=== PATIENT | female | born 1940 | race Caucasian/White ===

== ENCOUNTER → 2016-10-31 | Outpatient (CLI) | payer OTHER ==
[~2016-10-31] MED LIST: CHOL100010 PO; CYAN10002 SC; CYAN500T13 PO; DOCU100T7 PO; FIBER PO; LEVO50TA6 PO; LEVO75TA PO; MAGN400T5 PO; METH1TAB2 PO; MULTCHW PO; POLY335025 PO; PRT40 PO; SENN-61 PO
[2016-10-31 10:54] LABS: BASO % 0.1 %; BASO ABS # 0.01 K/uL (0-0.2); COMPLETE YES; EOS % 1.1 %; HEMATOCRIT 37.5 % (37-47); IG% 0.3 %; LYMPH % 22.5 %; LYMPH ABS # 1.63 K/uL (1.2-3.4); MEAN CELL VOLUME 89.7 fL (80-100); MEAN CORPUSCULAR HEMOGLOBIN 28.5 pg (25-34); MEAN CORPUSCULAR HGB CONC 31.7 g/dl (32-36); MEAN PLATELET VOLUME 10.4 fL (7.4-10.4); PLATELET COUNT 339 K/uL (130-400); RED BLOOD COUNT 4.18 M/uL (4.2-5.4); WHITE BLOOD COUNT 7.23 K/uL (4.8-10.8)
[2016-10-31 11:24] LABS: ALT/SGPT 15 U/L (12-78); BLOOD UREA NITROGEN 50 mg/dl (7-18); BUN/CREATININE RATIO 45.7 (10-20); CALCIUM 8.8 mg/dl (8.5-10.1); CARBON DIOXIDE 27 mmol/L (21-32); CHLORIDE 103 mmol/L (98-107); GLUCOSE 91 mg/dl (70-99); SODIUM 137 mmol/L (136-145)
[2016-10-31 11:26] LABS: ALB/GLOB RATIO 0.7 (0.9-2); ALKALINE PHOSPHATASE 307 U/L (45-117); AST/SGOT 12 U/L (15-37)
== END | disposition home or self-care (01) ==
LOC: C.LABSPEC 10:27
PROVIDERS: ATTEND Internal Medicine
DX: Z87.440 Personal history of urinary (tract) infections (principal); N31.9 Neuromuscular dysfunction of bladder, unspecified; I69.951 Hemiplegia and hemiparesis following unspecified cerebrovascular disease affecting right dominant side; E03.9 Hypothyroidism, unspecified; R19.7 Diarrhea, unspecified

== ENCOUNTER 2018-12-15 11:35 | Inpatient (IN) ==
[2018-12-15] MEDS ORDERED: SODIUM CHLORIDE 0.9% 1000ML 1,000 ML IV ONE (12:05)
[2018-12-15 12:19] LABS: Appearance Urine Turbid (Clear); Bacteria Urine Automated 4+ (Negative); Bilirubin Urine Negative (Negative); Blood Urine Trace (Negative); Color Urine Yellow; Epithelial Cell Urine Auto >30 /lpf (0-5); Glucose Urine UA Negative (Negative); Ketones Urine Negative (Negative); Leukocyte Esterase Urine 3+ (Negative); Nitrite Urine Negative (Negative); Protein Urine Negative (Negative); RBC Urine Automated 0-4 /hpf (0-4); Specific Gravity Urine 1.008 (1.000-1.030); Urobilinogen Urine Negative (Negative); WBC Urine Automated >30 /hpf (0-5); pH Urine >= 9.0 (4.5-7.5)
[2018-12-15 12:30] LABS: Mean Corpuscular Hemoglobin 29.6 pg (25-34); Mean Corpuscular Hgb Conc 33.3 g/dL (32-36); Mean Corpuscular Volume 88.8 fL (80-100); RDW Coefficient of Variation 18.8 % (11.5-14.5); RDW Standard Deviation 60.4 fL (36.4-46.3); Red Blood Count 4.39 M/uL (4.2-5.4); White Blood Count 4.28 K/uL (4.8-10.8)
[2018-12-15 12:41] LABS: Partial Thromboplastin Ratio 1.2; Partial Thromboplastin Time 32.6 Seconds (21.0-31.0); Prothrombin Time 9.9 Seconds (9.0-12.0)
--- NOTE | 2018-12-15 12:44 | XRay Report ---
XR chest 1V portable CLINICAL HISTORY: 78 years-old Female presenting with cva. TECHNIQUE: Portable upright AP view of the chest was obtained. COMPARISON: 06/16/2014. FINDINGS: Atherosclerosis of the aortic arch. Cardiac silhouette normal in size. Mildly low lung volumes. Minim al basilar opacities. No pleural effusion or pneumothorax. Degenerative changes of the thoracic spine and left shoulder. Surgical clips project over the left upper quadrant. IMPRESSION: 1. Minimal bibasilar opacities likely atelectasis or scarring. No convincing evidence of acute cardi opulmonary disease. Electronically signed by: Trent Jeffrey M.D. 12/15/2018 12:42 PM
[2018-12-15 12:45] LABS: Alanine Aminotransferase 23 U/L (12-78); Albumin Level 3.1 gm/dl (3.4-5.0); Aspartate Aminotransferase 21 U/L (15-37); BUN Creatinine Ratio 42.6 (10-20); Blood Urea Nitrogen 33 mg/dl (7-18); Calcium 9.8 mg/dl (8.5-10.1); Carbon Dioxide 30 mmol/L (21-32); Chloride 106 mmol/L (98-107); Creatinine Clr Calc Pharmacy 70.9 ml/min; Est GFR (African American) 84.4; Est GFR (Non-African American) 72.8; Glucose 76 mg/dl (70-99); Magnesium 1.6 mg/dl (1.8-2.4); Potassium 5.1 mmol/L (3.5-5.1); Sodium 141 mmol/L (136-145)
[2018-12-15 12:50] LABS: Albumin Globulin Ratio 0.7 (0.9-2); Alkaline Phosphatase 174 U/L (45-117); Bilirubin,Total 0.6 mg/dl (0.2-1); Globulin 4.2 gm/dl (2.5-4.0); Total Protein 7.3 gm/dl (6.4-8.2); Troponin I < 0.015 ng/ml (0-0.045)
[2018-12-15 12:52] LABS: Basophils # (auto) 0.01 K/uL (0-0.2); Basophils % (auto) 0.2 %; Eosinophils # (auto) 0.03 K/uL (0-0.5); Eosinophils % (auto) 0.7 %; Giant Platelets 2+; Immature Granulocytes # (auto) 0.02 K/uL (0.00-0.02); Immature Granulocytes % (auto) 0.5 %; Lymphocytes # (auto) 1.01 K/uL (1.2-3.4); Lymphocytes % (auto) 23.6 %; Mean Platelet Volume 11.5 fL (7.4-10.4); Monocytes # (auto) 0.23 K/uL (0.11-0.59); Monocytes % (auto) 5.4 %; Neutrophils # (auto) 2.98 K/uL (1.4-6.5); Neutrophils % (auto) 69.6 %; Platelet Count 97 K/uL (130-400); Platelet Estimate Decreased (Normal); Target Cells 1+
--- NOTE | 2018-12-15 13:02 | CT Scan Report ---
HEAD CT NONCONTRAST CT DOSE: 884.08 mGy.cm HISTORY: Stroke symptoms. Stroke evaluation TECHNIQUE: Multiaxial CT images of the head were performed without the use of intravenous contrast. A utomated exposure control was utilized for this study. A dose lowering technique was utilized adheri ng to the principles of ALARA. Comparison: Head CT 06/16/2014. Findings: The paranasal sinuses and mastoid air cells are clear. There is no mass, hematoma, midline shift, acute infarct. White matter hypodensity is nonspecific but suggestive of microvascular ischemi c change. The ventricles and sulci demonstrate mild age-related involutional changes. Postoperative c hanges consistent with prior left suboccipital craniectomy with an overlying metallic plate. No mon e in the metallic density anterior to the left globe. Stable encephalomalacia within the left cerebel lar hemisphere. This is likely due to postoperative change. Impression: No significant change compared to the prior study. No acute intracranial abnormality. Stable postoper ative changes within the left posterior fossa. Stable metallic foreign body anterior to the left glob e. Electronically signed by: Anthony Gonzalez M.D. 12/15/2018 1:00 PM
[2018-12-15] MEDS ORDERED: ALTEPLASE For Stroke IV STA (13:25)
[2018-12-15] MEDS ORDERED: ALTEPLASE BOLUS IV ONE (13:36)
[2018-12-15] MEDS ORDERED: PRIMARY PLUMSET, PE LINED TUBING, 113 IN, NON-DEHP (2260-0500) IV ONE (13:37)
[2018-12-15] MEDS ORDERED: ALTEPLASE IV ONE (13:37)
[2018-12-15] MEDS ORDERED: RECOMBINANT IV ONE (13:37)
[2018-12-15] MEDS ORDERED: cefTRIAXone SODIUM 1,000 MG/50 ML BAG IV STA (15:05)
[2018-12-15] MEDS ORDERED: MAGNESIUM HYDROXIDE SUSP 30 ML UDC PO PRN (16:22)
[2018-12-15] MEDS ORDERED: ALUMINUM/MAGNESIUM SUSP 30 ML UDC PO PRN (16:22)
[2018-12-15] MEDS ORDERED: ACETAMINOPHEN 325 MG TAB PO PRN (16:22)
[2018-12-15] MEDS ORDERED: POLYETHYLENE (MIRALAX) 17 GM PACK PO PRN (16:22)
[2018-12-15] MEDS ORDERED: ZOLPIDEM TARTRATE 5 MG TAB PO PRN (16:22)
[2018-12-15] MEDS ORDERED: HydrALAZINE HCL 20 MG/ML VIAL IV PRN (16:25)
[2018-12-15] MEDS ORDERED: MENTHOL-ZINC OXIDE 360 APPLN/120 GM TUBE EXT PRN (16:37)
[2018-12-15] MEDS ORDERED: NYSTATIN POWDER 15GM BTL EXT PRN (16:37)
[2018-12-15] MEDS ORDERED: ERYTHROMYCIN OP OINT 1 GM PKT OP PRN (16:37)
[2018-12-15] MEDS ORDERED: WHEAT DEXTRIN PO PRN (16:37)
[2018-12-15] MEDS ORDERED: POLYETHYLENE GLYCOL PO PRN (16:37)
[2018-12-15] MEDS ORDERED: [UNRECOGNIZED DRUG - OTHER] TOP PRN (16:37)
[2018-12-15] MEDS ORDERED: DOCUSATE SODIUM/SENNA 50/8.6MG TAB PO PRN (16:37)
[2018-12-15] MEDS ORDERED: ASPIRIN CHEW 324 MG PO STA (16:44)
--- NOTE | 2018-12-15 17:02 | History & Physical Report ---
Date of Service December 15, 2018 Assessment & Plan (1) Progressive focal motor weakness: Admit to telemetry Vitals and neuro check as per protocol Gentle IV fluid hydration Concern for CVA We will start empirically aspirin and Lipitor Will allow blood pressure to be elevated, permissive hypertension to improve perfusion Hydralazine 10 mg IV every 6 hours as needed systolic blood pressure more than 185 CT head was within normal limits Ordered CT angiogram head and neck Ordered MRI with and without contrast in the morning as patient has strong family history of ALS, her brother from ALS last year. Consult neurologist (2) Facial droop: Worse than before, management as mentioned in focal weakness (3) Slurred speech: Worse than before management as mentioned in focal weakness (4) Hyperlipidemia: Check lipids panel and hemoglobin A1c to stratify patient's risk factors Start empirically on Lipitor (5) Vitamin B 12 deficiency: Will check vitamin B12 level Continue vitamin B12 supplement (6) UTI (urinary tract infection): UTI present on admission likely indwelling catheter related Obtain urine culture and blood cultures Based on last urine culture in September 2018 that grew Klebsiella and E. coli pansensitive, will start patient on ceftriaxone. We will add lactobacillus to prevent C. 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 Patient was recently admitted for a UTI, urine cultures in September 2018 grew Klebsiella and E. coli pansensitive. She changes her Irene catheter every 2 weeks, last changed was about 4 days ago. Patient's home nurse noticed that she has progressive weakness, unable to hold the phone like she used to, she started to having drooling from her mouth, unable to fulfill simple tasks that she used to do with her hands. Patient was brought to the ED for further evaluation and management. Her deterioration happened over the. Of 2 weeks so code stroke was not called. She was found to have significant weakness is both upper extremities and significant worsening in her slurred speech as per and niece who are are in the room with her. Primary Care Provider: Trent Manuel MD Allergies Allergy/AdvReac Type Severity Reaction Status Date / Time raspberry Allergy Unknown RASH Unverified 06/16/14 09:25 strawberry Allergy Unknown redness,rash Verified 06/16/14 05:08 on abdomen Home Medications Home Medications Medication Instructions Recorded Confirmed Type methenamine hippurate 1 gram tablet 1 gm PO BID #180 tab 10/12/18 12/15/18 Rx miscellaneous medical supply misc #6 ea 10/27/18 11/12/18 Rx cholecalciferol (vitamin D3) 2,000 2,000 units PO DAILY tab 10/31/18 12/15/18 History unit tablet cyanocobalamin (vit B-12) 250 mcg 250 mcg PO QAM 10/31/18 12/15/18 History tablet docusate sodium 100 mg capsule 100 mg PO BID 10/31/18 12/15/18 History foam bandage 4" X 4" #1 ea 10/31/18 11/12/18 History magnesium oxide 400 mg (241.3 mg 400 mg PO DAILY tab 10/31/18 12/15/18 History magnesium) tablet menthol 0.44 %-zinc oxide 20.6 % 1 appln TOPICAL BID PRN #1 gm 10/31/18 12/15/18 History topical ointment pantoprazole 40 mg tablet,delayed 40 mg PO QAM #90 tab 10/31/18 12/15/18 History release polyethylene glycol 3350 17 17 gm PO DAILY PRN #527 gm 10/31/18 12/15/18 History gram/dose oral powder collagenase clostridium 1 appln TOPICAL DAILY PRN #1 gm 11/09/18 12/15/18 Histo ry histolyticum 250 unit/gram topical ointment erythromycin 5 mg/gram (0.5 %) eye 1 cm OP QID PRN #3.5 gm 11/09/18 12/15/18 History ointment sennosides 8.6 mg-docusate sodium 1 tab PO DAILY PRN tab 11/09/18 12/15/18 History 50 mg tablet wheat dextrin 3 gram/3.5 gram oral 1 pkt PO DAILY PRN ea 11/09/18 12/15/18 History powder packet cyanocobalamin (vit B-12) 1,000 1,000 mcg IM MONTHLY #10 ml 11/12/18 12/15/18 Rx mcg/mL injection solution nystatin 100,000 unit/gram topical 1 appln TOPICAL QID PRN #60 gm 11/12/18 12/15/18 Rx powder syringe with needle 3 mL 25 x 5/8" #12 ea 11/12/18 11/12/18 Rx levothyroxine 75 mcg PO QAM 12/15/18 12/15/18 History Past Med/Surg History Medical History Alkaline phosphatase elevation (Acute) Arthritis (Chronic) Candidal intertrigo (Acute) Chronic constipation (Acute) Decubitus ulcer, buttock (Acute) Hearing loss (Acute) Hyperlipidemia (Chronic) Nephrolithiasis (Acute) Vitamin B 12 deficiency (Acute) Wheelchair dependent (Acute) Family History Unknown Diabetes Hypertension Chronic liver disease Social History Feels Safe at Home: Yes Smoking Status: Never smoker caffeine: No Seatbelt Use: always Review of Systems Review of Systems: Review of system Constitutional: No fever / no chills /generalized weakness and fatigue as mentioned above Eyes: Baseline dryness of left eye with corneal opacity ENT: Baseline decreased hearing Respiratory: no cough / no wheezing / no SOB / no hemoptysis Cardiovascular: no Chest pain / no lower extremity edema / no palpitation Abdomen: no pain / no nausea / no vomiting / no constipation Musculoskeletal: Joint deformities in both upper extremities Genitourinary: Indwelling Irene catheter, Neurologic: Awake oriented, but has significant worsening in her weakness Psychiatric: no depression symptoms / no anxiety / no insomnia Endocrine: no excessive thirst / no excessive urination Hematologic: no abnormal bleeding / no bruising / no LN swelling Skin: scattered petechial rash Physical Exam Physical Exam: Physical examination General morbidly obese, appears to be comfortable not in acute distress HEENT: Scar tissue on the left frontal aspect of the face with dry eye and corneal opacity Neck: Supple /no swelling /central trach Heart: S1/S2 normal/regular rate and rhythm/no gallop /no rub /no murmur Lungs: Clear to auscultation bilaterally/normal chest with expansion/no rhonchi/no rales/no wheezing/no use of accessory muscles of respiration Abdomen: Soft/nontender/no guarding/no rebound/no organomegaly/no pulsatile mass Musculoskeletal: And feet significant deformity in both hands Neuro exam: Awake alert oriented 3/slight movement in all extremities but significant weakness in both upper extremity 3/5, lower extremities weakness is 2/5 did not notice significant difference between right and left Psychiatric evaluation: No depressed mood/normal affect Skin: No rash on exposed skin area/no erythema Extremity: Normal pulse/no pitting edema/no clubbing or cyanosis Results & Data Vital Signs (Past 12 Hours) Vital Signs Temp Pulse Pulse Resp BP BP Pulse Ox 12/15/18 14:05 36.4 C L 63 14 182/92 H 97 12/15/18 11:57 96 12/15/18 11:49 64 17 191/102 H 96 PG Care Time/CCT Total # of Minutes Spent Total Time Spent with Patient: 35 minutes total time spent is greater than 50% in coordination of care (as documented) at patient's floor/unit and/or counseling patient/family discussion of care with nursing staff
--- NOTE | 2018-12-15 17:14 | Emergency Department Note ---
Entered by Sarita Ngo acting as a scribe for Kvng Demarco DO History of Present Illness General Chief complaint: Stroke/CVA Symptoms Source: patient and family () Mode of arrival: EMS Limitations: no limitations History of Present Illness Onset (ago): week(s) 1 Location: head Radiation: non-radiation Pain Consistency: + constant Relieved By: + none Exacerbated By: + none Associated symptoms: + loss of appetite, + weakness and + other (+left sided facial droop, -dysuria, +slurred speech); no chest pain, no headaches, no nausea/vomiting and no shortness of breath Treatments prior to arrival: none The patient is a 78 year old female with a PMHX of brain tumor, kidney stones, GI bleed and HLD who presents to the ED with complaints of possible stroke symptoms. Ever since her brain tumor in 2006, she has experienced a left sided facial droop and weakness. Last week, the patient developed slurred speech and increased weakness and a loss of appetite, which is new for her. The patient denies any new headaches, chest pain, shortness of breath, nausea or vomiting. She denies any dysuria and her notes she has a catheter that is replaced every other week. She states she does not feel hungry and reports her last BM was 10 days ago. She denies any difficulty swallowing. Home Medications Home Medications Medication Instructions Recorded Confirmed Type methenamine hippurate 1 gram tablet 1 gm PO BID #180 tab 10/12/18 12/15/18 Rx miscellaneous medical supply misc #6 ea 10/27/18 11/12/18 Rx cholecalciferol (vitamin D3) 2,000 2,000 units PO DAILY tab 10/31/18 12/15/18 History unit tablet cyanocobalamin (vit B-12) 250 mcg 250 mcg PO QAM 10/31/18 12/15/18 History tablet docusate sodium 100 mg capsule 100 mg PO BID 10/31/18 12/15/18 History foam bandage 4" X 4" #1 ea 10/31/18 11/12/18 History magnesium oxide 400 mg (241.3 mg 400 mg PO DAILY tab 10/31/18 12/15/18 History magnesium) tablet menthol 0.44 %-zinc oxide 20.6 % 1 appln TOPICAL BID PRN #1 gm 10/31/18 12/15/18 History topical ointment pantoprazole 40 mg tablet,delayed 40 mg PO QAM #90 tab 10/31/18 12/15/18 History release polyethylene glycol 3350 17 17 gm PO DAILY PRN #527 gm 10/31/18 12/15/18 History gram/dose oral powder collagenase clostridium 1 appln TOPICAL DAILY PRN #1 gm 11/09/18 12/15/18 History histolyticum 250 unit/gram topical ointment erythromycin 5 mg/gram (0.5 %) eye 1 cm OP QID PRN #3.5 gm 11/09/18 12/15/18 History ointment sennosides 8.6 mg-docusate sodium 1 tab PO DAILY PRN tab 11/09/18 12/15/18 History 50 mg tablet wheat dextrin 3 gram/3.5 gram oral 1 pkt PO DAILY PRN ea 11/09/18 12/15/18 History powder packet cyanocobalamin (vit B-12) 1,000 1,000 mcg IM MONTHLY #10 ml 11/12/18 12/15/18 Rx mcg/mL injection solution nystatin 100,000 unit/gram topical 1 appln TOPICAL QID PRN #60 gm 11/12/18 12/15/18 Rx powder syringe with needle 3 mL 25 x 5/8" #12 ea 11/12/18 11/12/18 Rx levothyroxine 75 mcg PO QAM 12/15/18 12/15/18 History Allergies Allergy/AdvReac Type Severity Reaction Status Date / Time raspberry Allergy Unknown RASH Unverified 06/16/14 09:25 strawberry Allergy Unknown redness,rash Verified 06/16/14 05:08 on abdomen Past Med/Surg History Medical History Alkaline phosphatase elevation (Acute) Arthritis (Chronic) Candidal intertrigo (Acute) Chronic constipation (Acute) Decubitus ulcer, buttock (Acute) Hearing loss (Acute) Hyperlipidemia (Chronic) Nephrolithiasis (Acute) Vitamin B 12 deficiency (Acute) Wheelchair dependent (Acute) Family History Unknown Diabetes Hypertension Chronic liver disease Social History Feels Safe at Home: Yes Smoking Status: Never smoker caffeine: No Seatbelt Use: always Review of Systems See HPI for pertinent positives & negatives. and A total of 10 systems reviewed and were otherwise negative Physical Exam Vital Signs Vital Signs - 24 hr 12/15/18 11:49 12/15/18 11:57 12/15/18 14:05 Temperature 36.4 C L Temperature Source Axillary Sepsis Recent Fever Within 48 Hours No Sepsis Action Taken by Nursing No Action Required Pulse Rate 64 Pulse Rate [Finger] 63 Respiratory Rate 17 14 Blood Pressure 191/102 H Blood Pressure [Right Arm] 182/92 H Blood Pressure Mean 131 Blood Pressure Mean [Right Arm] 122 Pulse Oximetry 96 96 97 Oxygen Delivery Method Room Air Room Air GENERAL: Patient is sitting up in bed, chronically ill-appearing, disheveled. EYE EXAM: Left eye is opacified, right pupil is PERRL. OROPHARYNX: no exudate, no erythema, lips, buccal mucosa, and tongue normal and mucous membranes are moist NECK: supple, no nuchal rigidity, no adenopathy, non-tender LUNGS: Clear to auscultation. Normal chest wall mechanics HEART: no murmurs, S1 normal and S2 normal ABDOMEN: abdomen soft, non-tender, normo-active bowel sounds, no masses, no rebound or guarding. BACK: Back is symmetrical on inspection and there is no deformity, no midline tenderness, no CVA tenderness. SKIN: no rashes and no bruising UPPER EXTREMITIES: upper extremities are grossly normal. LOWER EXTREMITIES: No pitting edema. NEURO EXAM: Patient is awake, alert, answering questions appropriately with slurred speech, right sided facial droop, minimal plantar and dorsiflexion of LLE, patient is able to lift up against gravity and small grasp on LUE, unable to move RLE, faint movement of right upper extremity. Course ED COURSE: Vital signs were reviewed and showed the patient is hypertensive. The patients medical record was reviewed The above diagnostic studies were performed and reviewed. ED treatments and interventions as stated above. 1200: The patient was evaluated in room C2B. A complete history and physical examination was performed. 1440: I reevaluated the patient. Her slurred speech is worse. 1520: I discussed the patients case with Dr. Rosalina Fowler, [facility] Hospitalist. The patient will be further evaluated. 1530: Upon reevaluation, the patient is resting comfortably. I discussed my findings with the patient and she understands and agrees with the treatment plan. Based on the patients age, coexisting illnesses, exam and lab findings the decision to treat as an inpatient was made. The patient remained stable while under my care. The patient will be evaluated for further management. Administered Medications Discontinued Medications Sodium Chloride (Nss 1000ml) 1,000 mls @ 999 mls/hr IV .Q1H1M ONE Stop: 12/15/18 13:05 Last Infusion: 12/15/18 13:43 Dose: 0 mls/hr Documented by: [id number] Admin: 12/15/18 12:40 Dose: 999 mls/hr Documented by: [id number] Ceftriaxone Sodium (Rocephin) 1,000 mg in 50 mls @ 100 mls/hr IV NOW STA Stop: 12/15/18 15:34 Last Infusion: 12/15/18 15:46 Dose: 0 mls/hr Documented by: [id number] Admin: 12/15/18 15:14 Dose: 100 mls/hr Documented by: [id number] Medical Decision Making Differential Diagnosis Differential Diagnosis includes but is not limited to ischemic Stroke, hemorrhagic stroke, bells palsy, mass, neoplasm, migraine headache, seizure, subarachnoid hemorrhage, TIA, and transient global amnesia. Medical Records Attestation: I reviewed the patient's medical records. Home Medications Current Medication List: was personally reviewed by me Laboratory Data Attestation: I reviewed the patient's lab results. Result diagrams: 12/15/18 12:18 12/15/18 12:18 Lab Results 12/15/18 12/15/18 12/15/18 Range/Units 11:42 12:11 12:17 WBC (4.8-10.8) K/uL RBC (4.2-5.4) M/uL Hgb (12.0-16.0) g/dL Hct (37-47) % MCV (80-100) fL MCH (25-34) pg MCHC (32-36) g/dL RDW Std Deviation (36.4-46.3) fL RDW Coeff of [place] (11.5-14.5) % Plt Count (130-400) K/uL MPV (7.4-10.4) fL Immature Gran % (Auto) % Neut % (Auto) % Lymph % (Auto) % [place] % (Auto) % Eos % (Auto) % Baso % (Auto) % Immature Gran # (Auto) (0.00-0.02) K/uL Neut # (Auto) (1.4-6.5) K/uL Lymph # (Auto) (1.2-3.4) K/uL [place] # (Auto) (0.11-0.59) K/uL Eos # (Auto) (0-0.5) K/uL Baso # (Auto) (0-0.2) K/uL Platelet Estimate (Normal) Giant Platelets Target Cells PT (9.0-12.0) Seconds INR (0.9-1.1) APTT (21.0-31.0) Seconds PTT Ratio Sodium (136-145) mmol/L Potassium (3.5-5.1) mmol/L Chloride (98-107) mmol/L Carbon Dioxide (21-32) mmol/L Anion Gap (3-11) BUN (7-18) mg/dl Creatinine (0.6-1.2) mg/dl Est Cr Clr Drug Dosing ml/min Est GFR ( Amer) Est GFR (Non-Af Amer) BUN/Creatinine Ratio (10-20) Glucose (70-99) mg/dl POC Glucose 75 (70-99) Calcium (8.5-10.1) mg/dl Magnesium (1.8-2.4) mg/dl Total Bilirubin (0.2-1) mg/dl AST (15-37) U/L ALT (12-78) U/L Alkaline Phosphatase (45-117) U/L Troponin I (0-0.045) ng/ml Total Protein (6.4-8.2) gm/dl Albumin (3.4-5.0) gm/dl Globulin (2.5-4.0) gm/dl Albumin/Globulin Ratio (0.9-2) Urine Color Yellow Urine Appearance Turbid A (Clear) Urine pH >= 9.0 H (4.5-7.5) Ur Specific [place] 1.008 (1.000-1.030) Urine Protein Negative (Negative) Urine Glucose (UA) Negative (Negative) Urine Ketones Negative (Negative) Urine Blood Trace H (Negative) Urine Nitrite Negative (Negative) Urine Bilirubin Negative (Negative) Urine Urobilinogen Negative (Negative) Ur Leukocyte Esterase 3+ H (Negative) Urine WBC (Auto) >30 H (0-5) /hpf Urine RBC (Auto) 0-4 (0-4) /hpf U Hyaline Cast (Auto) 1-5 (0-5) /lpf U Epithel Cells (Auto) >30 H (0-5) /lpf Urine Bacteria (Auto) 4+ H (Negative) Blood Type A Positive Antibody Screen NEGATIVE 12/15/18 12/15/18 12/15/18 Range/Units 12:18 12:18 12:18 WBC 4.28 L (4.8-10.8) K/uL RBC 4.39 (4.2-5.4) M/uL Hgb 13.0 (12.0-16.0) g/dL Hct 39.0 (37-47) % MCV 88.8 (80-100) fL MCH 29.6 (25-34) pg MCHC 33.3 (32-36) g/dL RDW Std Deviation 60.4 H (36.4-46.3) fL RDW Coeff of [place] 18.8 H (11.5-14.5) % Plt Count 97 L (130-400) K/uL MPV 11.5 H (7.4-10.4) fL Immature Gran % (Auto) 0.5 % Neut % (Auto) 69.6 % Lymph % (Auto) 23.6 % [place] % (Auto) 5.4 % Eos % (Auto) 0.7 % Baso % (Auto) 0.2 % Immature Gran # (Auto) 0.02 (0.00-0.02) K/uL Neut # (Auto) 2.98 (1.4-6.5) K/uL Lymph # (Auto) 1.01 L (1.2-3.4) K/uL [place] # (Auto) 0.23 (0.11-0.59) K/uL Eos # (Auto) 0.03 (0-0.5) K/uL Baso # (Auto) 0.01 (0-0.2) K/uL Platelet Estimate Decreased L (Normal) Giant Platelets 2+ Target Cells 1+ PT 9.9 (9.0-12.0) Seconds INR 1.0 (0.9-1.1) APTT 32.6 H (21.0-31.0) Seconds PTT Ratio 1.2 Sodium 141 (136-145) mmol/L Potassium 5.1 (3.5-5.1) mmol/L Chloride 106 (98-107) mmol/L Carbon Dioxide 30 (21-32) mmol/L Anion Gap 5.0 (3-11) BUN 33 H (7-18) mg/dl Creatinine 0.78 (0.6-1.2) mg/dl Est Cr Clr Drug Dosing 70.9 ml/min Est GFR ( Amer) 84.4 Est GFR (Non-Af Amer) 72.8 BUN/Creatinine Ratio 42.6 H (10-20) Glucose 76 (70-99) mg/dl POC Glucose (70-99) Calcium 9.8 (8.5-10.1) mg/dl Magnesium 1.6 L (1.8-2.4) mg/dl Total Bilirubin 0.6 (0.2-1) mg/dl AST 21 (15-37) U/L ALT 23 (12-78) U/L Alkaline Phosphatase 174 H (45-117) U/L Troponin I < 0.015 (0-0.045) ng/ml Total Protein 7.3 (6.4-8.2) gm/dl Albumin 3.1 L (3.4-5.0) gm/dl Globulin 4.2 H (2.5-4.0) gm/dl Albumin/Globulin Ratio 0.7 L (0.9-2) Urine Color Urine Appearance (Clear) Urine pH (4.5-7.5) Ur Specific [place] (1.000-1.030) Urine Protein (Negative) Urine Glucose (UA) (Negative) Urine Ketones (Negative) Urine Blood (Negative) Urine Nitrite (Negative) Urine Bilirubin (Negative) Urine Urobilinogen (Negative) Ur Leukocyte Esterase (Negative) Urine WBC (Auto) (0-5) /hpf Urine RBC (Auto) (0-4) /hpf U Hyaline Cast (Auto) (0-5) /lpf U Epithel Cells (Auto) (0-5) /lpf Urine Bacteria (Auto) (Negative) Blood Type Antibody Screen Imaging Data Radiologist's Impression: Radiology results as stated below per my review and the radiologist's interpretation: XR chest 1V portable CLINICAL HISTORY: 78 years-old Female presenting with cva. TECHNIQUE: Portable upright AP view of the chest was obtained. COMPARISON: 06/16/2014. FINDINGS: Atherosclerosis of the aortic arch. Cardiac silhouette normal in size. Mildly low lung volumes. Minimal basilar opacities. No pleural effusion or pneumothorax. Degenerative changes of the thoracic spine and left shoulder. Surgical clips project over the left upper quadrant. IMPRESSION: 1. Minimal bibasilar opacities likely atelectasis or scarring. No convincing evidence of acute cardiopulmonary disease. Electronically signed by: Trent Jeffrey M.D. 12/15/2018 12:[address] NONCONTRAST CT DOSE: 884.08 mGy.cm HISTORY: Stroke symptoms. Stroke evaluation TECHNIQUE: Multiaxial CT images of the head were performed without the use of intravenous contrast. Automated exposure control was utilized for this study. A dose lowering technique was utilized adhering to the principles of ALARA. Comparison: Head CT 06/16/2014. Findings: The paranasal sinuses and mastoid air cells are clear. There is no mass, hematoma, midline shift, acute infarct. White matter hypodensity is nonspecific but suggestive of microvascular ischemic change. The ventricles and sulci demonstrate mild age-related involutional changes. Postoperative changes consistent with prior left suboccipital craniectomy with an overlying metallic plate. No change in the metallic density anterior to the left globe. Stable encephalomalacia within the left cerebellar hemisphere. This is likely due to postoperative change. Impression: No significant change compared to the prior study. No acute intracranial abnormality. Stable postoperative changes within the left posterior fossa. Stable metallic foreign body anterior to the left globe. Electronically signed by: Anthony Gonzalez M.D. 12/15/2018 1:00 PM ECG Data Attestation: I personally reviewed and interpreted this ECG as follows: Indication: weakness Rate (beats per minute): 62 Rhythm: sinus rhythm Findings: + other (Normal axis) and + nonspecific-ST abn (Non-specific ST changes in high lateral leads with T-wave flattening in lateral leads) Comparison ECG Date: from (06/12/2014) Change: no significant change Blood Pressure Blood Pressure Findings: Elevated blood pressure Blood Pressure Disposition: further management by hospitalist MDM Narrative Patient is a 78-year-old female who presents the ER for worsening right-sided facial droop associated with slurred speech. Previous brain surgery with an old right-sided and left-sided deficit. No new weakness or numbness in her upper or lower extremities. IV was established blood work was obtained showed a mild leukopenia. No significant anemia. INR was unremarkable. BMP along with LFTs was unremarkable. Magnesium was slightly low at 1.6. No significant transaminitis. UA although contaminated I do question if that is the source of her weakness. Patient was given a dose of IV Rocephin. She is updated bedside. CT head was negative. EKG was nondiagnostic. She was discussed with hospitalist she was admitted for further work-up. Chest x-ray without any focal infiltrate. Impression & Plan Facial droop, Slurred speech, UTI (urinary tract infection) Discharge Plan Visit Data Chief Complaint: Stroke/CVA Symptoms ED Provider: Kvng Demarco Discharge Problem: Facial droop, Slurred speech, UTI (urinary tract infection) Patient Disposition: Being Evaluated by Hospitalist Forms Stand Alone Forms: [facility] Prescriptions Prescriptions: No Action methenamine hippurate 1 gram tablet 1 gm PO BID Qty: 180 RF: 3 miscellaneous medical supply misc .ROUTE .MEDSUPPLY Qty: 6 RF: 11 cholecalciferol (vitamin D3) 2,000 unit tablet 2,000 units PO DAILY RF: 0 polyethylene glycol 3350 17 gram/dose powder 17 gm PO DAILY PRN (Reason: chronic constipation) Qty: 527 RF: 0 pantoprazole 40 mg tablet,delayed release (DR/EC) 40 mg PO QAM Qty: 90 RF: 0 magnesium oxide 400 mg (241.3 mg magnesium) tablet 400 mg PO DAILY RF: 0 cyanocobalamin (vitamin B-12) 250 mcg tablet 250 mcg PO QAM RF: 0 docusate sodium 100 mg capsule 100 mg PO BID RF: 0 menthol-zinc oxide 0.44-20.6 % ointment 1 appln topical BID PRN (Reason: decubitus ulcer) Qty: 1 RF: 0 Aquacel Foam 4 X 4 " bandage .ROUTE .MEDSUPPLY Qty: 1 RF: 0 wheat dextrin 3 gram/3.5 gram powder in packet 1 pkt PO DAILY PRN (Reason: Constipation) RF: 0 erythromycin 5 mg/gram (0.5 %) ointment 1 cm OP QID PRN (Reason: conjunctivitis) Qty: 3.5 RF: 0 collagenase clostridium histo. 250 unit/gram ointment 1 appln topical DAILY PRN (Reason: ulcers) Qty: 1 RF: 0 sennosides-docusate sodium 8.6-50 mg tablet 1 tab PO DAILY PRN (Reason: Constipation) RF: 0 nystatin 100,000 unit/gram powder 1 appln topical QID PRN (Reason: candidiasis) Qty: 60 RF: 3 cyanocobalamin (vitamin B-12) 1,000 mcg/mL solution 1,000 mcg IM MONTHLY Qty: 10 RF: 3 BD Luer-Margret Syringe 3 mL 25 x 5/8" syringe .ROUTE .MEDSUPPLY Qty: 12 RF: 1 levothyroxine 75 mcg tablet 75 mcg PO QAM RF: 0 Referrals Referrals: Trent Manuel MD [Primary Care Provider] - The scribe's documentation has been prepared under my direction and personally reviewed by me in its entirety. I confirm that the note above accurately reflects all work, treatment, procedures, and medical decision making performed by me.
--- NOTE | 2018-12-15 18:21 | CT Scan Report ---
CT angio head w con HISTORY: Mental status change weakness TECHNIQUE: Multiaxial CT angiography of the head was performed IV contrast: 100 cc Maximum intensi ty projection images were also obtained. A dose lowering technique was utilized adhering to the prin ciples of CECILIO. COMPARISON: None. FINDINGS: There is no mass, hematoma, midline shift, or acute infarct. Visualized intracranial manager of internal al carotid arteries, distal vertebral arteries, and basilar artery are widely patent. There is no sig nificant stenosis, occlusion, or aneurysm seen within the bilateral ACAs, MCAs, or field care advocate. IMPRESSION: No significant stenosis, occlusion, or aneurysm within the [place]. The above report was generated using voice recognition software. It may contain grammatical, syntax or spelling errors. Electronically signed by: Leonel Cochran M.D. 12/15/2018 6:20 PM
--- NOTE | 2018-12-15 18:24 | CT Scan Report ---
CT angio neck with con HISTORY: Mental status change weakness TECHNIQUE: Multiaxial CT angiography of the neck was performed 100 cc IV contrast: None. All measu rements were calculated based on NASCET criteria. Maximum intensity projection images were also obta ined. A dose lowering technique was utilized adhering to the principles of ALARA. COMPARISON STUDY: None. FINDINGS: The aortic arch and proximal great vessels are widely patent. There is no significant sten osis, occlusion, or dissection identified within the bilateral common carotid, internal carotid, or v ertebral arteries. IMPRESSION: No significant stenosis, occlusion, or dissection identified within the carotid or vertebral arteries . Mild plaque formation at the carotid bifurcations bilaterally The above report was generated using voice recognition software. It may contain grammatical, syntax or spelling errors. Electronically signed by: Leonel Cochran M.D. 12/15/2018 6:22 PM
[2018-12-15] MEDS ORDERED: Nursing to Pharmacy Communication ONE (20:22)
[2018-12-15] MEDS: ATORVASTATIN 40 MG TAB PO SCH (20:41)
[2018-12-15] MEDS: LACTOBACILLUS ACIDOPHILUS 1 GM PACK PO SCH (20:42)
[2018-12-15] MEDS: METHENAMINE HIPPURATE 1 GM TAB PO SCH (20:42)
[2018-12-15] MEDS: DOCUSATE SODIUM 100 MG CAP PO SCH (20:42)
[2018-12-15] MEDS: SODIUM CHLORIDE 0.9% 1000ML 1,000 ML IV SCH (20:43)
[2018-12-15] MEDS: SYSTANE OPL SCH (20:54)
[2018-12-16 05:38] LABS: Hematocrit (blood only) 35.8 % (37-47); Hemoglobin 11.6 g/dL (12.0-16.0); Mean Corpuscular Hemoglobin 28.6 pg (25-34); Mean Corpuscular Hgb Conc 32.4 g/dL (32-36); Mean Corpuscular Volume 88.4 fL (80-100); Nucleated RBC # (auto) 0.02 K/uL (0-0); Nucleated RBC % (auto) 0.4 %; RDW Coefficient of Variation 18.8 % (11.5-14.5); RDW Standard Deviation 59.7 fL (36.4-46.3); Red Blood Count 4.05 M/uL (4.2-5.4); White Blood Count 5.76 K/uL (4.8-10.8)
[2018-12-16 05:46] LABS: Mean Platelet Volume 11.2 fL (7.4-10.4); Platelet Count 95 K/uL (130-400)
[2018-12-16 06:00] LABS: Estimated Average Glucose 97 mg/dl
[2018-12-16 06:05] LABS: Alanine Aminotransferase 19 U/L (12-78); Albumin Level 2.8 gm/dl (3.4-5.0); Aspartate Aminotransferase 16 U/L (15-37); BUN Creatinine Ratio 42.4 (10-20); Blood Urea Nitrogen 33 mg/dl (7-18); Calcium 9.2 mg/dl (8.5-10.1); Carbon Dioxide 27 mmol/L (21-32); Chloride 109 mmol/L (98-107); Creatinine Clr Calc Pharmacy 70.9 ml/min; Est GFR (African American) 84.4; Est GFR (Non-African American) 72.8; Glucose 63 mg/dl (70-99); Magnesium 1.5 mg/dl (1.8-2.4); Potassium 5.2 mmol/L (3.5-5.1); Sodium 141 mmol/L (136-145)
[2018-12-16 06:08] LABS: Albumin Globulin Ratio 0.7 (0.9-2); Alkaline Phosphatase 156 U/L (45-117); Bilirubin,Total 0.5 mg/dl (0.2-1); Chol HDL Ratio 3; Cholesterol 238 mg/dl (0-200); Globulin 3.9 gm/dl (2.5-4.0); HDL Cholesterol 71 mg/dl; LDL Cholesterol Calculated 138 mg/dl; Total Protein 6.7 gm/dl (6.4-8.2); Triglycerides 147 mg/dl (0-150); Troponin I < 0.015 ng/ml (0-0.045); VLDL Cholesterol 29 mg/dl
[2018-12-16 06:14] LABS: Basophils # (auto) 0.01 K/uL (0-0.2); Basophils % (auto) 0.2 %; Eosinophils # (auto) 0.04 K/uL (0-0.5); Eosinophils % (auto) 0.7 %; Giant Platelets 1+; Immature Granulocytes # (auto) 0.02 K/uL (0.00-0.02); Immature Granulocytes % (auto) 0.3 %; Lymphocytes % (auto) 17.4 %; Monocytes # (auto) 0.37 K/uL (0.11-0.59); Monocytes % (auto) 6.4 %; Neutrophils # (auto) 4.32 K/uL (1.4-6.5); Target Cells 1+
[2018-12-16] MEDS ORDERED: LEVOTHYROXINE SODIUM 75 MCG TABLET PO SCH (06:30)
[2018-12-16] MEDS ORDERED: MAGNESIUM OXIDE 400 MG TAB PO SCH (09:00)
[2018-12-16] MEDS ORDERED: PANTOprazole 40 MG TAB PO SCH (09:00)
[2018-12-16] MEDS ORDERED: CYANOCOBALAMIN 500 MCG TABLET (VITAMIN B-12) PO SCH (09:00)
[2018-12-16] MEDS ORDERED: ASPIRIN 325 MG ECTAB PO SCH (09:00)
[2018-12-16] MEDS: LACTOBACILLUS ACIDOPHILUS 1 GM PACK PO SCH ×2 (09:49→13:40)
[2018-12-16] MEDS: DOCUSATE SODIUM 100 MG CAP PO SCH (09:49)
[2018-12-16] MEDS: ATORVASTATIN 40 MG TAB PO SCH (09:49)
[2018-12-16] MEDS: SYSTANE OPL SCH (09:50)
[2018-12-16] MEDS: METHENAMINE HIPPURATE 1 GM TAB PO SCH (09:50)
--- NOTE | 2018-12-16 11:09 | Neurology Consultation ---
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 This right taylor paresis has progressed over time and is significa nt with spasticity. The patient has not walk well since her knee replacement surgery in 2003. She has weakness in all limbs. She has a new onset worsening dysarthria without aphasia. There was concerned that she was weaker in general as well. However, the patient's who was at bedside today feels that she is completely at her baseline was strength and speech. Nevertheless I see diffuse weakness in all limbs, likely old, with significant dysarthria. Although the CT scan of the head was unremarkable I cannot exclude a small stroke particularly in the posterior fossa/brainstem. Patient had elevated high blood pressure which could be a risk factor for stroke. She has dyslipidemia as well. Recommendations: 1. An MRI of the brain would be reasonable if we can get this to rule out a small stroke. Gold in her left upper eyelid should not prevent her from having an MRI 2. Control blood pressure as you are doing Merari for a mean arterial pressure approximately 95-100. 3. Consider statin (I would avoid high-dose in her) for her dyslipidemia 4. Speech, Physical, and Occupational therapy evaluations considering rehab if possible. 5. Evaluate for urinary tract infection and treat accordingly. Otherwise, I have no further neurologic recommendations to make at this time. Overall, I spent a total of 110 minutes with this case including review of records, review of CT films, direct evaluation the patient bedside, discussing the case with the patient bedside, her spouse at bedside, nursing staff, and Dr. Florian, including differential diagnosis and treatment options. History of Present Illness Reason for Consultation: Patient is a 78-year-old, who I was asked to see the request of Dr. Edy Fowler, for neurologic consultation regarding weakness, dysarthria, and multiple issues. Requesting Physician: Dr. Edy Fowler Attending Physician: Kvng Florian, DO History of Present Illness In 2003 the patient had a right total knee replacement. She had difficulty with ambulation ever since. In the 2006 she underwent a left this tubular schwannoma removal at [facility]. This left her with deafness in the left ear, a complete left facial nerve palsy, and right-sided weakness. Over time, she has had weakness and contractures right greater than left side with disuse atrophy. She has been essentially will wheelchair bound. At [facility], they put gold inner upper eyelid to allow her to help close her lids. Sometime after her brain surgery she developed issues in her left eye and ended up having a left corneal scarring an opacity being virtually blind in the left eye. 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 Patient has a history of osteoarthritis, dyslipidemia, hypothyroidism, chronic anemia, and incontinence with multiple chronic UTIs. She has an indwelling Irene catheter in get this changed at least monthly. In the past she has had vitamin-D and B12 deficiencies had renal stones. In 2014 she had a GI bleed from a duodenal ulcer and fractured her right tibia. There is a note from her primary care physician from October of 2018 which states that she has been progressively weaker over the last several months and has had home nursing care. The patient's is at bedside today and adds to the history. Over the last week she has had some slurred speech and increased weakness with decreased appetite. There been reports of her limbs being weaker than usual and her facial droop being worse than usual. She read to the emergency room on December 15 at 1149 , with a temperature 36.4, pulse 60s and regular, respiratory rate 17, blood pressure 191/1 0 to, O2 saturation 96%. On exam it was noted that she had significant slurred speech, a right facial droop, and weakness of a significant nature in all limbs. Urinalysis was positive for increased white cells and culture is pending. CBC was unremarkable and a Chem profile showed increased alk-phos. Hemoglobin A1c was 5.0. Total cholesterol was 238 with a triglyceride 147 Chest x-ray was largely unremarkable. CT scan of the head showed postoperative changes in the left posterior fossa and otherwise no acute changes. This morning, CBC shows a mild anemia Blood pressure was 118/73. She has been in sinus rhythm in the 90s. Patient feels fatigued and continues to have dysarthria. Patient's , who is the primary caregiver, feels that she is back to baseline with her strength and speech this morning. Allergies Allergy/AdvReac Type Severity Reaction Status Date / Time raspberry Allergy Unknown RASH Unverified 06/16/14 09:25 strawberry Allergy Unknown redness,rash Verified 06/16/14 05:08 on abdomen Home Medications Home Medications Medication Instructions Recorded Confirmed Type methenamine hippurate 1 gram tablet 1 gm PO BID #180 tab 10/12/18 12/15/18 Rx miscellaneous medical supply misc #6 ea 10/27/18 11/12/18 Rx cholecalciferol (vitamin D3) 2,000 2,000 units PO DAILY tab 10/31/18 12/15/18 History unit tablet cyanocobalamin (vit B-12) 250 mcg 250 mcg PO QAM 10/31/18 12/15/18 History tablet docusate sodium 100 mg capsule 100 mg PO BID 10/31/18 12/15/18 History foam bandage 4" X 4" #1 ea 10/31/18 11/12/18 History magnesium oxide 400 mg (241.3 mg 400 mg PO DAILY tab 10/31/18 12/15/18 History magnesium) tablet menthol 0.44 %-zinc oxide 20.6 % 1 appln TOPICAL BID PRN #1 gm 10/31/18 12/15/18 History topical ointment pantoprazole 40 mg tablet,delayed 40 mg PO QAM #90 tab 10/31/18 12/15/18 History release polyethylene glycol 3350 17 17 gm PO DAILY PRN #527 gm 10/31/18 12/15/18 History gram/dose oral powder collagenase clostridium 1 appln TOPICAL DAILY PRN #1 gm 11/09/18 12/15/18 History histolyticum 250 unit/gram topical ointment erythromycin 5 mg/gram (0.5 %) eye 1 cm OP QID PRN #3.5 gm 11/09/18 12/15/18 History ointment sennosides 8.6 mg-docusate sodium 1 tab PO DAILY PRN tab 11/09/18 12/15/18 History 50 mg tablet wheat dextrin 3 gram/3.5 gram oral 1 pkt PO DAILY PRN ea 11/09/18 12/15/18 History powder packet cyanocobalamin (vit B-12) 1,000 1,000 mcg IM MONTHLY #10 ml 11/12/18 12/15/18 Rx mcg/mL injection solution nystatin 100,000 unit/gram topical 1 appln TOPICAL QID PRN #60 gm 11/12/18 12/15/18 Rx powder syringe with needle 3 mL 25 x 5/8" #12 ea 11/12/18 11/12/18 Rx levothyroxine 75 mcg PO QAM 12/15/18 12/15/18 History Patient History Medical History Alkaline phosphatase elevation (Acute) Arthritis (Chronic) Candidal intertrigo (Acute) Chronic constipation (Acute) Decubitus ulcer, buttock (Acute) Hearing loss (Acute) Hyperlipidemia (Chronic) Nephrolithiasis (Acute) Vitamin B 12 deficiency (Acute) Wheelchair dependent (Acute) Surgical History H/O total knee replacement History of nephrectomy, left Family History Unknown Diabetes Hypertension Chronic liver disease Mother , age 93 of heart issues Heart disease Father , age 65 of hepatic cirrhosis. Cirrhosis with alcoholism Social History Preferred Language: Belarusian Communication Ability: Impaired Beliefs That Will Affect Care: None Current Living Situation: Spouse current occupational status: disabled Feels Safe at Home: Yes Smoking Status: Never smoker Hx Alcohol Use: No Hx Substance Use: No caffeine: No Seatbelt Use: always Review of Systems Constitutional: + fatigue and + weakness; no fever Eyes: + problem reported (Blind left eye); no diplopia, no eye pain and no worsening vision Ear, Nose, Mouth, Throat: + hearing loss (Left); no ear pain, no tinnitus, no dizziness, no snoring, no hoarseness and no dysphagia Respiratory: + cough; no dyspnea Cardiovascular: no chest pain, no palpitations and no lightheadedness Gastrointestinal: no abdominal pain, no nausea and no vomiting Genitourinary: + dysuria and + urinary incontinence; no urinary frequency Musculoskeletal: + joint pain; no back pain, no neck pain, no radicular pain and no myalgia Integumentary: no rash and no lesions Neurologic: + gait abnormality, + localized weakness, + generalized weakness and + abnormal speech; no tingling, no numbness, no tremor(s), no abnormal movements, no headache(s), no confusion and no memory loss Psychiatric: no depression, no irritability, no anxiety, no difficulty concentrating, no confusion and no hallucinations Endocrine: + fatigue; no flushing Hematologic / Lymphatic: no easy bleeding and no easy bruising Allergy / Immunological: no urticaria and no problem reported Physical Exam Physical Exam: The patient is right-handed. The patient is awake, alert, and attentive. Speech is dysarthric and I cannot detect any specific aphasia. She can name objects, repeat phrases, and has decreased spontaneous speech. Mentation and thought processes are intact, with orientation to person, place and time, with reasonable knowledge for questions when asked. Attention and concentration are normal. Mood and affect are normal and appropriate. General appearance and grooming are normal. Short and long- term memory are reasonable to conversation. The right disc is sharp with positive venous pulsations. There are no exudates, hemorrhages, or blood vessel changes seen. Right pupil is 3 mm and reactive. The left cornea is opacified. Extraocular eye muscle on the right seems normal and she seems to have reasonable visual cortes to confrontation. There are no deficits to sensation in the face in all 3 distributions of the fifth cranial nerve bilaterally. Corneal reflexes is positive on the. There is a significant complete facial plegia on the left in the upper and lower halves of the face. Hearing is decreased on the left. Palate moves well but uvula deviates to the right. There is normal sternocleidomastoid and trapezius (shoulder shrug) strength bilaterally. Tongue is deviated and is weak towards the right. Neck has a full range of motion without discomfort. There are no cervical bruits bilaterally. There are no cranial or ocular bruits. Heart is without murmur. There is a regular rhythm and rate. Cervical, thoracic, and lumbar spine are nontender to palpation. Gait is not testable as she is bed-bound. She cannot sit up in bed either. Patient is weak in all limbs and drift cannot be properly assessed. There are no resting, postural, or action tremors. She is too weak for [id number] testing. There is decrease facility in the hands. No other abnormal involuntary movements are noted. Motor strength is 2/5 in the deltoid on the right and 3/5 on the left. The arms are essentially 3/5 proximally and distally otherwise with significant contractures in the right upper extremity. Leg strength is 0/5 in the hip flexors 2/5 in the quadriceps and tibialis anterior muscles and 3/5 in the gastrocnemius muscles bilaterally. There is significant contractures in the right lower extremity more so than the left. The limbs have increased tone with significant spasticity on the right. There is atrophy noted in the muscles. Muscle bulk is normal, there is no tenderness to palpation, no myotonia to percussion, and no fasciculations seen. Sensory examination is intact to touch and pin throughout all 4 limbs diffusely. Reflexes are 2/4 in the biceps, triceps, brachioradialis on the left. The right biceps, triceps, and brachioradialis tendons as well as both quadriceps and Achilles tendons reflexes are absent. There is no clonus bilaterally. Toes are downgoing with plantar stimulation on the left and neutral to plantar stimulation on the right. Peripheral pulses are present and of normal quality distally in all 4 limbs. There is some peripheral edema noted in the limbs distally. Results & Data Vital Signs (Past 12 Hours) Vital Signs Temp Pulse Pulse Resp BP Pulse Ox 12/16/18 08:49 36.4 C L 91 H 18 118/73 90 12/16/18 04:49 36.8 C 95 H 18 127/66 91 12/16/18 01:38 86 12/16/18 00:00 34.6 C L 86 17 104/61 92 PG Care Time/CCT Total # of Minutes Spent Total Time Spent with Patient: Total time spent is greater than 50% in coordination of care (as documented) at patient's floor/unit and/or counseling patient:
[2018-12-16] MEDS ORDERED: cefTRIAXone SODIUM 2,000 MG in DEXTROSE 5% 50 ML IV SCH (15:00)
[2018-12-16] MEDS: SODIUM CHLORIDE 0.9% 1000ML 1,000 ML IV SCH (16:47)
--- NOTE | 2018-12-16 17:45 | Discharge Summary ---
Date of Service December 16, 2018 Admission HPI Per Admitting Provider 78 years old female with past medical history of hypothyroidism, vitamin B12 deficiency, brain mass that was removed in 2006 and was benign in nature, since then patient has been bedbound with right-sided weakness and chronic indwelling Fitch catheter, patient also has morbid obesity, vitamin D deficiency, chronic constipation left facial droop with right eye dryness and corneal opacity. Patient was recently admitted for a UTI, urine cultures in September 2018 grew Klebsiella and E. coli pansensitive. She changes her Fitch catheter every 2 weeks, last changed was about 4 days ago. Patient's home nurse noticed that she has progressive weakness, unable to hold the phone like she used to, she started to having drooling from her mouth, unable to fulfill simple tasks that she used to do with her hands. Patient was brought to the ED for further evaluation and management. Her deterioration happened over the. Of 2 weeks so code stroke was not called. She was found to have significant weakness is both upper extremities and significant worsening in her slurred speech as per and niece who are are in the room with her. Admission Exam Per Admitting Provider Physical examination General morbidly obese, appears to be comfortable not in acute distress HEENT: Scar tissue on the left frontal aspect of the face with dry eye and corneal opacity Neck: Supple /no swelling /central trach Heart: S1/S2 normal/regular rate and rhythm/no gallop /no rub /no murmur Lungs: Clear to auscultation bilaterally/normal chest with expansion/no rhonchi/no rales/no wheezing/no use of accessory muscles of respiration Abdomen: Soft/nontender/no guarding/no rebound/no organomegaly/no pulsatile mass Musculoskeletal: And feet significant deformity in both hands Neuro exam: Awake alert oriented 3/slight movement in all extremities but significant weakness in both upper extremity 3/5, lower extremities weakness is 2/5 did not notice significant difference between right and left Psychiatric evaluation: No depressed mood/normal affect Skin: No rash on exposed skin area/no erythema Extremity: Normal pulse/no pitting edema/no clubbing or cyanosis Principal Diagnosis encephalopathy Discharge Exam Constitutional well developed, + physical limitations, + frail appearing and + overweight Eyes + eyelid abnormality (Left eyelid drooping, same as during entire stay); no conjunctival abnormality ENMT Mouth: + lip abnormality (left side of mouth/lips does not move), + tongue abnormality (soft palate deviation to right, same as on admission) and + restricted motion of mouth Respiratory normal respiratory effort and + cough; no respiratory distress Auscultation: lungs clear to auscultation bilaterally and + rhonchi; no crackles and no wheezes Cardiovascular Rate/Rhythm: regular rate and regular rhythm Heart Sounds: no abnormal opening sounds, no click and no murmur Gastrointestinal (Abdomen) Inspection/Auscultation: abdomen normal to inspection Percussion/Palpation: abdomen soft; abdomen nontender Neurologic Speech / Cognition: + abnormal speech Motor/Sensory: + tremor Per patient's , she is at her baseline with little to no function of left side of her body after having vestibular schwannoma removed surgically a number of years ago. Patient is able to talk and eat with some slurring and mumbling of speech but understands her and she is generally intelligible. Patient is able to follow commands and follows conversation. Severe contractures on right side of body, particularly in right hand. Discharge Data Allergies Allergy/AdvReac Type Severity Reaction Status Date / Time raspberry Allergy Unknown RASH Unverified 06/16/14 09:25 strawberry Allergy Unknown redness,rash Verified 06/16/14 05:08 on abdomen Consultations 12/15/18 16:22 Consult Neurology Routine 12/16/18 00:04 HIM [Consult Health Information Management] Routine Ordered Studies 12/15/18 12:05 CT head/brain wo con Stat 12/15/18 16:31 CT angio head w con Stat CT angio neck with con Stat 12/16/18 07:12 MR brain MS wo/w con Routine Hospital Course (1) Progressive focal motor weakness: Patient was brought to the ED by who said she had been increasingly weak and confused over the last few days and was concerned for UTI given the patient's indwelling fitch catheter that gets changed once every 2 weeks. UA was turbid and showed 3+ Leukocyte esterase with >30 WBC and bacteria in urine. Given fitch placement and mobility restriction, it was difficult to tell if the patient had a true UTI or if her change in strength and mood was secondary to a more innocuous encephalopathy due to dehydration rather than true UTI. While in the hospital she was treated preemptively with Ceftriaxone to cover any recurrence of previous klebsiella infection. 48 hour urine culture returned after discharge and multiple organisms without specifications. was adamant that we not look into her focal weakness and treat "only the infection". We discussed with him at length that encephalopathic signs like the ones she was showing could be due to dehydration but we will send her home with 6 days of antibiotics (cefdinir) just in case there is an infection present. Total Time Total Time Spent Total Time Spent (In Minutes): Greater than 30 Discharge Plan Discharge Items Patient Disposition: Home - Home Health Services Reason For Visit: FOCAL WEAKNESS Discharge Diagnosis: lethargy / encephalopathy type picture (see below) Activity: Per Instructions section Non-emergency contact: Primary Care Provider Call non-emergency contact if: you have any medication questions and your symptoms worsen Follow-up/Referrals: Trent Manuel MD [Primary Care Provider] - Diet: Regular Addtl Attending Provider Instructions: You were admitted due to concern for weakness - but more in a weak all over picture, which would fit with a mild version of what is medically known as an encephalopathy. Imaging of your head and brain did not reveal any acute abnormalities. While your urine looked abnormal, you did not have fevers/chill s/an elevated white count, or other findings to suggest that you had an active infection. That said, with your chronic catheter, you certainly are high risk for an infection - and since you got better after starting antibiotics, we'll be obligated to finish treating you as such. Besides infection, it seems that other factors such as dehydration, and possibly the elevation of your blood pressure, could both have been at play as well as, or instead of, infection. to get you better: -we'll finish out a course of antibiotics with cefdinir 300mg twice a day for the next 6 days (to complete 7 days total) -stay well hydrated - make sure you drink at least 60 ounces of fluids a day -check blood pressures a few times a day to keep an eye on your readings and then give feedback to your family doctor on what your readings are so they can adjust medications if needed. Be Well Pending Studies at Discharge: No Stand-Alone Forms: [facility] Medications and DC Order Prescriptions: New cefdinir 300 mg capsule 300 mg PO BID 6 Days Qty: 12 RF: 0 Continued methenamine hippurate 1 gram tablet 1 gm PO BID Qty: 180 RF: 3 cholecalciferol (vitamin D3) 2,000 unit tablet 2,000 units PO DAILY RF: 0 polyethylene glycol 3350 17 gram/dose powder 17 gm PO DAILY PRN (Reason: chronic constipation) Qty: 527 RF: 0 pantoprazole 40 mg tablet,delayed release (DR/EC) 40 mg PO QAM Qty: 90 RF: 0 magnesium oxide 400 mg (241.3 mg magnesium) tablet 400 mg PO DAILY RF: 0 cyanocobalamin (vitamin B-12) 250 mcg tablet 250 mcg PO QAM RF: 0 docusate sodium 100 mg capsule 100 mg PO DAILY RF: 0 menthol-zinc oxide 0.44-20.6 % ointment 1 appln topical BID PRN (Reason: decubitus ulcer) Qty: 1 RF: 0 wheat dextrin 3 gram/3.5 gram powder in packet 1 pkt PO DAILY PRN (Reason: Constipation) RF: 0 collagenase clostridium histo. 250 unit/gram ointment 1 appln topical DAILY PRN (Reason: ulcers) Qty: 1 RF: 0 sennosides-docusate sodium 8.6-50 mg tablet 1 tab PO DAILY PRN (Reason: Constipation) RF: 0 nystatin 100,000 unit/gram powder 1 appln topical QID PRN (Reason: candidiasis) Qty: 60 RF: 3 cyanocobalamin (vitamin B-12) 1,000 mcg/mL solution 1,000 mcg IM MONTHLY Qty: 10 RF: 3 levothyroxine 75 mcg tablet 75 mcg PO QAM RF: 0 Discharge Orders: Discharge Order (Routine); Ordered 12/16/18 Ordered By: Kvng Florian Admission Data Admit Date/Time: 12/15/18 16:18 Attending Provider: Kvng Florian Admit Provider: Paty Yan Primary Care Provider: Trent Manuel Other Providers: Daljit Keyes III ; Mariela Quinteros ; Paty Yan Other Interventions: Discharge Summary Assessment (RN) Last Done: 12/16/18 17:00 DC Date/Time DO NOT enter until pt leaves facility: 12/16/18 19:40 Supervising Physician Co-Signing Physician Notes I personally examined the patient and verified all ramirez points of history and exam, discussed case, and agree with decision making with Dr Quinteros. Feeling back to baseline. also insistent that she is completely back to her baseline. Noting no real new focal neurologic deficits whenever she was worse just more of an overall weakness and not being herself. She denies any urinary symptoms, fevers, chills, sweats. The notes that he had a urinary tract infection last week and was shaky with that. He loosely implies that her oral intake has not been as good over the last few weeks, but later in the conversation whenever I am encouraging him to make sure that she stays hydrated he notes that she always drinks a lot. He noted adamantly and repeatedly that given that she is back to her baseline he would like to get her home. We discussed risks and benefits of this. Vitals noted, in general she is awake and alert pleasant no distress. Left- sided droop that she/ note is chronic. Breathing unlabored no accessory muscle use good effort. Skin shows no rashes no pallor or icterus. Nothing that appears to be a new focal neurologic deficit, although I have never met her before, notes that she now looks completely at her baseline since her surgery more than a decade ago, and she seems to corroborate this. Metabolic encephalopathy -Seems to be multifactorial, dehydration definitely playing a role (see BUN to creatinine ratio)now improving clinically, encouraged at least 60 ounces of p.o. fluid a day -Question of urinary tract infection playing a rolediscussed with patient and , given that she is postmenopausal and also has a chronic catheter, treating based on the urine alone would be wrought with false positives, but with her altered mental status now improving after initiation of antibiotics it is fairly difficult to definitively rule out a UTI this time. We discussed the overall risk-benefit of treating "the whole patient" rather than a UA. But discussed this in the context of possibly a period of watchful waiting before initiating antibiotics with the future questionable UTI. Discussed with fevers or elevated white count or any urinary symptoms, then treating the urine would obviously make sense -Question hypertensive encephalopathyon presentation, and although this is most likely effect of being ill and under duress, it is impossible to rule out whether or not this was also part of the cause. Either way blood pressures have normalized, we asked for outpatient ambulatory monitoring and working together with PCP for ongoing management. Dispositiongiven that the and patient adamantly notes that she is at her baseline, and the adamantly wants to get her her home, it appears reasonable to send her home with recommendations for oral hydration, blood pressure monitoring, and a course of empiric antibiotics. Resident Activity Tracking Resident Involvement: Resident Care Provided Care Provided: Adult Hospital Medicine
== END 2018-12-16 19:40 | disposition home health service (06) | DRG 698 ==
LOC: ED 11:35 → 2E 16:18 → SUATTDRO 16:18 → 2E 18:04

== ENCOUNTER 2018-12-17 15:41 | Observation (INO) ==
[2018-12-17 16:03] LABS: Hematocrit (blood only) 34.7 % (37-47); Hemoglobin 11.3 g/dL (12.0-16.0); Mean Corpuscular Hemoglobin 28.9 pg (25-34); Mean Corpuscular Hgb Conc 32.6 g/dL (32-36); Mean Corpuscular Volume 88.7 fL (80-100); RDW Coefficient of Variation 19.3 % (11.5-14.5); RDW Standard Deviation 61.4 fL (36.4-46.3); Red Blood Count 3.91 M/uL (4.2-5.4); White Blood Count 15.03 K/uL (4.8-10.8)
--- NOTE | 2018-12-17 16:10 | XRay Report ---
XR chest 1V portable CLINICAL HISTORY: Weakness. COMPARISON STUDY: Chest radiograph December 15, 2018. FINDINGS: There is no pneumothorax or pleural effusion. There is no evidence for pulmonary edema. Lef t abdominal surgical clips are noted. Lung volumes are diminished. This is unchanged. Bibasilar opaci ties, right greater than left, have developed. IMPRESSION: Interval development of bibasilar opacities, right greater than left. These favor pneumo tanna. Radiographic followup to ensure resolution is recommended. Electronically signed by: Toni James M.D. 12/17/2018 4:09 PM
[2018-12-17 16:19] LABS: Mean Platelet Volume 10.7 fL (7.4-10.4); Platelet Count 85 K/uL (130-400)
[2018-12-17 16:29] LABS: Alanine Aminotransferase 20 U/L (12-78); Albumin Globulin Ratio 0.7 (0.9-2); Albumin Level 2.7 gm/dl (3.4-5.0); Alkaline Phosphatase 156 U/L (45-117); BUN Creatinine Ratio 34.9 (10-20); Bilirubin,Total 0.7 mg/dl (0.2-1); Blood Urea Nitrogen 29 mg/dl (7-18); Calcium 9.3 mg/dl (8.5-10.1); Carbon Dioxide 27 mmol/L (21-32); Chloride 106 mmol/L (98-107); Est GFR (African American) 77.2; Est GFR (Non-African American) 66.6; Globulin 3.9 gm/dl (2.5-4.0); Glucose 101 mg/dl (70-99); Total Protein 6.6 gm/dl (6.4-8.2); Troponin I < 0.015 ng/ml (0-0.045)
[2018-12-17 16:34] LABS: Potassium 4.5 mmol/L (3.5-5.1)
[2018-12-17 16:37] LABS: Aspartate Aminotransferase 18 U/L (15-37); Sodium 139 mmol/L (136-145)
--- NOTE | 2018-12-17 16:40 | CT Scan Report ---
CT OF THE HEAD WITHOUT CONTRAST CLINICAL HISTORY: Slurred speech. COMPARISON STUDY: Head CT and CTA of the head December 15, 2018. CT DOSE: 994.59 mGy.cm TECHNIQUE: Helical axial images of the head were obtained without IV contrast. Automated exposure con trol was utilized for the study. A dose lowering technique was utilized adhering to the principles o f ALARA. FINDINGS: No acute intracranial hemorrhage, midline shift or mass effect is present. Postoperative fi ndings within the left posterior fossa are unchanged. A metallic density, likely on the left eyelid, is again noted. The ventricular system is normal. Basilar cisterns are patent. There are no extra axi al collections. There are no findings to suggest acute dural sinus thrombosis or acute territorial in farct. Left periventricular hypodensity extending into the basal ganglia is chronic. The appearance o f the brain is unchanged. IMPRESSION: No acute intracranial findings. No change in appearance of the brain. Electronically signed by: Toni James M.D. 12/17/2018 4:39 PM
[2018-12-17 16:45] LABS: Eosinophils # (auto) 0.03 K/uL (0-0.5); Eosinophils % (auto) 0.2 %; Immature Granulocytes # (auto) 0.05 K/uL (0.00-0.02); Immature Granulocytes % (auto) 0.3 %; Lymphocytes % (auto) 7.3 %; Monocytes # (auto) 0.49 K/uL (0.11-0.59); Monocytes % (auto) 3.3 %; Neutrophils # (auto) 13.36 K/uL (1.4-6.5); Neutrophils % (auto) 88.9 %
[2018-12-17] MEDS ORDERED: cefTRIAXone SODIUM 1,000 MG/50 ML BAG IV STA (16:49)
[2018-12-17] MEDS ORDERED: metroNIDAZOLE 500 MG/100 ML BAG IV STA (16:51)
[2018-12-17] MEDS ORDERED: LEVOFLOXACIN/D5W 750 MG/150 ML BAG IV SCH (17:00)
[2018-12-17 17:05] LABS: Partial Thromboplastin Ratio 1.2; Partial Thromboplastin Time 31.2 Seconds (21.0-31.0); Prothrombin Time 10.1 Seconds (9.0-12.0)
[2018-12-17 17:44] LABS: Appearance Urine Clear (Clear); Bilirubin Urine Negative (Negative); Blood Urine 1+ (Negative); Color Urine Yellow; Glucose Urine UA Negative (Negative); Ketones Urine Negative (Negative); Leukocyte Esterase Urine Negative (Negative); Nitrite Urine Negative (Negative); Protein Urine Negative (Negative); Specific Gravity Urine 1.012 (1.000-1.030); Urobilinogen Urine Negative (Negative)
[2018-12-17 18:00] LABS: Epithelial Cell Urine 0-5 /lpf (0-5)
[2018-12-17 18:01] LABS: Bacteria Urine Negative (Negative); RBC Urine 0-4 /hpf (0-4); WBC Urine 0-5 /hpf (0-5)
[2018-12-17] MEDS ORDERED: ALUMINUM/MAGNESIUM SUSP 30 ML UDC PO PRN (19:09)
[2018-12-17] MEDS ORDERED: DOCUSATE SODIUM/SENNA 50/8.6MG TAB PO PRN (19:09)
[2018-12-17] MEDS ORDERED: NYSTATIN POWDER 15GM BTL EXT PRN (19:09)
[2018-12-17] MEDS ORDERED: COLLAGENASE OINT 30 GM TUBE TOP PRN (19:09)
[2018-12-17] MEDS ORDERED: MENTHOL-ZINC OXIDE 360 APPLN/120 GM TUBE EXT PRN (19:09)
[2018-12-17] MEDS ORDERED: ONDANSETRON INJ 2 MG/ML 2 ML VIAL IV PRN (19:09)
[2018-12-17] MEDS ORDERED: WHEAT DEXTRIN PO PRN (19:09)
[2018-12-17] MEDS ORDERED: POLYETHYLENE (MIRALAX) 17 GM PACK PO PRN (19:09)
[2018-12-17] MEDS ORDERED: MAGNESIUM HYDROXIDE SUSP 30 ML UDC PO PRN (19:09)
--- NOTE | 2018-12-17 20:13 | Emergency Department Note ---
Entered by Paddy Rosen acting as a scribe for Kvng Demarco DO History of Present Illness General Chief complaint: Neuro Symptoms/Deficit Time Seen by Provider: 12/17/18 15:42 Source: patient and EMS History of Present Illness Onset (ago): day(s) (10) Location: mouth Pain Consistency: + other (persistent) Quality: + other (drooling) Associated symptoms: + denies other symptoms (abdominal pain, worsening drooling, and worsening speech); no chest pain, no headaches, no nausea/vomiting, no shortness of breath and no weakness The patient is a 78 y/o female w/ a PMHx of hypothyroidism, HLD who presents to the ED w/ CC of persistent drooling of the mouth beginning 10 days ago. EMS states they were called today because the patient has worsening drooling and the family was not sure if she is having a stroke. The patient reports she was discharged last night and her nurse called her PCP today and was told she needed to come back to the ER. She notes she has not been evaluated by her PCP since she was discharged. The patient denies new headache, chest pain, shortness of breath, abdominal pain, nausea, vomiting, new weakness to the arms or legs, worsening drooling, and worsening speech. Home Medications Home Medications Medication Instructions Recorded Confirmed Type methenamine hippurate 1 gram tablet 1 gm PO BID #180 tab 10/12/18 12/17/18 Rx cholecalciferol (vitamin D3) 2,000 2,000 units PO DAILY tab 10/31/18 12/17/18 History unit tablet cyanocobalamin (vit B-12) 250 mcg 250 mcg PO QAM 10/31/18 12/17/18 History tablet docusate sodium 100 mg capsule 100 mg PO DAILY 10/31/18 12/17/18 History magnesium oxide 400 mg (241.3 mg 400 mg PO DAILY tab 10/31/18 12/17/18 History magnesium) tablet menthol 0.44 %-zinc oxide 20.6 % 1 appln TOPICAL BID PRN #1 gm 10/31/18 12/17/18 History topical ointment pantoprazole 40 mg tablet,delayed 40 mg PO QAM #90 tab 10/31/18 12/17/18 History release polyethylene glycol 3350 17 17 gm PO DAILY PRN #527 gm 10/31/18 12/17/18 History gram/dose oral powder collagenase clostridium 1 appln TOPICAL DAILY PRN #1 gm 11/09/18 12/17/18 History histolyticum 250 unit/gram topical ointment sennosides 8.6 mg-docusate sodium 1 tab PO DAILY PRN tab 11/09/18 12/17/18 History 50 mg tablet wheat dextrin 3 gram/3.5 gram oral 1 pkt PO DAILY PRN ea 11/09/18 12/17/18 History powder packet cyanocobalamin (vit B-12) 1,000 1,000 mcg IM MONTHLY #10 ml 11/12/18 12/17/18 Rx mcg/mL injection solution nystatin 100,000 unit/gram topical 1 appln TOPICAL QID PRN #60 gm 11/12/18 12/17/18 Rx powder levothyroxine 75 mcg PO QAM 12/15/18 12/17/18 History cefdinir 300 mg PO BID 6 Days #12 cap 12/16/18 12/17/18 Rx Allergies Allergy/AdvReac Type Severity Reaction Status Date / Time raspberry Allergy Unknown RASH Unverified 06/16/14 09:25 strawberry Allergy Unknown redness,rash Verified 06/16/14 05:08 on abdomen Past Med/Surg History Medical History Alkaline phosphatase elevation (Acute) Arthritis (Chronic) Candidal intertrigo (Acute) Chronic constipation (Acute) Decubitus ulcer, buttock (Acute) Hearing loss (Acute) Hyperlipidemia (Chronic) Nephrolithiasis (Acute) Vitamin B 12 deficiency (Acute) Wheelchair dependent (Acute) Surgical History H/O total knee replacement History of nephrectomy, left Family History Unknown Diabetes Hypertension Chronic liver disease Mother , age 93 of heart issues Heart disease Father , age 65 of hepatic cirrhosis. Cirrhosis with alcoholism Social History Preferred Language: [place] Communication Ability: Impaired Beliefs That Will Affect Care: None Current Living Situation: Spouse current occupational status: disabled Feels Safe at Home: Yes Smoking Status: Never smoker Hx Alcohol Use: No Hx Substance Use: No caffeine: No Seatbelt Use: always Review of Systems See HPI for pertinent positives & negatives. and A total of 10 systems reviewed and were otherwise negative Physical Exam Vital Signs Vital Signs - 24 hr 12/17/18 15:40 12/17/18 15:50 12/17/18 16:00 Sepsis Recent Fever Within 48 Hours No Sepsis New/Unexplained Change in Mental Status No Sepsis Action Taken by Nursing No Action Required Pulse Rate 62 60 59 L Pulse Rate from SpO2 Sensor Respiratory Rate 20 16 19 Blood Pressure 137/81 Blood Pressure Mean 99 Pulse Oximetry 96 Oxygen Delivery Method Room Air 12/17/18 16:10 12/17/18 17:18 12/17/18 17:20 Sepsis Recent Fever Within 48 Hours Sepsis New/Unexplained Change in Mental Status Sepsis Action Taken by Nursing Pulse Rate 63 66 70 Pulse Rate from SpO2 Sensor 63 Respiratory Rate 15 12 14 Blood Pressure Blood Pressure Mean Pulse Oximetry 97 Oxygen Delivery Method GENERAL: Ill appearing, disheveled with food covering her shirt. Drool from both side of her mouth. EYE EXAM: Right eye is PERRL. Left eye is has opacification of the pupil. OROPHARYNX: no exudate, no erythema, lips, buccal mucosa, and tongue normal and mucous membranes are moist NECK: supple, no nuchal rigidity, no adenopathy, non-tender LUNGS: Rhonchi at the right base. Normal chest wall mechanics HEART: no murmurs, S1 normal and S2 normal ABDOMEN: abdomen soft, non-tender, normo-active bowel sounds, no masses, no rebound or guarding. BACK: Back is symmetrical on inspection and there is no deformity, no midline tenderness, no CVA tenderness. SKIN: no rashes and no bruising UPPER EXTREMITIES: upper extremities are grossly normal. LOWER EXTREMITIES: No pitting edema. NEURO EXAM: Wiggles left toes. Able to lift against gravity up to 90 degrees with a positive grasp to the left upper extremity. Minimal movement of the right upper extremity - 20 degrees from the shoulder with minimal grasp. No movement of the right lower extremity. Garbled speech. Course ED COURSE: Vital signs were reviewed and showed HTN. The patients medical record was reviewed The above diagnostic studies were performed and reviewed. ED treatments and interventions as stated above. 1545: The patient was evaluated in room B10. A complete history and physical examination was performed. 1628: Upon reevaluation, the patient is resting.I discussed my findings with the and he understands and agrees with the treatment plan. He reports he thinks her drooling may be worse. 1631: I discussed the patient's case with Dr. Florian, [facility] Hospitalist. The patient will be evaluated for further management and care. Based on the patients age, coexisting illnesses, exam and lab findings the decision to treat as an inpatient was made. The patient remained stable while under my care. The patient will be evaluated for further management. Administered Medications Discontinued Medications Ceftriaxone Sodium (Rocephin) 1,000 mg in 50 mls @ 100 mls/hr IV NOW STA Stop: 12/17/18 17:18 Last Infusion: 12/17/18 17:46 Dose: 0 mls/hr Documented by: [id number] Admin: 12/17/18 17:16 Dose: 100 mls/hr Documented by: [id number] Metronidazole (Flagyl) 500 mg in 100 mls @ 100 mls/hr IV NOW STA Stop: 12/17/18 17:50 Last Infusion: 12/17/18 18:11 Dose: 0 mls/hr Documented by: [id number] Admin: 12/17/18 17:16 Dose: 100 mls/hr Documented by: [id number] Medical Decision Making Differential Diagnosis Differential Diagnosis includes but is not limited to dehydration, stroke, anemia, hypoglycemia, hyponatremia, hypernatremia, urinary tract infection, pneumonia, bronchitis, sepsis, gastroenteritis, additional abdominal pathology, metabolic abnormalities and infections. Medical Records Attestation: I reviewed the patient's medical records. Home Medications Current Medication List: was personally reviewed by me Laboratory Data Attestation: I reviewed the patient's lab results. Result diagrams: 12/17/18 15:21 12/17/18 15:21 Lab Results 12/17/18 12/17/18 12/17/18 Range/Units 15:21 15:21 15:21 WBC 15.03 H (4.8-10.8) K/uL RBC 3.91 L (4.2-5.4) M/uL Hgb 11.3 L (12.0-16.0) g/dL Hct 34.7 L (37-47) % MCV 88.7 (80-100) fL MCH 28.9 (25-34) pg MCHC 32.6 (32-36) g/dL RDW Std Deviation 61.4 H (36.4-46.3) fL RDW Coeff of Ol[place] 19.3 H (11.5-14.5) % Plt Count 85 L (130-400) K/uL MPV 10.7 H (7.4-10.4) fL Immature Gran % (Auto) 0.3 % Neut % (Auto) 88.9 % Lymph % (Auto) 7.3 % [place] % (Auto) 3.3 % Eos % (Auto) 0.2 % Baso % (Auto) 0.0 % Immature Gran # (Auto) 0.05 H (0.00-0.02) K/uL Neut # (Auto) 13.36 H (1.4-6.5) K/uL Lymph # (Auto) 1.10 L (1.2-3.4) K/uL [place] # (Auto) 0.49 (0.11-0.59) K/uL Eos # (Auto) 0.03 (0-0.5) K/uL Baso # (Auto) 0.00 (0-0.2) K/uL PT Cancelled INR Cancelled APTT (21.0-31.0) Seconds PTT Ratio Sodium 139 (136-145) mmol/L Potassium 4.5 (3.5-5.1) mmol/L Chloride 106 (98-107) mmol/L Carbon Dioxide 27 (21-32) mmol/L Anion Gap 7.0 (3-11) BUN 29 H (7-18) mg/dl Creatinine 0.84 (0.6-1.2) mg/dl Est Cr Clr Drug Dosing Not Reportable Est GFR ( Amer) 77.2 Est GFR (Non-Af Amer) 66.6 BUN/Creatinine Ratio 34.9 H (10-20) Glucose 101 H (70-99) mg/dl Calcium 9.3 (8.5-10.1) mg/dl Total Bilirubin 0.7 (0.2-1) mg/dl AST 18 (15-37) U/L ALT 20 (12-78) U/L Alkaline Phosphatase 156 H (45-117) U/L Troponin I < 0.015 (0-0.045) ng/ml Total Protein 6.6 (6.4-8.2) gm/dl Albumin 2.7 L (3.4-5.0) gm/dl Globulin 3.9 (2.5-4.0) gm/dl Albumin/Globulin Ratio 0.7 L (0.9-2) Urine Color Urine Appearance (Clear) Urine pH (4.5-7.5) Ur Specific [place] (1.000-1.030) Urine Protein (Negative) Urine Glucose (UA) (Negative) Urine Ketones (Negative) Urine Blood (Negative) Urine Nitrite (Negative) Urine Bilirubin (Negative) Urine Urobilinogen (Negative) Ur Leukocyte Esterase (Negative) Urine RBC (0-4) /hpf Urine WBC (0-5) /hpf Ur Epithelial Cells (0-5) /lpf Urine Bacteria (Negative) 12/17/18 12/17/18 Range/Units 16:39 16:40 WBC (4.8-10.8) K/uL RBC (4.2-5.4) M/uL Hgb (12.0-16.0) g/dL Hct (37-47) % MCV (80-100) fL MCH (25-34) pg MCHC (32-36) g/dL RDW Std Deviation (36.4-46.3) fL RDW Coeff of [place] (11.5-14.5) % Plt Count (130-400) K/uL MPV (7.4-10.4) fL Immature Gran % (Auto) % Neut % (Auto) % Lymph % (Auto) % [place] % (Auto) % Eos % (Auto) % Baso % (Auto) % Immature Gran # (Auto) (0.00-0.02) K/uL Neut # (Auto) (1.4-6.5) K/uL Lymph # (Auto) (1.2-3.4) K/uL [place] # (Auto) (0.11-0.59) K/uL Eos # (Auto) (0-0.5) K/uL Baso # (Auto) (0-0.2) K/uL PT 10.1 INR 1.0 APTT 31.2 H (21.0-31.0) Seconds PTT Ratio 1.2 Sodium (136-145) mmol/L Potassium (3.5-5.1) mmol/L Chloride (98-107) mmol/L Carbon Dioxide (21-32) mmol/L Anion Gap (3-11) BUN (7-18) mg/dl Creatinine (0.6-1.2) mg/dl Est Cr Clr Drug Dosing Est GFR ( Amer) Est GFR (Non-Af Amer) BUN/Creatinine Ratio (10-20) Glucose (70-99) mg/dl Calcium (8.5-10.1) mg/dl Total Bilirubin (0.2-1) mg/dl AST (15-37) U/L ALT (12-78) U/L Alkaline Phosphatase (45-117) U/L Troponin I (0-0.045) ng/ml Total Protein (6.4-8.2) gm/dl Albumin (3.4-5.0) gm/dl Globulin (2.5-4.0) gm/dl Albumin/Globulin Ratio (0.9-2) Urine Color Yellow Urine Appearance Clear (Clear) Urine pH 5.0 (4.5-7.5) Ur Specific [place] 1.012 (1.000-1.030) Urine Protein Negative (Negative) Urine Glucose (UA) Negative (Negative) Urine Ketones Negative (Negative) Urine Blood 1+ H (Negative) Urine Nitrite Negative (Negative) Urine Bilirubin Negative (Negative) Urine Urobilinogen Negative (Negative) Ur Leukocyte Esterase Negative (Negative) Urine RBC 0-4 (0-4) /hpf Urine WBC 0-5 (0-5) /hpf Ur Epithelial Cells 0-5 (0-5) /lpf Urine Bacteria Negative (Negative) Imaging Data Radiologist's Impression: Radiology results as stated below per my review and the radiologist's interpretation: CT OF THE HEAD WITHOUT CONTRAST CLINICAL HISTORY: Slurred speech. COMPARISON STUDY: Head CT and CTA of the head December 15, 2018. CT DOSE: 994.59 mGy.cm TECHNIQUE: Helical axial images of the head were obtained without IV contrast. Automated exposure control was utilized for the study. A dose lowering technique was utilized adhering to the principles of ALARA. FINDINGS: No acute intracranial hemorrhage, midline shift or mass effect is present. Postoperative findings within the left posterior fossa are unchanged. A metallic density, likely on the left eyelid, is again noted. The ventricular system is normal. Basilar cisterns are patent. There are no extra axial collections. There are no findings to suggest acute dural sinus thrombosis or acute territorial infarct. Left periventricular hypodensity extending into the basal ganglia is chronic. The appearance of the brain is unchanged. IMPRESSION: No acute intracranial findings. No change in appearance of the brain. Electronically signed by: Toni James M.D. 12/17/2018 4:39 PM XR chest 1V portable CLINICAL HISTORY: Weakness. COMPARISON STUDY: Chest radiograph December 15, 2018. FINDINGS: There is no pneumothorax or pleural effusion. There is no evidence for pulmonary edema. Left abdominal surgical clips are noted. Lung volumes are diminished. This is unchanged. Bibasilar opacities, right greater than left, have developed. IMPRESSION: Interval development of bibasilar opacities, right greater than left. These favor pneumonia. Radiographic followup to ensure resolution is recommended. Electronically signed by: Toni James M.D. 12/17/2018 4:09 PM ECG Data Attestation: I personally reviewed and interpreted this ECG as follows: Indication: weakness Rate (beats per minute): 61 Rhythm: sinus rhythm Findings: + other (Normal axis.) and + ST depression (Lateral) Comparison ECG Date: from (12/15/18) Change: the following changes noted (ST depression is new) Blood Pressure Blood Pressure Findings: Elevated blood pressure Blood Pressure Disposition: further management by hospitalist MARTÍN Narrative Patient is a 78-year-old female presents the ER who was just discharged yesterday for worsening slurred speech and drooling who presents back as she has been having increased trouble eating. On exam she has rhonchi in the right lower lung. IV was established blood work was obtained. Labs show leukocytosis of 15,000. Mild anemia at 11. INR was unremarkable. BMP along with LFTs bilirubin was unremarkable. Troponin was negative. UA was negative. Chest x- ray shows a right lower lobe infiltrate which I favor secondary to aspiration. Patient was given IV Rocephin and IV Flagyl after discussion with the hospitalist. She is given IV fluids. She is updated bedside along with the and was admitted for further work-up. CT head was negative. Impression & Plan Pneumonia, Aspiration into respiratory tract, Leukocytosis Discharge Plan Visit Data *Final* Discharge Date/Time: 12/17/18 18:12 Chief Complaint: Neuro Symptoms/Deficit ED Provider: Kvng Demarco Discharge Problem: Pneumonia, Aspiration into respiratory tract, Leukocytosis Patient Disposition: Admitted As Inpatient Discharge Instructions Interventions: ED Discharge Assessment Last Done: 12/17/18 18:12 Discharge Problem: Pneumonia Qualifiers: Pneumonia type: aspiration pneumonia Aspiration pneumonia type: unspecified Laterality: left Lung location: unspecified part of lung Qualified Code(s): J69.0 - Pneumonitis due to inhalation of food and vomit Aspiration into respiratory tract Qualifiers: Encounter type: initial encounter Qualified Code(s): T17.908A - Unspecified foreign body in respiratory tract, part unspecified causing other injury, in itial encounter Leukocytosis Qualifiers: Leukocytosis type: unspecified Qualified Code(s): D72.829 - Elevated white blood cell count, unspecified The scribe's documentation has been prepared under my direction and personally reviewed by me in its entirety. I confirm that the note above accurately re flects all work, treatment, procedures, and medical decision making performed by me.
[2018-12-17] MEDS: METHENAMINE HIPPURATE 1 GM TAB PO SCH (20:27)
--- NOTE | 2018-12-17 20:40 | History & Physical Report ---
Date of Service December 17, 2018 Assessment & Plan (1) Aspiration pneumonia: -She shows new neurologic deficits -Certainly with her chronic neurologic deficits aspiration appears to always be a risk -Pneumonia was not there on prior chest x-ray from 12/15 -Having just been in the hospital yesterday with a weakness/encephalopathy picture that was nonspecific, but likely related to dehydration plus or minus a possible urinary tract infection plus or minus hypertensive effectshe is probab ly a little bit weaker than her baseline. Given that she normally has a degree of dysarthria and likely a degree of dysphagia, now that she is weaker she is probably less able to prevent aspiration and protect her airway when she is swallowing. Although she normally eats a normal diet, and has not been in and out of the hospital with aspiration events, I discussed with the that right now she is weaker than her normal baseline, and that would be a set up for her to aspirate now. -Already on a third-generation cephalosporin for the possible urinary tract infection, rather than shuffling antibiotics and raising her risk of C. difficile, given that most aspiration events do not carry multidrug-resistant bugs, will continue third-generation cephalosporin and add metronidazole for anaerobic coverage. -Ask speech to revisit and help patient and with formal guidance on modified diet to reduce aspiration risk. Likely patient will benefit from ongoing outpatient speech therapy at least for the short-term until she truly returns to her baseline -Observe on medical (2) Chronic indwelling Irene catheter: See above. Continue third-generation cephalosporin (3) Anemia: Chronic. (4) Hypothyroidism: Continue home meds (5) Facial droop: Chronic, appears unchanged. See above otherwise. (6) Weakness: Multifactorial. She was just here with above-noted weakness, certainly the aspiration pneumonia will have her a little bit weaker. The notes that generally they do well at home, the fact that she has not been frequently in and out of the hospital except for this short current run that appears to be cause and effect (dehydration plus or minus urinary tract infection making her weak leading to the prior admission, and then the weakness making her more prone to aspiration leading to the current admission) they should do well at home again. May need a little bit of home nursing, definitely outpatient speech therapy. (7) UTI (urinary tract infection): See above. Continue third-generation cephalosporin. (8) Chronic constipation: Continue home meds (9) Hyperlipidemia: Continue home meds (10) Discharge planning issues: Observe on medical, hopefully home tomorrow. History of Present Illness Chief Complaint: "Does not seem right" Primary Care Provider: Trent Manuel MD Patient is a pleasant 78-year-old female known to me from yesterday. notes that home nursing was in, patient did not seem quite right, he is not quite sure what her vitals were, they called Dr. Manuel because she did not seem right, and he directed her to the ER. She has no focal complaints. has no focal complaints about what he saying wrong with her, just that she seems off. I discussed the case with the ER physician as he was working her up, given my familiarity with her situation from yesterday. After initial work- up, it was clear patient had an aspiration pneumonia. Fortunately she is extremely stable overall, and the and I even discussed whether or not to allow her to go home on antibiotics. But after we discussed the fact that she would probably need to modify diet for the time being, being able to have speech therapy work with them again would be of benefit. She herself notes that she feels okay. Allergies Allergy/AdvReac Type Severity Reaction Status Date / Time raspberry Allergy Unknown RASH Unverified 06/16/14 09:25 strawberry Allergy Unknown redness,rash Verified 06/16/14 05:08 on abdomen Home Medications Home Medications Medication Instructions Recorded Confirmed Type methenamine hippurate 1 gram tablet 1 gm PO BID #180 tab 10/12/18 12/17/18 Rx cholecalciferol (vitamin D3) 2,000 2,000 units PO DAILY tab 10/31/18 12/17/18 History unit tablet cyanocobalamin (vit B-12) 250 mcg 250 mcg PO QAM 10/31/18 12/17/18 History tablet docusate sodium 100 mg capsule 100 mg PO DAILY 10/31/18 12/17/18 History magnesium oxide 400 mg (241.3 mg 400 mg PO DAILY tab 10/31/18 12/17/18 History magnesium) tablet menthol 0.44 %-zinc oxide 20.6 % 1 appln TOPICAL BID PRN #1 gm 10/31/18 12/17/18 History topical ointment pantoprazole 40 mg tablet,delayed 40 mg PO QAM #90 tab 10/31/18 12/17/18 History release polyethylene glycol 3350 17 17 gm PO DAILY PRN #527 gm 10/31/18 12/17/18 History gram/dose oral powder collagenase clostridium 1 appln TOPICAL DAILY PRN #1 gm 11/09/18 12/17/18 History histolyticum 250 unit/gram topical ointment sennosides 8.6 mg-docusate sodium 1 tab PO DAILY PRN tab 11/09/18 12/17/18 History 50 mg tablet wheat dextrin 3 gram/3.5 gram oral 1 pkt PO DAILY PRN ea 11/09/18 12/17/18 History powder packet cyanocobalamin (vit B-12) 1,000 1,000 mcg IM MONTHLY #10 ml 11/12/18 12/17/18 Rx mcg/mL injection solution nystatin 100,000 unit/gram topical 1 appln TOPICAL QID PRN #60 gm 11/12/18 12/17/18 Rx powder levothyroxine 75 mcg PO QAM 12/15/18 12/17/18 History cefdinir 300 mg PO BID 6 Days #12 cap 12/16/18 12/17/18 Rx Past Med/Surg History Medical History Alkaline phosphatase elevation (Acute) Arthritis (Chronic) Candidal intertrigo (Acute) Chronic constipation (Acute) Decubitus ulcer, buttock (Acute) Hearing loss (Acute) Hyperlipidemia (Chronic) Nephrolithiasis (Acute) Vitamin B 12 deficiency (Acute) Wheelchair dependent (Acute) Surgical History H/O total knee replacement History of nephrectomy, left Family History Unknown Diabetes Hypertension Chronic liver disease Mother , age 93 of heart issues Heart disease Father , age 65 of hepatic cirrhosis. Cirrhosis with alcoholism Social History Preferred Language: [place] Communication Ability: Impaired Structural Biologist Required: No Beliefs That Will Affect Care: None Current Living Situation: Spouse Current Living Situation Comment: Home care current occupational status: disabled Feels Safe at Home: Yes Smoking Status: Never smoker Hx Alcohol Use: No Hx Substance Use: No caffeine: No Seatbelt Use: always Review of Systems Review of Systems: All systems reviewed & are unremarkable except as noted in HPI & below Physical Exam Physical Exam: In general she is awake and alert appears to be more or less at her baseline and noted normal cephalic atraumatic mucous membranes moist. Chronic left facial droop. Cardio is regular without rubs murmurs or gallops. Lungs clear to auscultation except for on the right it is a little bit quite coarse at the base. No rales rhonchi or wheezes no accessory muscle use good effort. Abdomen is soft nondistended nontender no masses or clubbing, she has chronic appearing trace lower extremity edema. Neuro shows left-sided facial droop that is chronic. Unchanged from yesterday. notes unchanged from baseline. She also has chronic left-sided contractures that appear unchanged as well. Results & Data Vital Signs (Past 12 Hours) Vital Signs Temp Pulse Pulse Resp BP BP Pulse Ox 12/17/18 19:21 94.3 F L 56 L 18 120/71 97 12/17/18 18:12 60 16 100/60 97 12/17/18 18:00 56 L 12 12/17/18 17:50 56 L 19 12/17/18 17:40 61 12 12/17/18 17:30 62 14 12/17/18 17:20 70 14 12/17/18 17:18 66 12 12/17/18 16:10 63 15 97 12/17/18 16:00 59 L 19 12/17/18 15:50 60 16 12/17/18 15:40 62 20 137/81 96 Code Status & VTE Plan VTE Prophylaxis Plan VTE Prophylaxis will be ordered: Yes PG Care Time/CCT Total # of Minutes Spent Total Time Spent with Patient: Total time spent is greater than 50% in coordination of care (as documented) at patient's floor/unit and/or counseling patient: (1) UTI (urinary tract infection) Hematuria presence: with hematuria Urinary tract infection type: site unspecified Qualified Code(s): N39.0 - Urinary tract infection, site not spe cified; R31.9 - Hematuria, unspecified
[2018-12-17] MEDS ORDERED: HEPARIN SOD 5,000 UNIT/0.5 ML VIAL SQ SCH (21:00)
[2018-12-18] MEDS: metroNIDAZOLE 500 MG/100 ML BAG IV SCH ×2 (01:59→09:42)
[2018-12-18] MEDS ORDERED: LEVOTHYROXINE SODIUM 75 MCG TABLET PO SCH (06:30)
[2018-12-18] MEDS: METHENAMINE HIPPURATE 1 GM TAB PO SCH (08:17)
[2018-12-18] MEDS ORDERED: PANTOprazole 40 MG TAB PO SCH (09:00)
[2018-12-18] MEDS ORDERED: DOCUSATE SODIUM 100 MG CAP PO SCH (09:00)
[2018-12-18] MEDS ORDERED: MAGNESIUM OXIDE 400 MG TAB PO SCH (09:00)
[2018-12-18] MEDS ORDERED: CYANOCOBALAMIN 500 MCG TABLET (VITAMIN B-12) PO SCH (09:00)
[2018-12-18] MEDS ORDERED: CHOLECALCIFEROL 1,000 UNITS TAB PO SCH (09:00)
[2018-12-18] MEDS ORDERED: SYSTANE EYE OP SCH (09:00)
--- NOTE | 2018-12-18 16:55 | Discharge Summary ---
Date of Service December 18, 2018 Admission HPI Per Admitting Provider Patient is a pleasant 78-year-old female known to me from yesterday. notes that home nursing was in, patient did not seem quite right, he is not quite sure what her vitals were, they called Dr. Manuel because she did not seem right, and he directed her to the ER. She has no focal complaints. has no focal complaints about what he saying wrong with her, just that she seems off. I discussed the case with the ER physician as he was working her up, given my familiarity with her situation from yesterday. After initial work- up, it was clear patient had an aspiration pneumonia. Fortunately she is extremely stable overall, and the and I even discussed whether or not to allow her to go home on antibiotics. But after we discussed the fact that she would probably need to modify diet for the time being, being able to have speech therapy work with them again would be of benefit. She herself notes that she feels okay. Principal Diagnosis Aspiration pneumonia Discharge Exam Awake and alert pleasant no distress. Speech and facial droop at baseline. Breathing unlabored no accessory muscle use good effort. Skin shows no rashes no pallor or icterus. Discharge Data Allergies Allergy/AdvReac Type Severity Reaction Status Date / Time raspberry Allergy Unknown RASH Unverified 06/16/14 09:25 strawberry Allergy Unknown redness,rash Verified 06/16/14 05:08 on abdomen Consultations 12/17/18 16:49 ED Decision to Admit Stat Ordered Studies 12/17/18 15:52 CT head/brain wo con Stat Hospital Course (1) Aspiration pneumonia: -She shows new neurologic deficits -Certainly with her chronic neurologic deficits aspiration appears to always be a risk -Pneumonia was not there on prior chest x-ray from 12/15 -Having just been in the hospital this week with a weakness/encephalopathy picture that was nonspecific, but likely related to dehydration plus or minus a possible urinary tract infection plus or minus hypertensive effectshe is probably a little bit weaker than her baseline. Given that she normally has a degree of dysarthria and likely a degree of dysphagia, now that she is weaker she is probably less able to prevent aspiration and protect her airway when she is swallowing. Although she normally eats a normal diet, and has not been in and out of the hospital with aspiration events, right now she is weaker than her normal baseline, and that would be a set up for her to aspirate now. Speech therapy worked with her and went over with her and her as far as aspiration precautions. She is safe for discharge to home again, and will have speech therapy seeing her at home, and I discussed with her and her that it is quite likely as she gets stronger (noting that it may take a month or 2) she will likely be on to get back to her prior baseline and ability to eat. -She had already been on a third-generation cephalosporin for the possible urinary tract infection, rather than shuffling antibiotics and raising her risk of C. difficile, given that most aspiration events do not carry multidrug- resistant bugs, will continue third-generation cephalosporin and added metronidazole for anaerobic coverage. Home on oral Ceftin ear and metronidazole. (2) Chronic indwelling Irene catheter: See above. Continue third-generation cephalosporin as above noted (3) Anemia: Chronic. Outpatient follow-up (4) Hypothyroidism: Continue home meds (5) Facial droop: Chronic, appears unchanged. See above otherwise. (6) Weakness: Multifactorial. She was just here with above-noted weakness, certainly the aspiration pneumonia will have her a little bit weaker. The notes that generally they do well at home, the fact that she has not been frequently in and out of the hospital except for this short current run that appears to be cause and effect (dehydration plus or minus urinary tract infection making her weak leading to the prior admission, and then the weakness making her more prone to aspiration leading to the current admission) they should do well at home again. Has been noted multiple times to case management and others that he needs more help at home, interestingly he said no such thing to me either yesterday today or earlier this week, but in discussions with case management, it sounds that the patient is eligible for a significant amount of increased help at home, but that the patient or have to be the ones to call to set it up. Case management gave multiple numbers to the to pursue additional help. (7) UTI (urinary tract infection): See above. Continue third-generation cephalosporin. (8) Chronic constipation: Continue home meds (9) Hyperlipidemia: Continue home meds (10) Discharge planning issues: home, otherwise as above Total Time Total Time Spent Total Time Spent (In Minutes): Less than 30 Discharge Plan Discharge Items Patient Disposition: Home - Self-Care Reason For Visit: ASPIRATION Discharge Diagnosis: aspiration pneumonia (see below) Activity: Resume your previous activity Non-emergency contact: Primary Care Provider Call non-emergency contact if: you have any medication questions and your symptoms worsen Follow-up/Referrals: Trent Manuel MD [Primary Care Provider] - 12/25/18 3:00 pm (Please, follow up with Dr. Trent Manuel on FridayDecember 25 at 3:00 pm. *If you need to change this appointment, call the office at [phone].) Diet: Regular Addtl Attending Provider Instructions: aspiration pneumonia -this means that you aspirated (inhaled) food into your airway and down into your lungs -this can create a pneumonia, which is what caused you to feel worse again -fortunately these are usually really easy infections to treat, and are already starting to get better -the antibiotics we were using for the urinary tract infection actually cover about half of what we see with aspiration pneumonias, so we'll just need to finish that course; in addition, we'll add an antibiotic called flagyl (metronidazole - 500mg three times a day for five more days) to cover the other half of the bacteria -strictly follow the swallowing precautions outlined by the speech therapist for the foreseeable future -- as you get stronger, i would expect your ability to swallow to improve to how it was a few weeks ago, but since you have chronic facial contractures and your tongue doesn't fully move, when you're weaker it is no surprise that swallowing would become more difficult. we'll have speech therapy following you at home for coaching and guidance. Pending Studies at Discharge: No Stand-Alone Forms: My [facility] Medications and DC Order Prescriptions: New metronidazole [Flagyl] 500 mg tablet 500 mg PO TID Qty: 15 RF: 0 Continued methenamine hippurate 1 gram tablet 1 gm PO BID Qty: 180 RF: 3 cholecalciferol (vitamin D3) 2,000 unit tablet 2,000 units PO DAILY RF: 0 polyethylene glycol 3350 17 gram/dose powder 17 gm PO DAILY PRN (Reason: chronic constipation) Qty: 527 RF: 0 pantoprazole 40 mg tablet,delayed release (DR/EC) 40 mg PO QAM Qty: 90 RF: 0 magnesium oxide 400 mg (241.3 mg magnesium) tablet 400 mg PO DAILY RF: 0 cyanocobalamin (vitamin B-12) 250 mcg tablet 250 mcg PO QAM RF: 0 docusate sodium 100 mg capsule 100 mg PO DAILY RF: 0 menthol-zinc oxide 0.44-20.6 % ointment 1 appln topical BID PRN (Reason: decubitus ulcer) Qty: 1 RF: 0 wheat dextrin 3 gram/3.5 gram powder in packet 1 pkt PO DAILY PRN (Reason: Constipation) RF: 0 collagenase clostridium histo. 250 unit/gram ointment 1 appln topical DAILY PRN (Reason: ulcers) Qty: 1 RF: 0 sennosides-docusate sodium 8.6-50 mg tablet 1 tab PO DAILY PRN (Reason: Constipation) RF: 0 nystatin 100,000 unit/gram powder 1 appln topical QID PRN (Reason: candidiasis) Qty: 60 RF: 3 cyanocobalamin (vitamin B-12) 1,000 mcg/mL solution 1,000 mcg IM MONTHLY Qty: 10 RF: 3 levothyroxine 75 mcg tablet 75 mcg PO QAM RF: 0 cefdinir 300 mg capsule 300 mg PO BID 6 Days Qty: 12 RF: 0 Discharge Orders: Discharge Order (Routine); Ordered 12/18/18 Ordered By: Kvng Florian Admission Data Admit Date/Time: 12/17/18 17:25 Attending Provider: Kvng Florian Admit Provider: Kvng Florian Primary Care Provider: Trent Manuel Other Providers: Kvng Florian Other Interventions: Discharge Summary Assessment (RN) Last Done: 12/18/18 14:07 DC Date/Time DO NOT enter until pt leaves facility: 12/18/18 16:03
[2018-12-18] MEDS ORDERED: cefTRIAXone SODIUM 2,000 MG in DEXTROSE 5% 50 ML IV SCH (17:00)
[2018-12-28] MEDS ORDERED: CYANOCOBALAMIN 1000 MCG/ML VIAL IM SCH (09:00)
== END 2018-12-18 16:03 | disposition home or self-care (01) ==
LOC: ED 15:41 → 4W 15:41

== ENCOUNTER 2018-12-25 09:12 | Inpatient (IN) ==
[2018-12-25] MEDS ORDERED: ALBUT/IPRATROP 3MG/0.5MG NEB 3 ML VIAL NEB ONE (09:44)
[2018-12-25 09:52] LABS: Basophils # (auto) 0.01 K/uL (0-0.2); Basophils % (auto) 0.1 %; Eosinophils # (auto) 0.02 K/uL (0-0.5); Eosinophils % (auto) 0.3 %; Hematocrit (blood only) 34.9 % (37-47); Hemoglobin 11.5 g/dL (12.0-16.0); Immature Granulocytes # (auto) 0.04 K/uL (0.00-0.02); Immature Granulocytes % (auto) 0.5 %; Lymphocytes # (auto) 0.75 K/uL (1.2-3.4); Lymphocytes % (auto) 9.7 %; Mean Corpuscular Hemoglobin 29.3 pg (25-34); Mean Platelet Volume 10.6 fL (7.4-10.4); Monocytes # (auto) 0.45 K/uL (0.11-0.59); Monocytes % (auto) 5.8 %; Neutrophils # (auto) 6.44 K/uL (1.4-6.5); Neutrophils % (auto) 83.6 %; Nucleated RBC # (auto) 0.02 K/uL (0-0); Nucleated RBC % (auto) 0.3 %; Platelet Count 145 K/uL (130-400); RDW Coefficient of Variation 19.8 % (11.5-14.5); Red Blood Count 3.92 M/uL (4.2-5.4); White Blood Count 7.71 K/uL (4.8-10.8)
[2018-12-25 10:01] LABS: iSTAT Creatinine 0.8 mg/dl (0.6-1.3); iSTAT Hemoglobin 11.6 g/dl (12.0-16.0); iSTAT Ionized Calcium 1.28 mmol/l (1.12-1.32); iSTAT Potassium 4.4 mEq/L (3.3-5.0)
[2018-12-25 10:05] LABS: INR 1.1 (0.9-1.1); Partial Thromboplastin Ratio 1.1; Partial Thromboplastin Time 28.7 Seconds (21.0-31.0); Prothrombin Time 10.8 Seconds (9.0-12.0)
[2018-12-25 10:13] LABS: Base Excess VBG 1.2 mEq/L; Oxygen Saturation VBG 91.4 %; pH VBG 7.37 (7.36-7.41)
[2018-12-25 10:14] LABS: Alanine Aminotransferase 19 U/L (12-78); Albumin Level 2.6 gm/dl (3.4-5.0); BUN Creatinine Ratio 32.6 (10-20); Blood Urea Nitrogen 25 mg/dl (7-18); Calcium 9.7 mg/dl (8.5-10.1); Carbon Dioxide 26 mmol/L (21-32); Chloride 109 mmol/L (98-107); Est GFR (African American) 84.4; Est GFR (Non-African American) 72.8; Glucose 73 mg/dl (70-99); Sodium 141 mmol/L (136-145)
[2018-12-25 10:19] LABS: Albumin Globulin Ratio 0.6 (0.9-2); Alkaline Phosphatase 165 U/L (45-117); Bilirubin,Total 0.6 mg/dl (0.2-1); Creatine Kinase MB 3.1 ng/ml (0.5-3.6); Globulin 4.4 gm/dl (2.5-4.0); Troponin I < 0.015 ng/ml (0-0.045)
--- NOTE | 2018-12-25 10:26 | Emergency Department Note ---
ED Visit Note This patient was seen in concert with Dr. Borden and we discussed and agreed upon the history, physical, assessment and plan. . Resident Activity Tracking Resident Involvement: Resident Care Provided Care Provided: Adult [facility] Medicine
[2018-12-25 10:31] LABS: Potassium 3.9 mmol/L (3.5-5.1)
--- NOTE | 2018-12-25 10:41 | XRay Report ---
XR chest 1V portable HISTORY: 78 years-old Female Sepsis acute sepsis. COMPARISON: Chest radiographs 12/17/2018 TECHNIQUE: Portable AP view of the chest FINDINGS: Cardiac silhouette is mildly enlarged, unchanged. Mild pulmonary vascular congestion. No pneumothorax . Probable trace pleural effusions. Persistent bibasilar alveolar opacities, right greater than left have progressively worsened in the interval, notably within the left lung base. Degenerative changes of the shoulders and spine. Mild mid thoracic dextroscoliosis. IMPRESSION: Progressively worsened bibasilar alveolar opacities suggestive of pneumonia. Continued fo llow-up to document resolution is recommended. The above report was generated using voice recognition software. It may contain grammatical, syntax o r spelling errors. Electronically signed by: Jose Mancia M.D. 12/25/2018 10:39 AM
[2018-12-25] MEDS ORDERED: VANCOMYCIN HCL 1,750 MG in SODIUM CHLORIDE 0.9% 500 ML IV ONE (10:52)
[2018-12-25] MEDS ORDERED: LEVOFLOXACIN/D5W 750 MG/150 ML BAG IV STA (10:52)
[2018-12-25] MEDS ORDERED: PIPERACILLIN/TAZOBACTAM 4.5 GM/120 ML BAG IV ONE (10:52)
[2018-12-25] MEDS ORDERED: VANCOMYCIN CONSULT ACTIVE PRN (10:52)
[2018-12-25] MEDS ORDERED: PIPERACILL/TAZOBAC CONSULT ACTIVE PRN (10:52)
--- NOTE | 2018-12-25 11:21 | History & Physical Report ---
Date of Service December 25, 2018 Assessment & Plan (1) Acute respiratory failure: Admit to PCU on telemetry vital signs Q4 h Continue Zosyn (started in the ER) Cont supplemental O2 blood cx and respiratory cx pending monitor electrolytes and replenish Duonebs Q4hr prn Budesonide/farmoterol Solumedrol 40 mg iV BID and taper down DVT ppx -scd DNR/DNI per pt request Present on Admission?: Yes (2) Aspiration into respiratory tract: as above Present on Admission?: Yes (3) UTI (urinary tract infection): recurrent UTI f/u Ucx and blood cx Cont Zosyn Present on Admission?: Yes (4) Chronic constipation: started golytely 250 ml PO daily for 2 days Present on Admission?: Yes (5) Decubitus ulcer, buttock: wound swab, wound care, turn q 2 hr, consult wound RN Present on Admission?: Yes (6) Hypothyroidism: cont levothyroxine Present on Admission?: Yes History of Present Illness Chief Complaint: Hypoxia and shortness of breath Primary Care Provider: Trent Manuel MD Patient is a 78 years old female with past medical history of brain tumor, hearing loss, hyperlipidemia, chronic constipation, aspiration pneumonia,, chronic indwelling catheter and chronic UTI, anemia, arthritis, progressive focal motor weakness with slurred speech and facial droop was brought by akbar pedersen to the emergency room with a concern that patient was grasping on room air and very short of breath. Patient was recently discharged for aspiration pneumonia on December 18, 2018 and she completed her treatment with cefdinir and Flagyl this week on Friday. Patient usually does not use any oxygen at home but on arrival to the emergency room she needed 4 L of oxygen to be above 88%. While in the emergency room we discussed patient CODE STATUS and patient who is dysarthric clearly stated noting with her head that she does not want intubation to be done nor CPR nor she wants to be shocked. Patient was at the bedside and and goddaughter who were at the moment okay with that decision but stated that later on they will discuss further and possibly change her mind. The order was placed in the chart to DNR/DNI as per patient's wishes. At this point patient denied chest pain headache abdominal pain frequency urgency and hemoptysis. Labs were reviewed: Which shows white blood cell count of 7.71 hemoglobin 11.5 hematocrit 34.9 and platelets of 145. PT 10.8, INR 1.1. Blood gases 7.37 VBG pH, BB G PCO2 48 VBG O2 65 ABG HCO3 27. Sodium 142, potassium 3.9, anion gap 11, BUN 29, creatinine 0.8, lactate 0.5 AST 14, BNP 497. Decision was made to admit patient to the PCU on telemetry for further treatment of aspiration pneumonia and swallow study patient is just swallowing everything to her lungs. Allergies Allergy/AdvReac Type Severity Reaction Status Date / Time raspberry Allergy Unknown RASH Unverified 12/25/18 09:38 strawberry Allergy Unknown redness,rash Verified 12/25/18 09:38 on abdomen Home Medications Home Medications Medication Instructions Recorded Confirmed Type methenamine hippurate 1 gram tablet 1 gm PO BID #180 tab 10/12/18 12/25/18 Rx cholecalciferol (vitamin D3) 2,000 2,000 units PO DAILY tab 10/31/18 12/25/18 History unit tablet cyanocobalamin (vit B-12) 250 mcg 250 mcg PO QAM 10/31/18 12/25/18 History tablet docusate sodium 100 mg capsule 100 mg PO DAILY 10/31/18 12/25/18 History magnesium oxide 400 mg (241.3 mg 400 mg PO DAILY tab 10/31/18 12/25/18 History magnesium) tablet menthol 0.44 %-zinc oxide 20.6 % 1 appln TOPICAL BID PRN #1 gm 10/31/18 12/25/18 History topical ointment pantoprazole 40 mg tablet,delayed 40 mg PO QAM #90 tab 10/31/18 12/25/18 History release polyethylene glycol 3350 17 17 gm PO DAILY PRN #527 gm 10/31/18 12/25/18 History gram/dose oral powder collagenase clostridium 1 appln TOPICAL DAILY PRN #1 gm 11/09/18 12/25/18 History histolyticum 250 unit/gram topical ointment sennosides 8.6 mg-docusate sodium 1 tab PO DAILY PRN tab 11/09/18 12/25/18 History 50 mg tablet wheat dextrin 3 gram/3.5 gram oral 1 pkt PO DAILY PRN ea 11/09/18 12/25/18 History powder packet cyanocobalamin (vit B-12) 1,000 1,000 mcg IM MONTHLY #10 ml 11/12/18 12/25/18 Rx mcg/mL injection solution nystatin 100,000 unit/gram topical 1 appln TOPICAL QID PRN #60 gm 11/12/18 12/25/18 Rx powder levothyroxine 75 mcg PO QAM 12/15/18 12/25/18 History metronidazole [Flagyl] 500 mg PO TID #15 tab 12/18/18 12/25/18 Rx Past Med/Surg History Medical History Alkaline phosphatase elevation (Acute) Arthritis (Chronic) Candidal intertrigo (Acute) Chronic constipation (Acute) Decubitus ulcer, buttock (Acute) Hearing loss (Acute) Hyperlipidemia (Chronic) Nephrolithiasis (Acute) Vitamin B 12 deficiency (Acute) Wheelchair dependent (Acute) Surgical History H/O total knee replacement History of nephrectomy, left Family History Unknown Diabetes Hypertension Chronic liver disease Mother , age 93 of heart issues Heart disease Father , age 65 of hepatic cirrhosis. Cirrhosis with alcoholism Social History Preferred Language: Turkish Communication Ability: Impaired Legal Consultant Required: No Beliefs That Will Affect Care: None Current Living Situation: Spouse Current Living Situation Comment: Home care current occupational status: disabled Other Information That Helps Us Care for You: No Feels Safe at Home: Yes Safety Concerns: Feels Safe At This Time Smoking Status: Never smoker Hx Alcohol Use: No Hx Substance Use: No caffeine: No Seatbelt Use: always Review of Systems Review of Systems: All systems reviewed & are unremarkable except as noted in HPI & below Physical Exam Constitutional: WD/WN, vitals as above well developed Eyes: + eyes dysmorphic and + eyelid abnormality (On the left, facial droop on the left) ENMT: external ear and nose normal, oropharynx normal Neck: trachea midline, no thyromegaly Respiratory: Auscultation: + crackles and + wheezes Cardiovascular: Heart Sounds: normal S1 and normal S2 Palpation: + palpable S3 Gastrointestinal (Abdomen): normal bowel sounds, soft, nontender, no hepatosplenomegaly Musculoskeletal: no cyanosis or clubbing, extremities motor strength 5/5 Skin: no rashes, warm and dry Neurologic: patellar DTR's 2+ bilat, sensation intact Psychiatric: A+Ox3, euthymic affect Lymphatic: no cervical or axillary lymphadenopathy Results & Data Vital Signs (Past 12 Hours) Vital Signs Pulse Pulse Resp BP BP Pulse Ox 12/25/18 10:35 83 18 96 12/25/18 10:13 85 18 116/79 96 12/25/18 09:28 90 16 158/83 H 86 L Code Status & VTE Plan Code Status DNR/DNI PG Care Time/CCT Total # of Minutes Spent Total Time Spent with Patient: Total time spent is greater than 50% in coordination of care (as documented) at patient's floor/unit and/or counseling patient: (1) Aspiration into respiratory tract Encounter type: initial encounter Qualified Code(s): T17.908A - Unspecified foreign body in respiratory tract, part unspecified causing other injury, initial encounter (2) UTI (urinary tract infection) Hematuria presence: with hematuria Urinary tract infection type: site unspecified Qualified Code(s): N39.0 - Urinary tract infection, site not specified; R31.9 - Hematuria, unspecified
[2018-12-25] MEDS ORDERED: DOCUSATE SODIUM/SENNA 50/8.6MG TAB PO PRN (13:31)
[2018-12-25] MEDS ORDERED: SODIUM CHLORIDE 0.9% 1000ML 250 ML IV ONE (13:31)
[2018-12-25] MEDS ORDERED: SODIUM CHLORIDE 0.9% 1000ML 1,000 ML IV SCH (13:31)
[2018-12-25] MEDS ORDERED: ALBUT/IPRATROP 3MG/0.5MG NEB 3 ML VIAL NEB PRN (13:31)
[2018-12-25] MEDS ORDERED: POLYETHYLENE (MIRALAX) 17 GM PACK PO PRN (13:31)
[2018-12-25] MEDS ORDERED: NYSTATIN POWDER 15GM BTL EXT PRN (13:31)
[2018-12-25] MEDS ORDERED: SODIUM CHLOR 7% 4 ML NEB INH PRN (13:31)
[2018-12-25] MEDS ORDERED: MAGNESIUM HYDROXIDE SUSP 30 ML UDC PO PRN (13:31)
[2018-12-25] MEDS ORDERED: ZOLPIDEM TARTRATE 5 MG TAB PO PRN (13:31)
[2018-12-25] MEDS ORDERED: ALUMINUM/MAGNESIUM SUSP 30 ML UDC PO PRN (13:31)
[2018-12-25] MEDS ORDERED: MENTHOL-ZINC OXIDE 360 APPLN/120 GM TUBE EXT PRN (13:31)
[2018-12-25] MEDS ORDERED: ACETAMINOPHEN 325 MG TAB PO PRN (13:31)
[2018-12-25] MEDS ORDERED: COLLAGENASE OINT 30 GM TUBE EXT PRN (14:00)
[2018-12-25] MEDS ORDERED: PSYLLIUM 58.6% POWDER PACKET PO PRN (14:00)
--- NOTE | 2018-12-25 14:45 | Emergency Department Note ---
Entered by Jeffry Braxton acting as a scribe for Manjit Borden MD History of Present Illness General Chief complaint: Shortness of Breath/Dyspnea Time Seen by Provider: 12/25/18 09:22 Source: family and EMS Mode of arrival: ambulatory Limitations: other (non verbal) History of Present Illness Onset (ago): hour(s) 10 Location: chest Pain Consistency: + constant Quality: + other (shortness of breath) Associated symptoms: + denies other symptoms (fever, rhonchi) The patient is a 78 year old female who presents to the Emergency Room with complaints of an episode of constant shortness of breath that started in the middle of the night. The EMS reports that the patient is 86 on room air. The patients was with her and stated that their homecare nurse was concerned. The patients states that she was discharged from the hospital a week prior due to a similar episode of shortness of breath and was diagnosed with pneumonia. The patients states that she did not eat anything last night. The patients states that she has a history of stroke. The patient states that she is afebrile, rhonchi, and is currently not using home oxygen. Home Medications Home Medications Medication Instructions Recorded Confirmed Type methenamine hippurate 1 gram tablet 1 gm PO BID #180 tab 10/12/18 12/25/18 Rx cholecalciferol (vitamin D3) 2,000 2,000 units PO DAILY tab 10/31/18 12/25/18 History unit tablet cyanocobalamin (vit B-12) 250 mcg 250 mcg PO QAM 10/31/18 12/25/18 History tablet docusate sodium 100 mg capsule 100 mg PO DAILY 10/31/18 12/25/18 History magnesium oxide 400 mg (241.3 mg 400 mg PO DAILY tab 10/31/18 12/25/18 History magnesium) tablet menthol 0.44 %-zinc oxide 20.6 % 1 appln TOPICAL BID PRN #1 gm 10/31/18 12/25/18 History topical ointment pantoprazole 40 mg tablet,delayed 40 mg PO QAM #90 tab 10/31/18 12/25/18 History release polyethylene glycol 3350 17 17 gm PO DAILY PRN #527 gm 10/31/18 12/25/18 History gram/dose oral powder collagenase clostridium 1 appln TOPICAL DAILY PRN #1 gm 11/09/18 12/25/18 History histolyticum 250 unit/gram topical ointment sennosides 8.6 mg-docusate sodium 1 tab PO DAILY PRN tab 11/09/18 12/25/18 History 50 mg tablet wheat dextrin 3 gram/3.5 gram oral 1 pkt PO DAILY PRN ea 11/09/18 12/25/18 History powder packet cyanocobalamin (vit B-12) 1,000 1,000 mcg IM MONTHLY #10 ml 11/12/18 12/25/18 Rx mcg/mL injection solution nystatin 100,000 unit/gram topical 1 appln TOPICAL QID PRN #60 gm 11/12/18 12/25/18 Rx powder levothyroxine 75 mcg PO QAM 12/15/18 12/25/18 History metronidazole [Flagyl] 500 mg PO TID #15 tab 12/18/18 12/25/18 Rx Allergies Allergy/AdvReac Type Severity Reaction Status Date / Time raspberry Allergy Unknown RASH Unverified 12/25/18 09:38 strawberry Allergy Unknown redness,rash Verified 12/25/18 09:38 on abdomen Past Med/Surg History Medical History Alkaline phosphatase elevation (Acute) Arthritis (Chronic) Candidal intertrigo (Acute) Chronic constipation (Acute) Decubitus ulcer, buttock (Acute) Hearing loss (Acute) Hyperlipidemia (Chronic) Nephrolithiasis (Acute) Vitamin B 12 deficiency (Acute) Wheelchair dependent (Acute) Surgical History H/O total knee replacement History of nephrectomy, left Family History Unknown Diabetes Hypertension Chronic liver disease Mother , age 93 of heart issues Heart disease Father , age 65 of hepatic cirrhosis. 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 and A total of 10 systems reviewed and were otherwise negative Physical Exam Vital Signs Vital Signs - 24 hr 12/25/18 09:23 12/25/18 09:24 12/25/18 09:28 Sepsis Recent Fever Within 48 Hours No Sepsis Action Taken by Nursing No Action Required Pulse Oximetry Post Tiitration Pulse Rate 91 H 89 90 Pulse Rate [Carotid] Pulse Rate from SpO2 Sensor 90 90 Pulse Rhythm [Carotid] Respiratory Rate 23 24 16 Respiratory Effort / Characteristics Blood Pressure 158/83 H 158/83 H Blood Pressure [Left Arm] Blood Pressure Mean 108 108 Blood Pressure Mean [Left Arm] Pulse Oximetry 88 L 89 L 86 L Oxygen Delivery Method Room Air Oxygen Flow Rate 86 12/25/18 09:30 12/25/18 09:40 12/25/18 09:41 Sepsis Recent Fever Within 48 Hours Sepsis Action Taken by Nursing Pulse Oximetry Post Tiitration 94 Pulse Rate 86 88 Pulse Rate [Carotid] Pulse Rate from SpO2 Sensor 87 88 Pulse Rhythm [Carotid] Respiratory Rate 20 26 H Respiratory Effort / Characteristics Blood Pressure Blood Pressure [Left Arm] Blood Pressure Mean Blood Pressure Mean [Left Arm] Pulse Oximetry 88 L 92 Oxygen Delivery Method Nasal Cannula Oxygen Flow Rate 12/25/18 09:50 12/25/18 10:00 12/25/18 10:10 Sepsis Recent Fever Within 48 Hours Sepsis Action Taken by Nursing Pulse Oximetry Post Tiitration Pulse Rate 86 83 84 Pulse Rate [Carotid] Pulse Rate from SpO2 Sensor 86 83 84 Pulse Rhythm [Carotid] Respiratory Rate 21 25 H 20 Respiratory Effort / Characteristics Blood Pressure Blood Pressure [Left Arm] Blood Pressure Mean Blood Pressure Mean [Left Arm] Pulse Oximetry 93 94 94 Oxygen Delivery Method Oxygen Flow Rate 12/25/18 10:13 12/25/18 10:15 12/25/18 10:20 Sepsis Recent Fever Within 48 Hours Sepsis Action Taken by Nursing Pulse Oximetry Post Tiitration Pulse Rate 85 83 Pulse Rate [Carotid] 85 Pulse Rate from SpO2 Sensor 85 83 Pulse Rhythm [Carotid] Regular Respiratory Rate 18 21 21 Respiratory Effort / Characteristics Blood Pressure 116/79 Blood Pressure [Left Arm] 116/79 Blood Pressure Mean 91 Blood Pressure Mean [Left Arm] 91 Pulse Oximetry 96 96 95 Oxygen Delivery Method Oxymask Oxygen Flow Rate 4 12/25/18 10:30 12/25/18 10:35 12/25/18 10:40 Sepsis Recent Fever Within 48 Hours Sepsis Action Taken by Nursing Pulse Oximetry Post Tiitration Pulse Rate 83 86 Pulse Rate [Carotid] 83 Pulse Rate from SpO2 Sensor 83 86 Pulse Rhythm [Carotid] Respiratory Rate 18 18 23 Respiratory Effort / Characteristics Spontaneous Blood Pressure 131/84 Blood Pressure [Left Arm] Blood Pressure Mean 99 Blood Pressure Mean [Left Arm] Pulse Oximetry 96 96 97 Oxygen Delivery Method Oxymask Oxygen Flow Rate 4 12/25/18 10:45 12/25/18 10:50 12/25/18 11:00 Sepsis Recent Fever Within 48 Hours Sepsis Action Taken by Nursing Pulse Oximetry Post Tiitration Pulse Rate 89 93 H 93 H Pulse Rate [Carotid] Pulse Rate from SpO2 Sensor 89 92 H 93 H Pulse Rhythm [Carotid] Respiratory Rate 22 26 H 20 Respiratory Effort / Characteristics Blood Pressure 143/79 H 117/82 Blood Pressure [Left Arm] Blood Pressure Mean 100 93 Blood Pressure Mean [Left Arm] Pulse Oximetry 97 96 90 Oxygen Delivery Method Oxygen Flow Rate 12/25/18 11:10 12/25/18 11:15 12/25/18 11:20 Sepsis Recent Fever Within 48 Hours Sepsis Action Taken by Nursing Pulse Oximetry Post Tiitration Pulse Rate 99 H 100 H 103 H Pulse Rate [Carotid] Pulse Rate from SpO2 Sensor 99 H 101 H 103 H Pulse Rhythm [Carotid] Respiratory Rate 23 20 18 Respiratory Effort / Characteristics Blood Pressure 141/68 H Blood Pressure [Left Arm] Blood Pressure Mean 92 Blood Pressure Mean [Left Arm] Pulse Oximetry 91 93 92 Oxygen Delivery Method Oxygen Flow Rate 12/25/18 11:30 Sepsis Recent Fever Within 48 Hours Sepsis Action Taken by Nursing Pulse Oximetry Post Tiitration Pulse Rate 102 H Pulse Rate [Carotid] Pulse Rate from SpO2 Sensor 102 H Pulse Rhythm [Carotid] Respiratory Rate 21 Respiratory Effort / Characteristics Blood Pressure 146/66 H Blood Pressure [Left Arm] Blood Pressure Mean 92 Blood Pressure Mean [Left Arm] Pulse Oximetry 90 Oxygen Delivery Method Oxygen Flow Rate GENERAL: Awake, alert, well-appearing, in no acute distress. Minimally responsive to verbal stimuli. HENT: Normocephalic, atraumatic. Oropharynx unremarkable. Left sided facial droop. EYES: Normal conjunctiva. Sclera non-icteric. NECK: Supple. No nuchal rigidity. FROM. No JVD. RESPIRATORY: Rhonchi bilaterally in bases. CARDIAC: Regular rate, normal rhythm. Extremities warm and well perfused. Pulses equal. ABDOMEN: Soft, non-distended. No tenderness to palpation. No rebound or guarding. No masses. RECTAL: Deferred. MUSCULOSKELETAL: Chest examination reveals no tenderness. The back is symmetrical on inspection without obvious abnormality. There is no CVA tenderness to palpation. No joint edema. LOWER EXTREMITIES: Calves are equal size bilaterally and non-tender. No edema. No discoloration. NEURO: Normal sensorium. No sensory or motor deficits noted. SKIN: No rash or jaundice noted. Course 939: The patient was evaluated in room B02. A complete history and physical exam was performed. 1309: Upon reevaluation, the patient was resting comfortably. I discussed findings and results with her. She verbalized agreement of the treatment plan. The patient was discharged home. Administered Medications Sodium Chloride (Nss 1000ml) 1,000 mls @ 80 mls/hr IV .[id number] BABAR Stop: 12/26/18 02:00 Last Admin: 12/25/18 14:02 Dose: 80 mls/hr Documented by: [id number] Discontinued Medications Albuterol (Duoneb) 12 ml NEB ONE ONE Stop: 12/25/18 09:45 Last Admin: 12/25/18 10:30 Dose: 12 ml Documented by: [id number] Piperacillin Sod/Tazobactam Sod (Zosyn) 4.5 gm in 120 mls @ 240 mls/hr IV NOW ONE Stop: 12/25/18 11:21 Last Infusion: 12/25/18 12:02 Dose: 0 mls/hr Documented by: [id number] Admin: 12/25/18 11:10 Dose: 240 mls/hr Documented by: [id number] Vancomycin HCl 1,750 mg/ (Sodium Chloride) 535 mls @ 200 mls/hr IV NOW ONE Stop: 12/25/18 13:32 Last Admin: 12/25/18 13:46 Dose: Not Given Documented by: [id number] Levofloxacin/Dextrose (Levaquin/D5w) 750 mg in 150 mls @ 100 mls/hr IV NOW STA Stop: 12/25/18 12:21 Last Infusion: 12/25/18 14:02 Dose: 0 mls/hr Documented by: [id number] Admin: 12/25/18 12:01 Dose: 100 mls/hr Documented by: [id number] Sodium Chloride (Nss 1000ml) 250 mls @ 999 mls/hr IV .Q16M ONE Stop: 12/25/18 13:46 Last Infusion: 12/25/18 14:02 Dose: 0 mls/hr Documented by: [id number] Admin: 12/25/18 13:43 Dose: 999 mls/hr Documented by: [id number] Medical Decision Making Differential Diagnosis Differential diagnosis: Etiologies such as infections, reactive airway disease, COPD, pneumonia, pleural effusion, pulmonary edema, ARDS, pneumothorax, CHF, cardiac ischemia, cardiac tamponade, dysrhythmia, anemia, pulmonary embolism, musculoskeletal, gastrointestinal process, as well as others were entertained. Medical Records Attestation: I reviewed the patient's medical records. Home Medications Current Medication List: was personally reviewed by me Laboratory Data Attestation: I reviewed the patient's lab results. Result diagrams: 12/25/18 09:38 12/25/18 10:07 Lab Results 12/25/18 12/25/18 12/25/18 Range/Units 09:38 09:38 09:38 WBC 7.71 (4.8-10.8) K/uL RBC 3.92 L (4.2-5.4) M/uL Hgb 11.5 L (12.0-16.0) g/dL POC Hgb (12.0-16.0) g/dl Hct 34.9 L (37-47) % POC Hct (37-47) % MCV 89.0 (80-100) fL MCH 29.3 (25-34) pg MCHC 33.0 (32-36) g/dL RDW Std Deviation 63.0 H (36.4-46.3) fL RDW Coeff of Oliva 19.8 H (11.5-14.5) % Plt Count 145 (130-400) K/uL MPV 10.6 H (7.4-10.4) fL Immature Gran % (Auto) 0.5 % Neut % (Auto) 83.6 % Lymph % (Auto) 9.7 % Parker % (Auto) 5.8 % Eos % (Auto) 0.3 % Baso % (Auto) 0.1 % Immature Gran # (Auto) 0.04 H (0.00-0.02) K/uL Neut # (Auto) 6.44 (1.4-6.5) K/uL Lymph # (Auto) 0.75 L (1.2-3.4) K/uL Parker # (Auto) 0.45 (0.11-0.59) K/uL Eos # (Auto) 0.02 (0-0.5) K/uL Baso # (Auto) 0.01 (0-0.2) K/uL Absolute Nucleated RBC 0.02 H (0-0) K/uL Nucleated RBC % (auto) 0.3 % PT 10.8 (9.0-12.0) Seconds INR 1.1 (0.9-1.1) APTT 28.7 (21.0-31.0) Seconds PTT Ratio 1.1 VBG pH (7.36-7.41) VBG pCO2 (38-50) mmHg VBG pO2 mmHg VBG HCO3 mmol/L VBG O2 Saturation % VBG Base Excess mEq/L Barometric Pressure mm/Hg POC Sodium (135-144) mEq/L Sodium 141 (136-145) mmol/L POC Potassium (3.3-5.0) mEq/L Potassium (3.5-5.1) mmol/L POC Chloride (101-112) mEq/L Chloride 109 H (98-107) mmol/L Carbon Dioxide 26 (21-32) mmol/L POC Total CO2 (24-31) mEq/l Anion Gap 6.0 (3-11) POC Anion Gap (16-25) mmol/L POC BUN (7-18) mg/dl BUN 25 H (7-18) mg/dl Creatinine 0.78 (0.6-1.2) mg/dl POC Creatinine (0.6-1.3) mg/dl Est Cr Clr Drug Dosing 71.0 ml/min Est GFR ( Amer) 84.4 Est GFR (Non-Af Amer) 72.8 BUN/Creatinine Ratio 32.6 H (10-20) Glucose 73 (70-99) mg/dl POC Glucose (other) (70-99) mg/dl Lactate (0.4-2.0) mmol/L Calcium 9.7 (8.5-10.1) mg/dl POC Ioniz Calcium Santi (1.12-1.32) mmol/l Total Bilirubin 0.6 (0.2-1) mg/dl AST (15-37) U/L ALT 19 (12-78) U/L Alkaline Phosphatase 165 H (45-117) U/L Total Creatine Kinase (26-192) U/L CK-MB (CK-2) 3.1 (0.5-3.6) ng/ml CK/CKMB % Calc TNP Troponin I < 0.015 (0-0.045) ng/ml NT-Pro-B Natriuret Pep (0-1800) pg/ml Total Protein 7.0 (6.4-8.2) gm/dl Albumin 2.6 L (3.4-5.0) gm/dl Globulin 4.4 H (2.5-4.0) gm/dl Albumin/Globulin Ratio 0.6 L (0.9-2) 12/25/18 12/25/18 12/25/18 Range/Units 09:42 09:58 10:04 WBC (4.8-10.8) K/uL RBC (4.2-5.4) M/uL Hgb (12.0-16.0) g/dL POC Hgb 11.6 L (12.0-16.0) g/dl Hct (37-47) % POC Hct 34 L (37-47) % MCV (80-100) fL MCH (25-34) pg MCHC (32-36) g/dL RDW Std Deviation (36.4-46.3) fL RDW Coeff of Oliva (11.5-14.5) % Plt Count (130-400) K/uL MPV (7.4-10.4) fL Immature Gran % (Auto) % Neut % (Auto) % Lymph % (Auto) % Parker % (Auto) % Eos % (Auto) % Baso % (Auto) % Immature Gran # (Auto) (0.00-0.02) K/uL Neut # (Auto) (1.4-6.5) K/uL Lymph # (Auto) (1.2-3.4) K/uL Parker # (Auto) (0.11-0.59) K/uL Eos # (Auto) (0-0.5) K/uL Baso # (Auto) (0-0.2) K/uL Absolute Nucleated RBC (0-0) K/uL Nucleated RBC % (auto) % PT (9.0-12.0) Seconds INR (0.9-1.1) APTT (21.0-31.0) Seconds PTT Ratio VBG pH 7.37 (7.36-7.41) VBG pCO2 48 (38-50) mmHg VBG pO2 65 mmHg VBG HCO3 27 mmol/L VBG O2 Saturation 91.4 % VBG Base Excess 1.2 mEq/L Barometric Pressure 735.8 mm/Hg POC Sodium 142 (135-144) mEq/L Sodium (136-145) mmol/L POC Potassium 4.4 (3.3-5.0) mEq/L Potassium (3.5-5.1) mmol/L POC Chloride 107 (101-112) mEq/L Chloride (98-107) mmol/L Carbon Dioxide (21-32) mmol/L POC Total CO2 29 (24-31) mEq/l Anion Gap (3-11) POC Anion Gap 11.0 L (16-25) mmol/L POC BUN 29 H (7-18) mg/dl BUN (7-18) mg/dl Creatinine (0.6-1.2) mg/dl POC Creatinine 0.8 (0.6-1.3) mg/dl Est Cr Clr Drug Dosing ml/min Est GFR ( Amer) Est GFR (Non-Af Amer) BUN/Creatinine Ratio (10-20) Glucose (70-99) mg/dl POC Glucose (other) 73 (70-99) mg/dl Lactate 0.5 (0.4-2.0) mmol/L Calcium (8.5-10.1) mg/dl POC Ioniz Calcium Santi 1.28 (1.12-1.32) mmol/l Total Bilirubin (0.2-1) mg/dl AST (15-37) U/L ALT (12-78) U/L Alkaline Phosphatase (45-117) U/L Total Creatine Kinase (26-192) U/L CK-MB (CK-2) (0.5-3.6) ng/ml CK/CKMB % Calc Troponin I (0-0.045) ng/ml NT-Pro-B Natriuret Pep (0-1800) pg/ml Total Protein (6.4-8.2) gm/dl Albumin (3.4-5.0) gm/dl Globulin (2.5-4.0) gm/dl Albumin/Globulin Ratio (0.9-2) 12/25/18 12/25/18 Range/Units 10:07 10:07 WBC (4.8-10.8) K/uL RBC (4.2-5.4) M/uL Hgb (12.0-16.0) g/dL POC Hgb (12.0-16.0) g/dl Hct (37-47) % POC Hct (37-47) % MCV (80-100) fL MCH (25-34) pg MCHC (32-36) g/dL RDW Std Deviation (36.4-46.3) fL RDW Coeff of Oliva (11.5-14.5) % Plt Count (130-400) K/uL MPV (7.4-10.4) fL Immature Gran % (Auto) % Neut % (Auto) % Lymph % (Auto) % Parker % (Auto) % Eos % (Auto) % Baso % (Auto) % Immature Gran # (Auto) (0.00-0.02) K/uL Neut # (Auto) (1.4-6.5) K/uL Lymph # (Auto) (1.2-3.4) K/uL Parker # (Auto) (0.11-0.59) K/uL Eos # (Auto) (0-0.5) K/uL Baso # (Auto) (0-0.2) K/uL Absolute Nucleated RBC (0-0) K/uL Nucleated RBC % (auto) % PT (9.0-12.0) Seconds INR (0.9-1.1) APTT (21.0-31.0) Seconds PTT Ratio VBG pH (7.36-7.41) VBG pCO2 (38-50) mmHg VBG pO2 mmHg VBG HCO3 mmol/L VBG O2 Saturation % VBG Base Excess mEq/L Barometric Pressure mm/Hg POC Sodium (135-144) mEq/L Sodium (136-145) mmol/L POC Potassium (3.3-5.0) mEq/L Potassium 3.9 (3.5-5.1) mmol/L POC Chloride (101-112) mEq/L Chloride (98-107) mmol/L Carbon Dioxide (21-32) mmol/L POC Total CO2 (24-31) mEq/l Anion Gap (3-11) POC Anion Gap (16-25) mmol/L POC BUN (7-18) mg/dl BUN (7-18) mg/dl Creatinine (0.6-1.2) mg/dl POC Creatinine (0.6-1.3) mg/dl Est Cr Clr Drug Dosing ml/min Est GFR ( Amer) Est GFR (Non-Af Amer) BUN/Creatinine Ratio (10-20) Glucose (70-99) mg/dl POC Glucose (other) (70-99) mg/dl Lactate (0.4-2.0) mmol/L Calcium (8.5-10.1) mg/dl POC Ioniz Calcium Santi (1.12-1.32) mmol/l Total Bilirubin (0.2-1) mg/dl AST 14 L (15-37) U/L ALT (12-78) U/L Alkaline Phosphatase (45-117) U/L Total Creatine Kinase 22 L (26-192) U/L CK-MB (CK-2) (0.5-3.6) ng/ml CK/CKMB % Calc Troponin I (0-0.045) ng/ml NT-Pro-B Natriuret Pep 497 (0-1800) pg/ml Total Protein (6.4-8.2) gm/dl Albumin (3.4-5.0) gm/dl Globulin (2.5-4.0) gm/dl Albumin/Globulin Ratio (0.9-2) ECG Data Attestation: I personally reviewed and interpreted this ECG as follows: Indication: SOB/dyspnea Rate (beats per minute): 91 Rhythm: sinus tachycardia Findings: + 1st degree AV block; no ST depression and no ST elevation Comparison ECG Date: no prior available Blood Pressure Blood Pressure Findings: Low blood pressure Blood Pressure Disposition: did not require urgent referral MDM Narrative This is a 78-year-old female who presents emergency department over concerns the patient has been more hypoxic. Patient has a history of aspiration pneumonia. Patient's pneumonia is increasing on her chest x-ray. Based on this the patient's antibiotic coverage was increased including Zosyn Levaquin and vancomycin. Because the patient is requiring oxygen I did discuss her case with the hospitalist service who agreed to admit the patient. Patient was in agreement with treatment plan. Lactate was obtained. Patient was given multiple breathing treatments here in the emergency department. Impression & Plan Aspiration into respiratory tract, Chronic indwelling Irene catheter, Chronic UTI Discharge Plan Visit Data *Final* Discharge Date/Time: 12/25/18 13:09 Chief Complaint: Shortness of Breath/Dyspnea ED Provider: Manjit Borden ED Midlevel Provider: Windy Tsai Discharge Problem: Aspiration into respiratory tract, Chronic indwelling Irene catheter, Chronic UTI Patient Disposition: Admitted As Inpatient Discharge Instructions Interventions: ED Discharge Assessment Last Done: 12/25/18 13:09 The scribe's documentation has been prepared under my direction and personally reviewed by me in its entirety. I confirm that the note above accurately reflects all work, treatment, procedures, and medical decision making performed by me.
--- NOTE | 2018-12-25 15:00 | XRay Report ---
KUB HISTORY: Acute sepsis with constipation chest radiograph of same day COMPARISON: CT abdomen and pelvis 02/28/2013 FINDINGS: The bowel gas pattern is non-obstructive. Moderate fecal retention of the cecum, ascending colon, hepatic flexure, rectum and sigmoid. Surgical clips project over the left abdomen. There is no organomegaly. Bilateral renal calculi. No ureteral calculi. No pneumoperitoneum or pneumatosis. No fracture. Degenerative changes of the spine, pelvis and hips with lumbar levoscoliosis. Suggestion of bilateral pleural effusions with bibasilar opacities. Catheter projects over the central pelvis. IMPRESSION: 1. Nonobstructive bowel gas pattern. 2. Moderate constipation. 3. Nephrolithiasis. Electronically signed by: Jose Mancia M.D. 12/25/2018 2:59 PM
--- NOTE | 2018-12-25 15:02 | XRay Report ---
XR chest 1V portable HISTORY: Worsening dyspnea COMPARISON: Chest 12/25/2018. FINDINGS: No pneumothorax. There are low lung volumes. Patchy bibasilar airspace opacities have sligh tly improved the heart remains stable in size. No evidence for pulmonary edema. IMPRESSION: Slight improvement in the patchy bibasilar airspace opacities. Electronically signed by: Anthony Gonzalez M.D. 12/25/2018 3:01 PM
[2018-12-25] MEDS ORDERED: SODIUM CHLORIDE 0.9% 1000ML 500 ML IV ONE (15:03)
[2018-12-25] MEDS: PIPERACILLIN/TAZOBACTAM 3.375 GM in DEXTROSE 5% 100 ML IV SCH ×2 (15:19→23:45)
[2018-12-25] MEDS: methylPREDNISolone 40 MG in SYRINGE 0 ML IV SCH ×2 (15:22→21:22)
[2018-12-25] MEDS: LAVAGE SOLN 240ML BOTTLE PO SCH (15:22)
[2018-12-25] MEDS: BUDESONIDE/FORMOTEROL FUMARATE 160/4.5 60 PUFFS/INHALER INH SCH ×2 (15:24→21:22)
[2018-12-25 16:03] LABS: Appearance Urine Cloudy (Clear); Bacteria Urine Automated Negative (Negative); Bilirubin Urine Negative (Negative); Blood Urine Negative (Negative); Color Urine Dark Yellow; Epithelial Cell Urine Auto >30 /lpf (0-5); Glucose Urine UA Negative (Negative); Ketones Urine Trace (Negative); Leukocyte Esterase Urine 2+ (Negative); Nitrite Urine Positive (Negative); Protein Urine Trace (Negative); Specific Gravity Urine 1.025 (1.000-1.030); Urobilinogen Urine Negative (Negative)
[2018-12-25] MEDS: NOREPINEPHRINE BIT INJ 8 MG in DEXTROSE 5% 500 ML IV SCH (19:16)
[2018-12-25] MEDS: METHENAMINE HIPPURATE 1 GM TAB PO SCH (21:21)
--- NOTE | 2018-12-25 21:39 | Critical Care Consultation ---
Date of Consultation December 25, 2018 Assessment & Plan (1) Aspiration into respiratory tract: Reason Acutely Ill: 78 year old woman with aspiration pneumonia and septic shock. Cardiovascular: Hypotensive with pressures as low as 63/36 Tachycardic with rates >115 Likely secondary to aspiration pneumonia IMproved pressure with IV fluid, currently up 1.2 L Troponin negative Regular rhythm on monitor Patient consented for central line, if she drops her pressure again we will place this Patient consented for arterial line as well for closer bp monitoring Respiratory Aspiration pneumonia resulting in hypoxemic respiratory failure Patient with chronic aspiration with swallowing, home with palliative feeding knowing this would happen Patient saturating well on 3L O2 currently If her respiratory status were to deteriorate there was some question over patients wishes Patient adamant that she does not want intubation which is reasonable but hard for family Will respect patient's wishes. Gastrointestinal: No abnormality at this time KUB showing mild constipation NG tube placed for Nutrition Wishes to have a feeding tube surgically placed moving forward Renal Renal function good ABG showing normal pH Will continue to monitor No evidence of fluid overload ID: Evidence of bilateral basilar pneumonia Secondary to aspriation Will cover with zosyn Goals of Care: Confusion over goals of care with mixed messages from patient in private and with family. We brought in independent doctor to try and help assess patient's true goals and we are in agreement that she is desiring to be DNR/DNI and will pursue a feeding tube moving forward. Dispo: ICU F/E/N: NSS 80 mls/hour DVT PPx: SCD's will order chemoprophylaxis Code status: DNR/DNI (2) Progressive focal motor weakness: (3) Facial droop: (4) Slurred speech: (5) UTI (urinary tract infection): (6) Alkaline phosphatase elevation: (7) Candidal intertrigo: (8) Arthritis: Supervising Physician Co-Signing Physician Notes Dr. Pulliam was resident physician during care of patient. I separately evaluated patient for ramirez portions of the history and the exam. I was present during the critical portion of medical decision making, and I discussed the case with the resident. I generally agree with the findings and plan. Patient was transferred for reported hypotension and acute hypoxic respiratory failure. During my evaluation the patient's hypoxic respiratory failure was resolved with supplemental oxygen and blood pressure had been normalized with the administration of crystalloid volume expansion. I was notified by the patient's attending physician that while the patient was initially requesting DNR/DNI in event of both cardiac arrest and respiratory insufficiency which is consistent with prior records regarding such conversations, there was a current discrepancy as the patient now reportedly was desiring full resuscitation in event of cardiac arrest as well as intubation in case of respiratory insu fficiency. I reviewed the previous charts particularly the discharge summary as well as the previous speech and language consult notes. It is noted that the patient's power of oil producer is currently the patient's . It was reported to me that the patient's was stressed with having to make certain decisions and has opted to defer these decisions in event of the patient lacking capacity to the patient's goddaughter. I discussed the patient's goals of care with the goddaughter. I am concerned the patient's goddaughter is not holding to the principles of Substituted Judgment regarding Beverly Crandall expressed wishes when I was informed by the goddaughter that the patient did in fact want intubation in event of respiratory insufficiency as well as full resuscitative measures in event of cardiac arrest. We collectively discussed the patient's goals and explicitly reviewed the speech and language evaluation. All were in agreement that the patient refused placement for intensive dysphasia therapy and returning home was a major goal. With regards to the documentation that the patient expressed several times that she was comfortable with dying this was contested by the goddaughter is actively completing paperwork to become a healthcare POA. My evaluation with the patient took place with the resident Dr. Pulliam. 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 I individually asked if she understood why she was in the ICU to which she shook her head no. I explained that there was a pneumonia likely from aspiration of secretions with swallowing. I asked the patient if her heart were to stop would she want CPR performed. The patient shook her head no. I asked the patient if we were having difficulty keeping her oxygen levels up would she want a breathing tube placed, to which she again shook her head no. I attempted to quantify the patient's understanding and asked if you are unable to breathe would you be able to live? She shook her head no. I asked if I were to place a breathing tube in order to help you breathe and live would you want that, she again shook her head no. I then asked if you cannot breathe and I do not place a breathing tube, you will , are you comfortable with that, to which she shook her head yes. I then asked if the patient would be comfortable with central venous access to which she shook her head yes, consented the patient for arterial line placement which she again shook her head yes she would be willing to undergo. When discussing surgical feeding tube she shook her head no that she did not want such a procedure done. Given the discrepancies between the future healthcare power of oil producer and the patient's who demonstrates capacity and according with previous medical record documentation appears to have maintained a consistent finding with end-of-life decisions we discussed these options with the patient's , goddaughter, patient, myself, and Dr. Pulliam jointly. We again inquired about intubation and mechanical ventilation, the patient shook her head no. The patient's goddaughter then directed a question to the patient paraphrasing; you understand that that would be it? The patient shook her head yes. The goddaughter then asked, paraphrasing: You do not want a breathing tube? The patient again shook her head yes. At that time I feel the patient has clearly voiced her decision, has capacity to make such a decision, appears to understand the gravity of such a decision and accordingly will be DNR in event of cardiac arrest and DNI in event of respiratory insufficiency. Later I was approached by Dr. Pulliam who stated the patient had indicated she now wanted intubation, resuscitation, and feeding tube placement. Given this was now a second change regarding end-of-life goals I requested a third independent physician (Dr. Villegas) along with Dr. Mane education administrative assistant chief design drafter attempt to elucidate whether the patient has capacity and to desire to proceed with intubation, mechanical ventilation, feeding tube placement. Both Dr. York and Dr. Karimi confirmed that the patient does have capacity to make end-of-life decisions, refuse or allow treatment and does not desire resuscitation in event of cardiac arrest. The patient does not desire intubation in event of respiratory insufficiency. At this time the patient is willing to undergo feeding tube placement. Orders have been placed that the patient will not receive resuscitative efforts in event of arrest more respiratory insufficiency. Given the status of the patient I do not feel it is presently an appropriate time for feeding tube evaluation. As the patient will likely require hospitalization over the next couple of days we will formally consult general surgery or GI for elective feeding tube placement on Friday. 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 Was brought in for shortness of breath, chest XR showing aspiration pneumonia in b/l lung bases. Placed on O2 and vanc/zosyn and admitted to PCU. Patient developed septic shock with Hypotension, tachycardia, tachypnea, hypothermia, and altered mental status. Admitted her to ICU to have option for more intensive treatment. BLood pressure improved with fluid bolus, norepi ordered but never had to be given. Temperature and vital signs stabilized. There was some confusion as to patient wishes, was a stated DNR DNI previously and was discharged from last admission on palliative feeding with knowledge of aspiration. Declined any kind of rehab or SNF and stated she understood and was ready to if the time was here. Attending Physician: Dmitri De La Paz MD Allergies Allergy/AdvReac Type Severity Reaction Status Date / Time raspberry Allergy Unknown RASH Unverified 12/25/18 09:38 strawberry Allergy Unknown redness,rash Verified 12/25/18 09:38 on abdomen Home Medications Home Medications Medication Instructions Recorded Confirmed Type methenamine hippurate 1 gram tablet 1 gm PO BID #180 tab 10/12/18 12/25/18 Rx cholecalciferol (vitamin D3) 2,000 2,000 units PO DAILY tab 10/31/18 12/25/18 History unit tablet cyanocobalamin (vit B-12) 250 mcg 250 mcg PO QAM 10/31/18 12/25/18 History tablet docusate sodium 100 mg capsule 100 mg PO DAILY 10/31/18 12/25/18 History magnesium oxide 400 mg (241.3 mg 400 mg PO DAILY tab 10/31/18 12/25/18 History magnesium) tablet menthol 0.44 %-zinc oxide 20.6 % 1 appln TOPICAL BID PRN #1 gm 10/31/18 12/25/18 History topical ointment pantoprazole 40 mg tablet,delayed 40 mg PO QAM #90 tab 10/31/18 12/25/18 History release polyethylene glycol 3350 17 17 gm PO DAILY PRN #527 gm 10/31/18 12/25/18 History gram/dose oral powder collagenase clostridium 1 appln TOPICAL DAILY PRN #1 gm 11/09/18 12/25/18 History histolyticum 250 unit/gram topical ointment sennosides 8.6 mg-docusate sodium 1 tab PO DAILY PRN tab 11/09/18 12/25/18 History 50 mg tablet wheat dextrin 3 gram/3.5 gram oral 1 pkt PO DAILY PRN ea 11/09/18 12/25/18 History powder packet cyanocobalamin (vit B-12) 1,000 1,000 mcg IM MONTHLY #10 ml 11/12/18 12/25/18 Rx mcg/mL injection solution nystatin 100,000 unit/gram topical 1 appln TOPICAL QID PRN #60 gm 11/12/18 12/25/18 Rx powder levothyroxine 75 mcg PO QAM 12/15/18 12/25/18 History metronidazole [Flagyl] 500 mg PO TID #15 tab 12/18/18 12/25/18 Rx Patient History Medical History Alkaline phosphatase elevation (Acute) Arthritis (Chronic) Candidal intertrigo (Acute) Chronic constipation (Acute) Decubitus ulcer, buttock (Acute) Hearing loss (Acute) Hyperlipidemia (Chronic) Nephrolithiasis (Acute) Vitamin B 12 deficiency (Acute) Wheelchair dependent (Acute) Surgical History H/O total knee replacement History of nephrectomy, left Family History Unknown Diabetes Hypertension Chronic liver disease Mother , age 93 of heart issues Heart disease Father , age 65 of hepatic cirrhosis. Cirrhosis with alcoholism Social History Preferred Language: Ghanaian Communication Ability: Impaired Label Tacker Required: No Beliefs That Will Affect Care: None Current Living Situation: Spouse Current Living Situation Comment: Home care current occupational status: disabled Other Information That Helps Us Care for You: No Feels Safe at Home: Yes Safety Concerns: Feels Safe At This Time Smoking Status: Never smoker Hx Alcohol Use: No Hx Substance Use: No caffeine: No Seatbelt Use: always Review of Systems Review of Systems: All systems reviewed & are unremarkable except as noted in HPI & below Physical Exam Constitutional: Constitutional: Very frail, woman, mouth agape, asymmetric face nonverbal Eyes: LEft eye appears injured with cataract like appearance and metal in left superior eye lid, right eye appears normal, tracks and responsive to light Respiratory: Shallow rapid breathing, acute respiratory distress, lung sounds rhoncourous and decreased Cardiovascular: Rate/Rhythm: + tachycardic Heart Sounds: normal S1 and normal S2; no click, no gallop, no murmur and no cardiac rub Results & Data Vital Signs (Past 12 Hours) Vital Signs Temp Pulse Pulse Pulse Resp BP BP 12/25/18 18:30 91 H 23 107/62 12/25/18 18:15 84 21 113/68 12/25/18 18:00 85 17 122/67 12/25/18 17:45 87 21 116/56 L 12/25/18 17:30 92 H 21 114/65 12/25/18 17:15 88 20 122/59 L 12/25/18 17:00 90 21 93/57 L 12/25/18 16:45 93 H 26 H 133/59 L 12/25/18 16:30 94 H 24 108/59 L 12/25/18 16:15 93 H 23 113/56 L 12/25/18 16:00 89 23 102/49 L 12/25/18 15:45 89 26 H 89/50 L 12/25/18 15:30 87 21 99/41 L 12/25/18 15:15 90 25 H 92/42 L 12/25/18 15:00 87 22 68/41 L 12/25/18 14:50 90 23 94/47 L 12/25/18 14:45 94 H 21 12/25/18 14:30 90 21 12/25/18 14:27 93 H 22 102/51 L 12/25/18 14:15 93 H 12/25/18 14:01 12/25/18 14:00 91 H 12/25/18 13:45 93 H 12/25/18 13:40 12/25/18 13:31 95 H 12/25/18 13:24 36.4 C L 104 H 22 63/36 L 12/25/18 12:46 114 H 25 H 115/56 L 12/25/18 12:45 113 H 25 H 12/25/18 12:30 112 H 29 H 105/70 12/25/18 12:20 114 H 23 12/25/18 12:15 115 H 25 H 102/62 12/25/18 12:10 115 H 27 H 12/25/18 12:05 113 H 18 134/66 12/25/18 12:00 111 H 20 134/66 12/25/18 11:50 110 H 25 H 12/25/18 11:45 107 H 21 143/68 H 12/25/18 11:40 108 H 16 12/25/18 11:30 102 H 21 146/66 H 12/25/18 11:20 103 H 18 12/25/18 11:15 100 H 20 141/68 H 12/25/18 11:10 99 H 23 12/25/18 11:00 93 H 20 117/82 12/25/18 10:50 93 H 26 H 12/25/18 10:45 89 22 143/79 H 12/25/18 10:40 86 23 12/25/18 10:35 83 18 12/25/18 10:30 83 18 131/84 12/25/18 10:20 83 21 12/25/18 10:15 85 21 116/79 12/25/18 10:13 85 18 116/79 12/25/18 10:10 84 20 12/25/18 10:00 83 25 H 12/25/18 09:50 86 21 12/25/18 09:40 88 26 H BP Pulse Ox 12/25/18 18:30 90 12/25/18 18:15 95 12/25/18 18:00 95 12/25/18 17:45 94 12/25/18 17:30 96 12/25/18 17:15 96 12/25/18 17:00 93 12/25/18 16:45 94 12/25/18 16:30 96 12/25/18 16:15 96 12/25/18 16:00 96 12/25/18 15:45 94 12/25/18 15:30 93 12/25/18 15:15 92 12/25/18 15:00 90 12/25/18 14:50 92 12/25/18 14:45 93 12/25/18 14:30 95 12/25/18 14:27 95 12/25/18 14:15 12/25/18 14:01 78/43 L 12/25/18 14:00 12/25/18 13:45 12/25/18 13:40 80/44 L 92 12/25/18 13:31 12/25/18 13:24 92 12/25/18 12:46 90 12/25/18 12:45 89 L 12/25/18 12:30 92 12/25/18 12:20 93 12/25/18 12:15 91 12/25/18 12:10 90 12/25/18 12:05 91 12/25/18 12:00 91 12/25/18 11:50 89 L 12/25/18 11:45 88 L 12/25/18 11:40 87 L 12/25/18 11:30 90 12/25/18 11:20 92 12/25/18 11:15 93 12/25/18 11:10 91 12/25/18 11:00 90 12/25/18 10:50 96 12/25/18 10:45 97 12/25/18 10:40 97 12/25/18 10:35 96 12/25/18 10:30 96 12/25/18 10:20 95 12/25/18 10:15 96 12/25/18 10:13 96 12/25/18 10:10 94 12/25/18 10:00 94 12/25/18 09:50 93 12/25/18 09:40 92 PG Care Time/CCT Total # of Minutes Spent Total Time Spent with Patient: Total time spent is greater than 50% in coordination of care (as documented) at patient's floor/unit and/or counseling patient: Critical Care Time: Yes Total Critical Care Time: 135 I have personally spent 135 minutes of critical care time in the direct manag ement of this patient. This is a life/limb threatening event. This includes time spent evaluating patient, direct bedside care, chart review, placing orders, interpretation of diagnostic studies, discussion with consultants, patient, and/or family members regarding treatment decisions, as well as other required patient management activities. This time is exclusive of all separately billable procedures, and teaching time and separate from and in addition to any other critical care service time. Resident Activity Tracking Resident Involvement: Resident Care Provided Care Provided: Adult Hospital Medicine (1) Aspiration into respiratory tract Encounter type: initial encounter Qualified Code(s): T17.908A - Unspecified foreign body in respiratory tract, part unspecified causing other injury, initial encounter (2) UTI (urinary tract infection) Hematuria presence: with hematuria Urinary tract infection type: site unspecified Qualified Code(s): N39.0 - Urinary tract infection, site not specified; R31.9 - Hematuria, unspecified
--- NOTE | 2018-12-25 21:56 | History & Physical Bridge Note ---
Date of Service December 25, 2018 I was asked by Dr Gold to speak with the patient regarding her code status as there was concern about conflicting statements throughout the day about her wishes. Prior to my visit with Mrs Cuadra I spoke with the admitting physician, Dr De La Paz, who stated that the patient was quite clear during the admission assessment that she would want to be DNR/DNI. However, after transfer to the ICU (due to her acute hypoxic respiratory failure), there was some question of whether she had changed her mind and was wanting full code status. I met with the patient at bedside in the ICU. Her , god-daughter/niece, and 2 caregivers were present. The patient's nurse, Dr Gold, and Dr Roberto Mane were also present. The patient was awake during our code status discussion. She mainly nodded her head "yes" or "no" to answer questions. She did not vocalize her wishes. By history she has severe dysarthria at baseline. In the presence of all of the above-mentioned individuals I asked the patient if she would want intubation/mechanical ventilation in the event of worsening respiratory status. Twice she shook her head "no" to intubation/mechanical ventilation. This was witnessed by all persons present. She also shook her head "no" to defibrillation/shocks as well as chest compressions at least twice when asked about these measures. Again this was witnessed by all individuals present. She was consistent in shaking her head "yes" to wanting a feeding tube, antibiotics, and central line placement, if needed. I believe that the patient has capacity to understand the decisions she is making and the consequences of those decisions. She was consistent in her responses. Dr Gold to place DNR/DNI order on the patient's chart. Viktor Karimi MD
--- NOTE | 2018-12-25 22:21 | XRay Report ---
KUB CLINICAL HISTORY: Enteric tube placement. FINDINGS: 2 AP portable radiographs of the upper abdomen are compared to study dated 12/25/2018. An en teric tube has been placed. The tip projects below the diaphragm over the mid stomach. There is no ra diographic evidence of bowel obstruction. Bibasilar airspace opacities are noted. The skeletal struct ures are osteopenic. There is lumbosacral spondylosis and scoliosis. IMPRESSION: 1. An enteric tube has been placed. The tip projects below the diaphragm over the stomach. 2. There is no radiographic evidence of bowel obstruction. Electronically signed by: Phoenix Diego M.D. 12/25/2018 10:19 PM
[2018-12-26] MEDS ORDERED: ACETAMINOPHEN SOL 650 MG/20.3 ML UDC PO PRN (04:50)
[2018-12-26 05:04] LABS: Hematocrit (blood only) 31.9 % (37-47); Hemoglobin 10.7 g/dL (12.0-16.0); Immature Granulocytes # (auto) 0.07 K/uL (0.00-0.02); Immature Granulocytes % (auto) 0.7 %; Lymphocytes # (auto) 0.28 K/uL (1.2-3.4); Lymphocytes % (auto) 2.8 %; Mean Corpuscular Hemoglobin 29.6 pg (25-34); Mean Corpuscular Hgb Conc 33.5 g/dL (32-36); Mean Corpuscular Volume 88.4 fL (80-100); Mean Platelet Volume 10.3 fL (7.4-10.4); Monocytes # (auto) 0.18 K/uL (0.11-0.59); Monocytes % (auto) 1.8 %; Neutrophils # (auto) 9.56 K/uL (1.4-6.5); Neutrophils % (auto) 94.7 %; Nucleated RBC # (auto) 0.05 K/uL (0-0); Nucleated RBC % (auto) 0.5 %; Platelet Count 140 K/uL (130-400); RDW Coefficient of Variation 19.6 % (11.5-14.5); RDW Standard Deviation 61.7 fL (36.4-46.3); Red Blood Count 3.61 M/uL (4.2-5.4); White Blood Count 10.09 K/uL (4.8-10.8)
[2018-12-26 05:38] LABS: BUN Creatinine Ratio 30.5 (10-20); Calcium 9.4 mg/dl (8.5-10.1); Creatinine Clr Calc Pharmacy 65.1 ml/min; Est GFR (African American) 76.1; Est GFR (Non-African American) 65.6; Magnesium 1.8 mg/dl (1.8-2.4); Phosphorus 1.9 mg/dl (2.5-4.9); Potassium 4.5 mmol/L (3.5-5.1)
[2018-12-26] MEDS: LEVOTHYROXINE SODIUM 75 MCG TABLET PO SCH (05:45)
--- NOTE | 2018-12-26 06:20 | Critical Care Progress Note ---
Date of Service December 26, 2018 Assessment & Plan (1) Aspiration into respiratory tract: Reason Acutely Ill: 78 year old woman with aspiration pneumonia and septic shock. Cardiovascular: Initially was Hypotensive with pressures as low as 63/36 Tachycardic with rates >115 Likely secondary to aspiration pneumonia IMproved pressure with IV fluid, currently up 1.2 L Troponin negative Patient has improved markedly in last twelve hours, maintaining pressures and oxygenation on 3L oxymask Respiratory Aspiration pneumonia resulting in hypoxemic respiratory failure Patient with chronic aspiration with swallowing, sent home from last admission with palliative feeding knowing this would happen Patient saturating well on 3L O2 currently If her respiratory status were to deteriorate there was some question over patients wishes Patient adamant that she does not want intubation which is reasonable but hard for family Will respect patient's wishes and maintain DNR/DNI status Gastrointestinal: No abnormality at this time KUB showing mild constipation NG tube placed for Nutrition Wishes to have a feeding tube surgically placed moving forward Discussed pros and cons of this decision yet family feels strongly this is the right thing for her Consulted general surgery and Dr. Wood who comes on on Friday Renal Renal function good ABG showing normal pH Will continue to monitor No evidence of fluid overload ID: Evidence of bilateral basilar pneumonia Secondary to aspriation Will cover with zosyn Goals of Care: Confusion over goals of care with mixed messages from patient in private and with family. We brought in independent physician to try and help assess patient's true goals and we are in agreement that she is desiring to be DNR/DNI and will pursue a feeding tube moving forward. Dispo: ICU possibly downgrade to PCU tele if continues to remain this stable. F/E/N: NSS 80 mls/hour DVT PPx: SCD's will order chemoprophylaxis Code status: DNR/DNI (2) Progressive focal motor weakness: (3) Facial droop: (4) Slurred speech: (5) UTI (urinary tract infection): (6) Alkaline phosphatase elevation: (7) Candidal intertrigo: (8) Arthritis: Results & Data Vital Signs (Past 12 Hours) Vital Signs Pulse Resp BP Pulse Ox 12/26/18 04:30 113 H 27 H 90 12/26/18 04:15 116 H 32 H 115/68 90 12/26/18 04:00 109 H 27 H 97/53 L 94 12/26/18 03:46 112 H 30 H 113/94 94 12/26/18 03:31 112 H 29 H 127/56 L 90 12/26/18 03:30 113 H 27 H 90 12/26/18 03:15 110 H 26 H 119/59 L 89 L 12/26/18 03:00 110 H 30 H 104/58 L 90 12/26/18 02:45 109 H 32 H 115/63 90 12/26/18 02:30 111 H 29 H 111/75 90 12/26/18 02:16 109 H 27 H 102/71 90 12/26/18 02:01 109 H 32 H 131/51 L 91 12/26/18 02:00 109 H 34 H 92 12/26/18 01:45 104 H 24 105/61 92 12/26/18 01:30 100 H 25 H 99/55 L 90 12/26/18 01:15 99 H 22 93/48 L 90 12/26/18 01:00 106 H 34 H 111/58 L 91 12/26/18 00:45 102 H 25 H 110/57 L 90 12/26/18 00:30 103 H 23 124/63 91 12/26/18 00:15 102 H 30 H 107/51 L 90 12/26/18 00:00 101 H 28 H 111/61 90 12/25/18 23:45 99 H 27 H 106/58 L 93 12/25/18 23:30 100 H 31 H 120/61 93 12/25/18 23:15 100 H 25 H 123/59 L 95 12/25/18 23:00 97 H 23 103/54 L 95 12/25/18 22:45 94 H 23 113/62 95 12/25/18 22:30 97 H 28 H 118/70 95 12/25/18 22:15 93 H 22 127/61 95 12/25/18 22:00 97 H 25 H 126/84 96 12/25/18 21:45 96 H 23 113/68 96 12/25/18 21:30 89 20 111/58 L 96 12/25/18 21:15 88 20 115/61 96 12/25/18 21:00 87 21 109/60 96 12/25/18 20:45 91 H 23 113/69 97 12/25/18 20:30 90 20 112/62 96 12/25/18 20:15 92 H 23 124/66 97 12/25/18 20:00 93 H 22 129/72 97 12/25/18 19:45 87 18 118/68 97 12/25/18 19:30 91 H 21 123/70 97 12/25/18 19:15 87 19 107/62 94 12/25/18 19:00 86 21 113/47 L 95 12/25/18 18:45 90 20 116/65 95 12/25/18 18:30 91 H 23 107/62 90 PG Care Time/CCT Total # of Minutes Spent Total Time Spent with Patient: Total time spent is greater than 50% in coordination of care (as documented) at patient's floor/unit and/or counseling patient: (1) Aspiration into respiratory tract Encounter type: initial encounter Qualified Code(s): T17.908A - Unspecified foreign body in respiratory tract, part unspecified causing other injury, initial encounter (2) UTI (urinary tract infection) Hematuria presence: with hematuria Urinary tract infection type: site unspecified Qualified Code(s): N39.0 - Urinary tract infection, site not specified; R31.9 - Hematuria, unspecified
[2018-12-26] MEDS: NOREPINEPHRINE BIT INJ 8 MG in DEXTROSE 5% 500 ML IV SCH (07:32)
[2018-12-26] MEDS: PANTOprazole 40 MG TAB PO SCH (07:33)
[2018-12-26] MEDS: PIPERACILLIN/TAZOBACTAM 3.375 GM in DEXTROSE 5% 100 ML IV SCH ×2 (08:31→16:31)
[2018-12-26] MEDS: BUDESONIDE/FORMOTEROL FUMARATE 160/4.5 60 PUFFS/INHALER INH SCH ×2 (08:32→21:17)
[2018-12-26] MEDS: methylPREDNISolone 40 MG in SYRINGE 0 ML IV SCH ×2 (08:32→21:17)
--- NOTE | 2018-12-26 08:35 | Hospitalist Progress Note ---
Date of Service December 26, 2018 Assessment & Plan (1) Acute respiratory failure: Patient is now hemodynamically stable and will be transferred from ICU to to PCU on telemetry vital signs Q4 h Continue n.p.o. for now until family makes a decision about feeding tube versus comfort care Continue Zosyn (started in the ER) Cont supplemental O2 blood cx and respiratory cx pending monitor electrolytes and replenish Duonebs Q4hr prn Budesonide/farmoterol Solumedrol 40 mg iV BID and taper down DVT ppx -scd DNR/DNI per pt request (2) Aspiration into respiratory tract: as above (3) UTI (urinary tract infection): recurrent UTI f/u Ucx and blood cx Cont Zosyn (4) Chronic constipation: started golytely 250 ml PO daily for 2 days (5) Decubitus ulcer, buttock: wound swab, wound care, turn q 2 hr, consult wound RN (6) Hypothyroidism: cont levothyroxine (7) DNR (do not resuscitate) discussion: Subjective Patient seen and examined at the bedside. Patient is comfortably resting in the bed. For the past 24 hours patient is able to maintain her blood pressure and it is 120/68 her pulse continues to be elevated 99 respirations are 25 and she is on 6 L of oxygen. Patient expressed to our committee members and Dr. Gold that she wants to be DNR/DNI and family agreed with patient decision at the end. Patient and family would like to pursue palliative care and home hospice. Patient requested to be evaluated by gastroenterology for placement of the tube feeding. All pros and cons feeding tubes discussed with family. Family aware that aspiration will not be prevented with feeding tube placement. Patient patient has dysarthria and not able to vocalize her responses but today she was able to say that she is comfortable and not in pain. Discussed goals of care with family and recommended comfort care and hospice. Consult for palliative care placed. Review of Systems Review of Systems: All systems reviewed & are unremarkable except as noted in HPI & below Physical Exam Constitutional: WD/WN, vitals as above well developed Eyes: + eyes dysmorphic and + eyelid abnormality (On the left, facial droop on the left) ENMT: external ear and nose normal, oropharynx normal Neck: trachea midline, no thyromegaly Respiratory: Auscultation: + crackles and + wheezes Cardiovascular: Heart Sounds: normal S1 and normal S2 Palpation: + palpable S3 Gastrointestinal (Abdomen): normal bowel sounds, soft, nontender, no hepatosplenomegaly Musculoskeletal: no cyanosis or clubbing, extremities motor strength 5/5 Skin: no rashes, warm and dry Neurologic: patellar DTR's 2+ bilat, sensation intact Psychiatric: A+Ox3, euthymic affect Lymphatic: no cervical or axillary lymphadenopathy Results & Data Vital Signs (Past 12 Hours) Vital Signs Pulse Resp BP Pulse Ox 12/26/18 06:38 105 H 27 H 120/55 L 92 12/26/18 06:30 110 H 31 H 120/55 L 93 12/26/18 06:23 108 H 27 H 105/52 L 90 12/26/18 06:00 112 H 27 H 118/51 L 94 12/26/18 05:45 113 H 35 H 109/63 89 L 12/26/18 05:30 111 H 27 H 114/39 L 89 L 12/26/18 05:15 113 H 18 115/51 L 92 12/26/18 05:01 113 H 29 H 128/61 94 12/26/18 05:00 114 H 25 H 94 12/26/18 04:45 115 H 26 H 118/69 88 L 12/26/18 04:30 113 H 27 H 90 12/26/18 04:15 116 H 32 H 115/68 90 12/26/18 04:00 109 H 27 H 97/53 L 94 12/26/18 03:46 112 H 30 H 113/94 94 12/26/18 03:31 112 H 29 H 127/56 L 90 12/26/18 03:30 113 H 27 H 90 12/26/18 03:15 110 H 26 H 119/59 L 89 L 12/26/18 03:00 110 H 30 H 104/58 L 90 12/26/18 02:45 109 H 32 H 115/63 90 12/26/18 02:30 111 H 29 H 111/75 90 12/26/18 02:16 109 H 27 H 102/71 90 12/26/18 02:01 109 H 32 H 131/51 L 91 12/26/18 02:00 109 H 34 H 92 12/26/18 01:45 104 H 24 105/61 92 12/26/18 01:30 100 H 25 H 99/55 L 90 12/26/18 01:15 99 H 22 93/48 L 90 12/26/18 01:00 106 H 34 H 111/58 L 91 12/26/18 00:45 102 H 25 H 110/57 L 90 12/26/18 00:30 103 H 23 124/63 91 12/26/18 00:15 102 H 30 H 107/51 L 90 12/26/18 00:00 101 H 28 H 111/61 90 12/25/18 23:45 99 H 27 H 106/58 L 93 12/25/18 23:30 100 H 31 H 120/61 93 12/25/18 23:15 100 H 25 H 123/59 L 95 12/25/18 23:00 97 H 23 103/54 L 95 12/25/18 22:45 94 H 23 113/62 95 12/25/18 22:30 97 H 28 H 118/70 95 12/25/18 22:15 93 H 22 127/61 95 12/25/18 22:00 97 H 25 H 126/84 96 12/25/18 21:45 96 H 23 113/68 96 12/25/18 21:30 89 20 111/58 L 96 12/25/18 21:15 88 20 115/61 96 12/25/18 21:00 87 21 109/60 96 12/25/18 20:45 91 H 23 113/69 97 PG Care Time/CCT Total # of Minutes Spent Total Time Spent with Patient: Total time spent is greater than 50% in coordination of care (as documented) at patient's floor/unit and/or counseling patient: (1) Aspiration into respiratory tract Encounter type: initial encounter Qualified Code(s): T17.908A - Unspecified foreign body in respiratory tract, part unspecified causing other injury, initial encounter (2) UTI (urinary tract infection) Hematuria presence: with hematuria Urinary tract infection type: site unspecified Qualified Code(s): N39.0 - Urinary tract infection, site not specified; R31.9 - Hematuria, unspecified
[2018-12-26] MEDS ORDERED: CHOLECALCIFEROL 1,000 UNITS TAB PO SCH (09:00)
[2018-12-26] MEDS ORDERED: CYANOCOBALAMIN 500 MCG TABLET (VITAMIN B-12) PO SCH (09:00)
[2018-12-26] MEDS ORDERED: DOCUSATE SODIUM 100 MG CAP PO SCH (09:00)
[2018-12-26] MEDS ORDERED: INFLUENZA VIRUS QUAD VACCINE 0.5 ML SYR IM ONE (09:00)
[2018-12-26] MEDS ORDERED: INFLUENZA ADMINISTRATION CHARGE ONE (09:00)
[2018-12-26] MEDS: METHENAMINE HIPPURATE 1 GM TAB PO SCH ×2 (10:25→21:16)
[2018-12-26] MEDS: DOCUSATE SODIUM SYRUP 100 MG/10 ML UDC PO SCH (10:25)
[2018-12-26] MEDS: MAGNESIUM OXIDE 400 MG TAB PO SCH (10:25)
[2018-12-26] MEDS: LAVAGE SOLN 240ML BOTTLE PO SCH (10:29)
[2018-12-27] MEDS: PIPERACILLIN/TAZOBACTAM 3.375 GM in DEXTROSE 5% 100 ML IV SCH ×3 (00:06→15:11)
--- NOTE | 2018-12-27 04:07 | Critical Care Progress Note ---
Date of Service December 27, 2018 Assessment & Plan (1) Aspiration into respiratory tract: Reason Acutely Ill: 78 year old woman with aspiration pneumonia and septic shock. Cardiovascular: Initially was Hypotensive with pressures as low as 63/36 Tachycardic with rates >115 Likely secondary to aspiration pneumonia Troponin negative Patient has improved markedly in last day remaining normotensive and oxygenating on just oxymask 3-6 L tachycardia improved Respiratory Aspiration pneumonia resulting in hypoxemic respiratory failure Patient with chronic aspiration with swallowing, sent home from last admission with palliative feeding knowing this would happen Patient saturating well on 5L O2 via oxymask currently If her respiratory status were to deteriorate there was some question over patients wishes Patient adamant that she does not want intubation which is reasonable but hard for family Will respect patient's wishes and maintain DNR/DNI status Gastrointestinal: No abnormality at this time KUB showing mild constipation NG tube placed for Nutrition Wishes to have a feeding tube surgically placed moving forward Discussed pros and cons of this decision yet family feels strongly this is the right thing for her Consulted general surgery and Dr. Wood who comes on on Friday Will consult GI as well Explained to family that placing feeding tube will not serve as a means of preventing all future aspiration however they are in favor of moving forward Renal Renal function good ABG showing normal pH Will continue to monitor No evidence of fluid overload ID: Evidence of bilateral basilar pneumonia Secondary to aspriation Will cover with zosyn Goals of Care: Confusion over goals of care with mixed messages from patient in private and with family. We brought in independent physician to try and help assess patient's true goals and we are in agreement that she is desiring to be DNR/DNI and will pursue a feeding tube moving forward. Dispo: Transfer to PCU, no longer requiring critical care F/E/N: electrolytes stable DVT PPx: lovenox Code status: DNR/DNI (2) Progressive focal motor weakness: (3) Facial droop: (4) Slurred speech: (5) UTI (urinary tract infection): (6) Alkaline phosphatase elevation: (7) Candidal intertrigo: (8) Arthritis: Supervising Physician Co-Signing Physician Notes Dr. Pulliam was resident physician during care of patient. I separately evaluated patient for ramirez portions of the history and the exam. I was present during the critical portion of medical decision making, and I discussed the case with the resident. I generally agree with the findings and plan. Will start tube feeds today, awaiting nutrition consult and whether the patient wants to continue with permissive aspiration precautions (I do not think this is the most advisable at the patient is considering PEG tube) We will start Peptamen VHP 15 mL's per hour continuous increasing by 10 mL's every 3-4 hours to goal of 60. Stable for downgrade out of ICU. No growth out of cultures at this time, will anticipate minimum 10 days of antibiotic therapy given recurrent aspiration and failure of previous antibiotic therapy treatment. Subjective Beverly resting, seems to be more tired today. vitals have stabilized Review of Systems Review of Systems: All systems reviewed & are unremarkable except as noted in HPI & below Physical Exam Physical Exam: Constitutional: Very frail, woman, mouth agape, asymmetric face nonverbal Eyes: LEft eye appears injured with cataract like appearance and metal in left superior eye lid, right eye appears normal, tracks and responsive to light Respiratory: breathing more comfortably on oxygen mask, acute respiratory distress, lung sounds rhoncourous and decreased Cardiovascular: Rate/Rhythm: Regular Rate regular rhythm Heart Sounds: normal S1 and normal S2; no click, no gallop, no murmur and no cardiac rub Results & Data Vital Signs (Past 12 Hours) Vital Signs Pulse Resp BP Pulse Ox 12/26/18 16:30 99 H 25 H 120/68 93 12/26/18 16:00 100 H 23 122/68 95 12/26/18 15:30 100 H 21 131/76 95 PG Care Time/CCT Total # of Minutes Spent Total Time Spent with Patient: Total time spent is greater than 50% in coordination of care (as documented) at patient's floor/unit and/or counseling patient: Resident Activity Tracking Resident Involvement: Resident Care Provided Care Provided: Adult Hospital Medicine (1) Aspiration into respiratory tract Encounter type: initial encounter Qualified Code(s): T17.908A - Unspecified foreign body in respiratory tract, part unspecified causing other injury, initial encounter (2) UTI (urinary tract infection) Hematuria presence: with hematuria Urinary tract infection type: site unspecified Qualified Code(s): N39.0 - Urinary tract infection, site not specified; R31.9 - Hematuria, unspecified
[2018-12-27 04:54] LABS: Basophils # (auto) 0.01 K/uL (0-0.2); Basophils % (auto) 0.1 %; Hematocrit (blood only) 31.1 % (37-47); Hemoglobin 10.1 g/dL (12.0-16.0); Immature Granulocytes # (auto) 0.06 K/uL (0.00-0.02); Immature Granulocytes % (auto) 0.8 %; Lymphocytes # (auto) 0.46 K/uL (1.2-3.4); Lymphocytes % (auto) 5.8 %; Mean Corpuscular Hemoglobin 29.2 pg (25-34); Mean Corpuscular Hgb Conc 32.5 g/dL (32-36); Mean Corpuscular Volume 89.9 fL (80-100); Mean Platelet Volume 10.4 fL (7.4-10.4); Monocytes # (auto) 0.26 K/uL (0.11-0.59); Monocytes % (auto) 3.3 %; Neutrophils # (auto) 7.21 K/uL (1.4-6.5); Nucleated RBC # (auto) 0.03 K/uL (0-0); Nucleated RBC % (auto) 0.4 %; Platelet Count 153 K/uL (130-400); RDW Coefficient of Variation 19.6 % (11.5-14.5); RDW Standard Deviation 62.9 fL (36.4-46.3); Red Blood Count 3.46 M/uL (4.2-5.4)
[2018-12-27 05:11] LABS: Calcium 9.1 mg/dl (8.5-10.1); Creatinine Clr Calc Pharmacy 60.2 ml/min; Est GFR (African American) 69.1; Est GFR (Non-African American) 59.6; Potassium 4.4 mmol/L (3.5-5.1)
[2018-12-27 05:20] LABS: Phosphorus 2.5 mg/dl (2.5-4.9)
[2018-12-27] MEDS: LEVOTHYROXINE SODIUM 75 MCG TABLET PO SCH (06:25)
[2018-12-27] MEDS: BUDESONIDE/FORMOTEROL FUMARATE 160/4.5 60 PUFFS/INHALER INH SCH ×2 (07:32→21:27)
[2018-12-27] MEDS: DOCUSATE SODIUM SYRUP 100 MG/10 ML UDC PO SCH (07:33)
[2018-12-27] MEDS: ENOXAPARIN INJ 40 MG/0.4 ML SYR SQ SCH (07:34)
[2018-12-27] MEDS: METHENAMINE HIPPURATE 1 GM TAB PO SCH ×2 (07:34→21:27)
[2018-12-27] MEDS: MAGNESIUM OXIDE 400 MG TAB PO SCH (07:34)
[2018-12-27] MEDS: PANTOprazole 40 MG TAB PO SCH (07:34)
[2018-12-27] MEDS: methylPREDNISolone 40 MG in SYRINGE 0 ML IV SCH ×2 (07:37→21:27)
--- NOTE | 2018-12-27 07:45 | Hospitalist Progress Note ---
Date of Service December 27, 2018 Assessment & Plan (1) Acute respiratory failure: Patient is now hemodynamically stable and continues to be in the ICU. Plan to transfer to the PCU on telemetry as soon as bed is available. Patient expressed her wishes to go home on hospice with comfort care. Consult is placed for GI to evaluate patient for the feeding tube. Pros and cons of feeding tube discussed with the family. Family is aware that feeding tube will not prevent further aspiration nor will give extra comfort to the patient who per her is still able to swallow and enjoy daily meals. There were several family meetings about feeding tube in this very sick patient. Discussed futility of treatment at and all possible complications that could be associated with feeding tube. vital signs Q4 h NG tube feeding with Fibersource started by per ICU team. Continue Zosyn (started in the ER) Cont supplemental O2 blood cx x2 negative to date. Urine cultures negative to date.Respiratory cultures moderate normal harjinder. Pending palliative care evaluation. Would place referral to GI for possible peg tube placement after evaluation by the palliative care and better understanding what are the pt"s and family goals of care. Pt is hard on hearing and it is difficult to communicate to him if God Daughter is not present. Pt herself is dysarthric. Patient requested home hospice. monitor electrolytes and replenish Duonebs Q4hr prn Budesonide/farmoterol Solumedrol 40 mg iV BID and taper down DVT ppx -scd DNR/DNI per pt request (2) Aspiration into respiratory tract: as above (3) UTI (urinary tract infection): recurrent UTI negative Ucx and Blood cx so far Cont Zosyn (4) Chronic constipation: started golytely 250 ml PO daily for 2 days (5) Decubitus ulcer, buttock: wound swab, wound care, turn q 2 hr, consult wound RN (6) Hypothyroidism: cont levothyroxine (7) DNR (do not resuscitate) discussion: Subjective Patient seen and examined at the bedside. She is completely awake and alert and oriented x3. She continues to have issues with expressing herself due to dysarthria but she appears more alert and oriented than in the past 2 days. Patient had questions when she is going home. On several occasions she is said to the nurse and to myself in front of her that she wants to be on comfort measures only and to go home. Patient stated that she is expecting to at home and not in the hospital. We agreed to wait for palliative care evaluation until tomorrow and then family can take patient home as per her wishes. We would recommend hospice care at this time and tomorrow and palliative care sees the patient we are hoping to get the same recommendation. Patient denies fever chills chest pain shortness of breath abdominal pain frequency and urgency hemoptysis hematuria and dysuria. Patient now has a NG tube for nutrition placed by ICU team. Review of Systems Review of Systems: All systems reviewed & are unremarkable except as noted in HPI & below Physical Exam Constitutional: WD/WN, vitals as above well developed Eyes: + eyes dysmorphic and + eyelid abnormality (On the left, facial droop on the left) ENMT: external ear and nose normal, oropharynx normal Neck: trachea midline, no thyromegaly Respiratory: Auscultation: + crackles and + wheezes Cardiovascular: Heart Sounds: normal S1 and normal S2 Palpation: + palpable S3 Gastrointestinal (Abdomen): normal bowel sounds, soft, nontender, no hepatosplenomegaly Musculoskeletal: no cyanosis or clubbing, extremities motor strength 5/5 Skin: no rashes, warm and dry Neurologic: patellar DTR's 2+ bilat, sensation intact Psychiatric: A+Ox3, euthymic affect Lymphatic: no cervical or axillary lymphadenopathy Results & Data Vital Signs (Past 12 Hours) Vital Signs Pulse Resp BP Pulse Ox 12/27/18 07:00 90 18 133/77 97 12/27/18 06:30 91 H 22 97 12/27/18 06:06 95 H 32 H 130/79 94 12/27/18 06:00 94 H 21 12/27/18 05:30 94 H 21 95 12/27/18 05:00 91 H 19 125/73 96 12/27/18 04:30 92 H 17 95 12/27/18 04:00 91 H 21 135/80 97 12/27/18 03:30 87 21 97 12/27/18 03:00 85 17 124/70 96 12/27/18 02:30 88 15 95 12/27/18 02:00 86 16 118/66 93 12/27/18 01:30 91 H 18 94 12/27/18 01:00 98 H 23 131/74 94 12/27/18 00:30 92 H 17 94 12/27/18 00:00 87 13 131/76 97 12/26/18 23:30 86 14 94 12/26/18 23:00 87 13 110/61 93 12/26/18 22:30 87 17 94 12/26/18 22:00 92 H 18 122/66 96 12/26/18 21:30 92 H 18 96 12/26/18 21:00 92 H 19 116/66 96 12/26/18 20:30 95 H 22 96 12/26/18 20:00 97 H 28 H 133/75 97 PG Care Time/CCT Total # of Minutes Spent Total Time Spent with Patient: Total time spent is greater than 50% in coordination of care (as documented) at patient's floor/unit and/or counseling patient: (1) Aspiration into respiratory tract Encounter type: initial encounter Qualified Code(s): T17.908A - Unspecified foreign body in respiratory tract, part unspecified causing other injury, initial encounter (2) UTI (urinary tract infection) Hematuria presence: with hematuria Urinary tract infection type: site unspecified Qualified Code(s): N39.0 - Urinary tract infection, site not specified; R31.9 - Hematuria, unspecified
[2018-12-27] MEDS ORDERED: PEPTAMEN INTENSE VHP 1.0 CAL 1,000 ML BAG GT SCH (09:00)
[2018-12-27] MEDS ORDERED: FIBERSOURCE HN 1.2 CAL 1000 ML BAG NG SCH (11:00)
[2018-12-28] MEDS: PIPERACILLIN/TAZOBACTAM 3.375 GM in DEXTROSE 5% 100 ML IV SCH ×3 (00:31→16:03)
[2018-12-28 04:59] LABS: Hematocrit (blood only) 32.2 % (37-47); Hemoglobin 10.3 g/dL (12.0-16.0); Mean Corpuscular Volume 90.7 fL (80-100); RDW Coefficient of Variation 19.9 % (11.5-14.5); RDW Standard Deviation 65.1 fL (36.4-46.3); Red Blood Count 3.55 M/uL (4.2-5.4); White Blood Count 10.05 K/uL (4.8-10.8)
[2018-12-28 05:00] LABS: Immature Granulocytes # (auto) 0.06 K/uL (0.00-0.02); Immature Granulocytes % (auto) 0.6 %; Lymphocytes # (auto) 0.98 K/uL (1.2-3.4); Lymphocytes % (auto) 9.8 %; Monocytes # (auto) 0.75 K/uL (0.11-0.59); Monocytes % (auto) 7.5 %; Neutrophils # (auto) 8.26 K/uL (1.4-6.5); Neutrophils % (auto) 82.1 %; Platelet Count 169 K/uL (130-400)
[2018-12-28 05:18] LABS: BUN Creatinine Ratio 39.8 (10-20); Calcium 9.4 mg/dl (8.5-10.1); Creatinine Clr Calc Pharmacy 53.5 ml/min; Est GFR (African American) 61.7; Est GFR (Non-African American) 53.3; Magnesium 2.1 mg/dl (1.8-2.4); Potassium 4.4 mmol/L (3.5-5.1)
[2018-12-28 05:19] LABS: Phosphorus 2.8 mg/dl (2.5-4.9)
[2018-12-28] MEDS: LEVOTHYROXINE SODIUM 75 MCG TABLET PO SCH (05:35)
[2018-12-28] MEDS: MAGNESIUM OXIDE 400 MG TAB PO SCH ×2 (08:49→09:16)
[2018-12-28] MEDS: BUDESONIDE/FORMOTEROL FUMARATE 160/4.5 60 PUFFS/INHALER INH SCH ×2 (08:49→20:51)
[2018-12-28] MEDS: DOCUSATE SODIUM SYRUP 100 MG/10 ML UDC PO SCH ×2 (08:49→09:16)
[2018-12-28] MEDS: methylPREDNISolone 40 MG in SYRINGE 0 ML IV SCH (08:50)
[2018-12-28] MEDS: ENOXAPARIN INJ 40 MG/0.4 ML SYR SQ SCH (08:50)
[2018-12-28] MEDS: METHENAMINE HIPPURATE 1 GM TAB PO SCH ×3 (08:50→20:52)
[2018-12-28] MEDS: PANTOprazole 40 MG TAB PO SCH (09:16)
--- NOTE | 2018-12-28 11:58 | Hospitalist Progress Note ---
Date of Service December 28, 2018 Assessment & Plan (1) Acute respiratory failure: Likely due to aspiration from her stroke. - Continue Zosyn - Aspiration precautions - Speech eval - Home with hospice tomorrow or Friday (2) Aspiration into respiratory tract: As detailed in the critical care note, the patient developed septic shock from an aspiration pneumonia. - As above (3) Chronic constipation: Started golytely 250 ml PO daily for 2 days. - Will follow BMs (4) Decubitus ulcer, buttock: Due to inability to move. - Wound care; turn Q2h - Home hospice can help with needed equipment (5) Hypothyroidism: TSH was 2.9 in 11/2018. - Cont levothyroxine 75mcg (6) DNR (do not resuscitate) discussion: Difficult situation where initially patient was clear about wanting to be DNR/DNI & hospice and family was not 100% on board. - Now palliative care following; plan for home hospice Subjective She awakes easily for me, but appears to be somewhat groggy. She does answer questions appropriately, when asked in opposite ways, she nods and shakes her head appropriately to have her answers remain consistent. She denies any focal symptoms including shortness of breath, chest pain, nausea, vomiting, or other symptoms. Review of Systems Review of Systems: All systems reviewed & are unremarkable except as noted in HPI & below Physical Exam Constitutional: WD/WN, vitals as above Eyes: EOM intact bilaterally; no conjunctival abnormality ENMT: external ear and nose normal, oropharynx normal Neck: trachea midline, no thyromegaly normal visual inspection Respiratory: normal respiratory effort, lungs clear to auscultation no respiratory distress Cardiovascular: RRR, no murmur, no edema Gastrointestinal (Abdomen): Inspection/Auscultation: abdomen normal to inspection; abdomen not distended Musculoskeletal: no cyanosis or clubbing, extremities motor strength 5/5 Skin: no rashes, warm and dry Neurologic: moves all extremities and awake Psychiatric: Orientation: cooperative; + not alert (Wakes up, but appears groggy.) Results & Data Vital Signs (Past 12 Hours) Vital Signs Pulse Resp BP Pulse Ox 12/28/18 06:00 80 20 144/74 H 97 12/28/18 05:00 81 14 97 12/28/18 04:00 74 12 141/72 H 97 12/28/18 03:00 84 21 139/97 97 12/28/18 02:00 83 18 131/72 96 12/28/18 01:00 82 16 131/68 96 12/28/18 00:00 84 15 126/72 97 PG Care Time/CCT Total # of Minutes Spent Total Time Spent with Patient: Total time spent is greater than 50% in coordination of care (as documented) at patient's floor/unit and/or counseling patient: (1) Aspiration into respiratory tract Encounter type: initial encounter Qualified Code(s): T17.908A - Unspecified foreign body in respiratory tract, part unspecified causing other injury, initial encounter
--- NOTE | 2018-12-28 14:23 | Palliative Care Consultation ---
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 Is not on oxygen at home but was requiring 4LNC on arrival to keep SpO2 88%. CXR showed worsening bibasilar opacities which could represent aspiration pneumonia. She was admitted to telemetry unit initially but then was transferred to ICU for worsening respiratory failure. Upon arrival to ICU, there was much conversation about code status and patient wishes-- Patient made the decision for herself to be DNR/DNI. Patient requires in-home caregivers through the waiver program at home where she lives with her Terrance. Patient's niece/goddaughter, Kelly Panstan, is very involved in patient's care and decision making as well. THere was much discussion about continuing oral feedings despite aspiration risk vs. having g-tube placed for feedings. Patient stated she did not want a feeding tube placed and wants to at home. Given patient's progressive focal weakness, aspiration risk with now multiple hospital admissions, patient's prognosis is poor. Palliative care is consulted. -Met with patient this morning in room 108. She is lethargic, but awake. Speech is very difficult to understand with severe dysarthria and garbled speech. She is oriented x4, but did make one off comment when she said, "My sold everything, I don't have a house." Despite this, patient was able to tell me that she did not want a feeding tube and her goal is to just pass away.She gave permission to talk with her and niece. -Called Terrance. He states that the plan is for patient to come home on hospice, but he defers all further decision making and discharge planning to his niece/goddaughter, Kelly. Returned to room when Kelly present. -In the presence of the patient, confirmed that plan is to pursue home hospice care and NOT have feeding tube placed. Kelly and patient agree. We will continue care and abx while discharge plans are being made, patient will transfer to medical unit. -POLST form explained and filled out as follows: DNR, comfort measures only, abx with comfort as the goal, trial of IV fluids if indicated but NO feeding tube. -Case management involved for discharge planning. Maybe discharge in next 24-48 hours once everything is set up. -Would order patient diet while patient here in hospital to see if she tolerates comfort feeding, as family requests. Could consult with PEDIATRIC DENTAL ASSISTANT for recommends on consistences, etc. Patient and family aware of risk of aspiration. -Will order Roxanol 5mg PO/SL Q4h PRN pain or SOB. -Atropine 1% oph soln 4 drops SL Q1h PRN secretions. 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 Is not on oxygen at home but was requiring 4LNC on arrival to keep SpO2 88%. CXR showed worsening bibasilar opacities which could represent aspiration pneumonia. She was admitted to telemetry unit initially but then was transferred to ICU for worsening respiratory failure. Upon arrival to ICU, there was much conversation about code status and patient wishes-- Patient made the decision for herself to be DNR/DNI. Patient requires in-home caregivers through the waiver program at home where she lives with her Terrance. Patient's niece/goddaughter, Kelly Chen, is very involved in patient's care and decision making as well. There was much discussion about continuing oral feedings despite aspiration risk vs. having g-tube placed for feedings. Patient stated she did not want a feeding tube placed and wants to at home. Given patient's progressive focal weakness, aspiration risk with now multiple hospital admissions, patient's prognosis is poor. Palliative care is consulted. Thank you kindly for this consult. Palliative care team will follow as needed. Allergies Allergy/AdvReac Type Severity Reaction Status Date / Time raspberry Allergy Unknown RASH Unverified 12/25/18 09:38 strawberry Allergy Unknown redness,rash Verified 12/25/18 09:38 on abdomen Home Medications Home Medications Medication Instructions Recorded Confirmed Type methenamine hippurate 1 gram tablet 1 gm PO BID #180 tab 10/12/18 12/25/18 Rx cholecalciferol (vitamin D3) 2,000 2,000 units PO DAILY tab 10/31/18 12/25/18 History unit tablet cyanocobalamin (vit B-12) 250 mcg 250 mcg PO QAM 10/31/18 12/25/18 History tablet docusate sodium 100 mg capsule 100 mg PO DAILY 10/31/18 12/25/18 History magnesium oxide 400 mg (241.3 mg 400 mg PO DAILY tab 10/31/18 12/25/18 History magnesium) tablet menthol 0.44 %-zinc oxide 20.6 % 1 appln TOPICAL BID PRN #1 gm 10/31/18 12/25/18 History topical ointment pantoprazole 40 mg tablet,delayed 40 mg PO QAM #90 tab 10/31/18 12/25/18 History release polyethylene glycol 3350 17 17 gm PO DAILY PRN #527 gm 10/31/18 12/25/18 History gram/dose oral powder collagenase clostridium 1 appln TOPICAL DAILY PRN #1 gm 11/09/18 12/25/18 History histolyticum 250 unit/gram topical ointment sennosides 8.6 mg-docusate sodium 1 tab PO DAILY PRN tab 11/09/18 12/25/18 History 50 mg tablet wheat dextrin 3 gram/3.5 gram oral 1 pkt PO DAILY PRN ea 11/09/18 12/25/18 History powder packet cyanocobalamin (vit B-12) 1,000 1,000 mcg IM MONTHLY #10 ml 11/12/18 12/25/18 Rx mcg/mL injection solution nystatin 100,000 unit/gram topical 1 appln TOPICAL QID PRN #60 gm 11/12/18 12/25/18 Rx powder levothyroxine 75 mcg PO QAM 12/15/18 12/25/18 History metronidazole [Flagyl] 500 mg PO TID #15 tab 12/18/18 12/25/18 Rx Patient History Medical History Alkaline phosphatase elevation (Acute) Arthritis (Chronic) Candidal intertrigo (Acute) Chronic constipation (Acute) Decubitus ulcer, buttock (Acute) Hearing loss (Acute) Hyperlipidemia (Chronic) Nephrolithiasis (Acute) Vitamin B 12 deficiency (Acute) Wheelchair dependent (Acute) Surgical History H/O total knee replacement History of nephrectomy, left Family History Unknown Diabetes Hypertension Chronic liver disease Mother , age 93 of heart issues Heart disease Father , age 65 of hepatic cirrhosis. 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 Full ROS difficult to obtain due to cognitive status. Physical Exam Constitutional: + ill appearing Eyes: left eye abnormality- corneal abrasion and clouding ENMT: external ear and nose normal, oropharynx normal Neck: normal visual inspection Respiratory: Auscultation: + rhonchi (moist throughout) Cardiovascular: Rate/Rhythm: regular rate and regular rhythm Gastrointestinal (Abdomen): Inspection/Auscultation: abdomen normal to inspection and normal bowel sounds Percussion/Palpation: abdomen soft Neurologic: moves all extremities and awake Speech / Cognition: + abnormal speech (severe dysarthria) Psychiatric: Orientation: oriented to person, oriented to place and oriented to time; + not alert (awake but lethargic) Results & Data Vital Signs (Past 12 Hours) Vital Signs Pulse Resp BP Pulse Ox 12/28/18 06:00 80 20 144/74 H 97 12/28/18 05:00 81 14 97 12/28/18 04:00 74 12 141/72 H 97 12/28/18 03:00 84 21 139/97 97 Time Spent Midlevel 75 minutes with >50% of the time spent at bedside with patient, family and IDT discussing condition and GOC.
[2018-12-28] MEDS ORDERED: MoRPHine SULFATE 5 MG/0.25 ML UDP PO PRN (14:38)
[2018-12-28] MEDS: ATROPINE SULFATE 1% OP SOLN 5 ML BTL SL PRN ×2 (15:10→16:03)
[2018-12-29] MEDS: PIPERACILLIN/TAZOBACTAM 3.375 GM in DEXTROSE 5% 100 ML IV SCH ×3 (00:01→16:07)
[2018-12-29] MEDS: ATROPINE SULFATE 1% OP SOLN 5 ML BTL SL PRN (00:05)
[2018-12-29] MEDS: LEVOTHYROXINE SODIUM 75 MCG TABLET PO SCH (06:10)
[2018-12-29] MEDS: DOCUSATE SODIUM SYRUP 100 MG/10 ML UDC PO SCH (07:33)
[2018-12-29] MEDS: MAGNESIUM OXIDE 400 MG TAB PO SCH (07:33)
[2018-12-29] MEDS: METHENAMINE HIPPURATE 1 GM TAB PO SCH ×3 (07:33→22:44)
[2018-12-29] MEDS: PANTOprazole 40 MG TAB PO SCH (07:33)
[2018-12-29] MEDS: methylPREDNISolone 40 MG in SYRINGE 0 ML IV SCH (07:35)
[2018-12-29] MEDS: BUDESONIDE/FORMOTEROL FUMARATE 160/4.5 60 PUFFS/INHALER INH SCH ×2 (08:22→20:50)
[2018-12-29] MEDS ORDERED: MICONAZOLE NITRATE POWDER 43 GM EXT PRN (11:10)
--- NOTE | 2018-12-29 14:45 | Palliative Care Progress Note ---
Date of Service December 29, 2018 Assessment & Plan (1) Goals of care, counseling/discussion: -Patient looks more alert and comfortable today. Her speech was more clear and a little easier to understand. Denies complaints. -Goddaughter/niece, Kelly, meeting with hospice this afternoon to discuss equipment, discharge planning, etc. -I do know it was a concern that patient will need 24/7 care-- will need to ask Kelly if this is set up yet prior to discharge. -Patient ate breakfast with help of staff. Did okay per staff and patient. -Roxanol 5mg PO/SL Q4h PRN pain or SOB-- has not received a dose. -Atropine 1% oph soln 4 drops SL Q1h PRN secretions. -POLST form indicating DNR and AIRWORTHINESS INSPECTOR completed yesterday with goddaughter/niece in the presence of patient. (2) Acute respiratory failure: (3) Progressive focal motor weakness: (4) Aspiration into respiratory tract: Subjective Patient looks more alert and comfortable today. Her speech was more clear and a little easier to understand. Denies complaints. Review of Systems Review of Systems: Denied pain or N/V, but does c/o some SOB at times. Physical Exam Constitutional: + ill appearing ENMT: external ear and nose normal, oropharynx normal Neck: normal visual inspection Respiratory: Auscultation: + rhonchi (moist throughout) Cardiovascular: Rate/Rhythm: regular rate and regular rhythm Gastrointestinal (Abdomen): Inspection/Auscultation: abdomen normal to inspection and normal bowel sounds Percussion/Palpation: abdomen soft Neurologic: moves all extremities and awake Speech / Cognition: + abnormal speech (severe dysarthria) Psychiatric: Orientation: oriented to person, oriented to place and oriented to time Supervising Physician Co-Signing Physician Notes Patient seen and examined, patient's niece and at bedside. Collaborated with ARMEN Booker Nursing reported that niece had a lot of questions regarding taking patient home with hospice care-went to discuss hospice care with niece and at patient's bedside. Niece stated she is not 1 to get up, did not want patient to feel that going home with hospice meant anyone was giving up. Discussed at length with patient and family goals of hospice care are to maximize patient's quality of life, if patient continues to improve she may be discharged from hospice. Reviewed some of the care that hospice can provide at home as well as nursing to help manage symptoms at home. Niece also had multiple questions regarding her recent aspiration-reviewed mechanisms of aspiration as well as utilizing thickened liquids to minimize patient's risk. PE: Patient awake and alert, able to participate in conversation by mouthing words and nodding yes and no. HEENT: Left facial droop and ptosis Respirations: Unlabored CV: Regular rate Abdomen: Not distended Neuro: Awake and alert Agree with above note, assessment and plan as per ARMEN Booker. Plan is for discharge home tomorrow with [facility]. Time Spent Midlevel 25 minutes with >50% of the time spent at bedside with patient and collaborating with IDT to discuss condition and GOC. Attending Spent 30 minutes in addition to the 25 minutes spent by ARMEN for a total of 55 minutes with greater than 50% of the time spent at bedside discussing goals of care as well as hospice. (1) Aspiration into respiratory tract Encounter type: initial encounter Qualified Code(s): T17.908A - Unspecified foreign body in respiratory tract, part unspecified causing other injury, initial encounter
--- NOTE | 2018-12-29 16:17 | Hospitalist Progress Note ---
Date of Service December 29, 2018 Assessment & Plan (1) Acute respiratory failure: Likely due to aspiration from her stroke. - Continue Zosyn - Aspiration precautions - Speech evaluated - Plan to allow for permissive aspiration. Will use pureed diet and aspiration precautions. - Home with hospice tomorrow (2) Aspiration into respiratory tract: As detailed in the critical care note, the patient developed septic shock from an aspiration pneumonia. - As above (3) Chronic constipation: Started Golytely 250 ml PO daily for 2 days. - Will follow BMs (4) Decubitus ulcer, buttock: Due to inability to move. - Wound care; turn Q2h - Home hospice can help with needed equipment (5) Hypothyroidism: TSH was 2.9 in 11/2018. - Cont levothyroxine 75mcg (6) DNR (do not resuscitate) discussion: Difficult situation where initially patient was clear about wanting to be DNR/DNI & hospice and family was not 100% on board. - Now palliative care following; plan for home hospice Subjective Doing better today. She is more alert and responsive. She attempts to voice and variety of words and responses to questions. She is oriented x2, but does recognize that she is not sure where she is. She reports some cough, but no shortness of breath. No nausea no vomiting, no chest pain. Review of Systems Review of Systems: All systems reviewed & are unremarkable except as noted in HPI & below Physical Exam Constitutional: WD/WN, vitals as above Eyes: + eyelid abnormality (Left eye); no conjunctival abnormality ENMT: external ear and nose normal, oropharynx normal Neck: trachea midline, no thyromegaly normal visual inspection Respiratory: normal respiratory effort, lungs clear to auscultation no respiratory distress Cardiovascular: RRR, no murmur, no edema Gastrointestinal (Abdomen): Inspection/Auscultation: abdomen normal to inspection; abdomen not distended Musculoskeletal: no cyanosis or clubbing, extremities motor strength 5/5 Skin: no rashes, warm and dry Neurologic: moves all extremities and awake Psychiatric: Orientation: alert, oriented to person, oriented to place (Not sure where she is.), oriented to time and cooperative PG Care Time/CCT Total # of Minutes Spent Total Time Spent with Patient: Total time spent is greater than 50% in coordi nation of care (as documented) at patient's floor/unit and/or counseling patient: (1) Aspiration into respiratory tract Encounter type: initial encounter Qualified Code(s): T17.908A - Unspecified foreign body in respiratory tract, part unspecified causing other injury, in itial encounter
[2018-12-30] MEDS: PIPERACILLIN/TAZOBACTAM 3.375 GM in DEXTROSE 5% 100 ML IV SCH ×3 (00:03→16:57)
[2018-12-30] MEDS: LEVOTHYROXINE SODIUM 75 MCG TABLET PO SCH (06:06)
[2018-12-30] MEDS: PANTOprazole 40 MG TAB PO SCH (07:32)
[2018-12-30] MEDS: MAGNESIUM OXIDE 400 MG TAB PO SCH (07:32)
[2018-12-30] MEDS: DOCUSATE SODIUM SYRUP 100 MG/10 ML UDC PO SCH (07:32)
[2018-12-30] MEDS: METHENAMINE HIPPURATE 1 GM TAB PO SCH (07:33)
[2018-12-30] MEDS: BUDESONIDE/FORMOTEROL FUMARATE 160/4.5 60 PUFFS/INHALER INH SCH (07:33)
[2018-12-30] MEDS: methylPREDNISolone 40 MG in SYRINGE 0 ML IV SCH (08:18)
--- NOTE | 2018-12-30 17:49 | Discharge Summary ---
Date of Service December 30, 2018 Admission HPI Per Admitting Provider Patient is a 78 years old female with past medical history of brain tumor, hearing loss, hyperlipidemia, chronic constipation, aspiration pneumonia,, chronic indwelling catheter and chronic UTI, anemia, arthritis, progressive focal motor weakness with slurred speech and facial droop was brought by ambulance to the emergency room with a concern that patient was grasping on room air and very short of breath. Patient was recently discharged for aspiration pneumonia on December 18, 2018 and she completed her treatment with cefdinir and Flagyl this week on Friday. Patient usually does not use any oxygen at home but on arrival to the emergency room she needed 4 L of oxygen to be above 88%. While in the emergency room we discussed patient CODE STATUS and patient who is dysarthric clearly stated noting with her head that she does not want intubation to be done nor CPR nor she wants to be shocked. Patient was at the bedside and and goddaughter who were at the moment okay with that decision but stated that later on they will discuss further and possibly change her mind. The order was placed in the chart to DNR/DNI as per patient's wishes. At this point patient denied chest pain headache abdominal pain frequency urgency and hemoptysis. Labs were reviewed: Which shows white blood cell count of 7.71 hemoglobin 11.5 hematocrit 34.9 and platelets of 145. PT 10.8, INR 1.1. Blood gases 7.37 VBG pH, BB G PCO2 48 VBG O2 65 ABG HCO3 27. Sodium 142, potassium 3.9, anion gap 11, BUN 29, creatinine 0.8, lactate 0.5 AST 14, BNP 497. Decision was made to admit patient to the PCU on telemetry for further treatment of aspiration pneumonia and swallow study patient is just swallowing everything to her lungs. Principal Diagnosis Aspiration pneumonia Discharge Exam Constitutional WD/WN, vitals as above Eyes + eyelid abnormality (Left eye); no conjunctival abnormality ENMT external ear and nose normal, oropharynx normal Neck trachea midline, no thyromegaly normal visual inspection Respiratory normal respiratory effort, lungs clear to auscultation no respiratory distress Cardiovascular RRR, no murmur, no edema Gastrointestinal (Abdomen) Inspection/Auscultation: abdomen normal to inspection; abdomen not distended Musculoskeletal no cyanosis or clubbing, extremities motor strength 5/5 Skin no rashes, warm and dry Neurologic moves all extremities and awake Psychiatric Orientation: alert, oriented to person, oriented to place (Not sure where she is.), oriented to time and cooperative Discharge Data Allergies Allergy/AdvReac Type Severity Reaction Status Date / Time raspberry Allergy Unknown RASH Unverified 12/25/18 09:38 strawberry Allergy Unknown redness,rash Verified 12/25/18 09:38 on abdomen Consultations 12/25/18 10:59 ED Decision to Admit Stat 12/25/18 13:31 Consult Case Management - Discharge Planning Routine 12/25/18 14:13 Consult Vest Maker Routine 12/25/18 15:23 Consult Palliative Care Stat 12/25/18 18:49 Consult Patient Rep / Service Excellence [Consult Patient Services] Routine Hospital Course (1) Acute respiratory failure: Likely due to aspiration from her stroke. - Continue Zosyn - Aspiration precautions - Speech evaluated - Plan to allow for permissive aspiration. Will use pureed diet and aspiration precautions. - Home with hospice (2) Aspiration into respiratory tract: As detailed in the critical care note, the patient developed septic shock from an aspiration pneumonia. - As above (3) Chronic constipation: Started Golytely 250 ml PO daily for 2 days. - Will follow BMs (4) Decubitus ulcer, buttock: Due to inability to move. - Wound care; turn Q2h - Home hospice can help with needed equipment (5) Hypothyroidism: TSH was 2.9 in 11/2018. - Cont levothyroxine 75mcg (6) DNR (do not resuscitate) discussion: Difficult situation where initially patient was clear about wanting to be DNR/DNI & hospice and family was not 100% on board. - Now palliative care following; plan for home hospice Total Time Total Time Spent Total Time Spent (In Minutes): 45 Total Time Includes: Examination of the Patient and Communication With Other Providers Discharge Plan Discharge Items Patient Disposition: Hospice - Home Reason For Visit: ASPIRATION PNEUMONIA,RESPIRTORY FAILURE WITH HYPOX Discharge Diagnosis: Aspiration pneumonia Activity: Resume your previous activity Non-emergency contact: Primary Care Provider Call non-emergency contact if: your symptoms worsen Follow-up/Referrals: Trent Manuel MD [Primary Care Provider] - Diet: Regular Diet Texture: Pureed (blended smooth) Addtl Attending Provider Instructions: Home on hospice Pending Studies at Discharge: No Stand-Alone Forms: [employer] Medications and DC Order Prescriptions: New morphine concentrate 100 mg/5 mL (20 mg/mL) Solution 5 mg PO Q4H PRN (Reason: pain) Qty: 15 RF: 0 atropine 1 % Drops 4 drp sublingual Q1H PRN (Reason: secretions) Qty: 2 RF: 0 Symbicort 160-4.5 mcg/actuation Hfa Aerosol Inhaler 2 puff inhalation BID Qty: 6 RF: 0 Continued methenamine hippurate 1 gram tablet 1 gm PO BID Qty: 180 RF: 3 polyethylene glycol 3350 17 gram/dose powder 17 gm PO DAILY PRN (Reason: chronic constipation) Qty: 527 RF: 0 pantoprazole 40 mg tablet,delayed release (DR/EC) 40 mg PO QAM Qty: 90 RF: 0 magnesium oxide 400 mg (241.3 mg magnesium) tablet 400 mg PO DAILY RF: 0 docusate sodium 100 mg capsule 100 mg PO DAILY RF: 0 menthol-zinc oxide 0.44-20.6 % ointment 1 appln topical BID PRN (Reason: decubitus ulcer) Qty: 1 RF: 0 wheat dextrin 3 gram/3.5 gram powder in packet 1 pkt PO DAILY PRN (Reason: Constipation) RF: 0 collagenase clostridium histo. 250 unit/gram ointment 1 appln topical DAILY PRN (Reason: ulcers) Qty: 1 RF: 0 sennosides-docusate sodium 8.6-50 mg tablet 1 tab PO DAILY PRN (Reason: Constipation) RF: 0 nystatin 100,000 unit/gram powder 1 appln topical QID PRN (Reason: candidiasis) Qty: 60 RF: 3 levothyroxine 75 mcg tablet 75 mcg PO QAM RF: 0 Discontinued cholecalciferol (vitamin D3) 2,000 unit tablet 2,000 units PO DAILY RF: 0 cyanocobalamin (vitamin B-12) 250 mcg tablet 250 mcg PO QAM RF: 0 cyanocobalamin (vitamin B-12) 1,000 mcg/mL solution 1,000 mcg IM MONTHLY Qty: 10 RF: 3 metronidazole [Flagyl] 500 mg tablet 500 mg PO TID Qty: 15 RF: 0 Discharge Orders: Discharge Order (Routine); Ordered 12/30/18 Ordered By: Rivera Clemente Admission Data Admit Date/Time: 12/25/18 11:39 Attending Provider: Rivera Clemente Admit Provider: Dmitri De La Paz Primary Care Provider: Trent Manuel Other Providers: Rivera Clemente ; Dmitri De La Paz ; Mack Gold ; Celeste Pop Other Interventions: Discharge Summary Assessment (RN) Last Done: 12/30/18 16:40
== END 2018-12-30 19:01 | disposition hospice, home (50) | DRG 871 ==
LOC: ED 09:12 → 2S 11:39 → SUATTDRO 11:39 → 1E 11:40 → 2S 13:09 → 4W 12-28 12:51

== ENCOUNTER 2019-05-11 18:17 | Inpatient (IN) ==
[2019-05-11] MEDS ORDERED: LEVALBUTEROL HCL 1.25 MG/3 ML NEB NEB STA (18:23)
[2019-05-11 19:32] LABS: Hematocrit (blood only) 35.1 % (37-47); Hemoglobin 12.1 g/dL (12.0-16.0); Mean Corpuscular Hemoglobin 30.8 pg (25-34); Mean Corpuscular Hgb Conc 34.5 g/dL (32-36); Mean Corpuscular Volume 89.3 fL (80-100); Mean Platelet Volume 10.2 fL (7.4-10.4); Platelet Count 177 K/uL (130-400); RDW Coefficient of Variation 14.4 % (11.5-14.5); RDW Standard Deviation 47.2 fL (36.4-46.3); Red Blood Count 3.93 M/uL (4.2-5.4)
[2019-05-11 19:35] LABS: Appearance Urine Turbid (Clear); Bacteria Urine Automated 1+ (Negative); Bilirubin Urine Negative (Negative); Blood Urine 1+ (Negative); Color Urine Dark Yellow; Epithelial Cell Urine Auto >30 /lpf (0-5); Glucose Urine UA Negative (Negative); Ketones Urine Negative (Negative); Leukocyte Esterase Urine 3+ (Negative); Nitrite Urine Negative (Negative); Protein Urine 1+ (Negative); Urobilinogen Urine Negative (Negative); WBC Urine Automated >30 /hpf (0-5)
--- NOTE | 2019-05-11 19:35 | XRay Report ---
XR chest 1V portable CLINICAL HISTORY: 78 years-old Female presenting with weakness. TECHNIQUE: Portable upright AP view of the chest was obtained. COMPARISON: 12/25/2018. FINDINGS: Atherosclerosis of the aortic arch. Cardiac silhouette normal in size. Moderate right pleural effusio n with extensive right mid to basilar opacity. Minimal left basilar opacity. No pneumothorax. Degener ative changes of the thoracic spine. Suspected underlying osteopenia. Degenerative changes of the kelsey ateral shoulders. Surgical clips project over the left upper quadrant. IMPRESSION: 1. Moderate layering right pleural effusion with extensive right basilar atelectasis. An underlying right basilar predominant consolidation/pneumonia or neoplasm is not excluded. This should be followe d to resolution. 2. Minimal left basilar atelectasis or scarring, which is chronic. ACT 112: Negative or not required by law. Electronically signed by: Trent Jeffrey M.D. 05/11/2019 7:34 PM
[2019-05-11] MEDS ORDERED: LEVOFLOXACIN/D5W 750 MG/150 ML BAG IV STA (19:43)
[2019-05-11] MEDS ORDERED: VANCOMYCIN CONSULT ACTIVE PRN ×2 (19:43→21:50)
[2019-05-11] MEDS ORDERED: VANCOMYCIN HCL 1,750 MG in SODIUM CHLORIDE 0.9% 500 ML IV ONE (19:43)
[2019-05-11] MEDS ORDERED: PIPERACILLIN/TAZOBACTAM 4.5 GM/120 ML BAG IV ONE (19:43)
[2019-05-11] MEDS ORDERED: PIPERACILL/TAZOBAC CONSULT ACTIVE PRN ×2 (19:43→21:50)
[2019-05-11 19:45] LABS: Influenza A virus by PCR Neg for Influ A (Neg); Influenza B virus by PCR Neg for Influ B (Neg)
[2019-05-11 19:55] LABS: Alanine Aminotransferase 22 U/L (12-78); Albumin Level 2.3 gm/dl (3.4-5.0); Aspartate Aminotransferase 27 U/L (15-37); BUN Creatinine Ratio 37.3 (10-20); Blood Urea Nitrogen 44 mg/dl (7-18); Calcium 8.9 mg/dl (8.5-10.1); Carbon Dioxide 22 mmol/L (21-32); Chloride 97 mmol/L (98-107); Creatinine Clr Calc Pharmacy 44.1 ml/min; Est GFR (African American) 51.2; Est GFR (Non-African American) 44.1; Glucose 85 mg/dl (70-99); Potassium 3.4 mmol/L (3.5-5.1); Sodium 129 mmol/L (136-145)
[2019-05-11] MEDS ORDERED: SODIUM CHLORIDE 0.9% 1000ML 1,000 ML IV ONE ×2 (20:04→22:00)
[2019-05-11 20:06] LABS: Albumin Globulin Ratio 0.6 (0.9-2); Alkaline Phosphatase 231 U/L (45-117); Creatine Kinase 92 U/L (26-192); Creatine Kinase MB 5.8 ng/ml (0.5-3.6); NT Pro B Type Natriuretic Pept 652 pg/ml (0-1800); Total Protein 6.3 gm/dl (6.4-8.2); Troponin I < 0.015 ng/ml (0-0.045)
[2019-05-11 20:21] LABS: Basophils # (auto) 0.01 K/uL (0-0.2); Basophils % (auto) 0.1 %; Eosinophils # (auto) 0.01 K/uL (0-0.5); Eosinophils % (auto) 0.1 %; Immature Granulocytes # (auto) 0.07 K/uL (0.00-0.02); Immature Granulocytes % (auto) 0.4 %; Lymphocytes # (auto) 1.47 K/uL (1.2-3.4); Lymphocytes % (auto) 7.8 %; Monocytes # (auto) 0.57 K/uL (0.11-0.59); Neutrophils # (auto) 16.67 K/uL (1.4-6.5); Neutrophils % (auto) 88.6 %
[2019-05-11] MEDS ORDERED: ACETAMINOPHEN 1,000 MG/100 ML VIAL IV PRN ×2 (20:50→21:50)
--- NOTE | 2019-05-11 21:27 | History & Physical Report ---
Date of Service May 11, 2019 Assessment & Plan (1) Aspiration into respiratory tract: Beverly Cuadra 78 years old female with past medical history of brain tumor - Schwannoma, hearing loss, hyperlipidemia, chronic constipation, aspiration pneumonia, chronic indwelling catheter and chronic UTI, anemia, arthritis, progressive focal motor weakness with slurred speech and facial droop, wheelchair bound who was diagnosed in the ED with pneumonia, most likely aspiration. - Hx of Aspiration Pneumonia and CXR showing Moderate layering right pleural effusion with extensive right basilar atelectasis. An underlying right basilar predominant consolidation/pneumonia or neoplasm is not excluded. Minimal left basilar atelectasis or scarring, which is chronic. 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 Will hold off on Levaquin for inpatient treatment. - Goals will be to maintain hemodynamics with IV fluids and try to treat underlying Pneumonia. - Patient requesting to be kept comfortable and will attempt to make patient comfortable as no need for library monitor, full diet, okay to continue home medications. Palliative consulted. - Follow blood cultures - Trend and replace electrolytes Code:DNR/DNI DVT ppx: Lovenox 40mg SQ q24h FENGI: Full diet as tolerated; continue with home PPI Protonix 40mg PO daily Dispo: inpatient most likely needs more than 2 nights. (2) Sepsis: - Given 1L NSS Bolus in ED - Ordered another 1L NSS bolus to assist wth soft BPs - continue with NSS @ 125ml/hr to maintain pressures; supplement with added bolus as indicated - treat underlying cause - Pneumonia (3) Goals of care, counseling/discussion: Palliative consult placed Patient appeared to want to stop treatment momentarily but family member in room was strong advocate. I did discuss with patient that she is free to make her own wishes regarding her care and we will help her either way. I did discuss the seriousness of her condition and there was no guarentee that with her comorbid conditions and frailty that should would survive. Did let her know that if we did not pursue treatment she would likely pass away and we would keep her comfortable. 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 kinked fitch Monitor Is and Os. History of Present Illness Chief Complaint: Cough Primary Care Provider: Trent Manuel MD [facility] 78 years old female with past medical history of brain tumor - Schwannoma, hearing loss, hyperlipidemia, chronic constipation, aspiration pneumonia, chronic indwelling catheter and chronic UTI, anemia, arthritis, progressive focal motor weakness with slurred speech and facial droop, wheelchair bound who was diagnosed in the ED with pneumonia. She notes she has had a cough for several days. However, has not had any shortness of breath, fever, chills, chest pains, abdominal pains. She notes she actually came in to ED because she noticed decreased urine output with her chronic indwelling fitch. She was found to have leukocytosis and findings of Pneumonia on CXR and was septic. She notes she only wants to have IV antibiotics and IV fluids to help treat the pneumonia and stabilize her Blood pressure caused by the sepsis. She does is a DNR/DNI in event of a code, she does not wish to have pressors or intubation or ICU transfer. She actually mentioned that she would prefer to pass away but spouse was strong advocate for her to continue with care. I did discuss with patient it was up to her to make her own decision regarding her care and she then expressed to continue with IV fluids and IV antibiotics. Allergies Allergy/AdvReac Type Severity Reaction Status Date / Time strawberry Allergy Unknown redness,rash Verified 05/11/19 21:20 on abdomen Home Medications Home Medications Medication Instructions Recorded Confirmed Type docusate sodium 100 mg capsule 100 mg PO DAILY 10/31/18 05/11/19 History magnesium oxide 400 mg (241.3 mg 400 mg PO DAILY tab 10/31/18 05/11/19 History magnesium) tablet menthol 0.44 %-zinc oxide 20.6 % 1 appln TOPICAL BID PRN #1 gm 10/31/18 05/11/19 History topical ointment pantoprazole 40 mg tablet,delayed 40 mg PO QAM #90 tab 10/31/18 05/11/19 History release polyethylene glycol 3350 17 17 gm PO DAILY PRN #527 gm 10/31/18 05/11/19 History gram/dose oral powder collagenase clostridium histo. 250 1 appln TOPICAL DAILY PRN #1 gm 11/09/18 05/11/19 History unit/gram topical ointment sennosides 8.6 mg-docusate sodium 1 tab PO DAILY PRN tab 11/09/18 05/11/19 History 50 mg tablet wheat dextrin 3 gram/3.5 gram oral 1 pkt PO DAILY PRN ea 11/09/18 05/11/19 History powder packet levothyroxine [Synthroid] 75 mcg PO QAM 12/15/18 05/11/19 History methenamine hippurate 1 gram tablet 1 gm PO BID tab 04/22/19 05/11/19 History Unspecified Eye Drops 0 drp OPB QID 05/11/19 05/11/19 History cyanocobalamin (vitamin B-12) 1,000 mcg IM MONTHLY 05/11/19 05/11/19 History nystatin [Nyamyc] 1 appln TOPICAL QID PRN 05/11/19 05/11/19 History Past Med/Surg History Medical History Alkaline phosphatase elevation (Acute) Arthritis (Chronic) Candidal intertrigo (Acute) Chronic constipation (Acute) Decubitus ulcer, buttock (Acute) Hearing loss (Acute) Hyperlipidemia (Chronic) Nephrolithiasis (Acute) Vitamin B 12 deficiency (Acute) Wheelchair dependent (Acute) Surgical History H/O total knee replacement History of nephrectomy, left Family History Unknown Diabetes Hypertension Chronic liver disease Mother , age 93 of heart issues Heart disease Father , age 65 of hepatic cirrhosis. 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: No Beliefs That Will Affect Care: None marital status: Current Living Situation: Spouse Current Living Situation Comment: Home care current occupational status: disabled Other Information That Helps Us Care for You: No Feels Safe at Home: Yes Safety Concerns: Feels Safe At This Time Smoking Status: Never smoker Hx Alcohol Use: No Hx Substance Use: No caffeine: No Physical Activity Frequency: Does not Exercise Seatbelt Use: always Review of Systems Review of Systems: All systems reviewed & are unremarkable except as noted in HPI & below Constitutional: no fever and no chills Eyes: no diplopia and no worsening vision Ear, Nose, Mouth, Throat: no nasal congestion and no epistaxis Respiratory: + cough; no dyspnea Cardiovascular: no chest pain and no palpitations Gastrointestinal: no abdominal pain, no nausea and no vomiting Genitourinary: no dysuria decreased urine output into fitch Musculoskeletal: chronic left sided weakness Integumentary: hx of decubitus ulcer Neurologic: + paralysis (left sided chronic from prior CVA); no confusion Physical Exam Constitutional: + ill appearing, cooperative and comfortable Eyes: abnormal left eye; right eye with intact EOM without drainage ENMT: Ears: no hearing impairment Nose: no external nose abnormality Neck: normal visual inspection and trachea midline Respiratory: no respiratory distress, no labored breathing and does not use accessory muscles Auscultation: + rales (right anterior base) Cardiovascular: Rate/Rhythm: regular rate and regular rhythm Musculoskeletal: left sided paralysis - chronic Neurologic: awake; not confused Psychiatric: Orientation: alert and oriented x 3 Results & Data Vital Signs (Past 12 Hours) Vital Signs Temp Pulse Pulse Resp BP BP Pulse Ox 05/11/19 20:00 99 H 22 80/39 L 96 05/11/19 19:19 94 05/11/19 19:10 93 H 21 96 05/11/19 19:00 97 H 22 98 05/11/19 18:53 92 H 20 95 05/11/19 18:50 91 H 22 05/11/19 18:40 92 H 21 05/11/19 18:36 94 H 22 05/11/19 18:31 36.5 C 95 H 22 89/56 L 92 Laboratory Results Laboratory Results - last 24 hr 05/11/19 05/11/19 05/11/19 18:29 19:10 19:14 WBC 18.80 H RBC 3.93 L Hgb 12.1 Hct 35.1 L MCV 89.3 MCH 30.8 MCHC 34.5 RDW Std Deviation 47.2 H RDW Coeff of Oliva 14.4 Plt Count 177 MPV 10.2 Immature Gran % (Auto) 0.4 Neut % (Auto) 88.6 Lymph % (Auto) 7.8 [place] % (Auto) 3.0 Eos % (Auto) 0.1 Baso % (Auto) 0.1 Immature Gran # (Auto) 0.07 H Neut # (Auto) 16.67 H Lymph # (Auto) 1.47 [place] # (Auto) 0.57 Eos # (Auto) 0.01 Baso # (Auto) 0.01 Sodium Potassium Chloride Carbon Dioxide Anion Gap BUN Creatinine Est Cr Clr Drug Dosing Est GFR ( Amer) Est GFR (Non-Af Amer) BUN/Creatinine Ratio Glucose Calcium Total Bilirubin AST ALT Alkaline Phosphatase Total Creatine Kinase CK-MB (CK-2) CK/CKMB % Calc Troponin I NT-Pro-B Natriuret Pep Total Protein Albumin Globulin Albumin/Globulin Ratio TSH Urine Color Dark Yellow Urine Appearance Turbid A Urine pH 5.0 Ur Specific Baxter 1.020 Urine Protein 1+ H Urine Glucose (UA) Negative Urine Ketones Negative Urine Blood 1+ H Urine Nitrite Negative Urine Bilirubin Negative Urine Urobilinogen Negative Ur Leukocyte Esterase 3+ H Urine WBC (Auto) >30 H Urine RBC (Auto) 5-10 H U Hyaline Cast (Auto) 1-5 U Epithel Cells (Auto) >30 H Urine Bacteria (Auto) 1+ H WBC Casts 10-20 H Urine Yeast Not Reportable Influenza Type A (PCR) Neg for Influ A Influenza Type B (PCR) Neg for Influ B 05/11/19 19:14 WBC RBC Hgb Hct MCV MCH MCHC RDW Std Deviation RDW Coeff of Oliva Plt Count MPV Immature Gran % (Auto) Neut % (Auto) Lymph % (Auto) [place] % (Auto) Eos % (Auto) Baso % (Auto) Immature Gran # (Auto) Neut # (Auto) Lymph # (Auto) [place] # (Auto) Eos # (Auto) Baso # (Auto) Sodium 129 L Potassium 3.4 L Chloride 97 L Carbon Dioxide 22 Anion Gap 10.0 BUN 44 H Creatinine 1.18 Est Cr Clr Drug Dosing 44.1 Est GFR ( Amer) 51.2 Est GFR (Non-Af Amer) 44.1 BUN/Creatinine Ratio 37.3 H Glucose 85 Calcium 8.9 Total Bilirubin 1.0 AST 27 ALT 22 Alkaline Phosphatase 231 H Total Creatine Kinase 92 CK-MB (CK-2) 5.8 H CK/CKMB % Calc 6.3 H Troponin I < 0.015 NT-Pro-B Natriuret Pep 652 Total Protein 6.3 L Albumin 2.3 L Globulin 4.0 Albumin/Globulin Ratio 0.6 L TSH 1.870 Urine Color Urine Appearance Urine pH Ur Specific Baxter Urine Protein Urine Glucose (UA) Urine Ketones Urine Blood Urine Nitrite Urine Bilirubin Urine Urobilinogen Ur Leukocyte Esterase Urine WBC (Auto) Urine RBC (Auto) U Hyaline Cast (Auto) U Epithel Cells (Auto) Urine Bacteria (Auto) WBC Casts Urine Yeast Influenza Type A (PCR) Influenza Type B (PCR) Medications Administered Levofloxacin/Dextrose (Levaquin/D5w) 750 mg in 150 mls @ 100 mls/hr IV NOW STA Stop: 05/11/19 21:12 Last Admin: 05/11/19 20:45 Dose: 100 mls/hr Documented by: [id number] Vancomycin HCl 1,750 mg/ (Sodium Chloride) 535 mls @ 200 mls/hr IV NOW ONE Stop: 05/11/19 22:23 Last Admin: 05/11/19 20:45 Dose: 200 mls/hr Documented by: [id number] Code Status & VTE Plan VTE Prophylaxis Plan VTE Prophylaxis will be ordered: Yes Supervising Physician Co-Signing Physician Notes Patient was seen and examined by me personally. I reviewed the chart, the orders and discussed the case in detail with Dr. Stef Reynolds DO . I read this H&P and agree with its contents to entirety. Resident Activity Tracking Resident Involvement: Resident Care Provided Care Provided: Adult Hospital Medicine (1) Aspiration into respiratory tract Encounter type: initial encounter Qualified Code(s): T17.908A - Unspecified foreign body in respiratory tract, part unspecified causing other injury, initial encounter
[2019-05-11] MEDS ORDERED: NYSTATIN POWDER 15GM BTL EXT PRN (21:50)
[2019-05-11] MEDS ORDERED: DOCUSATE SODIUM/SENNA 50/8.6MG TAB PO PRN (21:50)
[2019-05-11] MEDS ORDERED: ATROPINE SULFATE 1% OP SOLN 2 ML BTL SL PRN (21:50)
[2019-05-11] MEDS ORDERED: MENTHOL-ZINC OXIDE 360 APPLN/120 GM TUBE EXT PRN (21:50)
[2019-05-11] MEDS ORDERED: POLYETHYLENE (MIRALAX) 17 GM PACK PO PRN (21:50)
[2019-05-11] MEDS ORDERED: ONDANSETRON INJ 2 MG/ML 2 ML VIAL IV PRN (21:50)
[2019-05-11] MEDS ORDERED: COLLAGENASE OINT 30 GM TUBE TOP PRN (21:50)
[2019-05-11] MEDS ORDERED: VANCOMYCIN HCL 1,000 MG in SODIUM CHLORIDE 0.9% 250 ML IV SCH (21:50)
[2019-05-11] MEDS ORDERED: ACETAMINOPHEN 500 MG TAB PO PRN (22:01)
[2019-05-11] MEDS: POTASSIUM CHLORIDE / WTR 10 MEQ/100 ML PLCT IV SCH (22:27)
[2019-05-11] MEDS: ENOXAPARIN INJ 40 MG/0.4 ML SYR SQ SCH (22:28)
[2019-05-11] MEDS ORDERED: INFLUENZA ADMINISTRATION CHARGE ONE (22:59)
[2019-05-11] MEDS ORDERED: PNEUMOCOCCAL ADMINISTRATION CHARGE ONE (22:59)
[2019-05-11] MEDS ORDERED: INFLUENZA VACCINE HIGH DOSE 65+ 0.5 ML SYR IM ONE (22:59)
[2019-05-11] MEDS ORDERED: PNEUMOCOCCAL POLYSACCHARIDES 25 MCG/0.5 ML VIAL/SYR IM ONE (22:59)
[2019-05-11] MEDS: LEVALBUTEROL HCL 0.63 MG/3 ML NEB NEB SCH (23:16)
--- NOTE | 2019-05-11 23:48 | Billing Data ---
Date of Service May 11, 2019 Coding Level of Care Code 79365 Initial Inpt Care Lvl 3
--- NOTE | 2019-05-12 00:05 | Emergency Department Note ---
Entered by Paddy Rosen acting as a scribe for Manjit Borden MD History of Present Illness General Chief complaint: Urinary Symptoms Stated complaint: URINARY SX Time Seen by Provider: 05/11/19 18:19 Source: patient and family History of Present Illness Onset (ago): hour(s) (earlier today) Severity: mild Pain Consistency: + constant Quality: + other (decrease in urine output) Associated symptoms: + denies other symptoms The patient is a 78 y/o female who presents to the ED w/ CC of a constant, mild, decreased urine output beginning earlier today. The patient's states he was concerned he could not take care of her at home. He reports she has a Irene catheter in place, and it has had a decreased urine output. 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 The patient denies any other symptoms. Home Medications Home Medications Medication Instructions Recorded Confirmed Type docusate sodium 100 mg capsule 100 mg PO DAILY 10/31/18 05/11/19 History magnesium oxide 400 mg (241.3 mg 400 mg PO DAILY tab 10/31/18 05/11/19 History magnesium) tablet menthol 0.44 %-zinc oxide 20.6 % 1 appln TOPICAL BID PRN #1 gm 10/31/18 05/11/19 History topical ointment pantoprazole 40 mg tablet,delayed 40 mg PO QAM #90 tab 10/31/18 05/11/19 History release polyethylene glycol 3350 17 17 gm PO DAILY PRN #527 gm 10/31/18 05/11/19 History gram/dose oral powder collagenase clostridium histo. 250 1 appln TOPICAL DAILY PRN #1 gm 11/09/18 05/11/19 History unit/gram topical ointment sennosides 8.6 mg-docusate sodium 1 tab PO DAILY PRN tab 11/09/18 05/11/19 History 50 mg tablet wheat dextrin 3 gram/3.5 gram oral 1 pkt PO DAILY PRN ea 11/09/18 05/11/19 History powder packet levothyroxine [Synthroid] 75 mcg PO QAM 12/15/18 05/11/19 History methenamine hippurate 1 gram tablet 1 gm PO BID tab 04/22/19 05/11/19 History Unspecified Eye Drops 0 drp OPB QID 05/11/19 05/11/19 History cyanocobalamin (vitamin B-12) 1,000 mcg IM MONTHLY 05/11/19 05/11/19 History nystatin [Nyamyc] 1 appln TOPICAL QID PRN 05/11/19 05/11/19 History Allergies Allergy/AdvReac Type Severity Reaction Status Date / Time strawberry Allergy Unknown redness,rash Verified 05/11/19 21:20 on abdomen Past Med/Surg History Medical History Alkaline phosphatase elevation (Acute) Arthritis (Chronic) Candidal intertrigo (Acute) Chronic constipation (Acute) Decubitus ulcer, buttock (Acute) Hearing loss (Acute) Hyperlipidemia (Chronic) Nephrolithiasis (Acute) Vitamin B 12 deficiency (Acute) Wheelchair dependent (Acute) Surgical History H/O total knee replacement History of nephrectomy, left Family History Unknown Diabetes Hypertension Chronic liver disease Mother , age 93 of heart issues Heart disease Father , age 65 of hepatic cirrhosis. Cirrhosis with alcoholism Social History Preferred Language: Japanese Communication Ability: Impaired Visual Impairment: Severely Limited Hearing Ability: Hard of Hearing Lead Presser Required: No Beliefs That Will Affect Care: None marital status: Current Living Situation: Spouse Current Living Situation Comment: Home care current occupational status: disabled Other Information That Helps Us Care for You: No Feels Safe at Home: Yes Safety Concerns: Feels Safe At This Time Smoking Status: Never smoker Hx Alcohol Use: No Hx Substance Use: No caffeine: No Physical Activity Frequency: Does not Exercise Seatbelt Use: always Review of Systems See HPI for pertinent positives & negatives. and A total of 10 systems reviewed and were otherwise negative Physical Exam Vital Signs Vital Signs - 24 hr 05/11/19 18:31 05/11/19 18:36 05/11/19 18:40 Temperature 36.5 C Temperature Source Oral Pulse Rate 95 H 94 H 92 H Pulse Rate [Right Finger] Pulse Rate from SpO2 Sensor Respiratory Rate 22 22 21 Respiratory Effort / Characteristics Blood Pressure 89/56 L Blood Pressure [Left Arm] Blood Pressure Mean 64 Blood Pressure Mean [Left Arm] Pulse Oximetry 92 Oxygen Delivery Method Room Air Oxygen Flow Rate Sepsis Recent Fever Within 48 Hours No Sepsis New/Unexplained Change in Mental Status No Sepsis Action Taken by Nursing No Action Required 05/11/19 18:50 05/11/19 18:53 05/11/19 19:00 Temperature Temperature Source Pulse Rate 91 H 97 H Pulse Rate [Right Finger] 92 H Pulse Rate from SpO2 Sensor 97 H Respiratory Rate 22 20 22 Respiratory Effort / Characteristics Non-Labored Spontaneous Blood Pressure Blood Pressure [Left Arm] Blood Pressure Mean Blood Pressure Mean [Left Arm] Pulse Oximetry 95 98 Oxygen Delivery Method Nasal Cannula Oxygen Flow Rate 4 Sepsis Recent Fever Within 48 Hours Sepsis New/Unexplained Change in Mental Status Sepsis Action Taken by Nursing 05/11/19 19:10 05/11/19 19:19 05/11/19 20:00 Temperature Temperature Source Pulse Rate 93 H Pulse Rate [Right Finger] 99 H Pulse Rate from SpO2 Sensor 93 H Respiratory Rate 21 22 Respiratory Effort / Characteristics Blood Pressure Blood Pressure [Left Arm] 80/39 L Blood Pressure Mean Blood Pressure Mean [Left Arm] 52 Pulse Oximetry 96 94 96 Oxygen Delivery Method Nasal Cannula Nasal Cannula Oxygen Flow Rate 2 2 Sepsis Recent Fever Within 48 Hours Sepsis New/Unexplained Change in Mental Status Sepsis Action Taken by Nursing 05/11/19 20:46 Temperature Temperature Source Pulse Rate Pulse Rate [Right Finger] 96 H Pulse Rate from SpO2 Sensor Respiratory Rate 20 Respiratory Effort / Characteristics Blood Pressure Blood Pressure [Left Arm] 100/42 L Blood Pressure Mean Blood Pressure Mean [Left Arm] 61 Pulse Oximetry 98 Oxygen Delivery Method Nasal Cannula Oxygen Flow Rate 2 Sepsis Recent Fever Within 48 Hours Sepsis New/Unexplained Change in Mental Status Sepsis Action Taken by Nursing GENERAL: Awake, alert, well-appearing, in no acute distress HENT: Normocephalic, atraumatic. Oropharynx unremarkable. EYES: Normal conjunctiva. Sclera non-icteric. NECK: Supple. No nuchal rigidity. FROM. No JVD. RESPIRATORY: Clear to auscultation. CARDIAC: Regular rate, normal rhythm. Extremities warm and well perfused. Pulses equal. ABDOMEN: Soft, non-distended. No tenderness to palpation. No rebound or guarding. No masses. Irene catheter in place with urine draining. RECTAL: Deferred. MUSCULOSKELETAL: Chest examination reveals no tenderness. The back is symmetrical on inspection without obvious abnormality. There is no CVA tenderness to palpation. No joint edema. LOWER EXTREMITIES: Calves are equal size bilaterally and non-tender. No edema. No discoloration. NEURO: Normal sensorium. No sensory or motor deficits noted with the exception of left sided weakness that is consisted with the patient's previous CVA. SKIN: No rash or jaundice noted. Course Course 1822: Past medical records reviewed. The patient was evaluated in room C01B. A complete history and physical exam was performed. 1945: I reviewed the patient's case with Dr. Miles, [facility] Hospitalist. He will evaluate the patient for further management. 1947: Upon reevaluation, the patient is resting comfortably. I discussed laboratory and radiographic results with her and her . They verbalized agreement of the treatment plan. The patient will be evaluated for further management and care. Administered Medications Enoxaparin Sodium (Lovenox) 40 mg SQ Q24H BABAR Stop: 06/10/19 21:59 Last Admin: 05/11/19 22:28 Dose: 40 mg Documented by: [id number] Potassium Chloride (K Duncan / Wtr) 10 meq in 100 mls @ 100 mls/hr IV Q1H BABAR Stop: 05/12/19 00:14 Last Admin: 05/11/19 22:27 Dose: 100 mls/hr Documented by: [id number] Levalbuterol HCl (Xopenex 0.63 Mg/3 Ml Neb) 0.63 mg NEB Q4R BABAR Stop: 06/10/19 22:59 Last Admin: 05/11/19 23:16 Dose: 0.63 mg Documented by: [id number] Discontinued Medications Piperacillin Sod/Tazobactam Sod (Zosyn) 4.5 gm in 120 mls @ 240 mls/hr IV NOW ONE Stop: 05/11/19 20:12 Last Infusion: 05/11/19 21:53 Dose: 0 mls/hr Documented by: [id number] Admin: 05/11/19 20:27 Dose: 240 mls/hr Documented by: [id number] Levofloxacin/Dextrose (Levaquin/D5w) 750 mg in 150 mls @ 100 mls/hr IV NOW STA Stop: 05/11/19 21:12 Last Infusion: 05/11/19 22:37 Dose: 0 mls/hr Documented by: [id number] Admin: 05/11/19 20:45 Dose: 100 mls/hr Documented by: [id number] Vancomycin HCl 1,750 mg/ (Sodium Chloride) 535 mls @ 200 mls/hr IV NOW ONE Stop: 05/11/19 22:23 Last Admin: 05/11/19 20:45 Dose: 200 mls/hr Documented by: [id number] Sodium Chloride (Nss 1000ml) 1,000 mls @ 999 mls/hr IV .Q1H1M ONE Stop: 05/11/19 21:04 Last Infusion: 05/11/19 21:53 Dose: 0 mls/hr Documented by: [id number] Admin: 05/11/19 20:07 Dose: 999 mls/hr Documented by: [id number] Sodium Chloride (Nss 1000ml) 1,000 mls @ 999 mls/hr IV .Q1H1M ONE Stop: 05/11/19 23:00 Last Admin: 05/11/19 22:03 Dose: 999 mls/hr Documented by: [id number] Levalbuterol HCl (Xopenex 1.25mg/3ml Neb) 1.25 mg NEB NOW STA Stop: 05/11/19 18:24 Last Admin: 05/11/19 18:51 Dose: 1.25 mg Documented by: [id number] Medical Decision Making Differential Diagnosis Differential Diagnosis includes but is not limited to dehydration, stroke, an emia, hypoglycemia, hyponatremia, hypernatremia, urinary tract infection, pneumonia, bronchitis, sepsis, gastroenteritis, additional abdominal pathology, metabolic abnormalities and infections. Medical Records Attestation: I reviewed the patient's medical records. Home Medications Current Medication List: was personally reviewed by me Laboratory Data Attestation: I reviewed the patient's lab results. Result diagrams: 05/11/19 19:14 05/11/19 19:14 Lab Results 05/11/19 05/11/19 05/11/19 Range/Units 18:29 19:10 19:14 WBC 18.80 H (4.8-10.8) K/uL RBC 3.93 L (4.2-5.4) M/uL Hgb 12.1 (12.0-16.0) g/dL Hct 35.1 L (37-47) % MCV 89.3 (80-100) fL MCH 30.8 (25-34) pg MCHC 34.5 (32-36) g/dL RDW Std Deviation 47.2 H (36.4-46.3) fL RDW Coeff of [place] 14.4 (11.5-14.5) % Plt Count 177 (130-400) K/uL MPV 10.2 (7.4-10.4) fL Immature Gran % (Auto) 0.4 % Neut % (Auto) 88.6 % Lymph % (Auto) 7.8 % [place] % (Auto) 3.0 % Eos % (Auto) 0.1 % Baso % (Auto) 0.1 % Immature Gran # (Auto) 0.07 H (0.00-0.02) K/uL Neut # (Auto) 16.67 H (1.4-6.5) K/uL Lymph # (Auto) 1.47 (1.2-3.4) K/uL [place] # (Auto) 0.57 (0.11-0.59) K/uL Eos # (Auto) 0.01 (0-0.5) K/uL Baso # (Auto) 0.01 (0-0.2) K/uL Sodium (136-145) mmol/L Potassium (3.5-5.1) mmol/L Chloride (98-107) mmol/L Carbon Dioxide (21-32) mmol/L Anion Gap (3-11) BUN (7-18) mg/dl Creatinine (0.6-1.2) mg/dl Est Cr Clr Drug Dosing ml/min Est GFR ( Amer) Est GFR (Non-Af Amer) BUN/Creatinine Ratio (10-20) Glucose (70-99) mg/dl Calcium (8.5-10.1) mg/dl Total Bilirubin (0.2-1) mg/dl AST (15-37) U/L ALT (12-78) U/L Alkaline Phosphatase (45-117) U/L Total Creatine Kinase (26-192) U/L CK-MB (CK-2) (0.5-3.6) ng/ml CK/CKMB % Calc (0-3.0) Troponin I (0-0.045) ng/ml NT-Pro-B Natriuret Pep (0-1800) pg/ml Total Protein (6.4-8.2) gm/dl Albumin (3.4-5.0) gm/dl Globulin (2.5-4.0) gm/dl Albumin/Globulin Ratio (0.9-2) TSH (0.300-4.500) uIu/ml Urine Color Dark Yellow Urine Appearance Turbid A (Clear) Urine pH 5.0 (4.5-7.5) Ur Specific [place] 1.020 (1.000-1.030) Urine Protein 1+ H (Negative) Urine Glucose (UA) Negative (Negative) Urine Ketones Negative (Negative) Urine Blood 1+ H (Negative) Urine Nitrite Negative (Negative) Urine Bilirubin Negative (Negative) Urine Urobilinogen Negative (Negative) Ur Leukocyte Esterase 3+ H (Negative) Urine WBC (Auto) >30 H (0-5) /hpf Urine RBC (Auto) 5-10 H (0-4) /hpf U Hyaline Cast (Auto) 1-5 (0-5) /lpf U Epithel Cells (Auto) >30 H (0-5) /lpf Urine Bacteria (Auto) 1+ H (Negative) WBC Casts 10-20 H (0) /lpf Urine Yeast Not Reportable Influenza Type A (PCR) Neg for Influ A (Neg) Influenza Type B (PCR) Neg for Influ B (Neg) 05/11/19 Range/Units 19:14 WBC (4.8-10.8) K/uL RBC (4.2-5.4) M/uL Hgb (12.0-16.0) g/dL Hct (37-47) % MCV (80-100) fL MCH (25-34) pg MCHC (32-36) g/dL RDW Std Deviation (36.4-46.3) fL RDW Coeff of [place] (11.5-14.5) % Plt Count (130-400) K/uL MPV (7.4-10.4) fL Immature Gran % (Auto) % Neut % (Auto) % Lymph % (Auto) % [place] % (Auto) % Eos % (Auto) % Baso % (Auto) % Immature Gran # (Auto) (0.00-0.02) K/uL Neut # (Auto) (1.4-6.5) K/uL Lymph # (Auto) (1.2-3.4) K/uL [place] # (Auto) (0.11-0.59) K/uL Eos # (Auto) (0-0.5) K/uL Baso # (Auto) (0-0.2) K/uL Sodium 129 L (136-145) mmol/L Potassium 3.4 L (3.5-5.1) mmol/L Chloride 97 L (98-107) mmol/L Carbon Dioxide 22 (21-32) mmol/L Anion Gap 10.0 (3-11) BUN 44 H (7-18) mg/dl Creatinine 1.18 (0.6-1.2) mg/dl Est Cr Clr Drug Dosing 44.1 ml/min Est GFR ( Amer) 51.2 Est GFR (Non-Af Amer) 44.1 BUN/Creatinine Ratio 37.3 H (10-20) Glucose 85 (70-99) mg/dl Calcium 8.9 (8.5-10.1) mg/dl Total Bilirubin 1.0 (0.2-1) mg/dl AST 27 (15-37) U/L ALT 22 (12-78) U/L Alkaline Phosphatase 231 H (45-117) U/L Total Creatine Kinase 92 (26-192) U/L CK-MB (CK-2) 5.8 H (0.5-3.6) ng/ml CK/CKMB % Calc 6.3 H (0-3.0) Troponin I < 0.015 (0-0.045) ng/ml NT-Pro-B Natriuret Pep 652 (0-1800) pg/ml Total Protein 6.3 L (6.4-8.2) gm/dl Albumin 2.3 L (3.4-5.0) gm/dl Globulin 4.0 (2.5-4.0) gm/dl Albumin/Globulin Ratio 0.6 L (0.9-2) TSH 1.870 (0.300-4.500) uIu/ml Urine Color Urine Appearance (Clear) Urine pH (4.5-7.5) Ur Specific [place] (1.000-1.030) Urine Protein (Negative) Urine Glucose (UA) (Negative) Urine Ketones (Negative) Urine Blood (Negative) Urine Nitrite (Negative) Urine Bilirubin (Negative) Urine Urobilinogen (Negative) Ur Leukocyte Esterase (Negative) Urine WBC (Auto) (0-5) /hpf Urine RBC (Auto) (0-4) /hpf U Hyaline Cast (Auto) (0-5) /lpf U Epithel Cells (Auto) (0-5) /lpf Urine Bacteria (Auto) (Negative) WBC Casts (0) /lpf Urine Yeast Influenza Type A (PCR) (Neg) Influenza Type B (PCR) (Neg) Imaging Data Radiologist's Impression: Radiology results as stated below per my review and the radiologist's interpretation: XR chest 1V portable CLINICAL HISTORY: 78 years-old Female presenting with weakness. TECHNIQUE: Portable upright AP view of the chest was obtained. COMPARISON: 12/25/2018. FINDINGS: Atherosclerosis of the aortic arch. Cardiac silhouette normal in size. Moderate right pleural effusion with extensive right mid to basilar opacity. Minimal left basilar opacity. No pneumothorax. Degenerative changes of the thoracic spine. Suspected underlying osteopenia. Degenerative changes of the bilateral shoulders. Surgical clips project over the left upper quadrant. IMPRESSION: 1. Moderate layering right pleural effusion with extensive right basilar atelectasis. An underlying right basilar predominant consolidation/pneumonia or neoplasm is not excluded. This should be followed to resolution. 2. Minimal left basilar atelectasis or scarring, which is chronic. ACT 112: Negative or not required by law. Electronically signed by: Trent Jeffrey M.D. 05/11/2019 7:34 PM ECG Data Attestation: I personally reviewed and interpreted this ECG as follows: Indication: + weakness Rate (beats per minute): 90 Rhythm: + normal sinus ECG Intervals/blocks: + Left bundle branch block ECG ST segments: no ST depression and no ST elevation ECG Findings: + Other (QTc of 455) Blood Pressure Blood Pressure Findings: Elevated blood pressure Blood Pressure Disposition: further management by hospitalist [facility] Narrative This is a 78-year-old female who presents emergency department complaining of weakness and decreased urine output. The patient is hypotensive upon arrival to the emergency department. She was given a normal saline bolus. Her chest x-ray is concerning for pneumonia. She does have an elevation in her white blood cell count. The patient was pancultured and started on antibiotics. I did discuss the case with the hospitalist service who did agree to admit the patient. Patient family were in agreement with the treatment plan. Impression & Plan Hypotensive syncope, Pneumonia Discharge Plan Visit Data *Final* Discharge Date/Time: 05/11/19 21:15 Chief Complaint: Urinary Symptoms Stated Complaint: URINARY SX ED Provider: Manjit Borden Discharge Problem: Hypotensive syncope, Pneumonia Patient Disposition: Being Evaluated by Hospitalist Discharge Instructions Interventions: ED Discharge Assessment Last Done: 05/11/19 21:15 Discharge Problem: Pneumonia Qualifiers: Pneumonia type: due to unspecified organism Laterality: unspecified laterality Lung location: unspecified part of lung Qualified Code(s): J18.9 - Pneumonia, unspecified organism The scribe's documentation has been prepared under my direction and personally reviewed by me in its entirety. I confirm that the note above accurately reflects all work, treatment, procedures, and medical decision making performed by me.
[2019-05-12] MEDS: POTASSIUM CHLORIDE / WTR 10 MEQ/100 ML PLCT IV SCH (00:18)
[2019-05-12] MEDS: SODIUM CHLORIDE 0.9% 1000ML 1,000 ML IV SCH ×3 (01:28→16:55)
[2019-05-12] MEDS: PIPERACILLIN/TAZOBACTAM 3.375 GM in DEXTROSE 5% 100 ML IV SCH ×3 (01:29→18:28)
[2019-05-12] MEDS: LEVALBUTEROL HCL 0.63 MG/3 ML NEB NEB SCH ×3 (03:19→11:23)
[2019-05-12] MEDS: LEVOTHYROXINE SODIUM 75 MCG TABLET PO SCH (06:09)
[2019-05-12 07:56] LABS: Eosinophils # (auto) 0.01 K/uL (0-0.5); Eosinophils % (auto) 0.1 %; Hematocrit (blood only) 30.3 % (37-47); Hemoglobin 11.2 g/dL (12.0-16.0); Immature Granulocytes # (auto) 0.06 K/uL (0.00-0.02); Immature Granulocytes % (auto) 0.4 %; Lymphocytes # (auto) 0.79 K/uL (1.2-3.4); Lymphocytes % (auto) 5.7 %; Mean Corpuscular Hemoglobin 32.3 pg (25-34); Mean Corpuscular Volume 87.3 fL (80-100); Mean Platelet Volume 10.3 fL (7.4-10.4); Monocytes # (auto) 0.45 K/uL (0.11-0.59); Monocytes % (auto) 3.3 %; Neutrophils # (auto) 12.53 K/uL (1.4-6.5); Neutrophils % (auto) 90.5 %; Platelet Count 173 K/uL (130-400); RDW Coefficient of Variation 14.5 % (11.5-14.5); RDW Standard Deviation 46.2 fL (36.4-46.3); Red Blood Count 3.47 M/uL (4.2-5.4); White Blood Count 13.84 K/uL (4.8-10.8)
[2019-05-12] MEDS: MAGNESIUM OXIDE 400 MG TAB PO SCH (08:28)
[2019-05-12] MEDS: DOCUSATE SODIUM 100 MG CAP PO SCH (08:28)
[2019-05-12] MEDS: PANTOprazole 40 MG TAB PO SCH (08:28)
[2019-05-12 08:31] LABS: BUN Creatinine Ratio 39.6 (10-20); Calcium 8.3 mg/dl (8.5-10.1); Creatinine Clr Calc Pharmacy 50.5 ml/min; Est GFR (African American) 60.3; Potassium 3.2 mmol/L (3.5-5.1)
[2019-05-12] MEDS ORDERED: POTASSIUM CHLORIDE 20 MEQ TABCR PO STA (11:16)
--- NOTE | 2019-05-12 11:35 | Electrocardiogram Report ---
Test Reason : Blood Pressure : / mmHG Vent. Rate : 090 BPM Atrial Rate : 090 BPM P-R Int : 154 ms QRS Dur : 112 ms QT Int : 372 ms P-R-T Axes : 045 003 122 degrees QTc Int : 455 ms Normal sinus rhythm Incomplete left bundle block Abnormal ECG When compared with ECG of 25-DEC-2018 09:20, IN interval has decreased Incomplete left bundle block is now Present Confirmed by Gasper Quigley ([id number]) on 05/12/2019 11:35:08 AM Referred By: REFERRED SELF Confirmed By:Gasper Quigley
[2019-05-12] MEDS ORDERED: LEVALBUTEROL HCL 0.63 MG/3 ML NEB NEB PRN (13:48)
--- NOTE | 2019-05-12 15:12 | Palliative Care Consultation ---
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 Patient was in hospital in December 2018, returned home on hospice. She was on hospice from December to February, and was discharged from hospice back to home health. It is unclear exactly why she went off hospice-- it was partially her decision because she wanted her home health nurse back, and partially because her condition was stable. She is here receiving IV abx and fluids. Palliative care is reconsulted to discuss goals of care. -Met with patient and her in room 452. Patient is AA&O x4. She actually is in better condition than when I saw her back in . -Patient explained the above information to me. She states that things are going okay at home right now with home health and she plans to return home with their services. She is open to hospice care in the future if/when she is ready for it. -I explained hospice philosophy-- not coming to the hospital for life prolonging treatment, but hospice CAN still treat infections from home with oral abx if appropriate. Hospice would be for when patient is ready to say that she does not want to come to the hospital for treatment of her condition. She and the verbalized understanding. -I did reeducate the patient on aspiration risk. She thought that she "no longer had aspiration pneumonia." Explained that she will always be at risk for aspiration which also puts her at risk for recurrent pneumonias. Abx treat infection, but they do not treat dysphagia. Therefore, abx are a temporary fix. She understands. -For now, plan to continue treating the pneumonia. Goal is to go back home with home health services. Patient and aware that they can transition to hospice any time she is ready. -POLST form previously completed and is on file: DNR, comfort measures only, abx with comfort as the goal, trial of IVF but no tube feedings. Patient's niece/goddaughter Kelly Chen is her POA/surrogate decision maker. -Palliative care will sign off. Please contact us with any further needs or change in patient condition. 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 Patient was in hospital in December 2018, returned home on hospice. She was on hospice from December to February, and was discharged from hospice back to home health. It is unclear exactly why she went off hospice-- it was partially her decision because she wanted her home health nurse back, and partially because her condition was stable. She is here receiving IV abx and fluids. Palliative care is reconsulted to discuss goals of care. Thank you kindly for this consult. Home Medications Home Medications Medication Instructions Recorded Confirmed Type docusate sodium 100 mg capsule 100 mg PO DAILY 10/31/18 05/11/19 History magnesium oxide 400 mg (241.3 mg 400 mg PO DAILY tab 10/31/18 05/11/19 History magnesium) tablet menthol 0.44 %-zinc oxide 20.6 % 1 appln TOPICAL BID PRN #1 gm 10/31/18 05/11/19 History topical ointment pantoprazole 40 mg tablet,delayed 40 mg PO QAM #90 tab 10/31/18 05/11/19 History release polyethylene glycol 3350 17 17 gm PO DAILY PRN #527 gm 10/31/18 05/11/19 History gram/dose oral powder collagenase clostridium histo. 250 1 appln TOPICAL DAILY PRN #1 gm 11/09/18 05/11/19 History unit/gram topical ointment sennosides 8.6 mg-docusate sodium 1 tab PO DAILY PRN tab 11/09/18 05/11/19 History 50 mg tablet wheat dextrin 3 gram/3.5 gram oral 1 pkt PO DAILY PRN ea 11/09/18 05/11/19 History powder packet levothyroxine [Synthroid] 75 mcg PO QAM 12/15/18 05/11/19 History methenamine hippurate 1 gram tablet 1 gm PO BID tab 04/22/19 05/11/19 History Unspecified Eye Drops 0 drp OPB QID 05/11/19 05/11/19 History cyanocobalamin (vitamin B-12) 1,000 mcg IM MONTHLY 05/11/19 05/11/19 History nystatin [Nyamyc] 1 appln TOPICAL QID PRN 05/11/19 05/11/19 History Patient History Medical History Alkaline phosphatase elevation (Acute) Arthritis (Chronic) Candidal intertrigo (Acute) Chronic constipation (Acute) Decubitus ulcer, buttock (Acute) Hearing loss (Acute) Hyperlipidemia (Chronic) Nephrolithiasis (Acute) Vitamin B 12 deficiency (Acute) Wheelchair dependent (Acute) Surgical History H/O total knee replacement History of nephrectomy, left Family History Unknown Diabetes Hypertension Chronic liver disease Mother , age 93 of heart issues Heart disease Father , age 65 of hepatic cirrhosis. Cirrhosis with alcoholism Social History Preferred Language: Lao Communication Ability: Effective Visual Impairment: Severely Limited Hearing Ability: Hard of Hearing Teacher Counselor Required: No Beliefs That Will Affect Care: None marital status: Current Living Situation: Spouse Current Living Situation Comment: Home care current occupational status: disabled Other Information That Helps Us Care for You: No Feels Safe at Home: Yes Safety Concerns: Feels Safe At This Time Smoking Status: Never smoker Hx Alcohol Use: No Hx Substance Use: No caffeine: No Physical Activity Frequency: Does not Exercise Seatbelt Use: always Review of Systems Review of Systems: +cough no SOB no pain no N/V good appetite and PO intake Physical Exam Constitutional: + ill appearing (chronically) and + physical limitations; no acute distress Eyes: 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) Respiratory: normal respiratory effort; no labored breathing Cardiovascular: RRR, no murmur, no edema Gastrointestinal (Abdomen): Inspection/Auscultation: normal bowel sounds Percussion/Palpation: abdomen soft Neurologic: awake; not confused left facial droop (chronic/stable), dysarthria Results & Data Vital Signs (Past 12 Hours) Vital Signs Pulse Resp BP Pulse Ox Pulse Ox 05/12/19 07:43 81 18 103/63 90 05/12/19 07:25 81 16 93 05/12/19 06:14 95 05/12/19 03:22 88 20 88 L Coding Level of Care Code 99045 Inpt Consult Level 3 Diagnoses Goals of care, counseling/discussion Z71.89 Pneumonia J18.9 Laterality: unspecified laterality Lung location: unspecified part of lung Pneumonia type: due to unspecified organism Aspiration into respiratory tract T17.908A Encounter type: initial encounter Progressive focal motor weakness R53.1 Time Spent (min) 70 Time Spent Midlevel 70 minutes with >50% of the time spent at bedside with patient and family discussing condition and GOC.
--- NOTE | 2019-05-12 17:32 | Hospitalist Progress Note ---
Date of Service May 12, 2019 Assessment & Plan (1) Aspiration into respiratory tract: Beverly Cuadra is a 78yo female recently on hospice but now home with home health services. Also has a PMHx of brain tumor - Schwannoma, hearing loss, hyperlipidemia, chronic constipation, aspiration pneumonia, chronic indwelling catheter and chronic UTI, anemia, arthritis, progressive focal motor weakness with slurred speech and facial droop, wheelchair bound who was diagnosed in the ED with pneumonia, most likely aspiration. Pneumonia likely aspiration with hypoxia -Pt with new oxygen requirement in the ED -increased WBC noted, downtrending today -CXR showing "Moderate layering right pleural effusion with extensive right basilar atelectasis. An underlying right basilar predominant consolidation/pneumonia or neoplasm is not excluded. Minimal left basilar atelectasis or scarring, which is chronic." -Blood Cx- NGTD -Continue Zosyn, d/c Vancomycin as MRSA negative. Will narrow in AM - Of note, patient requesting to be kept comfortable and will attempt to make patient comfortable as no need for managing consultant, full diet, okay to continue home medications. -Palliative consulted. 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 -UA with blood and leukocyte esterase -Urine Cx with no significant growth Stephania intertrigo -continue home nystatin topical ointment Constipation -continue home docusate 50mg-sennoside 8.6mg HLD -not currently being treated Hypothyroidism -continue Synthroid Code:DNR/DNI DVT ppx: Lovenox 40mg SQ q24h FENGI: Full diet as tolerated; continue with home PPI Protonix 40mg PO daily Dispo: home with home health once improved (2) Sepsis: (3) Goals of care, counseling/discussion: 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 (7) Slurred speech: 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 kinked fitch Monitor Is and Os. Admission and Anticipated Discharge Date Admission Date: May 11, 2019 Supervising Physician Co-Signing Physician Notes Resident Physician Supervision Note: I independently interviewed and examined the patient and verified the ramirez history and physical, reviewed labs and image studies, discussed the case with the resident Dr. Tsai and agree with the findings and care plan. Subjective Pt seen this AM in room with at bedside. She states she is surprised that she came in for a UTI but was found to have a pneumonia. States she still has a cough but denies any headache, changes to vision, cough, runny nose, sore throat, chest pain, SOB, palpitations, abdominal pain, diarrhea or constipation, swelling in hands or feet or numbness or tingling anywhere. Review of Systems Review of Systems: All systems reviewed & are unremarkable except as noted in Subjective Physical Exam Physical Exam: General: Alert, oriented. No acute distress, sitting up in the bed. Skin: No noted rashes or bruises Psych: Appropriate mood and affect Neuro: Difficulty hearing HEENT: NC/AT, noted assymetry of face Chest: Nontender to palpation. CV: RRR, Normal s1, s2. No murmurs appreciated Resp: Breath sounds clear on front, no increased effort of breathing. Abdomen: Soft, nontender, nondistended. No guarding. No organomegaly appreciated. Extremities: edema in lower extremities bilaterally. Results & Data ([facility]) Vital Signs (Past 12 Hours) Vital Signs Pulse Resp BP Pulse Ox Pulse Ox 05/12/19 07:43 81 18 103/63 90 05/12/19 07:25 81 16 93 05/12/19 06:14 95 Resident Activity Tracking Resident Involvement: Resident Care Provided Care Provided: Adult Hospital Medicine (1) Aspiration into respiratory tract Encounter type: initial encounter Qualified Code(s): T17.908A - Unspecified foreign body in respiratory tract, part unspecified causing other injury, initial encounter
[2019-05-12] MEDS: ENOXAPARIN INJ 40 MG/0.4 ML SYR SQ SCH (21:19)
[2019-05-13] MEDS: SODIUM CHLORIDE 0.9% 1000ML 1,000 ML IV SCH ×2 (01:27→09:27)
[2019-05-13] MEDS: PIPERACILLIN/TAZOBACTAM 3.375 GM in DEXTROSE 5% 100 ML IV SCH ×2 (01:33→10:37)
[2019-05-13] MEDS: LEVOTHYROXINE SODIUM 75 MCG TABLET PO SCH (05:50)
[2019-05-13] MEDS: DOCUSATE SODIUM 100 MG CAP PO SCH (08:54)
[2019-05-13] MEDS: MAGNESIUM OXIDE 400 MG TAB PO SCH (08:54)
[2019-05-13] MEDS: PANTOprazole 40 MG TAB PO SCH (08:54)
[2019-05-13 10:13] LABS: Basophils # (auto) 0.01 K/uL (0-0.2); Basophils % (auto) 0.1 %; Eosinophils # (auto) 0.06 K/uL (0-0.5); Eosinophils % (auto) 0.6 %; Hematocrit (blood only) 30.4 % (37-47); Hemoglobin 10.3 g/dL (12.0-16.0); Immature Granulocytes # (auto) 0.02 K/uL (0.00-0.02); Immature Granulocytes % (auto) 0.2 %; Mean Corpuscular Hemoglobin 29.9 pg (25-34); Mean Corpuscular Hgb Conc 33.9 g/dL (32-36); Mean Corpuscular Volume 88.4 fL (80-100); Mean Platelet Volume 10.6 fL (7.4-10.4); Monocytes # (auto) 0.32 K/uL (0.11-0.59); Monocytes % (auto) 3.2 %; Neutrophils # (auto) 8.64 K/uL (1.4-6.5); Neutrophils % (auto) 86.9 %; Platelet Count 188 K/uL (130-400); RDW Coefficient of Variation 14.9 % (11.5-14.5); RDW Standard Deviation 48.5 fL (36.4-46.3); Red Blood Count 3.44 M/uL (4.2-5.4); White Blood Count 9.95 K/uL (4.8-10.8)
[2019-05-13 10:45] LABS: Calcium 8.5 mg/dl (8.5-10.1); Creatinine Clr Calc Pharmacy 63.4 ml/min; Est GFR (African American) 79.4; Est GFR (Non-African American) 68.5; Potassium 3.2 mmol/L (3.5-5.1)
--- NOTE | 2019-05-13 15:28 | Discharge Summary ---
Date of Service May 13, 2019 Admission HPI Per Admitting Provider Beverly Cuadra 78 years old female with past medical history of brain tumor - Schwannoma, hearing loss, hyperlipidemia, chronic constipation, aspiration pneumonia, chronic indwelling catheter and chronic UTI, anemia, arthritis, progressive focal motor weakness with slurred speech and facial droop, wheelchair bound who was diagnosed in the ED with pneumonia. She notes she has had a cough for several days. However, has not had any shortness of breath, fever, chills, chest pains, abdominal pains. She notes she actually came in to ED because she noticed decreased urine output with her chronic indwelling ftich. She was found to have leukocytosis and findings of Pneumonia on CXR and was septic. She notes she only wants to have IV antibiotics and IV fluids to help treat the pneumonia and stabilize her Blood pressure caused by the sepsis. She does is a DNR/DNI in event of a code, she does not wish to have pressors or intubation or ICU transfer. She actually mentioned that she would prefer to pass away but spouse was strong advocate for her to continue with care. I did discuss with patient it was up to her to make her own decision regarding her care and she then expressed to continue with IV fluids and IV antibiotics. Discharge Data Consultations 05/11/19 19:37 ED Decision to Admit Stat 05/11/19 21:50 Consult Case Management - Discharge Planning Routine Consult Palliative Care Routine Discharge Plan Discharge Items Patient Disposition: Home - Home Health Services Reason For Visit: PNEUMONIA Discharge Diagnosis: Aspiration Pneumonia Activity: Per Instructions section Non-emergency contact: Primary Care Provider Call non-emergency contact if: your symptoms worsen and you have a fever Follow-up/Referrals: Trent Manuel MD [Primary Care Provider] - Diet: Regular Diet Texture: Pureed (blended smooth) Addtl Attending Provider Instructions: Mrs. Cuadra you are being discharged home with home health services after being treated in the hospital for a pneumonia. Please continue taking the antibiotics you are being discharged with for the next 8 days, twice a day but take ONE pill when you get home this evening. The prescription has been sent to your pharmacy. Please follow up after discharge with your primary care provider in the next week. It is very important that you take small bites when you eat, sit upright for at least half an hour after eating. Continue to stay hydrated at home as well. It was truly a pleasure taking care of you during your stay here. Pending Studies at Discharge: No Stand-Alone Forms: My [facility], Smoking Cessation Medications and DC Order Prescriptions: New amoxicillin-pot clavulanate [Augmentin] 875-125 mg tablet 1 tab PO BID Qty: 17 RF: 0 Continued methenamine hippurate [Hiprex] 1 gram tablet 1 gm PO BID RF: 0 polyethylene glycol 3350 17 gram/dose powder 17 gm PO DAILY PRN (Reason: chronic constipation) Qty: 527 RF: 0 pantoprazole [Protonix] 40 mg tablet,delayed release (DR/EC) 40 mg PO QAM Qty: 90 RF: 0 magnesium oxide 400 mg (241.3 mg magnesium) tablet 400 mg PO DAILY RF: 0 docusate sodium 100 mg capsule 100 mg PO DAILY RF: 0 menthol-zinc oxide 0.44-20.6 % ointment 1 appln topical BID PRN (Reason: decubitus ulcer) Qty: 1 RF: 0 wheat dextrin 3 gram/3.5 gram powder in packet 1 pkt PO DAILY PRN (Reason: Constipation) RF: 0 collagenase clostridium histo. 250 unit/gram ointment 1 appln topical DAILY PRN (Reason: ulcers) Qty: 1 RF: 0 sennosides-docusate sodium 8.6-50 mg tablet 1 tab PO DAILY PRN (Reason: Constipation) RF: 0 levothyroxine [Synthroid] 75 mcg tablet 75 mcg PO QAM RF: 0 cyanocobalamin (vitamin B-12) 1,000 mcg/mL solution 1,000 mcg IM MONTHLY RF: 0 nystatin [Nyamyc] 100,000 unit/gram powder 1 appln topical QID PRN (Reason: candidiasis) RF: 0 Unspecified Eye Drops 0 drp OPB QID RF: 0 Discharge Orders: Discharge Order (Routine); Ordered 05/13/19 Ordered By: Windy Tsai Admission Data Admit Date/Time: 05/11/19 20:50 Attending Provider: Ashli Matias Admit Provider: Stef Reynolds Primary Care Provider: Trent Manuel Other Providers: Manohar Miles ; Celeste Pop
--- NOTE | 2019-05-13 17:30 | Hospitalist Progress Note ---
Date of Service May 13, 2019 Assessment & Plan (1) Pneumonia: Beverly Cuadra is a 78yo female recently on hospice but now home with home health services. Also has a PMHx of brain tumor - Schwannoma, hearing loss, hyperlipidemia, chronic constipation, aspiration pneumonia, chronic indwelling catheter and chronic UTI, anemia, arthritis, progressive focal motor weakness with slurred speech and facial droop, wheelchair bound who was diagnosed in the ED with pneumonia, most likely aspiration. Pneumonia likely aspiration with hypoxia -Pt with new oxygen requirement in the ED -increased WBC noted, within normal limits currently -CXR showing "Moderate layering right pleural effusion with extensive right basilar atelectasis. An underlying right basilar predominant consolidation/pneumonia or neoplasm is not excluded. Minimal left basilar atelectasis or scarring, which is chronic." -Blood Cx- NGTD -Switched from Zosyn to PO Augmentin 05/13 - Of note, patient requesting to be kept comfortable and will attempt to make patient comfortable as no need for dog handler, full diet, okay to continue home medications. -Palliative consulted. Appreciate recs- pt wants to go home with home health services. No hospice currently. 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 -UA with blood and leukocyte esterase -Urine Cx with no significant growth Stephania intertrigo -continue home nystatin topical ointment Constipation -continue home docusate 50mg-sennoside 8.6mg HLD -not currently being treated Hypothyroidism -continue Synthroid Code:DNR/DNI DVT ppx: Lovenox 40mg SQ q24h FENGI: Full diet as tolerated; continue with home PPI Protonix 40mg PO daily Dispo: home with home health once improved Admission and Anticipated Discharge Date Admission Date: May 11, 2019 Supervising Physician Co-Signing Physician Notes Resident Physician Supervision Note: I independently interviewed and examined the patient and verified the ramirez history and physical, reviewed labs and image studies, discussed the case with the resident Dr. Tsai and agree with the findings and care plan. Subjective Pt seen this AM. Was sitting up in bed. States she had coughing fits overnight but that the cough has since resolved. Denies any headache, changes to vision, runny nose, sore throat, chest pain, SOB, palpitations, abdominal pain, diarrhea or constipation. Review of Systems Review of Systems: All systems reviewed & are unremarkable except as noted in Subjective Physical Exam Physical Exam: General: Alert, oriented. No acute distress, sitting up in the bed. Skin: No noted rashes or bruises Psych: Appropriate mood and affect Neuro: Difficulty hearing HEENT: NC/AT, noted asymmetry of face, facial droop Chest: Nontender to palpation. CV: RRR, Normal s1, s2. No murmurs appreciated Resp: Breath sounds coarse on front, no increased effort of breathing. Abdomen: Soft, nontender Extremities: edema in lower extremities bilaterally. Results & Data ([facility]) Vital Signs (Past 12 Hours) Vital Signs Temp Pulse Resp BP BP Pulse Ox 05/13/19 15:56 36.7 C 71 18 122/70 138/82 96 05/13/19 15:15 36.7 C 71 18 138/82 96 05/13/19 07:07 36.3 C L 91 H 20 122/70 93 Resident Activity Tracking Resident Involvement: Resident Care Provided Care Provided: Adult Hospital Medicine (1) Pneumonia Laterality: unspecified laterality Lung location: unspecified part of lung Pneumonia type: due to unspecified organism Qualified Code(s): J18.9 - Pneumonia, unspecified organism
[2019-05-13] MEDS: AMOXICILLIN/CLAVULANATE 875 MG TAB PO SCH (17:55)
[2019-05-13] MEDS: ENOXAPARIN INJ 40 MG/0.4 ML SYR SQ SCH (22:03)
[2019-05-14] MEDS: LEVOTHYROXINE SODIUM 75 MCG TABLET PO SCH (05:54)
[2019-05-14] MEDS: AMOXICILLIN/CLAVULANATE 875 MG TAB PO SCH (08:31)
[2019-05-14] MEDS: MAGNESIUM OXIDE 400 MG TAB PO SCH (08:32)
[2019-05-14] MEDS: PANTOprazole 40 MG TAB PO SCH (08:33)
[2019-05-14] MEDS: DOCUSATE SODIUM 100 MG CAP PO SCH (08:35)
[2019-05-14] MEDS ORDERED: POTASSIUM CHLORIDE 20 MEQ TABCR PO STA (09:04)
[2019-05-14] MEDS ORDERED: GUAIFENESIN/CODEINE 100MG/10MG 5ML UDC PO STA (11:40)
--- NOTE | 2019-05-14 17:21 | Discharge Summary ---
Date of Service May 14, 2019 Admission HPI Per Admitting Provider Beverly Khalif 78 years old female with past medical history of brain tumor - Schwannoma, hearing loss, hyperlipidemia, chronic constipation, aspiration pneumonia, chronic indwelling catheter and chronic UTI, anemia, arthritis, progressive focal motor weakness with slurred speech and facial droop, wheelchair bound who was diagnosed in the ED with pneumonia. She notes she has had a cough for several days. However, has not had any shortness of breath, fever, chills, chest pains, abdominal pains. She notes she actually came in to ED because she noticed decreased urine output with her chronic indwelling fitch. She was found to have leukocytosis and findings of Pneumonia on CXR and was septic. She notes she only wants to have IV antibiotics and IV fluids to help treat the pneumonia and stabilize her Blood pressure caused by the sepsis. She does is a DNR/DNI in event of a code, she does not wish to have pressors or intubation or ICU transfer. She actually mentioned that she would prefer to pass away but spouse was strong advocate for her to continue with care. I did discuss with patient it was up to her to make her own decision regarding her care and she then expressed to continue with IV fluids and IV antibiotics. Admission Exam Per Admitting Provider Constitutional: + ill appearing, cooperative and comfortable Eyes: abnormal left eye; right eye with intact EOM without drainage ENMT: Ears: no hearing impairment Nose: no external nose abnormality Neck: normal visual inspection and trachea midline Respiratory: no respiratory distress, no labored breathing and does not use accessory muscles Auscultation: + rales (right anterior base) Cardiovascular: Rate/Rhythm: regular rate and regular rhythm Musculoskeletal: left sided paralysis - chronic Neurologic: awake; not confused Psychiatric: Orientation: alert and oriented x 3 Principal Diagnosis Aspiration Pneumonia Discharge Exam General: In NAD Neuro: A&O x 4 Pulm: Mild crackles appreciated RLL, equal breath sounds bilaterally CV: RRR, no m/r/g Abdomen:+BS, no TTP in all quadrants, non-distended LE: no LE edema, no calf TTP Discharge Data Consultations 05/11/19 19:37 ED Decision to Admit Stat 05/11/19 21:50 Consult Case Management - Discharge Planning Routine Consult Palliative Care Routine Hospital Course (1) Pneumonia: 78yo female recently on hospice but now home with home health services. PMHx of brain tumor - Schwannoma, hearing loss, hyperlipidemia, chronic constipation, aspiration pneumonia, chronic indwelling catheter and chronic UTI, anemia, arthritis, progressive focal motor weakness with slurred speech and facial droop, wheelchair bound who was diagnosed in the ED with pneumonia, most likely from aspiration Aspiration Pneumonia -Initially required supplemental O2 - on RA prior to discharge -WBC elevated to 18 -> normalized -CXR: "Moderate layering right pleural effusion with extensive right basilar atelectasis vs. pneumonia. Minimal left basilar atelectasis or scarring, which is chronic." -Blood Cx- NGTD -Switched from Zosyn to PO Augmentin to complete 10 day course, sent home with additional 7 day course -Aspiration precautions -Palliative consulted: pt wants to go home with home health services. No hospice currently. 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 -UA with blood and leukocyte esterase -Urine Cx with no significant growth Stephania intertrigo -continued home nystatin topical ointment Constipation -continued home docusate 50mg-sennoside 8.6mg HLD -not currently being treated Hypothyroidism -continued Synthroid Code:DNR/DNI DVT ppx: Lovenox 40mg SQ q24h FENGI: Full diet as tolerated; continued with home PPI Protonix 40mg PO daily Dispo: home with home health Total Time Total Time Spent Total Time Spent (In Minutes): 30 mins Discharge Plan Discharge Items Patient Disposition: Home - Home Health Services Reason For Visit: PNEUMONIA Discharge Diagnosis: Aspiration Pneumonia Condition on Discharge: Good Activity: Per Instructions section Non-emergency contact: Primary Care Provider Call non-emergency contact if: your symptoms worsen and you have a fever Follow-up/Referrals: Trent Manuel MD [Primary Care Provider] - 05/17/19 11:00 am (FRIDAY, MAY 17, 2019 @ 11:00 WITH KENY SANTANA) Diet: Regular Diet Texture: Pureed (blended smooth) Addtl Attending Provider Instructions: Mrs. Cuadra you are being discharged home with home health services after being treated in the hospital for a pneumonia likely from aspiration, Please continue taking the antibiotics you are being discharged with for the next 7 days, one pill twice a day. Your next dose is this evening. The prescription has been sent to your pharmacy. Eat a yogurt or take a probiotic pill (prescription sent to pharmacy) while you are on the antibiotic Please follow up after discharge with your primary care provider in the next week. It is very important that you take small bites when you eat, sit upright while you eat and for at least half an hour after eating. Continue to stay hydrated at home as well. It was truly a pleasure taking care of you during your stay here. Pending Studies at Discharge: No Stand-Alone Forms: My [facility], Smoking Cessation Medications and DC Order Prescriptions: New amoxicillin-pot clavulanate [Augmentin] 875-125 mg tablet 1 tab PO BID Qty: 17 RF: 0 Probiotic 3 billion cell capsule 3,000 mmu cells PO DAILY Qty: 20 RF: 0 Continued methenamine hippurate [Hiprex] 1 gram tablet 1 gm PO BID RF: 0 polyethylene glycol 3350 17 gram/dose powder 17 gm PO DAILY PRN (Reason: chronic constipation) Qty: 527 RF: 0 pantoprazole [Protonix] 40 mg tablet,delayed release (DR/EC) 40 mg PO QAM Qty: 90 RF: 0 magnesium oxide 400 mg (241.3 mg magnesium) tablet 400 mg PO DAILY RF: 0 docusate sodium 100 mg capsule 100 mg PO DAILY RF: 0 menthol-zinc oxide 0.44-20.6 % ointment 1 appln topical BID PRN (Reason: decubitus ulcer) Qty: 1 RF: 0 wheat dextrin 3 gram/3.5 gram powder in packet 1 pkt PO DAILY PRN (Reason: Constipation) RF: 0 collagenase clostridium histo. 250 unit/gram ointment 1 appln topical DAILY PRN (Reason: ulcers) Qty: 1 RF: 0 sennosides-docusate sodium 8.6-50 mg tablet 1 tab PO DAILY PRN (Reason: Constipation) RF: 0 levothyroxine [Synthroid] 75 mcg tablet 75 mcg PO QAM RF: 0 cyanocobalamin (vitamin B-12) 1,000 mcg/mL solution 1,000 mcg IM MONTHLY RF: 0 nystatin [Nyamyc] 100,000 unit/gram powder 1 appln topical QID PRN (Reason: candidiasis) RF: 0 Unspecified Eye Drops 0 drp OPB QID RF: 0 Discharge Orders: Discharge Order (Routine); Ordered 05/14/19 Ordered By: Arun Jones Admission Data Admit Date/Time: 05/11/19 20:50 Attending Provider: Ashli Matias Admit Provider: Stef Reynolds Primary Care Provider: Trent Manuel Other Providers: Manohar Miles ; Celeste Pop Other Interventions: Discharge Summary Assessment (RN) Last Done: 05/14/19 11:43 DC Date/Time DO NOT enter until pt leaves facility: 05/14/19 13:08 Supervising Physician Co-Signing Physician Notes Resident Physician Supervision Note: I independently interviewed and examined the patient and verified the ramirez history and physical, reviewed labs and image studies, discussed the case with the resident Dr. Jones and agree with the findings and care plan. Resident Activity Tracking Resident Involvement: Resident Care Provided Care Provided: Adult Hospital Medicine
--- NOTE | 2019-05-18 08:19 | Coding Query ---
SEPSIS To promote full compliance with coding requirements relating to patient care, physician participation is requested in all cases of bench chemist uncertainty. Please assist us with the question(s) below: In responding to this query, please exercise your independent professional judgement. The fact that a question is asked does not imply that any particular answer is desired or expected. We appreciate your clarification on this issue. Throughout the medical record, you have clearly documented a localized infection and your patient has clinical evidence of a generalized sepsis or severe sepsis. The term urosepsis is a nonspecific entity and is coded as an UTI. If the patient has sepsis, severe sepsis, from an urinary source or some other source, please clarify in your response below. The medical record reflects the following clinical findings: Patient admitted with aspiration pneumonia; elevated WBC - ....H/P documented Sepsis . Please check below, if relevant, the diagnosis that was treated during this Inpatient Stay. Thanks for your help! Brown Adan TRIAGE REGISTER NURSE [facility] ____ ( )Bacteremia (Nonspecific laboratory finding of bacteria in the blood) Specify Organism ( ) Present on Admission ( ) Not present on admission ( ) Unable to clinically determine ( ) Septicemia (Systemic disease associated with the presence of pathogenic microorganisms in the blood): Specify Organism ( ) Present on Admission ( ) Not present on admission ( ) Unable to clinically determine ( ) Sepsis Specify Organism Specify Associated Condition/Diagnosis ( ) Present on Admission(x ) Not present on admission ( ) Unable to clinically determine ( ) Severe Sepsis (Sepsis associated with acute organ dysfunction) Specify Organism Specify Associated Condition/Diagnosis ( ) Present on Admission ( ) Not present on admission ( ) Unable to clinically determine ( ) Septic Shock (Severe sepsis with acute circulatory failure, unexplained by other causes) ( ) Present on Admission ( ) Not present on admission ( ) Unable to clinically determine ( ) Other, patient has: MTDD
== END 2019-05-14 13:08 | disposition home health service (06) | DRG 871 ==
LOC: ED 18:17 → SUATTDRO 20:50 → 4W 20:50

== ENCOUNTER 2020-06-14 19:57 | Inpatient (IN) ==
[2020-06-14 21:14] LABS: Basophils # (auto) 0.03 K/uL (0-0.2); Basophils % (auto) 0.3 %; Eosinophils # (auto) 0.13 K/uL (0-0.5); Eosinophils % (auto) 1.3 %; Hematocrit (blood only) 37.2 % (37-47); Hemoglobin 12.5 g/dL (12.0-16.0); Immature Granulocytes # (auto) 0.01 K/uL (0.00-0.02); Immature Granulocytes % (auto) 0.1 %; Lymphocytes # (auto) 2.57 K/uL (1.2-3.4); Lymphocytes % (auto) 25.5 %; Mean Corpuscular Hemoglobin 29.3 pg (25-34); Mean Corpuscular Hgb Conc 33.6 g/dL (32-36); Mean Corpuscular Volume 87.3 fL (80-100); Mean Platelet Volume 9.8 fL (7.4-10.4); Monocytes % (auto) 6.9 %; Neutrophils # (auto) 6.64 K/uL (1.4-6.5); Neutrophils % (auto) 65.9 %; Platelet Count 322 K/uL (130-400); RDW Coefficient of Variation 15.7 % (11.5-14.5); RDW Standard Deviation 50.6 fL (36.4-46.3); Red Blood Count 4.26 M/uL (4.2-5.4); White Blood Count 10.08 K/uL (4.8-10.8)
[2020-06-14 21:30] LABS: BUN Creatinine Ratio 42.8 (10-20); Creatinine Clr Calc Pharmacy 65.1 ml/min; Est GFR (African American) 87.9; Est GFR (Non-African American) 75.8
--- NOTE | 2020-06-14 21:42 | History & Physical Report ---
Date of Service June 14, 2020 Assessment & Plan (1) Failure to thrive: Patient referred for placement needs. She is presently living at home with her . She had home health aides until recently. Patient is bedbound, has indwelling Irene catheter. She uses a bedpan regularly -Admission to medical -Case management assistance appreciated Present on Admission?: Yes (2) Stage 4 pressure ulcer: Improving -Continue to reposition q 2 hours -Wound care BID -Encourage PO intake Present on Admission?: Yes (3) Hypothyroidism: Chronic -Continue Synthroid Present on Admission?: Yes (4) Chronic indwelling Irene catheter: Chronic -Routine care q shift F/E/N - [place]. Electrolytes WNL. Regular diet as tolerated. Assistance with meals as needed Ppx - Lovenox Code - DNR Dispo - Admit to medical. Case Management assistance appreciated for placement - patient desires [facility] and is reluctant to go elsewhere Present on Admission?: Yes History of Present Illness Chief Complaint: failure to thrive at home Primary Care Provider: Trent Manuel MD Beverly Cuadra is a 79yo female, currently living at home with her . She had caregivers in the home but no longer does. She is unable to manage on her own. She was referred to the [facility] by [facility]. She wishes to go to [facility]. Patient is largely bed bound. She has a lift chair at home as well as an indweling Irene. Her assists with feedings. She offers no complaints today. Allergies Allergy/AdvReac Type Severity Reaction Status Date / Time No Known Allergies Allergy Verified 06/14/20 21:39 Home Medications Medication Instructions Recorded Confirmed Type pantoprazole 40 mg tablet,delayed 40 mg PO QAM #90 tab 06/24/19 01/18/20 Rx release levothyroxine 75 mcg tablet 75 mcg PO QAM #90 tab 10/13/19 01/18/20 Rx Gel Eye Drops 2 drp OPB TID 01/18/20 01/18/20 History zinc 1 tab PO DAILY 01/18/20 01/18/20 History amoxicillin 875 mg-potassium 1 tab PO BID #20 tab 01/24/20 Rx clavulanate 125 mg tablet metronidazole 500 mg tablet 500 mg PO TID #30 tab 01/24/20 Rx collagenase clostridium histo. 250 1 applic TOPICAL DAILY #90 g 01/31/20 Rx unit/gram topical ointment methenamine hippurate 1 gram tablet 1 g PO BID #180 tab 02/08/20 Rx miscellaneous medical supply See Rx Instructions .ROUTE 02/29/20 Rx .COMPLEX #1 ea miscellaneous medical supply #3 ea 03/17/20 Rx fluconazole 150 mg tablet 150 mg PO .COMPLEX #2 tab 05/18/20 Rx amoxicillin 500 mg capsule 500 mg PO TID #21 cap 06/14/20 Rx Past Med/Surg History Medical History (Updated 06/14/20 @ 21:40 by Mica Milton DO) Acute respiratory failure Alkaline phosphatase elevation Arthritis Candidal intertrigo Chronic constipation Decubitus ulcer, buttock GI bleed Hearing loss Hyperlipidemia Hypotensive syncope Nephrolithiasis Pneumonia Sepsis Sepsis due to urinary tract infection (02/28/13) Vitamin B 12 deficiency Weakness of both lower limbs Wheelchair dependent Surgical History H/O brain surgery tumor removed in 2006 H/O eye surgery H/O total knee replacement History of knee replacement right 2004 History of nephrectomy, left Family History Unknown Diabetes Hypertension Chronic liver disease Mother , age 93 of heart issues Heart disease Father , age 65 of hepatic cirrhosis. Cirrhosis with alcoholism Denies family history of Prostate cancer Social History Smoking Status: Never smoker Second Hand Exposure: No; Hx Alcohol Use: No Hx Substance Use: No Preferred Language: Serbian Communication Ability: Effective Visual Impairment: Severely Limited Hearing Ability: Hard of Hearing Allergist Immunologist Required: No Beliefs That Will Affect Care: None marital status: Current Living Situation: Spouse Current Living Situation Comment: Home care current occupational status: disabled Feels Safe at Home: Yes caffeine: No Physical Activity Frequency: Does not Exercise Seatbelt Use: always Assistive Devices: None Review of Systems Review of Systems: All systems reviewed & are unremarkable except as noted in HPI & below Physical Exam Physical Exam: General: patient resting comfortably, NAD, non-toxic in appearance, AA&O x 4 Skin: small tunneled sacral decubitus, improving. Small blister on back HEENT: Chronic facial droop on left, unchanged, s/p craniotomy for tumor in 2006, deaf in left ear, blind in left eye, corneal clouding present left, anicteric sclera, conjunctiva without injection, nares patent, moist mucus membranes, dentition intact, no oropharyngeal lesions, neck supple, trachea midline, no LAD, no thyromegaly, no JVD Heart: +S1/S2, regular, no m/r/g Lungs: equal air entry bilaterally, no rales/rhonchi/wheezes Abd: +BS, soft, NT/ND, no masses/organomegaly/ascites Ext: warm, 2+ pulses in UE/LE bilaterally, no clubbing/cyanosis or edema Irene in place with clear yellow urine in bag Results & Data Results & Data ([facility]) Vital Signs (Past 12 Hours) Vital Signs Temp Pulse Resp BP Pulse Ox 06/14/20 19:59 35.9 C L 97 H 22 191/93 H 98 Laboratory Results Lab Results 06/14/20 06/14/20 Range/Units 21:07 21:07 WBC 10.08 (4.8-10.8) K/uL RBC 4.26 (4.2-5.4) M/uL Hgb 12.5 (12.0-16.0) g/dL Hct 37.2 (37-47) % MCV 87.3 (80-100) fL MCH 29.3 (25-34) pg MCHC 33.6 (32-36) g/dL RDW Std Deviation 50.6 H (36.4-46.3) fL RDW Coeff of Oliva 15.7 H (11.5-14.5) % Plt Count 322 (130-400) K/uL MPV 9.8 (7.4-10.4) fL Immature Gran % (Auto) 0.1 % Neut % (Auto) 65.9 % Lymph % (Auto) 25.5 % [place] % (Auto) 6.9 % Eos % (Auto) 1.3 % Baso % (Auto) 0.3 % Neut # (Auto) 6.64 H (1.4-6.5) K/uL Lymph # (Auto) 2.57 (1.2-3.4) K/uL [place] # (Auto) 0.70 H (0.11-0.59) K/uL Eos # (Auto) 0.13 (0-0.5) K/uL Baso # (Auto) 0.03 (0-0.2) K/uL Immature Gran # (Auto) 0.01 (0.00-0.02) K/uL Sodium 139 (136-145) mmol/L Potassium 4.0 (3.5-5.1) mmol/L Chloride 105 (98-107) mmol/L Carbon Dioxide 29 (21-32) mmol/L Anion Gap 5.0 (3-11) BUN 32 H (7-18) mg/dl Creatinine 0.75 (0.6-1.2) mg/dl Est Cr Clr Drug Dosing 65.1 ml/min Est GFR ( Amer) 87.9 Est GFR (Non-Af Amer) 75.8 BUN/Creatinine Ratio 42.8 H (10-20) Glucose 93 (70-99) mg/dl Calcium 10.0 (8.5-10.1) mg/dl PG Care Time/CCT Total # of Minutes Spent Total Time Spent with Patient: Total time spent is greater than 50% in coordination of care (as documented) at patient's floor/unit and/or counseling patient: Coding Level of Care Code 28781 Initial Inpt Care Lvl 2 Diagnoses Failure to thrive R62.7 Failure to thrive age range: in adult Stage 4 pressure ulcer L89.154 Pressure injury location: sacral region Hypothyroidism E03.9 Hypothyroidism type: unspecified Chronic indwelling Irene catheter Z92.89 (1) Failure to thrive Failure to thrive age range: in adult Qualified Code(s): R62.7 - Adult failure to thrive (2) Stage 4 pressure ulcer Pressure injury location: sacral region Qualified Code(s): L89.154 - Pressure ulcer of sacral region, stage 4 (3) Hypothyroidism Hypothyroidism type: unspecified Qualified Code(s): E03.9 - Hypothyroidism, unspecified
--- NOTE | 2020-06-14 22:03 | Emergency Department Note ---
Impression & Plan Failure to thrive ED Provider Note Provider: Brennen Rayo MD DATE OF SERVICE: 06/14/2020 CHIEF COMPLAINT: Placement, inability to care for self HISTORY OF PRESENT ILLNESS: Patient is a 79-year-old female with an unfortunate history of brain tumor with chronic indwelling Irene and wheelchair dependency with a healing decubitus ulcer in the sacral region presenting referred by [facility] today for placement. Patient evidently been having home nursing help her reposition and care during the day. does help some. Evidently there has been some issue according the with home care and home nursing. Home care is no longer able to care for the patient at home at this time and to prevent worsening of the decubitus ulcer patient and [facility] needs on [place] are seeking placement. Patient stated she is wanting to be placed. Evidently there have been some inquiries at [facility] but no bed tonight possibly the next several days. Patient herself denies any falls or significant new pain at this time. Patient denies any fever and states that her decubitus ulcer is actually been improving significantly however the last several months. Patient states she wishes for placement at [facility] if at all possible. REVIEW OF SYSTEMS: A total of 6 review of systems was obtained and negative except as stated above in the HPI. PAST MEDICAL HISTORY: As noted above MEDICATIONS: Reviewed home medication list SOCIAL HISTORY: Has been living at home with . PHYSICAL EXAM: GENERAL: alert and oriented in no acute distress on stretcher with sunglasses in place Head: normocephalic and atraumatic EYES: No injection, discharge or icterus of the right eye but left eye has a cloudy hazy cornea. NECK: Trachea midline. LUNGS: Airway patent. No retractions. Breath sounds clear HEART: Regular rate and rhythm. No chest wall tenderness ABDOMEN: Soft and non-tender, without guarding or rebound. Chronic indwelling Irene present. SKIN: Acyanotic, warm, dry, with a few healing contusions and small skin tears on the right elbow and left hand. Patient with a stage III small approximately 2 cm decubitus ulcer without surrounding crepitus. EXTREMITIES: Minimal swelling. Arthritic deformities in the bilateral hands. Some contracture of the left upper extremity. NEUROLOGICAL: No acute facial droop appreciated. Follows simple commands. Limitations with fine motor skills in the upper extremities. Patient's laboratory studies reviewed. Differential includes failure to thrive, lecture light abnormality, infection, cellulitis, coronavirus infection, and other pathologies were considered IMPRESSION/MEDICAL DECISION MAKING: Patient presents with difficulty with home care due to her chronic medical conditions. Concerns about ability to care for self and does not wish to have recurrence of her sacral decubitus wound. Wound itself looks fairly well today. Basic labs were obtained. Area agency on agency recommended admission for placement. Does not appear the patient can be placed tonight in a fdc facility. Discussed with the hospitalist for further care here at the hospital pending placement. Case management aware. Patient was in agreement this plan was to go to [facility] if at all possible. DIAGNOSIS: Failure to thrive DISPOSITION: Hospitalist will evaluate Patient was agreeable with this plan. Past Med/Surg History Medical History (Updated 06/14/20 @ 22:18 by Brennen Rayo M.D.) Acute respiratory failure Alkaline phosphatase elevation Arthritis Candidal intertrigo Chronic constipation Decubitus ulcer, buttock GI bleed Hearing loss Hyperlipidemia Hypotensive syncope Nephrolithiasis Pneumonia Sepsis Sepsis due to urinary tract infection (02/28/13) Vitamin B 12 deficiency Weakness of both lower limbs Wheelchair dependent Surgical History H/O brain surgery tumor removed in 2006 H/O eye surgery H/O total knee replacement History of knee replacement right 2004 History of nephrectomy, left Family History Unknown Diabetes Hypertension Chronic liver disease Mother , age 93 of heart issues Heart disease Father , age 65 of hepatic cirrhosis. 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 Immunology Required: No Beliefs That Will Affect Care: Adventist Adventist Beliefs: Congregation marital status: Current Living Situation: Spouse Current Living Situation Comment: Home care current occupational status: disabled Other Information That Helps Us Care for You: No Feels Safe at Home: Yes Safety Concerns: Feels Safe At This Time caffeine: No Physical Activity Frequency: Does not Exercise Seatbelt Use: always Assistive Devices: Denture - Lower and Glasses Allergies Allergies Allergy/AdvReac Type Severity Reaction Status Date / Time No Known Allergies Allergy Verified 06/14/20 21:39 Home Meds Home Medications Medication Instructions Recorded Confirmed Gel Eye Drops 2 drp OPL TID 01/18/20 06/14/20 cholecalciferol (vitamin D3) 50 mcg PO QAM 06/14/20 06/14/20 [Vitamin D3] cyanocobalamin (vitamin B-12) 1,000 mcg IM MONTHLY 06/14/20 06/14/20 cyanocobalamin (vitamin B-12) 500 mcg PO QAM 06/14/20 06/14/20 [Vitamin B-12] magnesium oxide 400 mg PO Q2D 06/14/20 06/14/20 peg 400-propylene glycol [Systane 1 drp OPR BID PRN 06/14/20 06/14/20 Ultra] zinc 50 mg PO QAM 06/14/20 06/14/20 Previous Rx's Medication Instructions Recorded pantoprazole 40 mg tablet,delayed 40 mg PO QAM #90 tab 06/24/19 release levothyroxine 75 mcg tablet 75 mcg PO QAM #90 tab 10/13/19 methenamine hippurate 1 gram tablet 1 g PO BID #180 tab 02/08/20 amoxicillin 500 mg capsule 500 mg PO TID #21 cap 06/14/20 Results & Data (ED) Vital Signs Vital Signs - 24 hr 06/14/20 19:59 06/14/20 21:58 06/14/20 22:12 Temperature 35.9 C L 36.5 C Temperature Source Temporal Artery Scan Oral Pulse Rate 97 H Pulse Rate [Right Finger] 82 68 Pulse Rhythm Regular Pulse Rhythm [Right Finger] Regular Pulse Strength Normal Pulse Strength [Right Finger] Normal Respiratory Rate 22 20 18 Respiratory Effort / Characteristics Non-Labored Spontaneous Non-Labored Spontaneous Respiratory Depth Normal Normal Respiratory Pattern Regular Regular Blood Pressure 191/93 H Blood Pressure [Right Arm] 179/99 H 180/101 H Blood Pressure Mean 125 Blood Pressure Mean [Right Arm] 125 127 Blood Pressure Position [Right Arm] Sitting Lying Pulse Oximetry 98 96 93 Oxygen Delivery Method Room Air Room Air Room Air Sepsis Recent Fever Within 48 Hours No Sepsis New/Unexplained Change in Mental Status N/A Sepsis Action Taken by Nursing No Action Required Laboratory Data Result diagrams: 06/14/20 21:07 06/14/20 21:07 Lab Results 06/14/20 06/14/20 06/14/20 Range/Units 21:07 21:07 22:04 WBC 10.08 (4.8-10.8) K/uL RBC 4.26 (4.2-5.4) M/uL Hgb 12.5 (12.0-16.0) g/dL Hct 37.2 (37-47) % MCV 87.3 (80-100) fL MCH 29.3 (25-34) pg MCHC 33.6 (32-36) g/dL RDW Std Deviation 50.6 H (36.4-46.3) fL RDW Coeff of Oliva 15.7 H (11.5-14.5) % Plt Count 322 (130-400) K/uL MPV 9.8 (7.4-10.4) fL Immature Gran % (Auto) 0.1 % Neut % (Auto) 65.9 % Lymph % (Auto) 25.5 % [place] % (Auto) 6.9 % Eos % (Auto) 1.3 % Baso % (Auto) 0.3 % Neut # (Auto) 6.64 H (1.4-6.5) K/uL Lymph # (Auto) 2.57 (1.2-3.4) K/uL [place] # (Auto) 0.70 H (0.11-0.59) K/uL Eos # (Auto) 0.13 (0-0.5) K/uL Baso # (Auto) 0.03 (0-0.2) K/uL Immature Gran # (Auto) 0.01 (0.00-0.02) K/uL Sodium 139 (136-145) mmol/L Potassium 4.0 (3.5-5.1) mmol/L Chloride 105 (98-107) mmol/L Carbon Dioxide 29 (21-32) mmol/L Anion Gap 5.0 (3-11) BUN 32 H (7-18) mg/dl Creatinine 0.75 (0.6-1.2) mg/dl Est Cr Clr Drug Dosing 65.1 ml/min Est GFR ( Amer) 87.9 Est GFR (Non-Af Amer) 75.8 BUN/Creatinine Ratio 42.8 H (10-20) Glucose 93 (70-99) mg/dl Calcium 10.0 (8.5-10.1) mg/dl COVID-19 Eval [facility] SARS-CoV-2, RNA, NAAT (NEGATIVE) 06/14/20 Range/Units 22:04 WBC (4.8-10.8) K/uL RBC (4.2-5.4) M/uL Hgb (12.0-16.0) g/dL Hct (37-47) % MCV (80-100) fL MCH (25-34) pg MCHC (32-36) g/dL RDW Std Deviation (36.4-46.3) fL RDW Coeff of Oliva (11.5-14.5) % Plt Count (130-400) K/uL MPV (7.4-10.4) fL Immature Gran % (Auto) % Neut % (Auto) % Lymph % (Auto) % [place] % (Auto) % Eos % (Auto) % Baso % (Auto) % Neut # (Auto) (1.4-6.5) K/uL Lymph # (Auto) (1.2-3.4) K/uL [place] # (Auto) (0.11-0.59) K/uL Eos # (Auto) (0-0.5) K/uL Baso # (Auto) (0-0.2) K/uL Immature Gran # (Auto) (0.00-0.02) K/uL Sodium (136-145) mmol/L Potassium (3.5-5.1) mmol/L Chloride (98-107) mmol/L Carbon Dioxide (21-32) mmol/L Anion Gap (3-11) BUN (7-18) mg/dl Creatinine (0.6-1.2) mg/dl Est Cr Clr Drug Dosing ml/min Est GFR ( Amer) Est GFR (Non-Af Amer) BUN/Creatinine Ratio (10-20) Glucose (70-99) mg/dl Calcium (8.5-10.1) mg/dl COVID-19 Eval Order SARS-CoV-2, RNA, NAAT NEGATIVE (NEGATIVE) Discharge Plan Visit Data Chief Complaint: Skin Problem Stated Complaint: BED SORE ED Provider: Brennen Rayo Discharge Problem: Failure to thrive Patient Disposition: Being Evaluated by Hospitalist Forms Stand Alone Forms: My [facility] Prescriptions Prescriptions: No Action pantoprazole [Protonix] 40 mg tablet,delayed release (DR/EC) 40 mg PO QAM Qty: 90 RF: 3 levothyroxine [Synthroid] 75 mcg tablet 75 mcg PO QAM Qty: 90 RF: 3 methenamine hippurate [Hiprex] 1 gram tablet 1 g PO BID Qty: 180 RF: 3 amoxicillin 500 mg capsule 500 mg PO TID Qty: 21 RF: 0 Gel Eye Drops 2 drp OPL TID RF: 0 cyanocobalamin (vitamin B-12) 1,000 mcg/mL solution 1,000 mcg IM MONTHLY RF: 0 cyanocobalamin (vitamin B-12) [Vitamin B-12] 500 mcg Tablet 500 mcg PO QAM RF: 0 zinc 50 mg Tablet 50 mg PO QAM RF: 0 cholecalciferol (vitamin D3) [Vitamin D3] 50 mcg (2,000 unit) Capsule 50 mcg PO QAM RF: 0 magnesium oxide 400 mg magnesium Tablet 400 mg PO Q2D RF: 0 Systane Ultra 0.4-0.3 % Drops 1 drp OPR BID PRN (Reason: Dry Eye Relief) RF: 0 Referrals Referrals: Trent Manuel MD [Primary Care Provider] - Discharge Problem: Failure to thrive Qualifiers: Failure to thrive age range: in adult Qualified Code(s): R62.7 - Adult failure to thrive
[2020-06-14] MEDS ORDERED: ACETAMINOPHEN 325 MG TAB PO PRN (23:28)
[2020-06-14] MEDS ORDERED: DOCUSATE SODIUM 100 MG CAP PO PRN (23:28)
[2020-06-14] MEDS ORDERED: ARTIFICIAL TEARS OP PRN (23:42)
[2020-06-15] MEDS: AMOXICILLIN 500 MG CAP PO SCH ×4 (00:44→20:11)
[2020-06-15] MEDS: LEVOTHYROXINE SODIUM 75 MCG TABLET PO SCH (05:34)
[2020-06-15] MEDS: ENOXAPARIN INJ 40 MG/0.4 ML SYR SQ SCH (09:43)
[2020-06-15] MEDS: METHENAMINE HIPPURATE 1 GM TAB PO SCH ×2 (09:43→20:11)
[2020-06-15] MEDS: ZINC SULFATE 220 MG CAPSULE PO SCH (09:44)
[2020-06-15] MEDS: MAGNESIUM OXIDE 400 MG TAB PO SCH (09:44)
[2020-06-15] MEDS: PANTOprazole 40 MG TAB PO SCH (09:44)
--- NOTE | 2020-06-15 19:48 | Billing Data ---
Date of Service June 15, 2020 Coding Level of Care Code 09392 Subseq Hosp Care Lvl 3
--- NOTE | 2020-06-16 00:04 | Hospitalist Progress Note ---
Date of Service June 15, 2020 Assessment & Plan (1) Failure to thrive: 79 y/o F w/ hx of Schwannoma, hyperlipidemia, chronic constipation, chronic indwelling catheter, facial droop s/p CVA, acquired solitary kidney, bedbound, and hypothyroidism who presents for treatment of her sacral decubitus ulcer and for failure to thrive failure to thrive - patient referred for placement needs, lives at home w/ and recently lost home health assistance - bedbound and w/ chronic fitch - feels unable to care for adequately - requesting [facility], awaiting placement elevated blood pressures - systolics 160s-170s consistently - elevated BPs in past year per chart review, systolic 150s regularly - patient does not want BP medications out of fear she will have to continue them long-term - she believes her BP elevations are solely from her stressors - recommended amlodipine 2.5 mg and not ACEi/ARB because of solitary kidney - recommended treatment given stroke hx - recommended treating for HTN as opposed to PRN IV hypertensive pushes stage 4 sacral decubitus ulcer -Continue to reposition q 2 hours -Wound care BID -Encourage PO intake hypothyroidism - continue home Synthroid chronic fitch -Routine care q shift - replaced w/ new fitch UTI - 06/12 urine culture. ecoli resis to cipro and nitrofurantoin - treating w/ amoxicillin 500 TID PO F/E/N - Electrolytes WNL. Regular diet as tolerated. Assistance with meals as needed Ppx - Lovenox Code - DNR Dispo - Admit to medical. Case Management assistance appreciated for placement - patient desires [facility] and is reluctant to go elsewhere (2) Stage 4 pressure ulcer: (3) Hypothyroidism: (4) Chronic indwelling Fitch catheter: (5) UTI (urinary tract infection): Admission and Anticipated Discharge Date Admission Date: June 14, 2020 Supervising Physician Co-Signing Physician Notes I personally examined the patient and verified all ramirez points of history and exam, discussed case, and agree with decision making with Dr Reed Some dysuria. Otherwise no new complaints. Is somewhat upset about the changing of her home situation, but also seems resolute to the fact that she will have good disposition, with [facility] being her destination. Vitals noted, in general she is awake and alert pleasant no distress. HEENT normocephalic atraumatic mucous membranes moist. Breathing unlabored no accessory muscle use good effort. Skin shows no rashes no pallor or icterus. Chronic neuro deficits noted. Fitch catheter associated UTI present on admissionappears to be sensitive to amoxicillinshe does still have some dysuria, we will change Fitch, continue amoxicillin for now, if her symptoms do not improve, consider changing antibiotics versus repeating culture Functional quadriplegiadriving her failure to thrive. Ongoing supportive care. Failure to thrivesupportive care here, work on safe disposition, agree with her idea that SNF at [facility] would be quite appropriate given her needs and comorbidities. Subjective Main complaint is sacral ulcer. Mild dysuria w/ urination. Patient states that her BP is elevated because of stress. She is upset that she no longer has home health nursing assistance. During PM rounds, patient's at bedside. Review of Systems Review of Systems: Constitutional: Denies fever, chills Cardiovascular: Denies chest pain Respiratory: Denies shortness of breath Gastrointestinal: Denies abdominal pain, nausea, vomiting, constipation, diarrhea Genitourinary: See HPI Musculoskeletal: Denies new weakness Neurological: Denies headache Physical Exam Physical Exam: General: Grossly A&O. NAD. Cooperative. HEENT: Atraumatic, normocephalic. R lower facial droop Pulm: CTAB. -wheezes, -rales, -rhonchi. No respiratory distress. Cardiac: RRR, -mrg. Radial pulses intact and symmetrical. Abdominal: Nontender, nondistended, soft. : Has fitch Integumentary: did not visualize ulcer Results & Data Results & Data ([facility]) Vital Signs (Past 12 Hours) Vital Signs Temp Pulse Resp BP BP Pulse Ox 06/15/20 22:45 36.6 C 67 16 163/70 H 98 06/15/20 17:00 80 170/90 H 06/15/20 15:42 36.6 C 69 16 179/93 H 98 Resident Activity Tracking Resident Involvement: Resident Care Provided Care Provided: Adult Hospital Medicine (1) Stage 4 pressure ulcer Pressure injury location: sacral region Qualified Code(s): L89.154 - Pressure ulcer of sacral region, stage 4 (2) Failure to thrive Failure to thrive age range: in adult Qualified Code(s): R62.7 - Adult failure to thrive (3) Hypothyroidism Hypothyroidism type: unspecified Qualified Code(s): E03.9 - Hypothyroidism, unspecified
[2020-06-16] MEDS: LEVOTHYROXINE SODIUM 75 MCG TABLET PO SCH (05:29)
[2020-06-16] MEDS: PANTOprazole 40 MG TAB PO SCH (05:32)
[2020-06-16 06:27] LABS: Basophils # (auto) 0.03 K/uL (0-0.2); Basophils % (auto) 0.4 %; Eosinophils # (auto) 0.14 K/uL (0-0.5); Hematocrit (blood only) 36.1 % (37-47); Immature Granulocytes # (auto) 0.01 K/uL (0.00-0.02); Immature Granulocytes % (auto) 0.1 %; Lymphocytes # (auto) 2.04 K/uL (1.2-3.4); Lymphocytes % (auto) 28.9 %; Mean Corpuscular Hemoglobin 29.5 pg (25-34); Mean Corpuscular Hgb Conc 33.2 g/dL (32-36); Mean Corpuscular Volume 88.7 fL (80-100); Mean Platelet Volume 9.8 fL (7.4-10.4); Monocytes # (auto) 0.53 K/uL (0.11-0.59); Monocytes % (auto) 7.5 %; Neutrophils # (auto) 4.32 K/uL (1.4-6.5); Neutrophils % (auto) 61.1 %; Platelet Count 311 K/uL (130-400); RDW Coefficient of Variation 15.9 % (11.5-14.5); RDW Standard Deviation 51.7 fL (36.4-46.3); Red Blood Count 4.07 M/uL (4.2-5.4); White Blood Count 7.07 K/uL (4.8-10.8)
[2020-06-16 06:55] LABS: BUN Creatinine Ratio 32.9 (10-20); Calcium 9.7 mg/dl (8.5-10.1); Creatinine Clr Calc Pharmacy 61.3 ml/min; Est GFR (African American) 81.3; Est GFR (Non-African American) 70.1; Potassium 4.1 mmol/L (3.5-5.1)
--- NOTE | 2020-06-16 07:12 | Hospitalist Progress Note ---
Date of Service June 16, 2020 Assessment & Plan (1) Failure to thrive: 79 y/o F w/ hx of Schwannoma, hyperlipidemia, chronic constipation, chronic indwelling catheter, facial droop s/p CVA, acquired solitary kidney, bedbound, and hypothyroidism who presents for treatment of her sacral decubitus ulcer and for failure to thrive. Stable. failure to thrive - patient referred for placement needs, lives at home w/ and recently lost home health assistance - bedbound and w/ chronic fitch - feels unable to care for adequately - requesting [facility], awaiting placement, tentatively on 06/19/20Friday elevated blood pressures - systolics 160s-170s consistently. update: normotensive since 06/16 afternoon - elevated BPs in past year per chart review, systolic 150s regularly - patient does not want BP medications out of fear she will have to continue them long-term - she believes her BP elevations are solely from her stressors (no longer having home health nurses). recommendations below were provided, but patient's wishes were respected and no antihypertensives were ordered. - recommended amlodipine 2.5 mg and not ACEi/ARB because of solitary kidney - recommended treatment given stroke hx - recommended treating for chronic HTN as opposed to PRN IV hypertensive pushes stage 4 sacral decubitus ulcer -Continue to reposition q 2 hours -Wound care BID -Encourage PO intake hypothyroidism - continue home Synthroid chronic fitch -Routine care q shift - replaced w/ new fitch 06/15 UTI - 06/12 urine culture. ecoli resis to cipro and nitrofurantoin - treating w/ amoxicillin 500 TID PO F/E/N - Electrolytes WNL. Regular diet as tolerated. Assistance with meals as needed Ppx - Lovenox Code - DNR Dispo - Admit to medical. [facility] tentatively on 06/19/20Friday (2) Stage 4 pressure ulcer: (3) Hypothyroidism: (4) Chronic indwelling Fitch catheter: (5) UTI (urinary tract infection): Admission and Anticipated Discharge Date Admission Date: June 14, 2020 Supervising Physician Co-Signing Physician Notes I personally examined the patient and verified all ramirez points of history and exam, discussed case, and agree with decision making with Dr Reed. See separate note as well Subjective Patient's urinary burning has resolved. Catheter was changed yesterday. No new dizzi, blury vis, RICHARDS, wkness. She feels a little stronger today. She is requesting to be seen by wound care nurse. Bed sore currently 3/10 discomfort. Review of Systems Review of Systems: Constitutional: Denies fever, chills Cardiovascular: Denies chest pain Respiratory: Denies shortness of breath Gastrointestinal: Denies abdominal pain, nausea, vomiting Genitourinary: Dysuria has resolved. Has fitch. Musculoskeletal: Denies new weakness. Neurological: Denies headache Physical Exam Physical Exam: General: Grossly A&O. NAD. Cooperative. HEENT: Atraumatic, normocephalic. Patient is wearing sunglasses. Pulm: CTAB anteriorly No respiratory distress. Cardiac: RRR, -mrg. No LE edema. Abdominal: Nontender, nondistended, soft. Integumentary: Sacral decubitus ulcer exam deferred. Neuro: Chronic lower facial droop unchanged. Results & Data Results & Data ([facility]) Vital Signs (Past 12 Hours) Vital Signs Temp Pulse Resp BP Pulse Ox 06/15/20 22:45 36.6 C 67 16 163/70 H 98 Resident Activity Tracking Resident Involvement: Resident Care Provided Care Provided: Adult Hospital Medicine (1) Stage 4 pressure ulcer Pressure injury location: sacral region Qualified Code(s): L89.154 - Pressure ulcer of sacral region, stage 4 (2) Failure to thrive Failure to thrive age range: in adult Qualified Code(s): R62.7 - Adult failure to thrive (3) Hypothyroidism Hypothyroidism type: unspecified Qualified Code(s): E03.9 - Hypothyroidism, unspecified
[2020-06-16] MEDS: ENOXAPARIN INJ 40 MG/0.4 ML SYR SQ SCH (08:59)
[2020-06-16] MEDS: METHENAMINE HIPPURATE 1 GM TAB PO SCH ×2 (09:00→19:50)
[2020-06-16] MEDS: ZINC SULFATE 220 MG CAPSULE PO SCH (09:00)
[2020-06-16] MEDS: AMOXICILLIN 500 MG CAP PO SCH ×3 (09:00→19:50)
[2020-06-16] MEDS: SYSTANE SCH (18:31)
--- NOTE | 2020-06-16 19:13 | Hospitalist Progress Note ---
Date of Service June 16, 2020 Assessment & Plan Admission and Anticipated Discharge Date Admission Date: June 14, 2020 Supervising Physician Co-Signing Physician Notes Of dateI personally examined the patient and verified all ramirez points of history and exam, discussed case, and agree with decision making with Dr Reed Dysuria has improved. It sounds like she will be [facility]. Vitals noted, in general she is awake and alert pleasant no distress. HEENT normocephalic atraumatic mucous membranes moist. Breathing unlabored no accessory muscle use good effort. Skin shows no rashes no pallor or icterus. Chronic neuro deficits noted. Irene catheter associated UTI present on admissionappears to be sensitive to amoxicillinfinish course of amoxicillin, changing Irene seems to have resolved her symptoms. Certainly high risk for repeat infections due to her functional quadriplegia and chronic Irene status. Functional quadriplegiadriving her failure to thrive. Ongoing supportive care. Failure to thrivesupportive care here, disposition to [facility] be quite appropriate given her needs and comorbidities. Results & Data Results & Data ([facility]) Vital Signs (Past 12 Hours) Vital Signs Temp Pulse Resp BP BP Pulse Ox 06/16/20 15:53 97.3 F L 79 18 111/70 97 06/16/20 07:46 97.2 F L 67 18 154/75 H 97 PG Care Time/CCT Total # of Minutes Spent Total Time Spent with Patient: Total time spent is greater than 50% in coordination of care (as documented) at patient's floor/unit and/or counseling patient: Coding Level of Care Code 25122 Subseq Hosp Care Lvl 2
[2020-06-17] MEDS: PANTOprazole 40 MG TAB PO SCH (07:32)
[2020-06-17] MEDS: LEVOTHYROXINE SODIUM 75 MCG TABLET PO SCH (07:32)
[2020-06-17] MEDS: SYSTANE SCH ×3 (08:29→18:12)
[2020-06-17] MEDS: MAGNESIUM OXIDE 400 MG TAB PO SCH (08:30)
[2020-06-17] MEDS: AMOXICILLIN 500 MG CAP PO SCH ×3 (08:30→19:41)
[2020-06-17] MEDS: ZINC SULFATE 220 MG CAPSULE PO SCH (08:31)
[2020-06-17] MEDS: ENOXAPARIN INJ 40 MG/0.4 ML SYR SQ SCH ×2 (08:31→08:53)
[2020-06-17] MEDS: METHENAMINE HIPPURATE 1 GM TAB PO SCH ×2 (08:31→19:51)
[2020-06-17 09:37] LABS: Basophils # (auto) 0.04 K/uL (0-0.2); Basophils % (auto) 0.5 %; Eosinophils # (auto) 0.16 K/uL (0-0.5); Eosinophils % (auto) 2.1 %; Hemoglobin 11.6 g/dL (12.0-16.0); Immature Granulocytes # (auto) 0.01 K/uL (0.00-0.02); Immature Granulocytes % (auto) 0.1 %; Lymphocytes % (auto) 25.1 %; Mean Corpuscular Hemoglobin 29.1 pg (25-34); Mean Corpuscular Hgb Conc 32.2 g/dL (32-36); Mean Corpuscular Volume 90.5 fL (80-100); Mean Platelet Volume 9.5 fL (7.4-10.4); Monocytes # (auto) 0.42 K/uL (0.11-0.59); Monocytes % (auto) 5.5 %; Neutrophils # (auto) 5.05 K/uL (1.4-6.5); Neutrophils % (auto) 66.7 %; Platelet Count 272 K/uL (130-400); RDW Coefficient of Variation 15.8 % (11.5-14.5); RDW Standard Deviation 52.6 fL (36.4-46.3); Red Blood Count 3.98 M/uL (4.2-5.4); White Blood Count 7.58 K/uL (4.8-10.8)
[2020-06-17 09:55] LABS: BUN Creatinine Ratio 27.2 (10-20); Creatinine Clr Calc Pharmacy 48.5 ml/min; Est GFR (African American) 61.3; Est GFR (Non-African American) 52.9; Potassium 3.8 mmol/L (3.5-5.1)
--- NOTE | 2020-06-17 11:18 | Hospitalist Progress Note ---
Date of Service June 17, 2020 Assessment & Plan (1) Failure to thrive: Patient is a 79yo female with PMH including functional quadriplegia, chronic indwelling catheter, solitary kidney s/p nephrectomy, brain mass excision, facial droop s/p CVA, HLD, and hypothyroidism who presented with sac ral decubitus ulcer and failure to thrive. Stable, awaiting placement. Failure to thrive, functional quadriplegia -referred for placement needs; lived at home with and home health, but recently lost home health assistance - unable to provide adequate care without assistance -[facility] placement likely Friday (06/19) Elevated BP -intermittently normotensive and elevated BPs -patient is adamant in not wanting elevated BPs treated and believes any elevated BP is due to stress -recommended treatment with minimal impact on kidney function, and urged consideration of treatment given patient's stroke history, but patient again declined treatment and voiced understanding of potential outcomes -no treatment ordered Urinary tract infection -E. coli resistant to ciprofloxacin and nitrofurantoin -c/w amoxicillin Sacral decubitus ulcer -c/w repositioning q2h, wound care bid Hypothyroidism -c/w home dose synthroid Indwelling fitch catheter -routine care -last replaced 06/15 FENGI: regular diet, easy to chew DVT ppx: chronically off prophylaxis Isolation: none Consults: none Code status: DNR/DNI Dispo: pending placement (2) Stage 4 pressure ulcer: (3) Hypothyroidism: (4) Chronic indwelling Fitch catheter: (5) UTI (urinary tract infection): Admission and Anticipated Discharge Date Admission Date: June 14, 2020 Supervising Physician Co-Signing Physician Notes I personally examined the patient and verified all ramirez points of history and exam, discussed case, and agree with decision making with Dr Knapp Resting comfortably, no new issues identified Vitals noted, resting comfortably no distress. HEENT normocephalic atraumatic mucous membranes moist. Breathing unlabored no accessory muscle use good effort. Skin shows no rashes no pallor or icterus. Chronic neuro deficits noted, although less pronounced at rest. Fitch catheter associated UTI present on admissionappears to be sensitive to amoxicillinfinishing course of amoxicillin, changing Fitch seems to have resolved her symptoms. Certainly high risk for repeat infections due to her functional quadriplegia and chronic Fitch status. He is on methenamine for this Functional quadriplegiadriving her failure to thrive. Ongoing supportive care. SNF level care should hopefully help with this as well Failure to thrivesupportive care here, disposition to [facility] would be quite appropriate given her needs and comorbidities. Anticipate center care by early next week Subjective Patient seen at bedside this morning. Feels well today without pain, discomfort, or symptoms to report. Requesting some water. Patient is very adamant about not treating elevated blood pressures out of concern for her solitary kidney. Denies CP, SOB, abdominal pain, or other symptoms. Physical Exam Constitutional: cooperative Respiratory: normal respiratory effort, lungs clear to auscultation Cardiovascular: Rate/Rhythm: regular rate and regular rhythm Heart Sounds: no murmur Gastrointestinal (Abdomen): normal bowel sounds, soft, nontender, no hepatosplenomegaly Neurologic: facial droop noted, slurred speech Results & Data Results & Data ([facility]) Vital Signs (Past 12 Hours) Vital Signs Temp Pulse Resp BP Pulse Ox 06/17/20 07:43 36.5 C 80 17 170/65 H 97 Resident Activity Tracking Resident Involvement: Resident Care Provided Care Provided: Adult Hospital Medicine (1) Stage 4 pressure ulcer Pressure injury location: sacral region Qualified Code(s): L89.154 - Pressure ulcer of sacral region, stage 4 (2) Failure to thrive Failure to thrive age range: in adult Qualified Code(s): R62.7 - Adult failure to thrive (3) Hypothyroidism Hypothyroidism type: unspecified Qualified Code(s): E03.9 - Hypothyroidism, unspecified
--- NOTE | 2020-06-17 18:01 | Billing Data ---
Date of Service June 17, 2020 Coding Level of Care Code 24708 Subseq Hosp Care Lvl 1
[2020-06-18] MEDS: LEVOTHYROXINE SODIUM 75 MCG TABLET PO SCH (05:48)
--- NOTE | 2020-06-18 08:32 | Hospitalist Progress Note ---
Date of Service June 18, 2020 Assessment & Plan (1) Failure to thrive: Patient referred for placement needs. She is presently living at home with her . She had home health aides until recently. Patient is bedbound, has indwelling Irene catheter. She uses a bedpan regularly -Anticipate transition to [facility] tomorrow (2) Stage 4 pressure ulcer: Ongoing local wound care and offloading (3) Hypothyroidism: Chronic -Continue Synthroid (4) Chronic indwelling Irene catheter: Chronic -Routine care q shift F/E/N - [place]. Electrolytes WNL. Regular diet as tolerated. Assistance with meals as needed Ppx - Lovenox Code - DNR Dispo -anticipate center care tomorrow (5) UTI (urinary tract infection): Admission and Anticipated Discharge Date Admission Date: June 14, 2020 Supervising Physician Co-Signing Physician Notes Irene catheter associated UTI present on admissionappears to be sensitive to amoxicillinfinishing course of amoxicillin, changing Irene seems to have resolved her symptoms. Certainly high risk for repeat infections due to her functional quadriplegia and chronic Irene status. He is on methenamine for this Functional quadriplegiadriving her failure to thrive. Ongoing supportive care. SNF level care should hopefully help with this as well Failure to thrivesupportive care here, disposition to [facility] would be quite appropriate given her needs and comorbidities. Subjective No new complaints. When discussing disposition, she starts to ask me how long she will need to stay at [facility] or could she just go home. I discussed with her that the main reason that she and her came to the hospital was due to lack of enough caregivers at home and the need for further help, she relays that she thought that case management might be able to get her more help at home. Discussed with case management and right now the plan was still for [facility] tomorrow Review of Systems Review of Systems: All systems reviewed & are unremarkable except as noted in HPI & below Physical Exam Physical Exam: General she is awake and alert pleasant no distress. HEENT normocephalic atraumatic mucous membranes moist breathing unlabored no accessory muscles good effort, chronic neurologic deficits with no changes. Skin shows no rashes no pallor or icterus. 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
[2020-06-18] MEDS: PANTOprazole 40 MG TAB PO SCH (08:41)
[2020-06-18] MEDS: AMOXICILLIN 500 MG CAP PO SCH ×3 (08:42→21:47)
[2020-06-18] MEDS: METHENAMINE HIPPURATE 1 GM TAB PO SCH ×2 (08:42→21:50)
[2020-06-18] MEDS: ZINC SULFATE 220 MG CAPSULE PO SCH (08:42)
[2020-06-18] MEDS: ENOXAPARIN INJ 40 MG/0.4 ML SYR SQ SCH ×2 (08:43→08:44)
[2020-06-18] MEDS: SYSTANE SCH ×3 (08:43→10:33)
--- NOTE | 2020-06-18 18:09 | Billing Data ---
Date of Service June 18, 2020 Coding Level of Care Code 13462 Subseq Hosp Care Lvl 1
[2020-06-19] MEDS: LEVOTHYROXINE SODIUM 75 MCG TABLET PO SCH (05:51)
[2020-06-19] MEDS: PANTOprazole 40 MG TAB PO SCH (05:51)
--- NOTE | 2020-06-19 07:11 | Hospitalist Progress Note ---
Date of Service June 19, 2020 Assessment & Plan (1) Failure to thrive: Beverly Cuadra is a 79 y/o female w/ hx of functional quadriplegia, chronic indwelling catheter, solitary kidney s/p nephrectomy, brain mass excision, facial droop s/p CVA, HLD, and hypothyroidism who presented with sacral decubitus ulcer and failure to thrive. Stable, awaiting placement. failure to thrive, functional quadriplegia -referred for placement needs; lived at home with and home health, but recently lost home health assistance - unable to provide adequate care without assistance -[facility] placement on 06/20 elevated blood pressures -intermittently normotensive and elevated BPs ~170s systolic -patient is adamant in not wanting elevated BPs treated and believes any elevated BP is due to stress -recommended treatment with minimal impact on kidney function, and urged consideration of treatment given patient's stroke history, but patient again declined treatment and voiced understanding of potential outcomes -no treatment ordered urinary tract infection -E. coli resistant to ciprofloxacin and nitrofurantoin -c/w amoxicillin 500 tid. continued home methanamine sacral decubitus ulcer -c/w repositioning q2h, wound care bid hypothyroidism -c/w home dose Synthroid indwelling fitch catheter -routine care -last replaced 06/15 FENGI: regular diet, easy to chew DVT ppx: Lovenox ordered, but patient has been refusing this admission. Will explore reason for refusal. Code status: DNR/DNI Dispo: med/surg. [facility] on 06/20. (2) Stage 4 pressure ulcer: (3) Hypothyroidism: (4) Chronic indwelling Fitch catheter: (5) UTI (urinary tract infection): Admission and Anticipated Discharge Date Admission Date: June 14, 2020 Supervising Physician Co-Signing Physician Notes I saw the patient with the resident physician and confirmed ramirez portions of the history and physical examination. Agree with impression and plan as noted in t he resident documentation. Upon my exam today, the patient is lying supine in bed without complaints. 166/98, 79, 18, 36.3, 98% on room air Heart regular rate and rhythm. Lungs clear. Nonlabored respirations Impression and Plan Fitch catheter associated UTI, present on admission Functional quadriplegia Failure to thrive Hypertension I agree with the impression and plan as noted the resident documentation. The patient declined starting blood pressure medicines for reasons previously described in the progress notes. Eventual plan is to transfer to [facility] upon bed availability. Subjective Patient does not have new complaints today. She continues to attribute her elevated blood pressures to stress. No headache, nausea, vomiting, dizziness, or blurry vision. Review of Systems Review of Systems: Constitutional: Denies fever, chills Eyes: Denies blurry vision, vision changes Cardiovascular: Denies chest pain Respiratory: Denies shortness of breath Gastrointestinal: Denies abdominal pain, nausea, vomiting Genitourinary: Denies issues w/ fitch Musculoskeletal: Denies new weakness. Chronic pain at sacral ulcer. Neurological: Denies headache, numbness, tingling Physical Exam Physical Exam: General: Grossly A&O. NAD. Cooperative. HEENT: Atraumatic, normocephalic. Patient wearing sunglasses. Chronic lower facial droop. Pulm: CTAB anteriorly. No respiratory distress. Cardiac: RRR, -mrg. No LE edema. Abdominal: Nontender, nondistended, soft. Integumentary: Exam of sacral ulcer deferred. Results & Data Results & Data ([facility]) Vital Signs (Past 12 Hours) Vital Signs Temp Pulse Resp BP Pulse Ox 06/18/20 22:38 36.3 C L 74 18 150/76 H 97 Laboratory Results cbc, bmp reviewed. Hb stable. No leukocytosis. Cr 0.75->0.80->1.01, continue routine monitoring Resident Activity Tracking Resident Involvement: Resident Care Provided Care Provided: Adult Hospital Medicine (1) Stage 4 pressure ulcer Pressure injury location: sacral region Qualified Code(s): L89.154 - Pressure ulcer of sacral region, stage 4 (2) Failure to thrive Failure to thrive age range: in adult Qualified Code(s): R62.7 - Adult failure to thrive (3) Hypothyroidism Hypothyroidism type: unspecified Qualified Code(s): E03.9 - Hypothyroidism, unspecified
[2020-06-19] MEDS: ZINC SULFATE 220 MG CAPSULE PO SCH (09:29)
[2020-06-19] MEDS: AMOXICILLIN 500 MG CAP PO SCH ×3 (09:29→20:43)
[2020-06-19] MEDS: METHENAMINE HIPPURATE 1 GM TAB PO SCH ×2 (09:29→20:43)
[2020-06-19] MEDS: MAGNESIUM OXIDE 400 MG TAB PO SCH (09:30)
[2020-06-19] MEDS: ENOXAPARIN INJ 40 MG/0.4 ML SYR SQ SCH (09:30)
[2020-06-19] MEDS: SYSTANE SCH ×3 (09:32→17:15)
[2020-06-20] MEDS: LEVOTHYROXINE SODIUM 75 MCG TABLET PO SCH (06:09)
[2020-06-20] MEDS: SYSTANE SCH ×2 (06:09→09:24)
--- NOTE | 2020-06-20 06:50 | Hospitalist Progress Note ---
Date of Service June 20, 2020 Assessment & Plan (1) Failure to thrive: Beverly Cuadra is a 79 y/o female w/ hx of functional quadriplegia, chronic indwelling catheter, solitary kidney s/p nephrectomy, brain mass excision, facial droop s/p CVA, HLD, and hypothyroidism who presented with sacral decubitus ulcer and failure to thrive. Stable, awaiting placement. failure to thrive, functional quadriplegia -referred for placement needs; lived at home with and home health, but recently lost home health assistance - unable to provide adequate care without assistance -[facility] placement on 06/20 elevated blood pressures -intermittently normotensive and elevated BPs ~170s systolic -patient is adamant in not wanting elevated BPs treated and believes any elevated BP is due to stress -recommended treatment with minimal impact on kidney function, and urged consideration of treatment given patient's stroke history, but patient again declined treatment and voiced understanding of potential outcomes -no treatment ordered urinary tract infection -E. coli resistant to ciprofloxacin and nitrofurantoin -c/w amoxicillin 500 tid. continued home methanamine sacral decubitus ulcer -c/w repositioning q2h, wound care bid hypothyroidism -c/w home dose Synthroid indwelling fitch catheter -routine care -last replaced 06/15 FENGI: regular diet, easy to chew DVT ppx: Lovenox ordered, but patient has been refusing this admission. Will explore reason for refusal. Code status: DNR/DNI Dispo: med/surg. [facility] on 06/20. (2) Stage 4 pressure ulcer: (3) Hypothyroidism: (4) Chronic indwelling Fitch catheter: (5) UTI (urinary tract infection): Admission and Anticipated Discharge Date Admission Date: June 14, 2020 Subjective Patient is upset about having to leave to [facility] because she will not be able to see her for 14 days. Her bedsore is not hurting and she is denying any other complaints. No headache, dizziness, blurry vision, N/V. She states that she is due for a BM soon. Review of Systems Review of Systems: Constitutional: Denies fever, chills Cardiovascular: Denies chest pain Respiratory: Denies shortness of breath Gastrointestinal: Denies abdominal pain, nausea, vomiting, diarrhea. + constipation Genitourinary: Has fitch Musculoskeletal: Denies new weakness Neurological: Denies headache Physical Exam Physical Exam: General: Grossly A&O. NAD. Cooperative. HEENT: Atraumatic, normocephalic. 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 Pulm: CTAB anteriorly. No respiratory distress. Cardiac: RRR, -mrg. Radial pulses intact and symmetrical. Abdominal: Nontender, slightly firm. Integ: Sacral ulcer exam deferred Results & Data Results & Data ([facility]) Vital Signs (Past 12 Hours) Vital Signs Temp Pulse Resp BP Pulse Ox 06/19/20 23:17 36.3 C L 83 20 150/71 H 96 Resident Activity Tracking Resident Involvement: Resident Care Provided Care Provided: Adult Hospital Medicine (1) Stage 4 pressure ulcer Pressure injury location: sacral region Qualified Code(s): L89.154 - Pressure ulcer of sacral region, stage 4 (2) Failure to thrive Failure to thrive age range: in adult Qualified Code(s): R62.7 - Adult failure to thrive (3) Hypothyroidism Hypothyroidism type: unspecified Qualified Code(s): E03.9 - Hypothyroidism, unspecified
[2020-06-20] MEDS: AMOXICILLIN 500 MG CAP PO SCH ×2 (09:21→13:48)
[2020-06-20] MEDS: ENOXAPARIN INJ 40 MG/0.4 ML SYR SQ SCH (09:21)
[2020-06-20] MEDS: ZINC SULFATE 220 MG CAPSULE PO SCH (09:23)
[2020-06-20] MEDS: METHENAMINE HIPPURATE 1 GM TAB PO SCH (09:23)
[2020-06-20] MEDS: PANTOprazole 40 MG TAB PO SCH (09:24)
--- NOTE | 2020-06-20 15:02 | Discharge Summary ---
Date of Service June 20, 2020 Admission HPI Per Admitting Provider Beverly Cuadra is a 79yo female, currently living at home with her . She had caregivers in the home but no longer does. She is unable to manage on her own. She was referred to the hospital by the [facility] for [facility]. She wishes to go to [facility]. Patient is largely bed bound. She has a lift chair at home as well as an indweling Fitch. Her assists with feedings. She offers no complaints today. Admission Exam Per Admitting Provider General: patient resting comfortably, NAD, non-toxic in appearance, AA&O x 4 Skin: small tunneled sacral decubitus, improving. Small blister on back HEENT: Chronic facial droop on left, unchanged, s/p craniotomy for tumor in 2006, deaf in left ear, blind in left eye, corneal clouding present left, anicteric sclera, conjunctiva without injection, nares patent, moist mucus membranes, dentition intact, no oropharyngeal lesions, neck supple, trachea midline, no LAD, no thyromegaly, no JVD Heart: +S1/S2, regular, no m/r/g Lungs: equal air entry bilaterally, no rales/rhonchi/wheezes Abd: +BS, soft, NT/ND, no masses/organomegaly/ascites Ext: warm, 2+ pulses in UE/LE bilaterally, no clubbing/cyanosis or edema Fitch in place with clear yellow urine in bag Principal Diagnosis failure to thrive Discharge Exam General: Grossly A&O. NAD. Cooperative. HEENT: Atraumatic, normocephalic. 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 Pulm: CTAB anteriorly. No respiratory distress. Cardiac: RRR, -mrg. Radial pulses intact and symmetrical. Abdominal: Nontender, slightly firm. Integ: Sacral ulcer exam deferred Discharge Data Allergies Allergy/AdvReac Type Severity Reaction Status Date / Time No Known Allergies Allergy Verified 06/14/20 21:39 Consultations 06/14/20 21:05 ED Decision to Admit Stat 06/14/20 23:28 Consult Case Management - Discharge Planning Routine Hospital Course (1) Failure to thrive: Beverly Cuadra is a 79 y/o female w/ hx of functional quadriplegia, chronic indwelling catheter, solitary kidney s/p nephrectomy, brain mass excision, facial droop s/p CVA, HLD, and hypothyroidism who presented to [facility] with sacral decubitus ulcer and failure to thrive. Stable during this admission (06/14-06/18). failure to thrive, functional quadriplegia -referred for placement needs; lived at home with and home health, but recently lost home health assistance - unable to provide adequate care without assistance elevated blood pressures -intermittently normotensive and elevated BPs ~170s systolic. There are periods of normotensive 110s-130s systolic -patient is adamant in not wanting elevated BPs treated and believes any elevated BP is due to stress -recommended treatment with minimal impact on kidney function, and urged consideration of treatment given patient's stroke history, but patient again declined treatment and voiced understanding of potential outcomes -no treatment ordered during this hospital admission urinary tract infection -06/12 urine culture: E. coli resistant to ciprofloxacin and nitrofurantoin -completed 6 days of PO amoxicillin 500 mg TID. continue home methanamine sacral decubitus ulcer -wound care and frequent repositioning provided during this admission hypothyroidism -continue home dose Synthroid indwelling fitch catheter -last replaced 06/15 Code status during this admission: DNR/DNI (2) Stage 4 pressure ulcer: (3) Hypothyroidism: (4) Chronic indwelling Fitch catheter: (5) UTI (urinary tract infection): Total Time Total Time Spent Total Time Spent (In Minutes): 15 minutes Discharge Plan Discharge Items Patient Disposition: Transfer Inpatient Rehab Fac Reason For Visit: FAILURE TO THRIVE Discharge Diagnosis: failure to thrive Activity: Per Instructions section Non-emergency contact: Primary Care Provider Call non-emergency contact if: you have any medication questions, your symptoms worsen, you have a fever and your wound has increased drainage Follow-up/Referrals: Trent Manuel MD [Primary Care Provider] - Diet: Regular Diet Texture: Easy to Chew Addtl Attending Provider Instructions: Beverly Cuadra is a 79 y/o female w/ hx of functional quadriplegia, chronic indwelling catheter, solitary kidney s/p nephrectomy, brain mass excision, facial droop s/p CVA, HLD, and hypothyroidism who presented to [facility] with sacral decubitus ulcer and failure to thrive. Stable during this admission (06/14-06/18). - f/u w/ PCP in 1 week failure to thrive, functional quadriplegia -referred for placement needs; lived at home with and home health, but recently lost home health assistance - unable to provide adequate care without assistance -[facility] placement on 06/20 elevated blood pressures -intermittently normotensive and elevated BPs ~170s systolic. There are periods of normotensive 110s-130s systolic -patient is adamant in not wanting elevated BPs treated and believes any elevated BP is due to stress -recommended treatment with minimal impact on kidney function, and urged consideration of treatment given patient's stroke history, but patient again d eclined treatment and voiced understanding of potential outcomes -no treatment ordered during this hospital admission urinary tract infection -E. coli resistant to ciprofloxacin and nitrofurantoin -completed 6 days of PO amoxicillin 500 mg TID. continued home methanamine sacral decubitus ulcer -wound care and frequent repositioning provided during this admission hypothyroidism -c/w home dose Synthroid indwelling fitch catheter -routine care -last replaced 06/15 Code status: DNR/DNI Pending Studies at Discharge: No Stand-Alone Forms: My [facility] [employer] Skilled Items Patient informed of condition?: Yes DNR: Yes Discharge Level of Care: Acute rehab Communicable Disease: No Discharge Prognosis: Stable Lines: None Urinary Catheter: Yes Medications and DC Order Prescriptions: Continued pantoprazole [Protonix] 40 mg tablet,delayed release (DR/EC) 40 mg PO QAM Qty: 90 RF: 3 levothyroxine [Synthroid] 75 mcg tablet 75 mcg PO QAM Qty: 90 RF: 3 methenamine hippurate [Hiprex] 1 gram tablet 1 g PO BID Qty: 180 RF: 3 Gel Eye Drops 2 drp OPL TID RF: 0 cyanocobalamin (vitamin B-12) 1,000 mcg/mL solution 1,000 mcg IM MONTHLY RF: 0 cyanocobalamin (vitamin B-12) [Vitamin B-12] 500 mcg Tablet 500 mcg PO QAM RF: 0 zinc 50 mg Tablet 50 mg PO QAM RF: 0 cholecalciferol (vitamin D3) [Vitamin D3] 50 mcg (2,000 unit) Capsule 50 mcg PO QAM RF: 0 magnesium oxide 400 mg magnesium Tablet 400 mg PO Q2D RF: 0 Systane Ultra 0.4-0.3 % Drops 1 drp OPR BID PRN (Reason: Dry Eye Relief) RF: 0 Discontinued amoxicillin 500 mg capsule 500 mg PO TID Qty: 21 RF: 0 Discharge Orders: Discharge Order (Routine); Ordered 06/20/20 Ordered By: Reinaldo Reed Admission Data Admit Date/Time: 06/14/20 21:31 Attending Provider: Nahun Kaur Admit Provider: Mcia Milton Primary Care Provider: Trent Manuel Other Providers: Mica Milton ; [facility] Other Interventions: Discharge Summary Assessment (RN) Last Done: 06/20/20 12:46 Supervising Physician Co-Signing Physician Notes I also saw the patient on the day of discharge and confirmed ramirez portions of the history examination. The patient was ready for discharge although saddened that she would not be able to see her while in facility due to the ongoing pandemic. She remained slightly hypertensive but again refused antihypertensives. She tells us that her home blood pressures are quite reasonable as she feels the elevation are simply due to being in the hospital. I agree with the impression and plan as noted the resident documentation. Resident Activity Tracking Resident Involvement: Resident Care Provided Care Provided: Adult Hospital Medicine
== END 2020-06-20 16:12 | DRG 592 ==
LOC: ED 19:57 → SUATTDRO 21:31 → 3W 21:31

== ENCOUNTER 2020-11-16 15:15 | Inpatient (IN) ==
[2020-11-16 16:30] LABS: Eosinophils # (auto) 0.02 K/uL (0-0.5); Eosinophils % (auto) 0.2 %; Hematocrit (blood only) 28.3 % (37-47); Hemoglobin 9.4 g/dL (12.0-16.0); Immature Granulocytes # (auto) 0.04 K/uL (0.00-0.02); Immature Granulocytes % (auto) 0.3 %; Lymphocytes # (auto) 0.73 K/uL (1.2-3.4); Lymphocytes % (auto) 5.8 %; Mean Corpuscular Hgb Conc 33.2 g/dL (32-36); Mean Corpuscular Volume 87.3 fL (80-100); Mean Platelet Volume 10.5 fL (7.4-10.4); Monocytes # (auto) 0.32 K/uL (0.11-0.59); Monocytes % (auto) 2.6 %; Neutrophils # (auto) 11.37 K/uL (1.4-6.5); Neutrophils % (auto) 91.1 %; Platelet Count 192 K/uL (130-400); RDW Coefficient of Variation 15.8 % (11.5-14.5); RDW Standard Deviation 50.9 fL (36.4-46.3); Red Blood Count 3.24 M/uL (4.2-5.4); White Blood Count 12.48 K/uL (4.8-10.8)
--- NOTE | 2020-11-16 16:38 | Emergency Department Note ---
History of Present Illness General Chief complaint: Unable to Void Time Seen by Provider: 11/16/20 15:37 Source: patient History of Present Illness Provider complaint: No urine output Onset (ago): day(s) 3 Location: genitals Pain Consistency: + constant Quality: + other (No urine output from Irene) Relieved By: + none Associated symptoms: no chest pain, no cough, no fever/chills, no headaches, no nausea/vomiting or no shortness of breath This is a 79-year-old female with a history of quadriplegia with a chronic indw elling Irene catheter presenting with no urine output for the past 3 days. The patient states that they have changed and flushed the catheter several times over the past 3 days but they have not noticed any urinary output. She denies any pain in her abdomen or with the catheter other than when they try to adjust it or replace it. She has had no fever, vomiting, chest pain, shortness of breath, cough or cold symptoms or abdominal pain. Home Medications Medication Instructions Recorded Confirmed Type pantoprazole 40 mg tablet,delayed 40 mg PO QAM #90 tab 06/24/19 11/16/20 Rx release (Protonix) levothyroxine 75 mcg tablet 75 mcg PO QAM #90 tab 10/13/19 11/16/20 Rx (Synthroid) methenamine hippurate 1 gram 1 g PO BID #180 tab 02/08/20 11/16/20 Rx tablet (Hiprex) cholecalciferol (vitamin D3) 50 50 mcg PO QAM 06/14/20 11/16/20 History mcg (2,000 unit) capsule (Vitamin D3) cyanocobalamin (vitamin B-12) 1,000 mcg IM MONTHLY 06/14/20 11/16/20 History 1,000 mcg/mL injection solution cyanocobalamin (vitamin B-12) 500 500 mcg PO QAM 06/14/20 11/16/20 History mcg tablet (Vitamin B-12) magnesium oxide 400 mg PO Q2D 06/14/20 11/16/20 History peg 400-propylene glycol 0.4 %-0.3 1 drp OPR BID PRN 06/14/20 11/16/20 History % eye drops (Systane Ultra) zinc 50 mg tablet 50 mg PO QAM 06/14/20 11/16/20 History carboxymethylcellulose sodium 1 % 1 drp OPHTHALMIC (EYE) TID 11/16/20 11/16/20 History eye liquid gel drops (Refresh Liquigel) nystatin 100,000 unit/gram topical 1 applic TOPICAL DAILY 11/16/20 11/16/20 History powder (Nyamyc) Allergies Allergy/AdvReac Type Severity Reaction Status Date / Time No Known Allergies Allergy Verified 11/10/20 11:44 Past Med/Surg History Medical History (Updated 11/16/20 @ 19:29 by Vlad Reed MD) Acute respiratory failure Alkaline phosphatase elevation Arthritis Aspiration into respiratory tract Brain tumor Candidal intertrigo Chronic constipation Decubitus ulcer, buttock GI bleed Hearing loss Hyperlipidemia Hypotensive syncope Nephrolithiasis Pneumonia Sepsis Sepsis due to urinary tract infection (02/28/13) Slurred speech Vitamin B 12 deficiency Weakness of both lower limbs Wheelchair dependent Surgical History H/O brain surgery tumor removed in 2006 H/O eye surgery H/O total knee replacement History of knee replacement right 2004 History of nephrectomy, left Family History Unknown Diabetes Hypertension Chronic liver disease Mother , age 93 of heart issues Heart disease Father , age 65 of hepatic cirrhosis. Cirrhosis with alcoholism Denies family history of Prostate cancer Social History Smoking Status: Never smoker Second Hand Exposure: No; Hx Alcohol Use: No Hx Substance Use: No Preferred Language: Armenian Communication Ability: Effective Visual Impairment: Severely Limited Hearing Ability: Hard of Hearing Correspondence Section Supervisor Required: No Beliefs That Will Affect Care: Spiritism Spiritism Beliefs: Congregational marital status: Current Living Situation: Spouse Current Living Situation Comment: Home care current occupational status: disabled Feels Safe at Home: Yes caffeine: No Physical Activity Frequency: Does not Exercise Seatbelt Use: always Assistive Devices: Glasses Review of Systems See HPI for pertinent positives & negatives. and A total of 10 systems reviewed and were otherwise negative Physical Exam Vital Signs Vital Signs - 24 hr 11/16/20 15:20 11/16/20 15:23 11/16/20 15:31 Pulse Rate 65 68 64 Pulse Rate from SpO2 Sensor 65 64 Respiratory Rate 17 17 14 Respiratory Effort / Characteristics Non-Labored Spontaneous Respiratory Depth Normal Respiratory Pattern Regular Blood Pressure 149/71 H 149/71 H 118/52 L Blood Pressure [Right Arm] Blood Pressure Mean 97 97 74 Blood Pressure Mean [Right Arm] Blood Pressure Position Lying Blood Pressure Position [Right Arm] Pulse Oximetry 97 98 97 Oxygen Delivery Method Room Air Sepsis Recent Fever Within 48 Hours No Sepsis New/Unexplained Change in Mental Status No Sepsis Action Taken by Nursing No Action Required 11/16/20 16:00 11/16/20 16:30 11/16/20 17:00 Pulse Rate 68 63 63 Pulse Rate from SpO2 Sensor 68 63 63 Respiratory Rate 20 15 17 Respiratory Effort / Characteristics Respiratory Depth Respiratory Pattern Blood Pressure 143/79 H 135/76 119/84 Blood Pressure [Right Arm] Blood Pressure Mean 100 95 95 Blood Pressure Mean [Right Arm] Blood Pressure Position Blood Pressure Position [Right Arm] Pulse Oximetry 97 97 97 Oxygen Delivery Method Sepsis Recent Fever Within 48 Hours Sepsis New/Unexplained Change in Mental Status Sepsis Action Taken by Nursing 11/16/20 17:30 11/16/20 18:00 11/16/20 19:02 Pulse Rate 67 64 Pulse Rate from SpO2 Sensor 67 64 64 Respiratory Rate 17 22 15 Respiratory Effort / Characteristics Respiratory Depth Respiratory Pattern Blood Pressure 126/71 132/69 122/85 Blood Pressure [Right Arm] Blood Pressure Mean 89 90 97 Blood Pressure Mean [Right Arm] Blood Pressure Position Blood Pressure Position [Right Arm] Pulse Oximetry 98 97 97 Oxygen Delivery Method Sepsis Recent Fever Within 48 Hours Sepsis New/Unexplained Change in Mental Status Sepsis Action Taken by Nursing 11/16/20 19:31 11/16/20 19:58 Pulse Rate 68 Pulse Rate from SpO2 Sensor 63 Respiratory Rate 14 Respiratory Effort / Characteristics Respiratory Depth Respiratory Pattern Blood Pressure Blood Pressure [Right Arm] 122/66 Blood Pressure Mean 75 Blood Pressure Mean [Right Arm] 84 Blood Pressure Position Blood Pressure Position [Right Arm] Lying Pulse Oximetry 96 Oxygen Delivery Method Sepsis Recent Fever Within 48 Hours Sepsis New/Unexplained Change in Mental Status Sepsis Action Taken by Nursing Constitutional: Vital signs reviewed. Eyes: Right pupil round and reactive to light. ENT: Pharynx is clear without erythema or exudate. Mucous membranes are moist. Neck supple without meningeal signs. Respiratory: Clear to auscultation bilaterally. Breath sounds are equal bilaterally. Cardiovascular: Regular rate and rhythm. No rubs or gallops. GI: Soft, nondistended and nontender. Bowel sounds are present. Indwelling Irene catheter. Musculoskeletal: No peripheral edema. No lower extremity tenderness. Integumentary: No cyanosis. or jaundice. Neurological: The patient is awake and alert. Quadriplegic Psychiatric: Normal affect. Course Administered Medications Discontinued Medications Sodium Chloride (Nss) 500 mls @ 125 mls/hr IV .Q4H BABAR Stop: 11/16/20 21:44 Last Admin: 11/16/20 19:06 Dose: Not Given Documented by: [id number] Parenteral Electrolytes (Normosol-R) 500 mls @ 999 mls/hr IV .Q31M ONE Stop: 11/16/20 19:45 Last Admin: 11/16/20 19:51 Dose: 999 mls/hr Documented by: [id number] Medical Decision Making Differential Diagnosis ANTHONY, dehydration, urinary retention, UTI, Irene obstruction Medical Records Attestation: I reviewed the patient's medical records. I did perform a limited focused review of portions of the patient's old chart on the electronic medical record. The patient was seen by the wound care clinic October 31 for sacral decubitus. Home Medications Current Medication List: was personally reviewed by me Laboratory Data Attestation: I reviewed the patient's lab results. Result diagrams: 11/16/20 16:22 11/16/20 16:22 Lab Results 11/16/20 11/16/20 11/16/20 Range/Units 16:22 16:22 17:52 WBC 12.48 H (4.8-10.8) K/uL RBC 3.24 L (4.2-5.4) M/uL Hgb 9.4 L (12.0-16.0) g/dL Hct 28.3 L (37-47) % MCV 87.3 (80-100) fL MCH 29.0 (25-34) pg MCHC 33.2 (32-36) g/dL RDW Std Deviation 50.9 H (36.4-46.3) fL RDW Coeff of Oliva 15.8 H (11.5-14.5) % Plt Count 192 (130-400) K/uL MPV 10.5 H (7.4-10.4) fL Immature Gran % (Auto) 0.3 % Neut % (Auto) 91.1 % Lymph % (Auto) 5.8 % Davidson % (Auto) 2.6 % Eos % (Auto) 0.2 % Baso % (Auto) 0.0 % Neut # (Auto) 11.37 H (1.4-6.5) K/uL Lymph # (Auto) 0.73 L (1.2-3.4) K/uL Davidson # (Auto) 0.32 (0.11-0.59) K/uL Eos # (Auto) 0.02 (0-0.5) K/uL Baso # (Auto) 0.00 (0-0.2) K/uL Immature Gran # (Auto) 0.04 H (0.00-0.02) K/uL Sodium 125 L (136-145) mmol/L Potassium 4.4 (3.5-5.1) mmol/L Chloride 94 L (98-107) mmol/L Carbon Dioxide 18 L (21-32) mmol/L Anion Gap 13.0 H (3-11) BUN 86 H (7-18) mg/dl Creatinine 3.85 H (0.6-1.2) mg/dl Est Cr Clr Drug Dosing Not Reportable Est GFR ( Amer) 12.2 ml/min Est GFR (Non-Af Amer) 10.5 ml/min BUN/Creatinine Ratio 22.3 H (10-20) Glucose 85 (70-99) mg/dl Calcium 8.6 (8.5-10.1) mg/dl Total Bilirubin 0.6 (0.2-1) mg/dl AST 32 (15-37) U/L ALT 25 (12-78) U/L Alkaline Phosphatase 951 H (45-117) U/L Total Protein 6.5 (6.4-8.2) gm/dl Albumin 1.9 L (3.4-5.0) gm/dl Globulin 4.6 H (2.5-4.0) gm/dl Albumin/Globulin Ratio 0.4 L (0.9-2) COVID-19 Eval Order Covid19 at [facility] SARS-CoV-2 (PCR) (Negative) 11/16/20 Range/Units 17:52 WBC (4.8-10.8) K/uL RBC (4.2-5.4) M/uL Hgb (12.0-16.0) g/dL Hct (37-47) % MCV (80-100) fL MCH (25-34) pg MCHC (32-36) g/dL RDW Std Deviation (36.4-46.3) fL RDW Coeff of Oliva (11.5-14.5) % Plt Count (130-400) K/uL MPV (7.4-10.4) fL Immature Gran % (Auto) % Neut % (Auto) % Lymph % (Auto) % Davidson % (Auto) % Eos % (Auto) % Baso % (Auto) % Neut # (Auto) (1.4-6.5) K/uL Lymph # (Auto) (1.2-3.4) K/uL Davidson # (Auto) (0.11-0.59) K/uL Eos # (Auto) (0-0.5) K/uL Baso # (Auto) (0-0.2) K/uL Immature Gran # (Auto) (0.00-0.02) K/uL Sodium (136-145) mmol/L Potassium (3.5-5.1) mmol/L Chloride (98-107) mmol/L Carbon Dioxide (21-32) mmol/L Anion Gap (3-11) BUN (7-18) mg/dl Creatinine (0.6-1.2) mg/dl Est Cr Clr Drug Dosing Est GFR ( Amer) ml/min Est GFR (Non-Af Amer) ml/min BUN/Creatinine Ratio (10-20) Glucose (70-99) mg/dl Calcium (8.5-10.1) mg/dl Total Bilirubin (0.2-1) mg/dl AST (15-37) U/L ALT (12-78) U/L Alkaline Phosphatase (45-117) U/L Total Protein (6.4-8.2) gm/dl Albumin (3.4-5.0) gm/dl Globulin (2.5-4.0) gm/dl Albumin/Globulin Ratio (0.9-2) COVID-19 Eval Order SARS-CoV-2 (PCR) NEGATIVE (Negative) Imaging Data Radiologist's Impression: Abdomen/Pelvis CT 11/16/20 17:[address] WITHOUT CONTRAST CT DOSE: 1735.35 mGy.cm HISTORY: Patient presents with acute kidney injury. History of sacral decubitus ulcer. anuria,acute kidney injury,nephrectomy TECHNIQUE: Multiaxial CT images of the abdomen and pelvis were performed without contrast. A dose lowering technique was utilized adhering to the principles of ALARA. COMPARISON STUDY: CT pelvis 08/16/2020, CT abdomen and pelvis 02/28/2013 FINDINGS: Partially imaged moderate right pleural effusion with right lung base consolidation. Small left pleural effusion with left lung base opacities. Limited exam without the use of contrast and secondary to upper extremity positioning. Mitral annular and coronary arterial calcifications. Small pericardial effusion. Nonspecific prominent epicardial lymph nodes measure up to 6 mm which appear stable from 2013 suggestive of benign etiology. Limited evaluation of the solid abdominal organs without the use of IV contrast. Mild generalized body wall and mesenteric edema with trace abdominal pelvic ascites. The unenhanced spleen, dystrophic pancreas and adrenal glands are unremarkable. 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 Moderate edema within the karina hepatis of unknown clinical significance. The unenhanced liver appears unremarkable. Surgically absent left kidney. Moderate right-sided hydroureteronephrosis secondary to an obstructing 10 x 5 x 5 mm calculus of the mid right ureter at the level of L5. There are least 3 additional calculi of the right kidney measuring up to 8-9 mm. Decompressed urinary bladder with Irene catheter. Air within the bladder lumen is likely secondary to patient rotation. Mild perivesicular stranding. Unremarkable uterus and adnexa. Pessary within the vagina. Atherosclerosis of the aorta. Nonspecific periportal, pericaval and retroperitoneal periaortic lymph nodes measuring up to 9 mm, similar to the 2013 exam. There is nonspecific stranding/edema noted adjacent to the mid to distal stomach, likely related to the aforementioned fluid overload changes. Circumferential wall thickening of the sigmoid and rectum with perirectal stranding. Colonic diverticulosis. No CT evidence of acute appendicitis. Chronic sacral decubitus ulcer. Demineralized appearance the bones. No acute fracture or osseous erosion identified. IMPRESSION: 1. Moderate right-sided hydroureteronephrosis secondary to an obstructing 10 mm calculus of the mid right ureter at the level of L5. 2. Nonobstructing right nephrolithiasis. 3. Fluid overload with moderate right and small left pleural effusions, body wall and mesenteric edema with trace ascites. 4. Moderate wall thickening of the mid and distal sigmoid and rectum may reflect a nonspecific proctocolitis. 5. Unchanged prominent lymph nodes of the retroperitoneum are stable from 2013. 6. Chronic sacral decubitus ulcer. 7. Porcelain gallbladder. 8. Additional findings as above. ACT 112: Negative or not required by law. The above report was generated using voice recognition software. It may contain grammatical, syntax or spelling errors. Electronically signed by: Franklin Mancia M.D. 11/16/2020 7:02 PM MDM Narrative I did evaluate the patient as noted above. She is presenting with no urine output for the past 3 days. She has been eating and drinking. She denies any abdominal pain or back pain but she is quadriplegic. IV access was established. A bladder scan was performed and was negative. I did order and review the patient's blood work as noted in the electronic medical record. She has an elevated white count of 12.4. Hemoglobin is 9.4. Platelet count is 192. Sodium is 125 with a carbon dioxide of 18. Creatinine is elevated at 3.85. BUN is 86. LFTs demonstrate an alk phos of 951. We did inform the patient about her test results. She will be hospitalized for further care and evaluation. I did discuss the case with the hospitalist and case consultant. The hospitalist did order a CT of the abdomen pelvis due to her history of solitary kidney and prior kidney stone. The patient has moderate right sided hydroureteronephrosis secondary to an obstructing 10 mm calculus in the mid right ureter. Dr. Purvis did consult urology. Resident Physician Supervision Note: I did perform an independent evaluation and examination of this patient as described. I also saw this patient in conjunction with the resident, Dr. Sinha, and guided management for the patient. Impression & Plan ANTHONY (acute kidney injury), Anemia, Obstructed, uropathy, Ureterolithiasis, Acute hyponatremia Discharge Plan Visit Data Chief Complaint: Unable to Void ED Provider: Vlad Reed ED Midlevel Provider: Deloris Sinha Discharge Problem: ANTHONY (acute kidney injury), Anemia, Obstructed, uropathy, Ureterolithiasis, A cute hyponatremia Patient Disposition: Being Evaluated by Hospitalist Discharge Instructions Interventions: ED Discharge Assessment Last Done: 08/19/21 19:59 Forms [facility] Prescriptions: No Action pantoprazole [Protonix] 40 mg tablet,delayed release (DR/EC) 40 mg PO QAM Qty: 90 RF: 3 levothyroxine [Synthroid] 75 mcg tablet 75 mcg PO QAM Qty: 90 RF: 3 methenamine hippurate [Hiprex] 1 gram tablet 1 g PO BID Qty: 180 RF: 3 cyanocobalamin (vitamin B-12) 1,000 mcg/mL solution 1,000 mcg IM MONTHLY RF: 0 cyanocobalamin (vitamin B-12) [Vitamin B-12] 500 mcg Tablet 500 mcg PO QAM RF: 0 zinc 50 mg Tablet 50 mg PO QAM RF: 0 cholecalciferol (vitamin D3) [Vitamin D3] 50 mcg (2,000 unit) Capsule 50 mcg PO QAM RF: 0 magnesium oxide 400 mg magnesium Tablet 400 mg PO Q2D RF: 0 Systane Ultra 0.4-0.3 % Drops 1 drp OPR BID PRN (Reason: Dry Eye Relief) RF: 0 Refresh Liquigel 1 % Drops, Liquid Gel 1 drp OPHTHALMIC (EYE) TID RF: 0 nystatin [Nyamyc] 100,000 unit/gram powder 1 applic TOPICAL DAILY RF: 0 Referrals Referrals: [facility] [Primary Care Provider] - Discharge Problem: Anemia Qualifiers: Anemia type: unspecified type Qualified Code(s): D64.9 - Anemia, unspecified
--- NOTE | 2020-11-16 16:43 | Emergency Department Note ---
General (ED) Blank Date of Service November 16, 2020 ED Visit Note I personally saw, interviewed, and examined the patient. Patient's case was discussed with Dr. Reed, ED attending, and I assisted with MDM. Please see attending documentation for full details. Resident Activity Tracking Resident Involvement: Resident Care Provided Care Provided: Adult ED
[2020-11-16 17:01] LABS: Alanine Aminotransferase 25 U/L (12-78); Albumin Level 1.9 gm/dl (3.4-5.0); Aspartate Aminotransferase 32 U/L (15-37); BUN Creatinine Ratio 22.3 (10-20); Blood Urea Nitrogen 86 mg/dl (7-18); Calcium 8.6 mg/dl (8.5-10.1); Carbon Dioxide 18 mmol/L (21-32); Chloride 94 mmol/L (98-107); Est GFR (African American) 12.2 ml/min; Est GFR (Non-African American) 10.5 ml/min; Glucose 85 mg/dl (70-99); Potassium 4.4 mmol/L (3.5-5.1); Sodium 125 mmol/L (136-145)
[2020-11-16 17:19] LABS: Albumin Globulin Ratio 0.4 (0.9-2); Alkaline Phosphatase 951 U/L (45-117); Bilirubin,Total 0.6 mg/dl (0.2-1); Globulin 4.6 gm/dl (2.5-4.0); Total Protein 6.5 gm/dl (6.4-8.2)
--- NOTE | 2020-11-16 17:42 | History & Physical Report ---
Date of Service November 16, 2020 Assessment & Plan (1) ANTHONY (acute kidney injury): Plan: Presents with an area in the setting of chronic indwelling Irene catheter No abdominal pain or fevers, but creatinine up to 3.85 from baseline of 1.0 in 07/2020. There is a ovlat-cv-jiih creatinine from 10/03/2020 that was 2.0 that was performed on the day of an MRI of the pelvis. Unclear if there was any follow- up on this. This is likely an acute kidney injury developing over at least the last month and is secondary to right-sided ureterolithiasis in the setting of solitary kidney. -Give Normosol 500 mL bolus now and then start half-normal saline +150 M EQ of sodium bicarbonate at 80 mL's per hour -Consult urology urgently for ureteral stent placement-discussed case with urology-management appreciated -Follow serial BMP tonight in the morning -Follow urine output -Consult nephrology-also discussed case with nephrology-appreciate consultation -Patient adamant that she would not want dialysis if renal function worsens -N.p.o. for now and then can eat after procedure (2) Ureterolithiasis: Plan: As above, with 1 cm stone in the right mid ureter with hydroureteronephrosis Urology management plan for urgent stent placement tonight -She has no pain with this-pain medication not needed -IV Zofran as needed for nausea (3) Hyponatremia: Plan: Sodium down to 125 from baseline of 140. Fortunately is mentating quite well. This may be more of a subacute process. Secondary to renal failure -Correct obstructive uropathy as above -Follow serial BMP -Normosol and fluids as above (4) Anuria: Plan: As above, secondary to ureterolithiasis with solitary kidney (5) Solitary kidney, acquired: Plan: Left kidney removed and 2013 for stone related issues (6) Metabolic acidosis: Plan: Secondary to renal failure as above Follow serial BMP Bicarbonate drip (7) Hypothyroidism: Plan: TSH normal at 2.2 and 07/2020 Continue home levothyroxine (8) Chronic indwelling Irene catheter: Plan: Secondary to neurogenic bladder Exchanged at the [facility] prior to admission Expect replacement of Irene catheter after ureteral stent placement this evening (9) Anemia: Plan: Hemoglobin low at 9.4, MCV normal. This is around her baseline for last 3 months Check iron studies, B12, folate Follow CBC (10) Alkaline phosphatase elevation: Plan: Alkaline phosphatase has always been elevated in the 200s, however is severely elevated at [address] abdomen/pelvis with porcelain gallbladder but patient has no abdominal pain or symptoms of gallbladder dysfunction. Liver appears normal. Perhaps some sort of secondary hyperparathyroidism from renal failure versus also chronic osteomyelitis of the sacrum contributing? Follow LFTs, GGT in the morning Check phosphorus in the morning (11) Leukocytosis: Plan: WBC count elevated at 12.4, could be stress reaction Collect UA once able to obtain urine during urological procedure Prophylactic antibiotics to be given with cystoscopy, however afebrile here and will hold off on further antibiotics for now unless recommended by urology based on procedural observations (12) Pressure ulcer of coccygeal region, stage 3: Plan: Longstanding, has been stage III-IV in the past, follows with wound care center Was to have wound VAC placed but unable to due to macerated skin around the edge s at most recent visit on 11/10 Continue wound care dressings and consult wound care nurse Offload pressure (13) GERD (gastroesophageal reflux disease): Plan: continue PPI (14) Corneal ulcer: Plan: Continue Systane eyedrops and ointment as she is unable to close her lid Of note, does have a piece of gold in her lid to help weight it down (15) DVT prophylaxis: Plan: SQ Heparin Disposition-admit to medical floor telemetry DNR/DNI as per discussion with patient and her sister who is her healthcare power of transactional attorney at the bedside History of Present Illness Chief Complaint: No urine output Primary Care Provider: [facility] This patient is a 79-year-old female with a history of sacral decubitus ulcer, functional quadriplegia and 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 Her Irene catheter was changed out and there was still no urine noted. She denies any abdominal pain or back pain. No fevers or chills. No chest pain or shortness of breath. No lightheadedness or headache. She does report seeing a little bit of blood in her urine but there was no clot noted when the catheter was flushed at the [facility] as per the patient. She was unaware that she has a history of nephrolithiasis when I asked her about it. However, review of the records from 2012 shows that she was transferred out for percutaneous nephrostomy tube which then resulted in nephrectomy on the left after having an impacted 1 cm left UPJ stone. On laboratory values, she was found to have a BUN of 86, creatinine of 3.85 up from a baseline of 1.1, sodium of 125, serum bicarbonate low at 18, with an anion gap of 13, and an elevated alkaline phosphatase of 951 up from baseline in the low 200s. No urinalysis was collected as she was anuric. She had a leukocytosis of 12.4 that was with neutrophilia. Her vital signs were stable. The patient is adamant that she would not want dialysis and would want to pursue comfort measures if her renal failure worsens. She was not given any fluids and no imaging was done at the time of admission. I obtained a CT of the abdomen/pelvis without contrast which showed a 10 mm right mid ureter obstructing ureteral stone with moderate hydroureteronephrosis. Urology was contacted who will come in urgently for ureteral stent placement given acute kidney injury, anuria, and solitary kidney. She will be admitted for acute kidney injury with anuria secondary to ureterolithiasis. Allergies Allergy/AdvReac Type Severity Reaction Status Date / Time No Known Allergies Allergy Verified 11/10/20 11:44 Home Medications Medication Instructions Recorded Confirmed Type pantoprazole 40 mg tablet,delayed 40 mg PO QAM #90 tab 06/24/19 11/16/20 Rx release (Protonix) levothyroxine 75 mcg tablet 75 mcg PO QAM #90 tab 10/13/19 11/16/20 Rx (Synthroid) methenamine hippurate 1 gram 1 g PO BID #180 tab 02/08/20 11/16/20 Rx tablet (Hiprex) cholecalciferol (vitamin D3) 50 50 mcg PO QAM 06/14/20 11/16/20 History mcg (2,000 unit) capsule (Vitamin D3) cyanocobalamin (vitamin B-12) 1,000 mcg IM MONTHLY 06/14/20 11/16/20 History 1,000 mcg/mL injection solution cyanocobalamin (vitamin B-12) 500 500 mcg PO QAM 06/14/20 11/16/20 History mcg tablet (Vitamin B-12) magnesium oxide 400 mg PO Q2D 06/14/20 11/16/20 History peg 400-propylene glycol 0.4 %-0.3 1 drp OPR BID PRN 06/14/20 11/16/20 History % eye drops (Systane Ultra) zinc 50 mg tablet 50 mg PO QAM 06/14/20 11/16/20 History carboxymethylcellulose sodium 1 % 1 drp OPHTHALMIC (EYE) TID 11/16/20 11/16/20 History eye liquid gel drops (Refresh Liquigel) nystatin 100,000 unit/gram topical 1 applic TOPICAL DAILY 11/16/20 11/16/20 History powder (Nyamy) Past Med/Surg History Medical History (Updated 11/16/20 @ 21:08 by Aarti Purvis MD) Acute respiratory failure Alkaline phosphatase elevation Arthritis Aspiration into respiratory tract Brain tumor Candidal intertrigo Chronic constipation Decubitus ulcer, buttock GERD (gastroesophageal reflux disease) GI bleed Hearing loss Hyperlipidemia Hypotensive syncope Nephrolithiasis Pneumonia Sepsis Sepsis due to urinary tract infection (02/28/13) Slurred speech Solitary kidney, acquired Vitamin B 12 deficiency Weakness of both lower limbs Wheelchair dependent Surgical History H/O brain surgery tumor removed in 2006 H/O eye surgery H/O total knee replacement History of knee replacement right 2004 History of nephrectomy, left Family History Unknown Diabetes Hypertension Chronic liver disease Mother , age 93 of heart issues Heart disease Father , age 65 of hepatic cirrhosis. Cirrhosis with alcoholism Denies family history of Prostate cancer Social History Smoking Status: Never smoker Second Hand Exposure: No; Hx Alcohol Use: No Hx Substance Use: No Preferred Language: Swazi Communication Ability: Effective Visual Impairment: Severely Limited Hearing Ability: Hard of Hearing [employer] Instructor Required: No Beliefs That Will Affect Care: Mu-Ism Mu-Ism Beliefs: Mormonism marital status: Current Living Situation: Spouse Current Living Situation Comment: Home care current occupational status: disabled Feels Safe at Home: Yes caffeine: No Physical Activity Frequency: Does not Exercise Seatbelt Use: always Assistive Devices: Glasses Review of Systems Review of Systems: All systems reviewed & are unremarkable except as noted in HPI & below Physical Exam Constitutional: WD/WN, vitals as above + obese Eyes: + corneal abnormality (OS ulceration and cloudy iris) ENMT: external ear and nose normal, oropharynx normal Ears: + hearing impairment With left-sided facial paralysis Neck: trachea midline, no thyromegaly Respiratory: normal respiratory effort, lungs clear to auscultation Cardiovascular: RRR, no murmur, no edema Chest (Breasts): Chest: normal inspection of chest Gastrointestinal (Abdomen): normal bowel sounds, soft, nontender, no hepatosplenomegaly Musculoskeletal: Extremities: extremities normal to inspection; no cyanosis and no clubbing Skin: no rashes, warm and dry Neurologic: + focal motor deficit (With weakness in all 4 extremities, contractures on left) and awake Psychiatric: A+Ox3, euthymic affect Genitourinary: Irene catheter in place with no urine in bag or tubing Lymphatic: no lymphedema Results & Data Results & Data ([facility]) Vital Signs (Past 12 Hours) Vital Signs Pulse Resp BP Pulse Ox 11/16/20 16:00 68 20 143/79 H 97 11/16/20 15:31 64 14 118/52 L 97 11/16/20 15:23 68 17 149/71 H 98 11/16/20 15:20 65 17 149/71 H 97 Laboratory Results 11/16/20 11/16/20 Range/Units 16:22 16:22 WBC 12.48 H (4.8-10.8) K/uL RBC 3.24 L (4.2-5.4) M/uL Hgb 9.4 L (12.0-16.0) g/dL Hct 28.3 L (37-47) % MCV 87.3 (80-100) fL MCH 29.0 (25-34) pg MCHC 33.2 (32-36) g/dL RDW Std Deviation 50.9 H (36.4-46.3) fL RDW Coeff of Oliva 15.8 H (11.5-14.5) % Plt Count 192 (130-400) K/uL MPV 10.5 H (7.4-10.4) fL Immature Gran % (Auto) 0.3 % Neut % (Auto) 91.1 % Lymph % (Auto) 5.8 % Christian % (Auto) 2.6 % Eos % (Auto) 0.2 % Baso % (Auto) 0.0 % Neut # (Auto) 11.37 H (1.4-6.5) K/uL Lymph # (Auto) 0.73 L (1.2-3.4) K/uL Christian # (Auto) 0.32 (0.11-0.59) K/uL Eos # (Auto) 0.02 (0-0.5) K/uL Baso # (Auto) 0.00 (0-0.2) K/uL Immature Gran # (Auto) 0.04 H (0.00-0.02) K/uL Sodium 125 L (136-145) mmol/L Potassium 4.4 (3.5-5.1) mmol/L Chloride 94 L (98-107) mmol/L Carbon Dioxide 18 L (21-32) mmol/L Anion Gap 13.0 H (3-11) BUN 86 H (7-18) mg/dl Creatinine 3.85 H (0.6-1.2) mg/dl Est Cr Clr Drug Dosing Not Reportable Est GFR ( Amer) 12.2 ml/min Est GFR (Non-Af Amer) 10.5 ml/min BUN/Creatinine Ratio 22.3 H (10-20) Glucose 85 (70-99) mg/dl Calcium 8.6 (8.5-10.1) mg/dl Total Bilirubin 0.6 (0.2-1) mg/dl AST 32 (15-37) U/L ALT 25 (12-78) U/L Alkaline Phosphatase 951 H (45-117) U/L Total Protein 6.5 (6.4-8.2) gm/dl Albumin 1.9 L (3.4-5.0) gm/dl Globulin 4.6 H (2.5-4.0) gm/dl Albumin/Globulin Ratio 0.4 L (0.9-2) Diagnostic Findings Abdomen/Pelvis CT 11/16/20 17:[address] WITHOUT CONTRAST CT DOSE: 1735.35 mGy.cm HISTORY: Patient presents with acute kidney injury. History of sacral decubitus ulcer. anuria,acute kidney injury,nephrectomy TECHNIQUE: Multiaxial CT images of the abdomen and pelvis were performed without contrast. A dose lowering technique was utilized adhering to the principles of ALARA. COMPARISON STUDY: CT pelvis 08/16/2020, CT abdomen and pelvis 02/28/2013 FINDINGS: Partially imaged moderate right pleural effusion with right lung base consolidation. Small left pleural effusion with left lung base opacities. Limited exam without the use of contrast and secondary to upper extremity positioning. Mitral annular and coronary arterial calcifications. Small pericardial effusion. Nonspecific prominent epicardial lymph nodes measure up to 6 mm which appear stable from 2013 suggestive of benign etiology. Limited evaluation of the solid abdominal organs without the use of IV contrast. Mild generalized body wall and mesenteric edema with trace abdominal pelvic ascites. The unenhanced spleen, dystrophic pancreas and adrenal glands are unremarkable. 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 Moderate edema within the karina hepatis of unknown clinical significance. The unenhanced liver appears unremarkable. Surgically absent left kidney. Moderate right-sided hydroureteronephrosis secondary to an obstructing 10 x 5 x 5 mm calculus of the mid right ureter at the level of L5. There are least 3 additional calculi of the right kidney measuring up to 8-9 mm. Decompressed urinary bladder with Irene catheter. Air within the bladder lumen is likely secondary to patient rotation. Mild perivesicular stranding. Unremarkable uterus and adnexa. Pessary within the vagina. Atherosclerosis of the aorta. Nonspecific periportal, pericaval and retroperitoneal periaortic lymph nodes measuring up to 9 mm, similar to the 2013 exam. There is nonspecific stranding/edema noted adjacent to the mid to distal stomach, likely related to the aforementioned fluid overload changes. Circumferential wall thickening of the sigmoid and rectum with perirectal stranding. Colonic diverticulosis. No CT evidence of acute appendicitis. Chronic sacral decubitus ulcer. Demineralized appearance the bones. No acute fracture or osseous erosion identified. IMPRESSION: 1. Moderate right-sided hydroureteronephrosis secondary to an obstructing 10 mm calculus of the mid right ureter at the level of L5. 2. Nonobstructing right nephrolithiasis. 3. Fluid overload with moderate right and small left pleural effusions, body wall and mesenteric edema with trace ascites. 4. Moderate wall thickening of the mid and distal sigmoid and rectum may reflect a nonspecific proctocolitis. 5. Unchanged prominent lymph nodes of the retroperitoneum are stable from 2013. 6. Chronic sacral decubitus ulcer. 7. Porcelain gallbladder. 8. Additional findings as above. ACT 112: Negative or not required by law. The above report was generated using voice recognition software. It may contain grammatical, syntax or spelling errors. Electronically signed by: Franklin Mancia M.D. 11/16/2020 7:02 PM Code Status & VTE Plan Code Status DNR/DNI VTE Prophylaxis Plan VTE Prophylaxis will be ordered: Yes PG Care Time/CCT Total # of Minutes Spent Total Time Spent with Patient: Total time spent is greater than 50% in coordination of care (as documented) at patient's floor/unit and/or counseling patient: Coding Level of Care Code 52204 Initial Inpt Care Lvl 3 Diagnoses Pressure ulcer of coccygeal region, stage 3 L89.153 Hypothyroidism E03.9 Hypothyroidism type: unspecified Chronic indwelling Irene catheter Z92.89 Anemia D64.9 Alkaline phosphatase elevation R74.8 ANTHONY (acute kidney injury) N17.9 Metabolic acidosis E87.2 Leukocytosis D72.829 DVT prophylaxis Z29.9 Hyponatremia E87.1 Anuria R34 Solitary kidney, acquired Z90.5 Ureterolithiasis N20.1 GERD (gastroesophageal reflux disease) K21.9 Corneal ulcer H16.009 (1) Hypothyroidism Hypothyroidism type: unspecified Qualified Code(s): E03.9 - Hypothyroidism, unspecified
[2020-11-16] MEDS ORDERED: SODIUM CHLORIDE 0.9% 500 ML IV SCH (17:45)
--- NOTE | 2020-11-16 19:03 | CT Scan Report ---
ABDOMEN AND PELVIS CT WITHOUT CONTRAST CT DOSE: 1735.35 mGy.cm HISTORY: Patient presents with acute kidney injury. History of sacral decubitus ulcer. anuria,acute k idney injury,nephrectomy TECHNIQUE: Multiaxial CT images of the abdomen and pelvis were performed without contrast. A dose lo wering technique was utilized adhering to the principles of ALARA. COMPARISON STUDY: CT pelvis 08/16/2020, CT abdomen and pelvis 02/28/2013 FINDINGS: Partially imaged moderate right pleural effusion with right lung base consolidation. Small left pleural effusion with left lung base opacities. Limited exam without the use of contrast and sec ondary to upper extremity positioning. Mitral annular and coronary arterial calcifications. Small per icardial effusion. Nonspecific prominent epicardial lymph nodes measure up to 6 mm which appear stabl e from 2013 suggestive of benign etiology. Limited evaluation of the solid abdominal organs without the use of IV contrast. Mild generalized bod y wall and mesenteric edema with trace abdominal pelvic ascites. The unenhanced spleen, dystrophic pa ncreas and adrenal glands are unremarkable. Peripherally calcified gallbladder compatible with porcel ain gallbladder. Moderate edema within the karina hepatis of unknown clinical significance. The unenha nced liver appears unremarkable. Surgically absent left kidney. Moderate right-sided hydroureteronephrosis secondary to an obstructing 10 x 5 x 5 mm calculus of the mid right ureter at the level of L5. There are least 3 additional calc sean of the right kidney measuring up to 8-9 mm. Decompressed urinary bladder with Irene catheter. Air within the bladder lumen is likely secondary to patient rotation. Mild perivesicular stranding. Unre markable uterus and adnexa. Pessary within the vagina. Atherosclerosis of the aorta. Nonspecific taya portal, pericaval and retroperitoneal periaortic lymph nodes measuring up to 9 mm, similar to the 201 3 exam. There is nonspecific stranding/edema noted adjacent to the mid to distal stomach, likely related to t he aforementioned fluid overload changes. Circumferential wall thickening of the sigmoid and rectum w ith perirectal stranding. Colonic diverticulosis. No CT evidence of acute appendicitis. Chronic sacra l decubitus ulcer. Demineralized appearance the bones. No acute fracture or osseous erosion identifie d. IMPRESSION: 1. Moderate right-sided hydroureteronephrosis secondary to an obstructing 10 mm calculus of the mid r ight ureter at the level of L5. 2. Nonobstructing right nephrolithiasis. 3. Fluid overload with moderate right and small left pleural effusions, body wall and mesenteric pattie a with trace ascites. 4. Moderate wall thickening of the mid and distal sigmoid and rectum may reflect a nonspecific procto colitis. 5. Unchanged prominent lymph nodes of the retroperitoneum are stable from 2013. 6. Chronic sacral decubitus ulcer. 7. Porcelain gallbladder. 8. Additional findings as above. ACT 112: Negative or not required by law. The above report was generated using voice recognition software. It may contain grammatical, syntax o r spelling errors. Electronically signed by: Franklin Mancia M.D. 11/16/2020 7:02 PM
[2020-11-16] MEDS ORDERED: NORMOSOL-R 500 ML IV ONE (19:15)
[2020-11-16] MEDS ORDERED: ONDANSETRON INJ 2 MG/ML 2 ML VIAL IV STA (19:47)
--- NOTE | 2020-11-16 20:51 | Urology Consultation ---
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 obstructing right ureteral calculus and acute renal failure Plan for immediate intervention in the form of cystoscopy and right ureteral stent placement Hope to see improvement in her creatinine overnight assuming stent can be positioned appropriately Discussed the case with her sister as well as the patient We will cover empirically with antibiotics during the case but does not appear to be actively infected at present Will certainly require close monitoring over the next 24 hours to ensure she produces appropriate urine without any postobstructive diuresis History of Present Illness History of Present Illness 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 She presents to the ER today with an acutely elevated creatinine and CT evidence of an obstructing calculus in the mid ureter of her solitary right kidney There is notable hydronephrosis Slight leukocytosis Alkaline phosphatase elevation she is nontoxic Hemodynamically stable No urine output for 2 days Chronic indwelling Irene catheter in position Sacral decubitus ulcer Long-term senior care resident secondary to her functional quadriplegia Mentates well and communicates appropriately, she is accompanied by her sister who helps relate some of the history Allergies Allergy/AdvReac Type Severity Reaction Status Date / Time No Known Allergies Allergy Verified 11/10/20 11:44 Home Medications Medication Instructions Recorded Confirmed Type pantoprazole 40 mg tablet,delayed 40 mg PO QAM #90 tab 06/24/19 11/16/20 Rx release (Protonix) levothyroxine 75 mcg tablet 75 mcg PO QAM #90 tab 10/13/19 11/16/20 Rx (Synthroid) methenamine hippurate 1 gram 1 g PO BID #180 tab 02/08/20 11/16/20 Rx tablet (Hiprex) cholecalciferol (vitamin D3) 50 50 mcg PO QAM 06/14/20 11/16/20 History mcg (2,000 unit) capsule (Vitamin D3) cyanocobalamin (vitamin B-12) 1,000 mcg IM MONTHLY 06/14/20 11/16/20 History 1,000 mcg/mL injection solution cyanocobalamin (vitamin B-12) 500 500 mcg PO QAM 06/14/20 11/16/20 History mcg tablet (Vitamin B-12) magnesium oxide 400 mg PO Q2D 06/14/20 11/16/20 History peg 400-propylene glycol 0.4 %-0.3 1 drp OPR BID PRN 06/14/20 11/16/20 History % eye drops (Systane Ultra) zinc 50 mg tablet 50 mg PO QAM 06/14/20 11/16/20 History carboxymethylcellulose sodium 1 % 1 drp OPHTHALMIC (EYE) TID 11/16/20 11/16/20 History eye liquid gel drops (Refresh Liquigel) nystatin 100,000 unit/gram topical 1 applic TOPICAL DAILY 11/16/20 11/16/20 History powder ([facility]) Patient History Medical History Acute respiratory failure Alkaline phosphatase elevation Arthritis Aspiration into respiratory tract Brain tumor Candidal intertrigo Chronic constipation Decubitus ulcer, buttock GI bleed Hearing loss Hyperlipidemia Hypotensive syncope Nephrolithiasis Pneumonia Sepsis Sepsis due to urinary tract infection (02/28/13) Slurred speech Vitamin B 12 deficiency Weakness of both lower limbs Wheelchair dependent Surgical History H/O brain surgery tumor removed in 2006 H/O eye surgery H/O total knee replacement History of knee replacement right 2004 History of nephrectomy, left Family History Unknown Diabetes Hypertension Chronic liver disease Mother , age 93 of heart issues Heart disease Father , age 65 of hepatic cirrhosis. Cirrhosis with alcoholism Denies family history of Prostate cancer Social History Smoking Status: Never smoker Second Hand Exposure: No; Hx Alcohol Use: No Hx Substance Use: No Preferred Language: Tajik Communication Ability: Effective Visual Impairment: Severely Limited Hearing Ability: Hard of Hearing Photography Manager Required: No Beliefs That Will Affect Care: Congregation Congregation Beliefs: Mandaeism marital status: Current Living Situation: Spouse Current Living Situation Comment: Home care current occupational status: disabled Feels Safe at Home: Yes caffeine: No Physical Activity Frequency: Does not Exercise Seatbelt Use: always Assistive Devices: Glasses Review of Systems Constitutional: no fever, no chills and no fatigue Eyes: no worsening vision Ear, Nose, Mouth, Throat: no facial pain and no pain with swallowing Respiratory: no cough and no dyspnea Cardiovascular: no chest pain and no palpitations Gastrointestinal: no abdominal pain, no nausea and no vomiting Genitourinary: + difficulty urinating (Chronic urinary retention) and + urinary frequency Musculoskeletal: + back pain Functional quadriplegia Integumentary: no rash and no urticaria Neurologic: Asymmetrical facial droop Psychiatric: no behavioral changes and no depression Endocrine: no fatigue Physical Exam Constitutional: Limited mobility, notable facial droop on the left Neck: neck nontender Respiratory: normal respiratory effort; no respiratory distress and does not use accessory muscles Cardiovascular: Rate/Rhythm: regular rate Vessels: radial pulses present Extremities: no edema Gastrointestinal (Abdomen): Inspection/Auscultation: abdomen normal to inspection Percussion/Palpation: abdomen soft; abdomen nontender and no guarding Musculoskeletal: Head/Neck/Chest: normocephalic and head atraumatic Extremities: extremities normal to inspection Skin: no rashes and no lesions Trauma: no evidence of skin trauma Neurologic: awake; not obtunded Speech / Cognition: + abnormal speech (Some difficulty with phonation) Psychiatric: Orientation: alert and oriented x 3 Genitourinary: Irene catheter in place Lymphatic: no lymphadenopathy Results & Data ([facility]) Vital Signs (Past 12 Hours) Vital Signs Pulse Resp BP BP Pulse Ox 11/16/20 19:58 122/66 11/16/20 19:31 68 14 96 11/16/20 19:02 15 122/85 97 11/16/20 18:00 64 22 132/69 97 11/16/20 17:30 67 17 126/71 98 11/16/20 17:00 63 17 119/84 97 11/16/20 16:30 63 15 135/76 97 11/16/20 16:00 68 20 143/79 H 97 11/16/20 15:31 64 14 118/52 L 97 11/16/20 15:23 68 17 149/71 H 98 11/16/20 15:20 65 17 149/71 H 97 PG Care Time/CCT Total # of Minutes Spent Total Time Spent with Patient: Total time spent is greater than 50% in coordination of care (as documented) at patient's floor/unit and/or counseling patient: Coding Level of Care Code 02011 Inpt Consult Level 4 Diagnoses Obstructed, uropathy N13.9 Ureterolithiasis N20.1 ANTHONY (acute kidney injury) N17.9
[2020-11-16] MEDS ORDERED: CIPROFLOXACIN / D5W 200 MG/100 ML BAG IV STA (20:52)
--- NOTE | 2020-11-16 21:11 | Anesthesiology Consultation ---
Date of Service November 16, 2020 History Surgery Operation Date: 11/16/20 19:30 Proposed Procedures p Cystoscopy(Right) - Black Swan MD s Ureteral Stent Insertion/Removal(Right) - Black Swan MD Height/Weight Weight: 93.2 kg Allergies Allergy/AdvReac Type Severity Reaction Status Date / Time No Known Allergies Allergy Verified 11/10/20 11:44 Medications Home Medications Medication Instructions Recorded Confirmed Last Taken pantoprazole 40 mg tablet,delayed 40 mg PO QAM #90 tab 06/24/19 11/16/20 11/16/20 release (Protonix) levothyroxine 75 mcg tablet 75 mcg PO QAM #90 tab 10/13/19 11/16/20 11/16/20 (Synthroid) methenamine hippurate 1 gram 1 g PO BID #180 tab 02/08/20 11/16/20 11/16/20 tablet (Hiprex) cholecalciferol (vitamin D3) 50 50 mcg PO QAM 06/14/20 11/16/20 11/16/20 mcg (2,000 unit) capsule (Vitamin D3) cyanocobalamin (vitamin B-12) 1,000 mcg IM MONTHLY 06/14/20 11/16/20 Unknown 1,000 mcg/mL injection solution cyanocobalamin (vitamin B-12) 500 500 mcg PO QAM 06/14/20 11/16/20 11/16/20 mcg tablet (Vitamin B-12) magnesium oxide 400 mg PO Q2D 06/14/20 11/16/20 Unknown peg 400-propylene glycol 0.4 %-0.3 1 drp OPR BID PRN 06/14/20 11/16/20 11/16/20 % eye drops (Systane Ultra) zinc 50 mg tablet 50 mg PO QAM 06/14/20 11/16/20 11/16/20 carboxymethylcellulose sodium 1 % 1 drp OPHTHALMIC (EYE) TID 11/16/20 11/16/20 11/16/20 eye liquid gel drops (Refresh Liquigel) nystatin 100,000 unit/gram topical 1 applic TOPICAL DAILY 11/16/20 11/16/20 Unknown powder ([facility]) NPO Date Last Intake of Fluids: 11/16/20 Time Last Intake of Fluids: 12:00 Date Last Intake of Solids: 11/16/20 Time Last Intake of Solids: 12:00 Last Intake of Solids Comment: Soup Past Medical History Medical History (Updated 11/16/20 @ 21:14 by Anthony Bernal MD) Acute respiratory failure Alkaline phosphatase elevation Arthritis Aspiration into respiratory tract Brain tumor Candidal intertrigo Chronic constipation Decubitus ulcer, buttock Functional quadriplegia secondary to brain tumor removal 2006 GERD (gastroesophageal reflux disease) GI bleed Hearing loss Hyperlipidemia Hypotensive syncope Nephrolithiasis Pneumonia Sepsis Sepsis due to urinary tract infection (02/28/13) Slurred speech s/p stroke Solitary kidney, acquired Vitamin B 12 deficiency Weakness of both lower limbs Wheelchair dependent Exercise / Class Metabolic Activity IV < 2 Limit ADL/Bedbound Past Family History Family History Unknown Diabetes Hypertension Chronic liver disease Mother , age 93 of heart issues Heart disease Father , age 65 of hepatic cirrhosis. Cirrhosis with alcoholism Denies family history of Prostate cancer Past Surgical History Surgical History H/O brain surgery tumor removed in 2006 H/O eye surgery H/O total knee replacement History of knee replacement right 2004 History of nephrectomy, left Past Anesthesia History No Hx of Anesthesia Complications and No Family Hx of Anesthesia Complications History of PONV No Hx of PONV and No Hx of Motion Sickness Social History Smoking Status: Never smoker Hx Alcohol Use: No Hx Substance Use: No substance use type: does not use Physical Exam Vital Signs Last Vital Signs Pulse 68 11/16/20 19:31 Resp 14 11/16/20 19:31 BP 122/66 11/16/20 19:58 Pulse Ox 96 11/16/20 19:31 Testing Laboratory Results 11/16/20 16:22 11/16/20 16:22 Other Testing ABDOMEN AND PELVIS CT WITHOUT CONTRAST CT DOSE: 1735.35 mGy.cm HISTORY: Patient presents with acute kidney injury. History of sacral decubitus ulcer. anuria,acute kidney injury,nephrectomy TECHNIQUE: Multiaxial CT images of the abdomen and pelvis were performed without contrast. A dose lowering technique was utilized adhering to the principles of ALARA. COMPARISON STUDY: CT pelvis 08/16/2020, CT abdomen and pelvis 02/28/2013 FINDINGS: Partially imaged moderate right pleural effusion with right lung base consolidation. Small left pleural effusion with left lung base opacities. Limited exam without the use of contrast and secondary to upper extremity positioning. Mitral annular and coronary arterial calcifications. Small pericardial effusion. Nonspecific prominent epicardial lymph nodes measure up to 6 mm which appear stable from 2013 suggestive of benign etiology. Limited evaluation of the solid abdominal organs without the use of IV contrast. Mild generalized body wall and mesenteric edema with trace abdominal pelvic ascites. The unenhanced spleen, dystrophic pancreas and adrenal glands are unremarkable. 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 Moderate edema within the karina hepatis of unknown clinical significance. The unenhanced liver appears unremarkable. Surgically absent left kidney. Moderate right-sided hydroureteronephrosis secondary to an obstructing 10 x 5 x 5 mm calculus of the mid right ureter at the level of L5. There are least 3 additional calculi of the right kidney measuring up to 8-9 mm. Decompressed urinary bladder with Irene catheter. Air within the bladder lumen is likely secondary to patient rotation. Mild perivesicular stranding. Unremarkable uterus and adnexa. Pessary within the vagina. Atherosclerosis of the aorta. Nonspecific periportal, pericaval and retroperitoneal periaortic lymph nodes measuring up to 9 mm, similar to the 2013 exam. There is nonspecific stranding/edema noted adjacent to the mid to distal stomach, likely related to the aforementioned fluid overload changes. Circumferential wall thickening of the sigmoid and rectum with perirectal stranding. Colonic diverticulosis. No CT evidence of acute appendicitis. Chronic sacral decubitus ulcer. Demineralized appearance the bones. No acute fracture or osseous erosion identified. IMPRESSION: 1. Moderate right-sided hydroureteronephrosis secondary to an obstructing 10 mm calculus of the mid right ureter at the level of L5. 2. Nonobstructing right nephrolithiasis. 3. Fluid overload with moderate right and small left pleural effusions, body wall and mesenteric edema with trace ascites. 4. Moderate wall thickening of the mid and distal sigmoid and rectum may reflect a nonspecific proctocolitis. 5. Unchanged prominent lymph nodes of the retroperitoneum are stable from 2013. 6. Chronic sacral decubitus ulcer. 7. Porcelain gallbladder. 8. Additional findings as above. ACT 112: Negative or not required by law. The above report was generated using voice recognition software. It may contain grammatical, syntax or spelling errors. Electronically signed by: Franklin Mancia M.D. 11/16/2020 7:02 PM Dictated: 11/16/201849Transcribed: 11/16/201849
[2020-11-16] MEDS ORDERED: LABETALOL HCL IV 5 MG/ML 20ML IV PRN (21:24)
[2020-11-16] MEDS ORDERED: fentaNYL citrate 100 MCG/2 ML VIAL IV PRN (21:24)
[2020-11-16] MEDS ORDERED: ONDANSETRON INJ 2 MG/ML 2 ML VIAL IV PRN (21:24)
[2020-11-16] MEDS ORDERED: ePHEDrine sulfate 50 MG/ML AMP IV PRN (21:24)
[2020-11-16] MEDS ORDERED: PHENYLEPHRINE 100MCG/ML 5ML SYR IV PRN (21:24)
[2020-11-16] MEDS ORDERED: ATROPINE SULFATE 0.1 MG/ML 10ML SYR IV PRN (21:24)
[2020-11-16] MEDS ORDERED: fentaNYL citrate 100 MCG/2 ML VIAL ONE (21:34)
[2020-11-16] MEDS ORDERED: PROPOFOL IV EMULSION 10 MG/ML 20 ML VIAL IV ONE (21:41)
[2020-11-16] MEDS ORDERED: CONRAY 60% 50 ML VIAL FLUSH ONE (21:58)
--- NOTE | 2020-11-16 22:20 | Anesthesiology Progress Note ---
Date of Service November 16, 2020 Anesthesia Post Procedure Vital Signs Vital Signs: Pulse Resp BP BP Pulse Ox 11/16/20 19:58 122/66 11/16/20 19:31 68 14 96 11/16/20 19:02 15 122/85 97 11/16/20 18:00 64 22 132/69 97 11/16/20 17:30 67 17 126/71 98 11/16/20 17:00 63 17 119/84 97 11/16/20 16:30 63 15 135/76 97 11/16/20 16:00 68 20 143/79 H 97 11/16/20 15:31 64 14 118/52 L 97 11/16/20 15:23 68 17 149/71 H 98 11/16/20 15:20 65 17 149/71 H 97 Transfer of Care Handoff Completed per policy Notes Mental Status: alert / awake / arousable Patient Amnestic to Procedure: Yes Nausea / Vomiting: adequately controlled Pain: adequately controlled Airway Patency, RR, SpO2: stable & adequate BP & HR: stable & adequate Hydration State: stable & adequate Anesthetic Complications: no major complications apparent and Pt Satisfied with anesthetic care Notes: The patient is awake and comfortable except for a dry mouth. Her skin temperature is 35.7 up from 35.2 preoperatively. She has a warming blanket on. Her other vital signs are stable.
[2020-11-16] MEDS ORDERED: CIPROFLOXACIN 400MG / 200ML D5W IV ONE (22:27)
--- NOTE | 2020-11-16 22:34 | Operative Report ---
PG Post Operative Report Pre & Post Diagnosis Operation Date: 11/16/20 19:30 Pre-Op Diagnosis: renal failure right ureteral stone Post-Op Diagnosis: renal failure right ureteral stone I identified the patient and participated in the time-out.: Yes Procedure Operation Date: 11/16/20 19:30 Actual Procedures p Cystoscopy(Right) - Black Swan MD s Right ureteral stent insertion(Right) - Black Swan MD Surgeon Antony Swan MD Milk Treater none Estimated Blood Loss 0 Findings Consistent with Post-Op Diagnosis Specimens none Description of Procedure To begin the case I passed a 22 Trin[place] cystoscope with 30 degree lens. Inspection revealed somewhat of an edematous bladder void of urine. Full inspection failed to reveal any tumors or other abnormalities aside from edema. I was able to identify the right ureteral orifice and I cannulated it with a sensor wire and a 5 Trin[place]adian open-ended catheter. Of note, the course of the ureter is relatively tortuous and seems to cross the midline/overlie the spine for significant portion. This is consistent with her preoperative imaging. The stone was not readily visible on imaging but I could feel resistance as the wire bypassed the stone. There was an initial discharge of some cloudy urine. Given the tortuosity of the ureter I elected to pass a 5 Trinidadian open-ended catheter into the presumed area of the kidney and then opacify the collecting system with a bit of contrast. This was accomplished without difficulty and the contrast seem to fill some posterior calyces and a hydronephrotic kidney. I then proceeded to place a 6 Trinidadian by 22-30 cm double-J stent. There was resistance as the stent went up but I was able to adequately position it into the renal pelvis. There was good curl in the renal pelvis as well as the bladder. This did seem to require essentially the full length of the stent to position appropriately. There is some drainage of urine around the stent and through the stent, but not copious amounts. I then replaced a 16 Trinidadian Irene catheter inflating the balloon with 20 cc of water (she previously had 25 cc of sterile water in her balloon). She was reversed of anesthesia and taken to the recovery room in stable condition. There were no complications. I attest to the content of the Intraoperative Record and any orders documented therein. Any exceptions are noted below.
[2020-11-16] MEDS ORDERED: ACETAMINOPHEN 325 MG TAB PO PRN (23:40)
[2020-11-16] MEDS ORDERED: PEG PROPYLENE GLYCOL OPR PRN (23:40)
[2020-11-17] MEDS: SODIUM BICARBONATE 8.4% 150 MEQ in SODIUM CHLORIDE 0.45 % 1,000 ML IV SCH ×2 (00:16→17:55)
[2020-11-17] MEDS: HEPARIN SOD 5,000 UNIT/0.5 ML VIAL SQ SCH ×3 (00:16→21:10)
[2020-11-17 00:43] LABS: BUN Creatinine Ratio 23.3 (10-20); Calcium 8.2 mg/dl (8.5-10.1); Creatinine Clr Calc Pharmacy 13.3 ml/min; Est GFR (African American) 12.2 ml/min; Est GFR (Non-African American) 10.6 ml/min; Potassium 4.3 mmol/L (3.5-5.1)
[2020-11-17] MEDS: LEVOTHYROXINE SODIUM 75 MCG TABLET PO SCH (05:59)
--- NOTE | 2020-11-17 07:48 | Fluoroscopy Report ---
FL KUB CLINICAL HISTORY: RIGHT CYSTO/STENT COMPARISON STUDY: Abdomen and pelvis CT 11/16/2020. FLUOROSCOPY TIME: 17 seconds. FINDINGS: 2 fluoroscopic spot images of the abdomen and pelvis demonstrate a right ureteral stent whi ch appears in good position. There is contrast within the dilated right renal collecting system. IMPRESSION: Fluoroscopy provided for right ureteral stent placement which appears in good position. ACT 112: Negative or not required by law. Electronically signed by: Anthony Gonzalez M.D. 11/17/2020 7:47 AM
--- NOTE | 2020-11-17 08:09 | Urology Progress Note ---
Date of Service November 17, 2020 Assessment & Plan (1) Ureterolithiasis: (2) ANTHONY (acute kidney injury): (3) Solitary kidney, acquired: Plan: 80yo F who is a mononephric quadriplegic admitted with an obstructing right ureteral calculus and acute renal failure - Postop day #1 s/p cystoscopy, and right ureteral stent placement by Dr. Swan - Afebrile. - Labs reviewed, Wbc 11.13, Hgb 8.4, Cr 3.73 (previous 3.81). - Urine and blood cultures pending, follow cultures - Irene catheter intact with minimal urine output - Will check a non-con CT to evaluate position of right ureteral stent - Continue supportive care and management per primary team - Will continue to follow Admission and Anticipated Discharge Date Admission Date: November 16, 2020 Subjective Pt examined at bedside this AM. Awake, resting in bed on arrival. Denies any pain at present. Irene catheter intact, with cloudy white urine output noted in bag/tubing. Urine output overnight - 25ml No fevers or chills. Denies nausea/vomiting. Review of Systems Constitutional: as per Subjective / HPI Gastrointestinal: as per Subjective / HPI Genitourinary: as per Subjective / HPI Physical Exam Constitutional: Quadriplegic, baseline L sided weakness, facial droop, and slurred/garbled speech, non-ambulatory. Respiratory: normal respiratory effort; no labored breathing Gastrointestinal (Abdomen): Inspection/Auscultation: abdomen normal to inspection Percussion/Palpation: abdomen soft; abdomen nontender and no guarding Musculoskeletal: Head/Neck/Chest: normocephalic Neurologic: awake Speech / Cognition: + abnormal speech Psychiatric: Orientation: alert and oriented x 3 Genitourinary: Irene catheter in place Results & Data ([facility]) Vital Signs (Past 12 Hours) Vital Signs Temp Pulse Pulse Resp BP Pulse Ox 11/17/20 07:41 35.4 C L 75 16 93/56 L 92 11/17/20 06:14 36 C L 11/17/20 04:46 36.9 C 74 94 11/17/20 03:25 36.2 C L 63 16 107/57 L 93 11/17/20 02:10 34.1 C L 11/17/20 01:45 64 20 161/73 H 95 11/17/20 00:26 63 11/17/20 00:00 65 16 173/92 H 94 11/16/20 23:40 35.5 C L 64 16 132/57 L 94 11/16/20 22:45 35.7 C L 67 18 110/69 96 11/16/20 22:35 67 14 120/73 98 11/16/20 22:25 69 18 109/60 98 11/16/20 22:15 70 16 121/80 98 11/16/20 22:09 35.7 C L 72 16 98/56 L 98 PG Care Time/CCT Total # of Minutes Spent Total Time Spent with Patient: Total time spent is greater than 50% in coordination of care (as documented) at patient's floor/unit and/or counseling patient: Coding Level of Care Code 59117 Subseq Hosp Care Lvl 2 Diagnoses Ureterolithiasis N20.1 ANTHONY (acute kidney injury) N17.9 Solitary kidney, acquired Z90.5
[2020-11-17] MEDS: PANTOprazole 40 MG TAB PO SCH (09:10)
[2020-11-17] MEDS: ARTIFICIAL TEARS OP SCH ×3 (09:10→21:07)
[2020-11-17 10:35] LABS: Eosinophils # (auto) 0.03 K/uL (0-0.5); Eosinophils % (auto) 0.3 %; Hematocrit (blood only) 24.8 % (37-47); Hemoglobin 8.4 g/dL (12.0-16.0); Immature Granulocytes # (auto) 0.03 K/uL (0.00-0.02); Immature Granulocytes % (auto) 0.3 %; Lymphocytes # (auto) 0.57 K/uL (1.2-3.4); Lymphocytes % (auto) 5.1 %; Mean Corpuscular Hemoglobin 28.8 pg (25-34); Mean Corpuscular Hgb Conc 33.9 g/dL (32-36); Mean Corpuscular Volume 84.9 fL (80-100); Mean Platelet Volume 9.7 fL (7.4-10.4); Monocytes # (auto) 0.45 K/uL (0.11-0.59); Neutrophils # (auto) 10.05 K/uL (1.4-6.5); Neutrophils % (auto) 90.3 %; Platelet Count 221 K/uL (130-400); RDW Coefficient of Variation 15.7 % (11.5-14.5); RDW Standard Deviation 49.3 fL (36.4-46.3); Red Blood Count 2.92 M/uL (4.2-5.4); White Blood Count 11.13 K/uL (4.8-10.8)
[2020-11-17 10:56] LABS: Albumin Level 1.8 gm/dl (3.4-5.0); BUN Creatinine Ratio 23.9 (10-20); Calcium 8.2 mg/dl (8.5-10.1); Creatinine Clr Calc Pharmacy 13.6 ml/min; Est GFR (African American) 12.5 ml/min; Est GFR (Non-African American) 10.8 ml/min; Phosphorus 5.8 mg/dl (2.5-4.9); Potassium 4.5 mmol/L (3.5-5.1)
[2020-11-17 11:10] LABS: Albumin Globulin Ratio 0.4 (0.9-2); Bilirubin,Total 0.6 mg/dl (0.2-1); Ferritin 555.3 ng/ml (8-388); Globulin 4.4 gm/dl (2.5-4.0); Magnesium 1.8 mg/dl (1.8-2.4); Total Protein 6.2 gm/dl (6.4-8.2)
[2020-11-17 11:22] LABS: Vitamin B12 > 2000 pg/ml (193-986)
--- NOTE | 2020-11-17 12:19 | Nephrology Consultation ---
Date of Consultation November 17, 2020 Assessment & Plan (1) ANTHONY (acute kidney injury): (2) Solitary kidney, acquired: (3) Hyponatremia: (4) Anuria: (5) Metabolic acidosis: ANTHONY related to obstructive nephropathy. CT pending to check stent placement. Volume status reasonable and Beverly is tolerating IVF for intravascular expansion. HCO3 replacement is appropriately being provided. Dysnatremia related to renal insufficiency and poor solute intake. Continue IVF for now with close monitoring of metabolic profile. I discussed goals of care with Beverly this AM. She has refused dialysis and would favor comfort measures. Medications are appropriately dosed for kidney dysfunction. BP is currently acceptable. No additional recommendations from nephrology currently. Will follow up pending CT evaluation. History of Present Illness Reason for Consultation: ANTHONY Requesting Physician: Kvng Florian DO Attending Physician: Kvng Florian DO History of Present Illness Beverly Cuadra is a 79-year-old female with baseline normal kidney function. She is a resident in SNF at [facility]. She presented to the ER at [facility] yesterday for evaluation of decreased urine output. History includes anuria for approximately 1.5 days. I discussed the patient with Dr. Purvis yesterday evening at the time of admission. Yesterday evening, Dr. Swan performed cystoscopy with stent placement. Retrograde pyelogram performed at that time. Unfortunately, Beverly remains relatively anuric. A follow up CT is scheduled. Baseline creatinine was 1.14 mg/dL in July. Creatinine has been stable at ~3.8 mg/dL since admissio. Medical history is notable for functional quadriplegia and left facial droop status post brain mass/schwannoma excision in 2006. Beverly has a chronic Irene catheter, solitary kidney status post nephrectomy for nephrolithiasis, sacral decubitus, left eye corneal ulceration and blindness, recurrent UTI, hyperlipidemia, hypothyroidism, vitamin B12 deficiency, chronic constipation. CT on admission demonstrated an obstructing 10 mm calculus. In 2012, she required percutaneous nephrostomy tube complicated by nephrectomy on the left after having an impacted 1 cm left UPJ stone. Beverly was adamant today that under no circumstances would be consider dialysis. She expressed similar refusal to Dr. Purvis yesterday. Allergies Allergy/AdvReac Type Severity Reaction Status Date / Time No Known Allergies Allergy Verified 11/10/20 11:44 Home Medications Medication Instructions Recorded Confirmed Type pantoprazole 40 mg tablet,delayed 40 mg PO QAM #90 tab 06/24/19 11/16/20 Rx release (Protonix) levothyroxine 75 mcg tablet 75 mcg PO QAM #90 tab 10/13/19 11/16/20 Rx (Synthroid) methenamine hippurate 1 gram 1 g PO BID #180 tab 02/08/20 11/16/20 Rx tablet (Hiprex) cholecalciferol (vitamin D3) 50 50 mcg PO QAM 06/14/20 11/16/20 History mcg (2,000 unit) capsule (Vitamin D3) cyanocobalamin (vitamin B-12) 1,000 mcg IM MONTHLY 06/14/20 11/16/20 History 1,000 mcg/mL injection solution cyanocobalamin (vitamin B-12) 500 500 mcg PO QAM 06/14/20 11/16/20 History mcg tablet (Vitamin B-12) magnesium oxide 400 mg PO Q2D 06/14/20 11/16/20 History peg 400-propylene glycol 0.4 %-0.3 1 drp OPR BID PRN 06/14/20 11/16/20 History % eye drops (Systane Ultra) zinc 50 mg tablet 50 mg PO QAM 06/14/20 11/16/20 History carboxymethylcellulose sodium 1 % 1 drp OPHTHALMIC (EYE) TID 11/16/20 11/16/20 History eye liquid gel drops (Refresh Liquigel) nystatin 100,000 unit/gram topical 1 applic TOPICAL DAILY 11/16/20 11/16/20 History powder ([facility]) Patient History Medical History (Updated 11/16/20 @ 21:14 by Anthony Bernal MD) Acute respiratory failure Alkaline phosphatase elevation Arthritis Aspiration into respiratory tract Brain tumor Candidal intertrigo Chronic constipation Decubitus ulcer, buttock Functional quadriplegia secondary to brain tumor removal 2006 GERD (gastroesophageal reflux disease) GI bleed Hearing loss Hyperlipidemia Hypotensive syncope Nephrolithiasis Pneumonia Sepsis Sepsis due to urinary tract infection (02/28/13) Slurred speech s/p stroke Solitary kidney, acquired Vitamin B 12 deficiency Weakness of both lower limbs Wheelchair dependent Surgical History H/O brain surgery tumor removed in 2006 H/O eye surgery H/O total knee replacement History of knee replacement right 2004 History of nephrectomy, left Family History Unknown Diabetes Hypertension Chronic liver disease Mother , age 93 of heart issues Heart disease Father , age 65 of hepatic cirrhosis. 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 Irene exchanged yesterday Physical Exam Constitutional: + well hydrated, + physical limitations (functional quadrap legia) and + frail appearing; no acute distress Eyes: + anicteric sclerae and + corneal abnormality ENMT: Ears: + hearing impairment Mouth: oral mucous membranes not dry Neck: trachea midline Respiratory: normal respiratory effort Auscultation: lungs clear to auscultation bilaterally Cardiovascular: Heart Sounds: normal S1 and normal S2 Extremities: normal capillary refill; no edema Gastrointestinal (Abdomen): Inspection/Auscultation: + abdomen distended Percussion/Palpation: abdomen soft; abdomen nontender Musculoskeletal: Extremities: + joint enlargement and + abnormal strength; no cyanosis Skin: + turgor decreased Neurologic: awake; not confused Speech / Cognition: + abnormal speech Motor/Sensory: no tremor and no asterixis Results & Data ([facility]) Vital Signs (Past 12 Hours) Vital Signs Temp Pulse Pulse Resp BP Pulse Ox 11/17/20 09:06 36.6 C 11/17/20 07:41 35.4 C L 75 16 93/56 L 92 11/17/20 06:14 36 C L 11/17/20 04:46 36.9 C 74 94 11/17/20 03:25 36.2 C L 63 16 107/57 L 93 11/17/20 02:10 34.1 C L 11/17/20 01:45 64 20 161/73 H 95 11/17/20 00:26 63 Laboratory Results Laboratory Results - last 24 hr 11/16/20 11/16/20 11/16/20 16:22 16:22 17:52 WBC 12.48 H RBC 3.24 L Hgb 9.4 L Hct 28.3 L MCV 87.3 MCH 29.0 MCHC 33.2 RDW Std Deviation 50.9 H RDW Coeff of Oliva 15.8 H Plt Count 192 MPV 10.5 H Immature Gran % (Auto) 0.3 Neut % (Auto) 91.1 Lymph % (Auto) 5.8 Brooks % (Auto) 2.6 Eos % (Auto) 0.2 Baso % (Auto) 0.0 Neut # (Auto) 11.37 H Lymph # (Auto) 0.73 L Brooks # (Auto) 0.32 Eos # (Auto) 0.02 Baso # (Auto) 0.00 Immature Gran # (Auto) 0.04 H Sodium 125 L Potassium 4.4 Chloride 94 L Carbon Dioxide 18 L Anion Gap 13.0 H BUN 86 H Creatinine 3.85 H Est Cr Clr Drug Dosing Not Reportable Est GFR ( Amer) 12.2 Est GFR (Non-Af Amer) 10.5 BUN/Creatinine Ratio 22.3 H Glucose 85 Calcium 8.6 Phosphorus Magnesium Iron TIBC Transferrin Transferrin % Sat Ferritin Total Bilirubin 0.6 GGT AST 32 ALT 25 Alkaline Phosphatase 951 H Total Protein 6.5 Albumin 1.9 L Globulin 4.6 H Albumin/Globulin Ratio 0.4 L Vitamin B12 Folate Urine Color Urine Appearance Urine pH Ur Specific [place] Urine Protein Urine Glucose (UA) Urine Ketones Urine Blood Urine Nitrite Urine Bilirubin Urine Urobilinogen Ur Leukocyte Esterase Urine WBC (Auto) Urine RBC (Auto) U Hyaline Cast (Auto) U Epithel Cells (Auto) Urine Bacteria (Auto) Ur Renal Epithelial Cell Urine Crystals Calcium Oxalate Crystal Uric Acid Crystals Triple Phos Crystals Other Crystals Amorphous Sediment Granular Casts Waxy Casts RBC Casts WBC Casts Other Casts Urine Mucus Urine Other Urine Trichomonas Urine Yeast Urine Sperm Ur Oval Fat Bodies COVID-19 Eval Order Covid19 at [facility] SARS-CoV-2 (PCR) 11/16/20 11/17/20 11/17/20 17:52 00:06 10:20 WBC 11.13 H RBC 2.92 L Hgb 8.4 L Hct 24.8 L MCV 84.9 MCH 28.8 MCHC 33.9 RDW Std Deviation 49.3 H RDW Coeff of Oliva 15.7 H Plt Count 221 MPV 9.7 Immature Gran % (Auto) 0.3 Neut % (Auto) 90.3 Lymph % (Auto) 5.1 Brooks % (Auto) 4.0 Eos % (Auto) 0.3 Baso % (Auto) 0.0 Neut # (Auto) 10.05 H Lymph # (Auto) 0.57 L Brooks # (Auto) 0.45 Eos # (Auto) 0.03 Baso # (Auto) 0.00 Immature Gran # (Auto) 0.03 H Sodium 124 L Potassium 4.3 Chloride 94 L Carbon Dioxide 21 Anion Gap 9.0 BUN 89 H Creatinine 3.81 H Est Cr Clr Drug Dosing 13.3 Est GFR ( Amer) 12.2 Est GFR (Non-Af Amer) 10.6 BUN/Creatinine Ratio 23.3 H Glucose 92 Calcium 8.2 L Phosphorus Magnesium Iron TIBC Transferrin Transferrin % Sat Ferritin Total Bilirubin GGT AST ALT Alkaline Phosphatase Total Protein Albumin Globulin Albumin/Globulin Ratio Vitamin B12 Folate Urine Color Urine Appearance Urine pH Ur Specific [place] Urine Protein Urine Glucose (UA) Urine Ketones Urine Blood Urine Nitrite Urine Bilirubin Urine Urobilinogen Ur Leukocyte Esterase Urine WBC (Auto) Urine RBC (Auto) U Hyaline Cast (Auto) U Epithel Cells (Auto) Urine Bacteria (Auto) Ur Renal Epithelial Cell Urine Crystals Calcium Oxalate Crystal Uric Acid Crystals Triple Phos Crystals Other Crystals Amorphous Sediment Granular Casts Waxy Casts RBC Casts WBC Casts Other Casts Urine Mucus Urine Other Urine Trichomonas Urine Yeast Urine Sperm Ur Oval Fat Bodies COVID-19 Eval Order SARS-CoV-2 (PCR) NEGATIVE 11/17/20 11/17/20 11/17/20 10:20 10:20 10:20 WBC RBC Hgb Hct MCV MCH MCHC RDW Std Deviation RDW Coeff of Oliva Plt Count MPV Immature Gran % (Auto) Neut % (Auto) Lymph % (Auto) Brooks % (Auto) Eos % (Auto) Baso % (Auto) Neut # (Auto) Lymph # (Auto) Brooks # (Auto) Eos # (Auto) Baso # (Auto) Immature Gran # (Auto) Sodium 124 L Potassium 4.5 Chloride 94 L Carbon Dioxide 19 L Anion Gap 11.0 BUN 89 H Creatinine 3.73 H Est Cr Clr Drug Dosing 13.6 Est GFR ( Amer) 12.5 Est GFR (Non-Af Amer) 10.8 BUN/Creatinine Ratio 23.9 H Glucose 58 L Calcium 8.2 L Phosphorus 5.8 H Magnesium 1.8 Iron 56 TIBC 208 L Transferrin 148 L Transferrin % Sat 27 Ferritin 555.3 H Total Bilirubin 0.6 GGT Pending AST 25 ALT 21 Alkaline Phosphatase 1073 H Total Protein 6.2 L Albumin 1.8 L Globulin 4.4 H Albumin/Globulin Ratio 0.4 L Vitamin B12 > 2000 H Folate 5.90 Urine Color Urine Appearance Urine pH Ur Specific [place] Urine Protein Urine Glucose (UA) Urine Ketones Urine Blood Urine Nitrite Urine Bilirubin Urine Urobilinogen Ur Leukocyte Esterase Urine WBC (Auto) Urine RBC (Auto) U Hyaline Cast (Auto) U Epithel Cells (Auto) Urine Bacteria (Auto) Ur Renal Epithelial Cell Urine Crystals Calcium Oxalate Crystal Uric Acid Crystals Triple Phos Crystals Other Crystals Amorphous Sediment Granular Casts Waxy Casts RBC Casts WBC Casts Other Casts Urine Mucus Urine Other Urine Trichomonas Urine Yeast Urine Sperm Ur Oval Fat Bodies COVID-19 Eval Order SARS-CoV-2 (PCR) 11/17/20 10:30 WBC RBC Hgb Hct MCV MCH MCHC RDW Std Deviation RDW Coeff of Oliva Plt Count MPV Immature Gran % (Auto) Neut % (Auto) Lymph % (Auto) Brooks % (Auto) Eos % (Auto) Baso % (Auto) Neut # (Auto) Lymph # (Auto) Brooks # (Auto) Eos # (Auto) Baso # (Auto) Immature Gran # (Auto) Sodium Potassium Chloride Carbon Dioxide Anion Gap BUN Creatinine Est Cr Clr Drug Dosing Est GFR ( Amer) Est GFR (Non-Af Amer) BUN/Creatinine Ratio Glucose Calcium Phosphorus Magnesium Iron TIBC Transferrin Transferrin % Sat Ferritin Total Bilirubin GGT AST ALT Alkaline Phosphatase Total Protein Albumin Globulin Albumin/Globulin Ratio Vitamin B12 Folate Urine Color Cancelled Urine Appearance Cancelled Urine pH Cancelled Ur Specific [place] Cancelled Urine Protein Cancelled Urine Glucose (UA) Cancelled Urine Ketones Cancelled Urine Blood Cancelled Urine Nitrite Cancelled Urine Bilirubin Cancelled Urine Urobilinogen Cancelled Ur Leukocyte Esterase Cancelled Urine WBC (Auto) Cancelled Urine RBC (Auto) Cancelled U Hyaline Cast (Auto) Cancelled U Epithel Cells (Auto) Cancelled Urine Bacteria (Auto) Cancelled Ur Renal Epithelial Cell Cancelled Urine Crystals Cancelled Calcium Oxalate Crystal Cancelled Uric Acid Crystals Cancelled Triple Phos Crystals Cancelled Other Crystals Cancelled Amorphous Sediment Cancelled Granular Casts Cancelled Waxy Casts Cancelled RBC Casts Cancelled WBC Casts Cancelled Other Casts Cancelled Urine Mucus Cancelled Urine Other Cancelled Urine Trichomonas Cancelled Urine Yeast Cancelled Urine Sperm Cancelled Ur Oval Fat Bodies Cancelled COVID-19 Eval Order SARS-CoV-2 (PCR) PG Care Time/CCT Total # of Minutes Spent Total Time Spent with Patient: Total time spent is greater than 50% in coordination of care (as documented) at patient's floor/unit and/or counseling patient: Coding Level of Care Code 68441 Inpt Consult Level 4 Diagnoses Solitary kidney, acquired Z90.5 Anuria R34 Hyponatremia E87.1 Metabolic acidosis E87.2 ANTHONY (acute kidney injury) N17.9
--- NOTE | 2020-11-17 13:35 | CT Scan Report ---
CT SCAN OF THE ABDOMEN AND PELVIS WITHOUT IV CONTRAST CLINICAL HISTORY: Right ureteral stent placement. COMPARISON STUDY: Abdominal CT performed yesterday 11/16/2020. Pelvic MRI dated 10/03/2020. TECHNIQUE: CT scan of the abdomen and pelvis is performed from the lung bases to the proximal femora. Images are reviewed in the axial, sagittal, and coronal planes. IV contrast was not administered for this examination. A dose lowering technique was utilized adhering to the principles of ALARA. The Ex amination is significantly degraded by motion artifact, and by streak artifact from the arms which co uld not be elevated above the abdomen or pelvis. CT DOSE: 2395.43 mGy.cm FINDINGS: Lung bases: Advanced atherosclerotic calcification is noted in the thoracic aorta. The heart is pillo l in size noting a small pericardial effusion. The coronary arteries are densely calcified. There are right larger than left pleural effusions with bibasilar consolidation. Liver: Evaluation of the liver is significantly degraded by streak artifact. The unenhanced liver is grossly normal in size, contour, and attenuation. There is no intrahepatic biliary ductal dilatation. Gallbladder: Calcification of the gallbladder wall is unchanged. Spleen: Normal in size and attenuation. Pancreas: The unenhanced pancreas is atrophic and grossly unremarkable. Adrenal glands: Nodularity of the adrenal glands is unchanged. Kidneys: The left kidney is surgically absent. The right kidney demonstrates cortical atrophy. There are small nonobstructing right renal calculi. These are not well evaluated due to the presence of con trast within the right renal collecting system. A right vesicoureteral stent is in appropriate positi on. A 7 mm calculus or calculi is identified within the right ureter along the course of the stent on image #235. This is at the level of L4. No additional right ureteral stones are seen. Abdominal vasculature: The abdominal aorta is normal in course and caliber noting advanced atheroscle rotic calcification. Bowel: There is significant wall thickening involving the rectosigmoid colon with mild surrounding in filtration. No bowel obstruction is identified. The appendix is not visualized. Peritoneum: There is no intraperitoneal free air or abdominal ascites. Lymphadenopathy: There are numerous mildly enlarged retroperitoneal lymph nodes. These measure up to 12 mm in short axis. Pelvic viscera: The bladder is decompressed and a Irene catheter and not well assessed. The uterus is normal as visualized. A vaginal pessary is in place. No adnexal lesion is seen. Skeletal structures: The skeletal structures are heterogeneously osteopenic. There is advanced lumbos acral spondylosis and scoliosis. No lytic or blastic lesions are seen. Soft tissues: A sacral decubitus ulcer is again noted. Osteomyelitis of the sacrum is suspected. IMPRESSION: 1. Significantly streak and motion compromised examination. 2. A right vesicoureteral stent is in appropriate position. 3. A 7 mm calculus/stone fragments is seen within the right ureter along the course of the stent as a mark. 4. There are additional nonobstructing right renal calculi. These are not well evaluated due to the p resence of contrast within the right renal pelvis. 5. Right larger than left pleural effusions with bibasilar consolidation. 6. There is a large sacral decubitus ulcer, likely with associated osteomyelitis of the underlying sa aleksey. This was better assessed on the recent pelvic MRI. 7. There is wall thickening involving the rectosigmoid colon with surrounding infiltration. Correlate clinically for evidence of a proctocolitis. 8. Porcelain gallbladder. 9. Mildly enlarged retroperitoneal lymph nodes are nonspecific and unchanged. 9. Additional findings as above. ACT 112: Negative or not required by law. Electronically signed by: Phoenix Diego M.D. 11/17/2020 1:34 PM
[2020-11-17 14:30] LABS: Albumin Level 1.7 gm/dl (3.4-5.0); BUN Creatinine Ratio 23.8 (10-20); Calcium 8.1 mg/dl (8.5-10.1); Creatinine Clr Calc Pharmacy 13.6 ml/min; Est GFR (African American) 12.5 ml/min; Est GFR (Non-African American) 10.8 ml/min; Potassium 4.5 mmol/L (3.5-5.1)
[2020-11-17 14:31] LABS: Phosphorus 5.7 mg/dl (2.5-4.9)
[2020-11-17] MEDS: SODIUM BICARBONATE 8.4% 150 MEQ in DEXTROSE 5% 1,000 ML IV SCH (16:31)
[2020-11-17] MEDS: cefTRIAXone SODIUM 2,000 MG in DEXTROSE 5% 50 ML IV SCH (17:41)
--- NOTE | 2020-11-17 17:56 | Hospitalist Progress Note ---
Date of Service November 17, 2020 Assessment & Plan (1) Ureterolithiasis: Plan: (1) ANTHONY (acute kidney injury): Presents with an area in the setting of chronic indwelling Irene catheter No abdominal pain or fevers, but creatinine up to 3.85 from baseline of 1.0 in 07/2020. There is a [id number] creatinine from 10/03/2020 that was 2.0 that was performed on the day of an MRI of the pelvis. Unclear if there was any follow- up on this. This is likely an acute kidney injury developing over at least the last month and is secondary to right-sided ureterolithiasis in the setting of solitary kidney. -Give Normosol 500 mL bolus now and then start half-normal saline +150 M EQ of sodium bicarbonate at 80 mL's per hour -Follow serial BMP -Follow urine output -Consulted nephrology- no further recommendations, will continue to follow -Patient adamant that she would not want dialysis if renal function worsens -Urology consulted last night --> ureteral stent placed appropriately, mild drainage during procedure -Repeat CT scan s/p procedure: 7mm stone fragments within stent and other nonobstructing fragments in ureter, suspected osteomyelitis of sacral ulcer -Cr not improved over night following procedure. Discussed case with urology who states that it could take 2-3 days for the kidney to function appropriately again so we have to wait and see. In 2-3 days, if Cr and urine output do not improve, it would be due to renal failure due to prolonged hydronephrosis se condary to ureteral stone versus post renal obstruction. Depending on the results, options would include a nephrostomy tube versus comfort measures and hospice care. For now, patient is on a minimal rate of fluids to enhance intravascular volume for optimal kidney function while avoiding volume overload since urine output is minimal to none. Plan and course of treatment discussed in detail with patient's and sister (POA). Sister is very understanding of the situation. (2) Ureterolithiasis: As above, with 1 cm stone in the right mid ureter with hydroureteronephrosis Urology management plan for urgent stent placement -She has no pain with this-pain medication not needed -IV Zofran as needed for nausea -stent placed successfully (3) Hyponatremia: Sodium down to 125 from baseline of 140. Fortunately is mentating quite well. This may be more of a subacute process. Secondary to renal failure -Correct obstructive uropathy as above -Follow serial BMP; now at 126 (4) Anuria As above, secondary to ureterolithiasis with solitary kidney (5) Solitary kidney, acquired: Left kidney removed and 2013 for stone related issues (6) Metabolic acidosis: Secondary to renal failure as above Follow serial BMP Bicarbonate drip (7) Hypothyroidism: TSH normal at 2.2 and 07/2020 Continue home levothyroxine (8) Chronic indwelling Irene catheter: Secondary to neurogenic bladder Exchanged at the skilled nursing prior to admission Irene replaced s/p ureteral procedure (9) Anemia: Hemoglobin low at 9.4, MCV normal. This is around her baseline for last 3 months B12 and folate normal Follow CBC (10) Alkaline phosphatase elevation: Alkaline phosphatase has always been elevated in the 200s, however is severely elevated at [address] abdomen/pelvis with porcelain gallbladder but patient has no abdominal pain or symptoms of gallbladder dysfunction. Liver appears normal. Perhaps some sort of secondary hyperparathyroidism from renal failure versus also chronic osteomyelitis of the sacrum contributing? Follow LFTs: ALP increased --> 1070s, GGT pending Phosphorous 5.7 --> 5.6. Cont to follow. (11) Leukocytosis: WBC count elevated at 12.4, could be stress reaction --> 11.3 Collect UA once able to obtain urine during urological procedure; minimal urine output unable to obtain Prophylactic antibiotics given with cystoscopy, however afebrile here and will hold off on further antibiotics for now unless recommended by urology based on procedural observations (12) Pressure ulcer of coccygeal region, stage 3, suspected osteomyelitis Longstanding, has been stage III-IV in the past, follows with wound care center Was to have wound VAC placed but unable to due to macerated skin around the edges at most recent visit on 11/10 Continue wound care dressings and consult wound care nurse Offload pressure -CT suspects osteomyelitis of sacral ulcer, started IV Rocephin, consider MRI w/ patient consent -Discussed onset of osteomyelitis and future course of long time antibiotics for treatment as a surgical option it not likely due to location (13) GERD (gastroesophageal reflux disease): continue PPI (14) Corneal ulcer: Continue Systane eyedrops and ointment as she is unable to close her lid Of note, does have a piece of gold in her lid to help weight it down (15) DVT prophylaxis: SQ Heparin Disposition- observe 2-3 days for urine output and Cr levels before future treatment decision (nephrostomy tube versus comfort care) DNR/DNI as per discussion with patient and her sister who is her healthcare power of tier truck driver at the bedside Admission and Anticipated Discharge Date Admission Date: November 16, 2020 Supervising Physician Co-Signing Physician Notes I personally examined the patient and verified all ramirez points of history and exam, discussed case, and agree with decision making with Dr Quinteros. No notable shortness of breath. Extensive discussion with sister who is power of tier truck driver, and . Discussed situation, discussed concerns about potential deterioration or failure to improve, discussed what we are watching for in regards of decompensation, as well as possible need for interventions in the next few days depending on her clinical course. Her sister, who is her power of tier truck driver, expressed strong confidence in the patient's statements of not wanting dialysis, of being DNR/DNI, and generally having a good understanding of the severity of her illness. Sister definitely wants to backup the patient's wishes in this regard. Vitals noted, in general she is awake and alert pleasant no distress. HEENT normocephalic atraumatic mucous membranes are moist. Breathing unlabored no accessory muscle use good effort. Skin shows no rashes no pallor or icterus. Acute renal failureobstructive uropathy related to ureterolithiasis with solitary kidneystent placed. Follow closely, give time for renal improvement. If it seems as though the stent is not draining, then we may need to consider percutaneous nephrostomy, if the patient wants to move forward with this. In the meantime, right now it is too soon to tell, follow closelyclinically as far as urine output and also as far as lab work. Repeat imaging if needed. We will continue with gentle IV fluids to ensure she has enough intravascular volume that her renal failure is not complicated by an additional prerenal state, but given that she is almost an uric, we will slow the rate down significantly so as to minimize the risk of precipitating iatrogenic volume overload. We discussed that should she get into a decompensated CHF state, that would likely push her into a situation where comfort measures would be the most rational course of action, given her not wanting to be on dialysis. Sacral ulcer with osteomyelitisI presume this is also the source of her elevated alk phos. Started ceftriaxone, continue wound care. Depending on how her situation factors with her renal failure, if she continues to be in a situation where ongoing medical care stays warranted, then we would want to get MRI to further assess. Family aware of the severity of her situation, given that offloading is nearly impossible with her bedbound weakness. Very good discussion with family. Continue to follow closely. Otherwise as above. Subjective A little difficult to understand this morning but in good spirits. Wanted to go home because it's her birthday. Denies SOB, fever, chest pain, abdominal and back pain. Review of Systems Review of Systems: All systems reviewed & are unremarkable except as noted in HPI & below Physical Exam Physical Exam: Constitutional: WD/WN, vitals as above, + obese Eyes: + corneal abnormality (OS ulceration and cloudy iris) ENMT: external ear and nose normal, oropharynx normal Ears: + hearing impairment With left-sided facial paralysis Neck: trachea midline, no thyromegaly Respiratory: normal respiratory effort, lungs clear to auscultation Cardiovascular: RRR, no murmur, no edema Gastrointestinal (Abdomen): normal bowel sounds, soft, nontender, no hepatosplenomegaly Musculoskeletal: Extremities: extremities normal to inspection; no cyanosis and no clubbing; no CVA tenderness Skin: no rashes, warm and dry Neurologic: + focal motor deficit (With weakness in all 4 extremities, contractures on left) and awake Psychiatric: A+Ox3 Genitourinary: Irene catheter in place with very minimal urine in bag or tubing Lymphatic: no lymphedema Results & Data Results & Data ([facility]) Vital Signs (Past 12 Hours) Vital Signs Temp Pulse Pulse Resp BP Pulse Ox 11/17/20 16:00 36.4 C L 90 16 94/57 L 92 11/17/20 09:06 36.6 C 11/17/20 08:00 72 11/17/20 07:41 35.4 C L 75 16 93/56 L 92 11/17/20 06:14 36 C L Resident Activity Tracking Resident Involvement: Resident Care Provided Care Provided: Adult Hospital Medicine
--- NOTE | 2020-11-17 18:45 | Billing Data ---
Date of Service November 17, 2020 Coding Level of Care Code 42784 Subseq Hosp Care Lvl 3
--- NOTE | 2020-11-18 09:13 | Hospitalist Progress Note ---
Date of Service November 18, 2020 Assessment & Plan (1) ANTHONY (acute kidney injury): (2) Anuria: (3) Ureterolithiasis: (4) Hyponatremia: (5) Stage 4 pressure ulcer: Plan: (1) ANTHONY (acute kidney injury) secondary to ureterolithiasis in setting of solitary kidney: Presents with an anurea in the setting of chronic indwelling Irene catheter, No abdominal pain or fevers -creatinine 3.85 on admission from baseline of 1.0 in 07/2020. -Initially given Normosol 500 mL bolus, switched to half-normal saline +150 M EQ of sodium bicarbonate at 80mls/hr, currently Sodium Bicarbonate 150 Meq in Dextrose 1150mls @ 50mls/hr -Follow serial BMP, urine output -Consulted nephrology- no further recommendations, will continue to follow -Urology consulted 11/16, ureteral stent placed appropriately, mild drainage during procedure -Repeat CT scan s/p procedure: 7mm stone fragments within stent and other nonobstructing fragments in ureter, suspected osteomyelitis of sacral ulcer -Cr not improved by 11/17 following procedure. Discussed case with urology who states that it could take 2-3 days for the kidney to function appropriately again. In 2-3 days, if Cr and urine output do not improve, it would be due to renal failure due to prolonged hydronephrosis secondary to ureteral stone versus post renal obstruction. Depending on the results, options would include a nephrostomy tube versus comfort measures and hospice care. For now, patient is on a minimal rate of fluids to enhance intravascular volume for optimal kidney function while avoiding volume overload since urine output is minimal to none. Plan and course of treatment discussed in detail with patient's and sis sai (POA). Sister is very understanding of the situation. -Patient adamant that she would not want dialysis if renal function worsens -Creatinine 3.74 --> 4.14, BUN 89--> 92, worsening (2) Ureterolithiasis: As above, with 10 mm stone in the right mid ureter with hydroureteronephrosis -consulted Urology, stent placed successfully 11/16 (3) Hyponatremia secondary to renal failure: Sodium 125 on admission. Fortunately is mentating quite well. -Correct obstructive uropathy as above -Follow serial BMP; Na 124 (4) Anuria As above, secondary to ureterolithiasis with solitary kidney (5) Solitary kidney, acquired: Left kidney removed and 2013 for stone related issues (6) Metabolic acidosis: Secondary to renal failure as above Follow serial BMP Bicarbonate drip (7) Hypothyroidism: TSH normal at 2.2 and 07/2020 Continue home levothyroxine (8) Chronic indwelling Irene catheter: Secondary to neurogenic bladder Exchanged at the correction prior to admission Irene replaced s/p ureteral procedure (9) Anemia: Hemoglobin on admittion 9.4, MCV normal. 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 Liver appears normal. -Phosphorous 5.7 -GGT 73 (11) Leukocytosis: WBC count elevated on admission at 12.4 --> currently 11.3 Collect UA once able to obtain urine during urological procedure; minimal urine output unable to obtain -started on ceftriaxone 2000mg in dextrose 70mls@ 140 mls/hr q24 (12) Pressure ulcer of coccygeal region, stage 3, suspected osteomyelitis Longstanding, has been stage III-IV in the past, follows with wound care center, Was to have wound VAC placed but unable to due to macerated skin around the edges at most recent visit on 11/10 - Continue wound care dressings and consult wound care nurse, Offload pressure -CT suspects osteomyelitis of sacral ulcer, started IV Rocephin, consider MRI w/ patient consent -Discussed onset of osteomyelitis and future course of long time antibiotics for treatment as a surgical option it not likely due to location (13) GERD (gastroesophageal reflux disease): continue PPI (14) Corneal ulcer: Continue Systane eyedrops and ointment as she is unable to close her lid Of note, does have a piece of gold in her lid to help weight it down (15) DVT prophylaxis: SQ Heparin Disposition- observe 2-3 days for urine output and Cr levels before future treatment decision (nephrostomy tube versus comfort care) DNR/DNI as per discussion with patient and her sister who is her healthcare power of personal injury attorney at the bedside Admission and Anticipated Discharge Date Admission Date: November 16, 2020 Supervising Physician Co-Signing Physician Notes I personally examined the patient and verified all ramirez points of history and exam, discussed case, and agree with decision making with Dr Souza. No shortness of breath. Unfortunately no urine output. She expresses an understanding that the situation may lead to her demiseshe still does not want dialysis. She asked very good questions, and answered them to the best of my ability, fully open about the uncertainty of her current situation. Vitals noted, in general she is awake and alert pleasant no distress. HEENT normocephalic atraumatic mucous membranes moist. Breathing unlabored with clear lungs no rales rhonchi or wheezes good effort no accessory muscle use. Unfortunately minimal to no urine in her Irene bag. Chronic focal deficits neurologically. Acute renal failureobstructive uropathy related to ureteral lithiasis with solitary kidneystent has been placed, awaiting renal recovery. If unclear about stent function, may need to consider percutaneous nephrostomy if patient would so desire. For now we will follow into tomorrow to give kidney more time to wake up. Follow very closely, pulmonary edema would be disastrouswe discussed openly yesterday with sister/POA, today further in more depth with patient herself, and generally the plan would be an attempt at medical manage ment, but a very low threshold to change her to comfort measures. Sacral ulcer with osteomyelitismore than likely the source of her elevated alk phosRocephin, local wound care. Discussed that this would be very difficult to heal, given the severity of the situation and that offloading appears to be nearly impossible with her bedbound weakness. Depending on how the situation goes with her renal failure, if she is doing well enough to tolerate/if ongoing management of the sacral ulcer is still an option, then would consider MRI to further assess. Otherwise as above. Subjective Patient seen at bedside, comfortable calm cooperative. Patient is largely immobile PMH quadriplegia and left facial droop. Patient remarks on some pain in her left knee when she is being moved but otherwise has no complaints, sleeping well, looking forward to niece visiting. Irene is present, per nurse she had around 100cc urine output last night. Nursing also remarked on food pocketing by the patient, concern for dysphagia. Telemetry noted some first degree PVC's and episodes of bradycardia. Review of Systems Review of Systems: Negative fever chills Negative headache dizziness Negative chest pain palpitations SOB Negative nausea vomitting diarrhea constipation Physical Exam Physical Exam: General: immobile with b/l foot support, in no acute distress Heart: RRR, +S1 S2, no murmurs/gallops/rubs Lungs: poor inspiratory effort, no wheezes/rales/rhonchi Abd: mildly distended, nontender, +BS Extremities: no swelling Results & Data Results & Data ([facility]) Vital Signs (Past 12 Hours) Vital Signs Temp Pulse Pulse Resp BP Pulse Ox 11/18/20 07:28 80 11/18/20 04:00 36.4 C L 86 18 137/77 96 11/17/20 23:00 36.6 C 87 17 127/63 94 11/17/20 22:19 86 Laboratory Results 11/18/20 11/18/20 11/17/20 Range/Units 08:13 08:13 10:20 ESR > 130 H (0-30) mm/hr Sodium 124 L (136-145) mmol/L Potassium 4.5 (3.5-5.1) mmol/L Chloride 90 L (98-107) mmol/L Carbon Dioxide 22 (21-32) mmol/L Anion Gap 12.0 H (3-11) BUN 92 H (7-18) mg/dl Creatinine 4.14 H D (0.6-1.2) mg/dl Est Cr Clr Drug Dosing 12.8 ml/min Est GFR ( Amer) 11.1 ml/min Est GFR (Non-Af Amer) 9.5 ml/min BUN/Creatinine Ratio 22.2 H (10-20) Glucose 83 (70-99) mg/dl Calcium 8.0 L (8.5-10.1) mg/dl Total Bilirubin 0.4 (0.2-1) mg/dl Direct Bilirubin 0.2 (0-0.2) mg/dl GGT 73 H (3-65) U/L AST 15 (15-37) U/L ALT 17 (12-78) U/L Alkaline Phosphatase 1025 H (45-117) U/L Total Protein 6.0 L (6.4-8.2) gm/dl Albumin 1.7 L (3.4-5.0) gm/dl Diagnostic Findings Retrograde Pyelogram 11/16/20 19:32 FL KUB CLINICAL HISTORY: RIGHT CYSTO/STENT COMPARISON STUDY: Abdomen and pelvis CT 11/16/2020. FLUOROSCOPY TIME: 17 seconds. FINDINGS: 2 fluoroscopic spot images of the abdomen and pelvis demonstrate a right ureteral stent which appears in good position. There is contrast within the dilated right renal collecting system. IMPRESSION: Fluoroscopy provided for right ureteral stent placement which appears in good position. ACT 112: Negative or not required by law. Electronically signed by: Anthony Gonzalez M.D. 11/17/2020 7:47 AM Abdomen/Pelvis CT 11/17/20 11:33 CT SCAN OF THE ABDOMEN AND PELVIS WITHOUT IV CONTRAST CLINICAL HISTORY: Right ureteral stent placement. COMPARISON STUDY: Abdominal CT performed yesterday 11/16/2020. Pelvic MRI dated 10/03/2020. TECHNIQUE: CT scan of the abdomen and pelvis is performed from the lung bases to the proximal femora. Images are reviewed in the axial, sagittal, and coronal gladys kirsten. IV contrast was not administered for this examination. A dose lowering technique was utilized adhering to the principles of ALARA. The Examination is significantly degraded by motion artifact, and by streak artifact from the arms which could not be elevated above the abdomen or pelvis. CT DOSE: 2395.43 mGy.cm FINDINGS: Lung bases: Advanced atherosclerotic calcification is noted in the thoracic aorta. The heart is normal in size noting a small pericardial effusion. The coronary arteries are densely calcified. There are right larger than left pleural effusions with bibasilar consolidation. Liver: Evaluation of the liver is significantly degraded by streak artifact. The unenhanced liver is grossly normal in size, contour, and attenuation. There is no intrahepatic biliary ductal dilatation. Gallbladder: Calcification of the gallbladder wall is unchanged. Spleen: Normal in size and attenuation. Pancreas: The unenhanced pancreas is atrophic and grossly unremarkable. Adrenal glands: Nodularity of the adrenal glands is unchanged. Kidneys: The left kidney is surgically absent. The right kidney demonstrates cortical atrophy. There are small nonobstructing right renal calculi. These are not well evaluated due to the presence of contrast within the right renal collecting system. A right vesicoureteral stent is in appropriate position. A 7 mm calculus or calculi is identified within the right ureter along the course of the stent on image #235. This is at the level of L4. No additional right ureteral stones are seen. Abdominal vasculature: The abdominal aorta is normal in course and caliber noting advanced atherosclerotic calcification. Bowel: There is significant wall thickening involving the rectosigmoid colon with mild surrounding infiltration. No bowel obstruction is identified. The appendix is not visualized. Peritoneum: There is no intraperitoneal free air or abdominal ascites. Lymphadenopathy: There are numerous mildly enlarged retroperitoneal lymph nodes. These measure up to 12 mm in short axis. Pelvic viscera: The bladder is decompressed and a Irene catheter and not well assessed. The uterus is normal as visualized. A vaginal pessary is in place. No adnexal lesion is seen. Skeletal structures: The skeletal structures are heterogeneously osteopenic. There is advanced lumbosacral spondylosis and scoliosis. No lytic or blastic les ions are seen. Soft tissues: A sacral decubitus ulcer is again noted. Osteomyelitis of the sacrum is suspected. IMPRESSION: 1. Significantly streak and motion compromised examination. 2. A right vesicoureteral stent is in appropriate position. 3. A 7 mm calculus/stone fragments is seen within the right ureter along the course of the stent as above. 4. There are additional nonobstructing right renal calculi. These are not well evaluated due to the presence of contrast within the right renal pelvis. 5. Right larger than left pleural effusions with bibasilar consolidation. 6. There is a large sacral decubitus ulcer, likely with associated osteomyelitis of the underlying sacrum. This was better assessed on the recent pelvic MRI. 7. There is wall thickening involving the rectosigmoid colon with surrounding infiltration. Correlate clinically for evidence of a proctocolitis. 8. Porcelain gallbladder. 9. Mildly enlarged retroperitoneal lymph nodes are nonspecific and unchanged. 9. Additional findings as above. ACT 112: Negative or not required by law. Electronically signed by: Phoenix Diego M.D. 11/17/2020 1:34 PM Medications Administered Current Inpatient Medications Acetaminophen (Acetaminophen 325 Mg Tab) 650 mg PO Q4H PRN PRN Reason: Pain or Fever Stop: 12/16/20 23:39 Artificial Tears (Artificial Tears) 2 drops OP TID BABAR Stop: 12/17/20 08:59 Last Admin: 11/18/20 13:56 Dose: 2 drops Documented by: Heparin Sodium (Porcine) (Heparin Sod 5,000 Unit/0.5 Ml Vial) 5,000 units SQ Q12 BABAR Stop: 12/16/20 23:39 Last Admin: 11/18/20 09:48 Dose: Not Given Documented by: Sodium Bicarbonate 150 meq/ (Dextrose) 1,150 mls @ 50 mls/hr IV .Q23H [facility] Stop: 12/17/20 15:44 Last Admin: 11/18/20 13:57 Dose: 50 mls/hr Documented by: Ceftriaxone Sodium 2,000 mg/ (Dextrose) 70 mls @ 140 mls/hr IV Q24H [facility]; Protocol Stop: 11/24/20 15:59 Last Infusion: 11/17/20 18:25 Dose: Infused Documented by: Levothyroxine Sodium (Levothyroxine Sodium 75 Mcg Tablet) 75 mcg PO DAILYBB [facility] Stop: 12/17/20 06:29 Last Admin: 11/18/20 09:48 Dose: Not Given Documented by: Pantoprazole Sodium (Pantoprazole 40 Mg Tab) 40 mg PO QAM [facility] Stop: 12/17/20 08:59 Last Admin: 11/18/20 09:48 Dose: Not Given Documented by: Resident Activity Tracking Resident Involvement: Resident Care Provided Care Provided: Adult Hospital Medicine (1) Stage 4 pressure ulcer Pressure injury location: sacral region Qualified Code(s): L89.154 - Pressure ulcer of sacral region, stage 4
[2020-11-18 09:16] LABS: Albumin Level 1.7 gm/dl (3.4-5.0); BUN Creatinine Ratio 22.2 (10-20); Creatinine Clr Calc Pharmacy 12.8 ml/min; Est GFR (African American) 11.1 ml/min; Est GFR (Non-African American) 9.5 ml/min; Potassium 4.5 mmol/L (3.5-5.1)
[2020-11-18 09:31] LABS: Bilirubin Direct 0.2 mg/dl (0-0.2); Bilirubin,Total 0.4 mg/dl (0.2-1)
[2020-11-18] MEDS: HEPARIN SOD 5,000 UNIT/0.5 ML VIAL SQ SCH ×2 (09:48→21:42)
[2020-11-18] MEDS: PANTOprazole 40 MG TAB PO SCH (09:48)
[2020-11-18] MEDS: LEVOTHYROXINE SODIUM 75 MCG TABLET PO SCH (09:48)
[2020-11-18] MEDS: ARTIFICIAL TEARS OP SCH ×3 (09:48→21:42)
--- NOTE | 2020-11-18 11:38 | Urology Progress Note ---
Date of Service November 18, 2020 Assessment & Plan (1) Ureterolithiasis: (2) ANTHONY (acute kidney injury): (3) Solitary kidney, acquired: Plan: Stent is in good position on CT yesterday but there is mild hydronephrosis. I explained to the patient that her kidney function is worsening. If we are soon not seeing improvement I would recommend PCN placement at a tertiary facility. Recheck BMP in the AM. Patient is stable at this time. STORM tomorrow Admission and Anticipated Discharge Date Admission Date: November 16, 2020 Subjective Patient underwent stenting of a solitary kidney and continues with minimal UO - 100cc last 24 hours. 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 She reports that she is laying in bad thinking about dying. She does not want HD. CT yesterday shows mild hydro with the stent in good position. She denies pain. + occ SOB. Review of Systems Constitutional: as per Subjective / HPI Eyes: no worsening vision Ear, Nose, Mouth, Throat: no facial pain and no pain with swallowing Respiratory: no cough and no dyspnea Cardiovascular: no chest pain and no palpitations Gastrointestinal: as per Subjective / HPI Genitourinary: as per Subjective / HPI Musculoskeletal: + back pain Functional quadriplegia Integumentary: no rash and no urticaria Neurologic: Asymmetrical facial droop Psychiatric: no behavioral changes and no depression Endocrine: no fatigue Physical Exam Physical Exam: NAD anxious left facial droop nonlabored regular rhythm soft ext with edema urine - small amount in the bag - yellow/brown Results & Data ([facility]) Vital Signs (Past 12 Hours) Vital Signs Temp Pulse Pulse Resp BP Pulse Ox 11/18/20 07:28 80 11/18/20 04:00 36.4 C L 86 18 137/77 96 PG Care Time/CCT Total # of Minutes Spent Total Time Spent with Patient: Total time spent is greater than 50% in coordination of care (as documented) at patient's floor/unit and/or counseling patient: Coding [place] [address] Subseq Hosp Care Lvl 2 Patient Type Established History Expanded Problem Focused Exam Expanded Problem Focused Medical Decision Making Moderate Complexity Diagnoses Ureterolithiasis N20.1 ANTHONY (acute kidney injury) N17.9 Solitary kidney, acquired Z90.5 Time Spent (min) 25
--- NOTE | 2020-11-18 11:54 | Nephrology Progress Note ---
Date of Service November 18, 2020 Assessment & Plan (1) ANTHONY (acute kidney injury): (2) Solitary kidney, acquired: (3) Hyponatremia: (4) Anuria: (5) Metabolic acidosis: Plan: ANTHONY related to obstructive nephropathy. Unfortunately remains oligoanuric. CT confirmed adequate positioning of stent. Some hydronephrosis persists. Volume status reasonable. IV NaHCO3 infusion continues to encourage vascular expansion. I discussed goals of care with Beverly this AM. She has refused dialysis and would favor comfort measures. I did not discuss PCN with Beverly this AM but possibility was discussed with Dr. Florian. Urology consultation appreciated. Continue to monitor for renal recovery for now. Medications are appropriately dosed for kidney dysfunction. No additional recommendations at this time. Admission and Anticipated Discharge Date Admission Date: November 16, 2020 Subjective No acute events overnight. Unfortunately, remains relatively anuric. Bedside nurse report some confusion initially this AM which improved when reoriented. No fevers or chills. No pain. Beverly was resting comfortably in bed at the time of my assessment this AM. She reiterated her refusal of dialysis. I discussed the plan of care with Dr. Florian this AM. Review of Systems Review of Systems: All systems reviewed & are unremarkable except as noted in HPI & below Physical Exam Constitutional: + physical limitations (functional quadraplegia) and + frail appearing; no acute distress Eyes: + anicteric sclerae and + corneal abnormality ENMT: Ears: + hearing impairment Mouth: oral mucous membranes not dry Neck: trachea midline Respiratory: normal respiratory effort Auscultation: lungs clear to auscultation bilaterally Cardiovascular: Heart Sounds: normal S1 and normal S2 Extremities: normal capillary refill; no edema Gastrointestinal (Abdomen): Inspection/Auscultation: + abdomen distended Percussion/Palpation: abdomen soft; abdomen nontender Musculoskeletal: Extremities: + joint enlargement and + abnormal strength; no cyanosis Skin: + turgor decreased Neurologic: awake; not confused Motor/Sensory: no tremor and no asterixis Results & Data ([facility]) Vital Signs (Past 12 Hours) Vital Signs Temp Pulse Pulse Resp BP Pulse Ox 11/18/20 07:28 80 11/18/20 04:00 36.4 C L 86 18 137/77 96 Laboratory Results Laboratory Results - last 24 hr 11/17/20 11/17/20 11/18/20 10:20 14:04 08:13 ESR > 130 H Sodium 126 L Potassium 4.5 Chloride 94 L Carbon Dioxide 19 L Anion Gap 13.0 H BUN 89 H Creatinine 3.74 H Est Cr Clr Drug Dosing 13.6 Est GFR ( Amer) 12.5 Est GFR (Non-Af Amer) 10.8 BUN/Creatinine Ratio 23.8 H Glucose 56 L Calcium 8.1 L Phosphorus 5.7 H Total Bilirubin Direct Bilirubin GGT 73 H AST ALT Alkaline Phosphatase Total Protein Albumin 1.7 L 11/18/20 08:13 ESR Sodium 124 L Potassium 4.5 Chloride 90 L Carbon Dioxide 22 Anion Gap 12.0 H BUN 92 H Creatinine 4.14 H D Est Cr Clr Drug Dosing 12.8 Est GFR ( Amer) 11.1 Est GFR (Non-Af Amer) 9.5 BUN/Creatinine Ratio 22.2 H Glucose 83 Calcium 8.0 L Phosphorus Total Bilirubin 0.4 Direct Bilirubin 0.2 GGT AST 15 ALT 17 Alkaline Phosphatase 1025 H Total Protein 6.0 L Albumin 1.7 L PG Care Time/CCT Total # of Minutes Spent Total Time Spent with Patient: Total time spent is greater than 50% in coordination of care (as documented) at patient's floor/unit and/or counseling patient: Coding Level of Care Code 29065 Subseq Hosp Care Lvl 3 Diagnoses ANTHONY (acute kidney injury) N17.9 Solitary kidney, acquired Z90.5 Hyponatremia E87.1 Anuria R34 Metabolic acidosis E87.2
[2020-11-18] MEDS: SODIUM BICARBONATE 8.4% 150 MEQ in DEXTROSE 5% 1,000 ML IV SCH (13:57)
[2020-11-18] MEDS: cefTRIAXone SODIUM 2,000 MG in DEXTROSE 5% 50 ML IV SCH (16:19)
--- NOTE | 2020-11-18 18:55 | Billing Data ---
Date of Service November 18, 2020 Coding Level of Care Code 63174 Subseq Hosp Care Lvl 3
[2020-11-19] MEDS: LEVOTHYROXINE SODIUM 75 MCG TABLET PO SCH (06:23)
[2020-11-19 06:29] LABS: Basophils # (auto) 0.01 K/uL (0-0.2); Basophils % (auto) 0.1 %; Eosinophils # (auto) 0.01 K/uL (0-0.5); Eosinophils % (auto) 0.1 %; Hematocrit (blood only) 24.3 % (37-47); Hemoglobin 8.4 g/dL (12.0-16.0); Immature Granulocytes # (auto) 0.03 K/uL (0.00-0.02); Immature Granulocytes % (auto) 0.4 %; Lymphocytes % (auto) 10.8 %; Mean Corpuscular Hemoglobin 28.7 pg (25-34); Mean Corpuscular Hgb Conc 34.6 g/dL (32-36); Mean Corpuscular Volume 82.9 fL (80-100); Mean Platelet Volume 9.9 fL (7.4-10.4); Monocytes # (auto) 0.52 K/uL (0.11-0.59); Monocytes % (auto) 6.3 %; Neutrophils # (auto) 6.84 K/uL (1.4-6.5); Neutrophils % (auto) 82.3 %; Platelet Count 238 K/uL (130-400); RDW Coefficient of Variation 15.7 % (11.5-14.5); RDW Standard Deviation 47.6 fL (36.4-46.3); Red Blood Count 2.93 M/uL (4.2-5.4); White Blood Count 8.31 K/uL (4.8-10.8)
--- NOTE | 2020-11-19 06:47 | Hospitalist Progress Note ---
Date of Service November 19, 2020 Assessment & Plan (1) ANTHONY (acute kidney injury): (2) Anuria: (3) Ureterolithiasis: (4) Hyponatremia: (5) Stage 4 pressure ulcer: Plan: (1) ANTHONY (acute kidney injury) secondary to ureterolithiasis in setting of solitary kidney: Presents with an anurea in the setting of chronic indwelling Irene catheter, No abdominal pain or fevers -creatinine 3.85 on admission from baseline of 1.0 in 07/2020. -Initially given Normosol 500 mL bolus, switched to half-normal saline +150 M EQ of sodium bicarbonate at 80mls/hr, currently Sodium Bicarbonate 150 Meq in Dextrose 1150mls @ 50mls/hr, discontinued 11/19 -Consulted nephrology- no further recommendations, will continue to follow -Urology consulted 11/16, ureteral stent placed appropriately, mild drainage during procedure -Repeat CT scan s/p procedure: 7mm stone fragments within stent and other nonobstructing fragments in ureter, suspected osteomyelitis of sacral ulcer -Cr not improved by 11/17 following procedure. Discussed case with urology who states that it could take 2-3 days for the kidney to function appropriately again. In 2-3 days, if Cr and urine output do not improve, it would be due to renal failure due to prolonged hydronephrosis secondary to ureteral stone versus post renal obstruction. Depending on the results, options would include a nephrostomy tube versus comfort measures and hospice care. For now, patient is on a minimal rate of fluids to enhance intravascular volume for optimal kidney function while avoiding volume overload since urine output is minimal to none. Plan and course of treatment discussed in detail with patient's and sister (POA). Sister is very understanding of the situation. -Patient adamant that she would not want dialysis if renal function worsens, patient has declined PCN -Follow serial BMP, urine output 24ml -Creatinine 3.74 --> 4.14 --> 4.07, BUN 89--> 92 -->97, worsening -morphine, ativan ordered for pain control, dyspnea, agitation (2) Pleural Effusion - R sided pleural effusion found on xray, pt O2 92% on 2L NC - discussed oxygen v. morphine v.thoracentesis for symptom management, will discuss further with patient - continue to monitor (3) Ureterolithiasis: As above, with 10 mm stone in the right mid ureter with hydroureteronephrosis -consulted Urology, stent placed successfully 11/16 (4) Hyponatremia secondary to renal failure: Sodium 125 on admission. Fortunately is mentating quite well. -Correct obstructive uropathy as above -Follow serial BMP; Na 124-->122 (5) Anuria As above, secondary to ureterolithiasis with solitary kidney (6) Metabolic acidosis: Secondary to renal failure as above Follow serial BMP Bicarbonate drip discontinued 11/19 (7) Hypothyroidism: TSH normal at 2.2 and 07/2020 -home levothyroxine ordered, patient refusing oral medication (8) Chronic indwelling Irene catheter: Secondary to neurogenic bladder Exchanged at the custodial prior to admission Irene replaced s/p ureteral procedure (9) Anemia: Hemoglobin on admittion 9.4, MCV normal. 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 Liver appears normal. -Phosphorous 5.7 -GGT 73 (11) Leukocytosis: WBC count elevated on admission at 12.4 --> currently 8.31 Collect UA once able to obtain urine during urological procedure; minimal urine output unable to obtain -started on ceftriaxone 2000mg in dextrose 70mls@ 140 mls/hr q24 (12) Pressure ulcer of coccygeal region, stage 3, suspected osteomyelitis Longstanding, has been stage III-IV in the past, follows with wound care center, Was to have wound VAC placed but unable to due to macerated skin around the edges at most recent visit on 11/10 - Continue wound care dressings and consult wound care nurse, Offload pressure -CT suspects osteomyelitis of sacral ulcer, started IV Rocephin, consider MRI w/ patient consent -Discussed onset of osteomyelitis and future course of long time antibiotics for treatment as a surgical option it not likely due to location (13) GERD (gastroesophageal reflux disease): - PPI ordered, patient refusing oral medication (14) Corneal ulcer: Continue Systane eyedrops and ointment as she is unable to close her lid Of note, does have a piece of gold in her lid to help weight it down (15) DVT prophylaxis: SQ Heparin (16) Solitary kidney, acquired: Left kidney removed and 2013 for stone related issues Disposition- continue to monitor, heading toward comfort care DNR/DNI as per discussion with patient and her sister who is her healthcare power of privacy attorney at the bedside Admission and Anticipated Discharge Date Admission Date: November 16, 2020 Supervising Physician Co-Signing Physician Notes I personally examined the patient and verified all ramirez points of history and exam, discussed case, and agree with decision making with Dr Souza. Still no urine output. New oxygen requirement. Chest x-ray noted. Extensive discussions with patient, and then with patient/POA (sister), in regards to nephrostomy tube, overall prognosis, etc. After lengthy and careful discussions, patient and sister arrived at the conclusion that she would not want to be transferred for nephrostomy tube. Still definitely would not want dialysis. Patient herself seems most concerned about any discomfort in the dying process. Trend of her detailed/concrete explanations, and reassurance as best I was able, discussed ongoing uncertainty on the low but not impossible likelihood of recovery of kidney function even at this point. Vitals noted, in general she is awake and alert pleasant no distress. Mentally she is coherent/expresses good understanding/asks good questions, clearly has capacity to understand her situation. HEENT normocephalic atraumatic mucous membranes moist. Breathing unlabored and no accessory muscle use, but now on 2 L nasal cannula. Unfortunately minimal to no urine in her Irene bag. Chronic focal deficits neurologically. Acute renal failureobstructive uropathy related to ureteral lithiasis with solitary kidneystent has been placed, and unfortunately thus far we have seen no meaningful signs of renal recovery. See abovewe had extensive discussions about possible next steps. Discussed the potential of placing a nephrostomy tube on the chance that the current stent is simply malfunctioning/still obstructed by the stone, but we also discussed that it was not very likely that this was the case, given all available data. Patient considered her options very carefully asked very good questions, probably 45 minutes spent in discussionfirst initially just myself/Dr. Souza/the patient, and then after we had had further discussions, she noted that she wanted to be able to discuss with her sisterso we then had a conversation with the 4 of us on speaker phone. Later I had a conversation with the patient's sister in running into her in the hospital, she is at peace with the decision, and Dr. Souza had a good discussion with patient/family in the room. For now we will continue expectant management, but when/if her respiratory status were to worsen, we will treat for comfort as the primary goal. Sacral ulcer with osteomyelitismore than likely the source of her elevated alk phosRocephin, local wound care. Discussed that this would be very difficult to heal, given the severity of the situation and that offloading appears to be nearly impossible with her bedbound weakness. Depending on how the situation goes with her renal failure, if she is doing well enough to tolerate/if ongoing management of the sacral ulcer is still an option, then would consider MRI to further assess. Her sister/POA very wisely pointed out to the patient that this is no small problem, nearly unfixable given the patient's other comorbidities, and even if good luck got her out of the situation with her obstructive uropa thy, she would still be left with this in Twan's problem to deal with as well. Otherwise as above. Personally spent probably about 45 to 60 minutes in the roomapproximately 11:45 AM to 12:45 PM specifically for [id number] discussions and assisting in decision making. Subjective 80yo female seen at bedside, calm comfortable cooperative. She understands that her kidney function and urine production have not overall improved, and that she is approaching her end of life. Patient is adamant that she does not want dialysis, she understands what dialysis could do for her and what will happen should she not have it performed. Discussed the option of PCN with patient, patient understands that the likelihood of this procedure improving her con dition is very small. After speaking with her sister (DULCE) and discussing the risks and benefits of the procedure, patient decided not to pursue PCN and will stay in [facility]. Discussed recent chest xray with patient showing pulmonary effusion, patient understands how this relates to her current kidney failure and new onset mild hypoxia. Patient asked about the amount of time she had left and if it would be like falling asleep, she understands that she may decline over the course of a few weeks, she may experience AMS or hypoxia towards her end of life, she understands that those symptoms can be managed in the hospital. Patient asked about her chances of recovery, she understands based on her current prognosis that her chances are low but we will continue to monitor her. Discussed patient prognosis with family members in afternoon as well. Family understands that her chances of recovery are low and that we will continue to monitor her but prioritize comfort care. Family understands that she will likely continue to decline over the next few weeks. Per nurse patient had 25ml urine output last night, refusing oral medication. Patient pocketed one bite of steak brought in from family, refused dinner tray. Patient is drinking sips of powerade and booster. Review of Systems Review of Systems: Negative fever chills Negative headache dizziness Negative chest pain palpitations SOB Negative nausea vomitting diarrhea constipation Negative numbness tingling rash swelling Physical Exam Physical Exam: General: immobile with b/l foot support, in no acute distress Heart: RRR, +S1 S2, no murmurs/gallops/rubs Lungs: poor inspiratory effort, no wheezes/rales/rhonchi Abd: mildly distended, nontender, +BS Extremities: no swelling, quadraplegic HEENT: left facial droop, corneal scar on left eye Results & Data Results & Data ([facility]) Vital Signs (Past 12 Hours) Vital Signs Temp Pulse Pulse Resp BP Pulse Ox 11/19/20 04:00 36.4 C L 78 18 173/94 H 92 11/19/20 00:41 78 162/82 H 90 11/18/20 23:00 36.5 C 82 18 176/78 H 90 11/18/20 22:20 79 11/18/20 19:00 36.3 C L 78 18 169/91 H 94 Laboratory Results 11/19/20 11/19/20 Range/Units 06:03 06:03 WBC 8.31 (4.8-10.8) K/uL RBC 2.93 L (4.2-5.4) M/uL Hgb 8.4 L (12.0-16.0) g/dL Hct 24.3 L (37-47) % MCV 82.9 (80-100) fL MCH 28.7 (25-34) pg MCHC 34.6 (32-36) g/dL RDW Std Deviation 47.6 H (36.4-46.3) fL RDW Coeff of Oliva 15.7 H (11.5-14.5) % Plt Count 238 (130-400) K/uL MPV 9.9 (7.4-10.4) fL Immature Gran % (Auto) 0.4 % Neut % (Auto) 82.3 % Lymph % (Auto) 10.8 % Craig % (Auto) 6.3 % Eos % (Auto) 0.1 % Baso % (Auto) 0.1 % Neut # (Auto) 6.84 H (1.4-6.5) K/uL Lymph # (Auto) 0.90 L (1.2-3.4) K/uL Craig # (Auto) 0.52 (0.11-0.59) K/uL Eos # (Auto) 0.01 (0-0.5) K/uL Baso # (Auto) 0.01 (0-0.2) K/uL Immature Gran # (Auto) 0.03 H (0.00-0.02) K/uL Sodium 122 L (136-145) mmol/L Potassium 4.6 (3.5-5.1) mmol/L Chloride 84 L (98-107) mmol/L Carbon Dioxide 24 (21-32) mmol/L Anion Gap 14.0 H (3-11) BUN 97 H (7-18) mg/dl Creatinine 4.07 H (0.6-1.2) mg/dl Est Cr Clr Drug Dosing 13.1 ml/min Est GFR ( Amer) 11.3 ml/min Est GFR (Non-Af Amer) 9.7 ml/min BUN/Creatinine Ratio 23.9 H (10-20) Glucose 87 (70-99) mg/dl Calcium 8.2 L (8.5-10.1) mg/dl Diagnostic Findings Retrograde Pyelogram 11/16/20 19:32 FL KUB CLINICAL HISTORY: RIGHT CYSTO/STENT COMPARISON STUDY: Abdomen and pelvis CT 11/16/2020. FLUOROSCOPY TIME: 17 seconds. FINDINGS: 2 fluoroscopic spot images of the abdomen and pelvis demonstrate a right ureteral stent which appears in good position. There is contrast within the dilated right renal collecting system. IMPRESSION: Fluoroscopy provided for right ureteral stent placement which appears in good position. ACT 112: Negative or not required by law. Electronically signed by: Anthony Gonzalez M.D. 11/17/2020 7:47 AM Abdomen/Pelvis CT 11/17/20 11:33 CT SCAN OF THE ABDOMEN AND PELVIS WITHOUT IV CONTRAST CLINICAL HISTORY: Right ureteral stent placement. COMPARISON STUDY: Abdominal CT performed yesterday 11/16/2020. Pelvic MRI dated 10/03/2020. TECHNIQUE: CT scan of the abdomen and pelvis is performed from the lung bases to the proximal femora. Images are reviewed in the axial, sagittal, and coronal planes. IV contrast was not administered for this examination. A dose lowering technique was utilized adhering to the principles of ALARA. The Examination is significantly degraded by motion artifact, and by streak artifact from the arms which could not be elevated above the abdomen or pelvis. CT DOSE: 2395.43 mGy.cm FINDINGS: Lung bases: Advanced atherosclerotic calcification is noted in the thoracic aorta. The heart is normal in size noting a small pericardial effusion. The coronary arteries are densely calcified. There are right larger than left pleural effusions with bibasilar consolidation. Liver: Evaluation of the liver is significantly degraded by streak artifact. The unenhanced liver is grossly normal in size, contour, and attenuation. There is no intrahepatic biliary ductal dilatation. Gallbladder: Calcification of the gallbladder wall is unchanged. Spleen: Normal in size and attenuation. Pancreas: The unenhanced pancreas is atrophic and grossly unremarkable. Adrenal glands: Nodularity of the adrenal glands is unchanged. Kidneys: The left kidney is surgically absent. The right kidney demonstrates cortical atrophy. There are small nonobstructing right renal calculi. These are not well evaluated due to the presence of contrast within the right renal collecting system. A right vesicoureteral stent is in appropriate position. A 7 mm calculus or calculi is identified within the right ureter along the course of the stent on image #235. This is at the level of L4. No additional right ureteral stones are seen. Abdominal vasculature: The abdominal aorta is normal in course and caliber noting advanced atherosclerotic calcification. Bowel: There is significant wall thickening involving the rectosigmoid colon with mild surrounding infiltration. No bowel obstruction is identified. The appendix is not visualized. Peritoneum: There is no intraperitoneal free air or abdominal ascites. Lymphadenopathy: There are numerous mildly enlarged retroperitoneal lymph nodes. These measure up to 12 mm in short axis. Pelvic viscera: The bladder is decompressed and a Irene catheter and not well assessed. The uterus is normal as visualized. A vaginal pessary is in place. No adnexal lesion is seen. Skeletal structures: The skeletal structures are heterogeneously osteopenic. There is advanced lumbosacral spondylosis and scoliosis. No lytic or blastic lesions are seen. Soft tissues: A sacral decubitus ulcer is again noted. Osteomyelitis of the sacrum is suspected. IMPRESSION: 1. Significantly streak and motion compromised examination. 2. A right vesicoureteral stent is in appropriate position. 3. A 7 mm calculus/stone fragments is seen within the right ureter along the course of the stent as above. 4. There are additional nonobstructing right renal calculi. These are not well evaluated due to the presence of contrast within the right renal pelvis. 5. Right larger than left pleural effusions with bibasilar consolidation. 6. There is a large sacral decubitus ulcer, likely with associated osteomyelitis of the underlying sacrum. This was better assessed on the recent pelvic MRI. 7. There is wall thickening involving the rectosigmoid colon with surrounding infiltration. Correlate clinically for evidence of a proctocolitis. 8. Porcelain gallbladder. 9. Mildly enlarged retroperitoneal lymph nodes are nonspecific and unchanged. 9. Additional findings as above. ACT 112: Negative or not required by law. Electronically signed by: Phoenix Diego M.D. 11/17/2020 1:34 PM Chest X-Ray 11/19/20 07:47 TWO VIEW CHEST CLINICAL HISTORY: Hypoxia. FINDINGS: AP and crosstable lateral chest radiographs are compared to study dated 05/11/2019 and correlated with abdominal CT dated 11/17/2020. The AP views degraded by patient rotation. The cardiomediastinal silhouette is unremarkable. There is pulmonary vascular congestion. Bilateral airspace opacities likely represent interstitial edema. There are small left and moderate right pleural effusions with bibasilar consolidation. There is no pneumothorax. The skeletal structures are osteopenic. The bony thorax appears intact. IMPRESSION: 1. There is evidence of congestive failure. Bilateral airspace opacities likely represent pulmonary edema. Correlate clinically for evidence of a superimposed infectious/inflammatory pneumonitis. 3. Right larger than left pleural effusions with bibasilar consolidation. ACT 112: Negative or not required by law. Electronically signed by: Phoenix Diego M.D. 11/19/2020 10:19 AM Renal Ultrasound 11/19/20 08:00 RENAL ULTRASOUND CLINICAL HISTORY: oliguric, r hydro, absent left kidney COMPARISON STUDY: CT of the abdomen and pelvis November 17, 2020. TECHNIQUE: Sonography of the kidneys and the urinary bladder was performed. FINDINGS: This exam is compromised by difficulty positioning. The left kidney is surgically absent. The right kidney is echogenic. Right ureteral stent shown on CT of November 17, 2020 is not visualized on this exam. Mild right hydronephrosis has slightly improved. Bladder is collapsed, containing a Irene catheter. The right ureteral stone/fragment shown on CT is not evident by sonography. IMPRESSION: 1. Mild right hydronephrosis, likely improved since CT of November 17, 2020. 2. Surgically absent left kidney. 3. Echogenic right kidney. ACT 112: Negative or not required by law. Electronically signed by: Toni James M.D. 11/19/2020 7:04 AM Medications Administered Current Inpatient Medications Acetaminophen (Acetaminophen 325 Mg Tab) 650 mg PO Q4H PRN PRN Reason: Pain or Fever Stop: 12/16/20 23:39 Artificial Tears (Artificial Tears) 2 drops OP TID [facility] Stop: 12/17/20 08:59 Last Admin: 11/19/20 14:48 Dose: 2 drops Documented by: Heparin Sodium (Porcine) (Heparin Sod 5,000 Unit/0.5 Ml Vial) 5,000 units SQ Q12 [facility] Stop: 12/16/20 23:39 Last Admin: 11/19/20 11:03 Dose: 5,000 units Documented by: Ceftriaxone Sodium 2,000 mg/ (Dextrose) 70 mls @ 140 mls/hr IV Q24H [facility]; Protocol Stop: 11/24/20 15:59 Last Infusion: 11/19/20 16:57 Dose: Infused Documented by: Levothyroxine Sodium (Levothyroxine Sodium 75 Mcg Tablet) 75 mcg PO DAILYBB [facility] Stop: 12/17/20 06:29 Last Admin: 11/19/20 06:23 Dose: Not Given Documented by: Pantoprazole Sodium (Pantoprazole 40 Mg Tab) 40 mg PO QAM [facility] Stop: 12/17/20 08:59 Last Admin: 11/19/20 11:04 Dose: Not Given Documented by: Resident Activity Tracking Resident Involvement: Resident Care Provided Care Provided: Adult Hospital Medicine (1) Stage 4 pressure ulcer Pressure injury location: sacral region Qualified Code(s): L89.154 - Pressure ulcer of sacral region, stage 4
[2020-11-19 06:57] LABS: BUN Creatinine Ratio 23.9 (10-20); Calcium 8.2 mg/dl (8.5-10.1); Creatinine Clr Calc Pharmacy 13.1 ml/min; Est GFR (African American) 11.3 ml/min; Est GFR (Non-African American) 9.7 ml/min; Potassium 4.6 mmol/L (3.5-5.1)
--- NOTE | 2020-11-19 07:05 | Ultrasound Report ---
RENAL ULTRASOUND CLINICAL HISTORY: oliguric, r hydro, absent left kidney COMPARISON STUDY: CT of the abdomen and pelvis November 17, 2020. TECHNIQUE: Sonography of the kidneys and the urinary bladder was performed. FINDINGS: This exam is compromised by difficulty positioning. The left kidney is surgically absent. T he right kidney is echogenic. Right ureteral stent shown on CT of November 17, 2020 is not visualized o n this exam. Mild right hydronephrosis has slightly improved. Bladder is collapsed, containing a Fole y catheter. The right ureteral stone/fragment shown on CT is not evident by sonography. IMPRESSION: 1. Mild right hydronephrosis, likely improved since CT of November 17, 2020. 2. Surgically absent left kidney. 3. Echogenic right kidney. ACT 112: Negative or not required by law. Electronically signed by: Toni James M.D. 11/19/2020 7:04 AM
--- NOTE | 2020-11-19 10:21 | XRay Report ---
TWO VIEW CHEST CLINICAL HISTORY: Hypoxia. FINDINGS: AP and crosstable lateral chest radiographs are compared to study dated 05/11/2019 and corre lated with abdominal CT dated 11/17/2020. The AP views degraded by patient rotation. The cardiomediast inal silhouette is unremarkable. There is pulmonary vascular congestion. Bilateral airspace opacities likely represent interstitial edema. There are small left and moderate right pleural effusions with bibasilar consolidation. There is no pneumothorax. The skeletal structures are osteopenic. The bony thorax appears intact. IMPRESSION: 1. There is evidence of congestive failure. Bilateral airspace opacities likely represent pulmonary e robert. Correlate clinically for evidence of a superimposed infectious/inflammatory pneumonitis. 3. Right larger than left pleural effusions with bibasilar consolidation. ACT 112: Negative or not required by law. Electronically signed by: Phoenix Diego M.D. 11/19/2020 10:19 AM
[2020-11-19] MEDS: HEPARIN SOD 5,000 UNIT/0.5 ML VIAL SQ SCH ×2 (11:03→19:53)
[2020-11-19] MEDS: PANTOprazole 40 MG TAB PO SCH (11:04)
[2020-11-19] MEDS: ARTIFICIAL TEARS OP SCH ×3 (11:04→19:54)
--- NOTE | 2020-11-19 12:06 | Nephrology Progress Note ---
Date of Service November 19, 2020 Assessment & Plan (1) ANTHONY (acute kidney injury): (2) Solitary kidney, acquired: (3) Hyponatremia: (4) Anuria: Plan: ANTHONY related to obstructive nephropathy. Remains notably oliguric despite ureteral stent. Some hydronephrosis persists and creatinine is stable; this suggests some probability of renal recovery with PCN. However, prognosis remains guarded. Even with PCN, there is a chance that we will not seen significant renal recovery. Beverly has appropriate reservations regarding the burden of the intervention and she is understanding that risks/benefits are not exactly clear. She has refused dialysis with the understanding that it would not likely improve the quality of her life or significantly extend her life. Because of frailty and other medical comorbidities, most interventions are not likely to improve quality or quantity of life. Volume status reasonable. IV NaHCO3 infusion stopped this AM. Trials of IV diuretics may be provided PRN for symptomatic volume overload. Medications are appropriately dosed for kidney dysfunction. No additional recommendations at this time. Admission and Anticipated Discharge Date Admission Date: November 16, 2020 Subjective No acute events overnight. UOP ~100 ml in past 24 hours. Beverly feels reasonably well this AM. She had very appropriate questions regarding what from kidney failure is like. She also asked me to talk to her sister (Haleigh). I spoke to Peg on the phone. We discussed Beverly kidney dysfunction, the possibility of renal recovery without additional intervention and potential risks/benefits of PCN placement. Haleigh is planning to meet with the hospitalist team this afternoon to review goals of care and the overall plan of care. She expressed concerns regarding risks of the procedure, burden of care, and especially risk of infection. Her primary concern is not wanting Beverly to suffer, especially at the end of life. Peg expressed understanding that we cannot say definitely whether there could be renal recovery without percutaneous drain placement but there has been no evidence of renal recovery at this time and oliguria persists despite ureteral stent. Review of Systems Review of Systems: All systems reviewed & are unremarkable except as noted in HPI & below Physical Exam Constitutional: + physical limitations (functional quadraplegia) and + frail appearing; no acute distress Eyes: + anicteric sclerae and + corneal abnormality ENMT: Ears: + hearing impairment Mouth: oral mucous membranes not dry Neck: trachea midline Respiratory: normal respiratory effort Auscultation: lungs clear to auscultation bilaterally Cardiovascular: Heart Sounds: normal S1 and normal S2 Extremities: normal capillary refill; no edema Gastrointestinal (Abdomen): Inspection/Auscultation: + abdomen distended Percussion/Palpation: abdomen soft; abdomen nontender Musculoskeletal: Extremities: + joint enlargement and + abnormal strength; no cyanosis Skin: + turgor decreased Neurologic: awake; not confused Speech / Cognition: + abnormal speech Motor/Sensory: no tremor and no asterixis Results & Data ([facility]) Vital Signs (Past 12 Hours) Vital Signs Temp Pulse Pulse Resp BP BP Pulse Ox 11/19/20 11:31 35.6 C L 78 18 182/93 H 96 11/19/20 07:29 77 11/19/20 07:18 36.4 C L 78 18 191/108 H 90 11/19/20 04:00 36.4 C L 78 18 173/94 H 92 11/19/20 00:41 78 162/82 H 90 Laboratory Results Laboratory Results - last 24 hr 11/19/20 11/19/20 06:03 06:03 WBC 8.31 RBC 2.93 L Hgb 8.4 L Hct 24.3 L MCV 82.9 MCH 28.7 MCHC 34.6 RDW Std Deviation 47.6 H RDW Coeff of Oliva 15.7 H Plt Count 238 MPV 9.9 Immature Gran % (Auto) 0.4 Neut % (Auto) 82.3 Lymph % (Auto) 10.8 Eagle % (Auto) 6.3 Eos % (Auto) 0.1 Baso % (Auto) 0.1 Neut # (Auto) 6.84 H Lymph # (Auto) 0.90 L Eagle # (Auto) 0.52 Eos # (Auto) 0.01 Baso # (Auto) 0.01 Immature Gran # (Auto) 0.03 H Sodium 122 L Potassium 4.6 Chloride 84 L Carbon Dioxide 24 Anion Gap 14.0 H BUN 97 H Creatinine 4.07 H Est Cr Clr Drug Dosing 13.1 Est GFR ( Amer) 11.3 Est GFR (Non-Af Amer) 9.7 BUN/Creatinine Ratio 23.9 H Glucose 87 Calcium 8.2 L PG Care Time/CCT Total # of Minutes Spent Total Time Spent with Patient: Total time spent is greater than 50% in coordination of care (as documented) at patient's floor/unit and/or counseling patient: 45 minutes Coding Level of Care Code 95444 Subseq Hosp Care Lvl 3 Diagnoses ANTHONY (acute kidney injury) N17.9 Solitary kidney, acquired Z90.5 Hyponatremia E87.1 Anuria R34
[2020-11-19] MEDS: cefTRIAXone SODIUM 2,000 MG in DEXTROSE 5% 50 ML IV SCH (16:25)
--- NOTE | 2020-11-19 17:34 | Billing Data ---
Date of Service November 19, 2020 Coding Level of Care Code 86546 Subseq Hosp Care Lvl 3
--- NOTE | 2020-11-19 17:35 | Billing Data ---
Date of Service November 19, 2020 Coding Level of Care Code 43963 Prolonged Care (int'l)
--- NOTE | 2020-11-19 17:57 | Urology Progress Note ---
Date of Service November 19, 2020 Assessment & Plan (1) Ureterolithiasis: (2) ANTHONY (acute kidney injury): (3) Solitary kidney, acquired: Plan: Stent is in good position on CT yesterday but there is mild hydronephrosis confirmed again today on STORM. I explained to the patient that her kidney function is stable today. We are going to hold off on PCN placement. She understands that placement of a PCN may not improve her renal function. Recheck BMP in the AM. Patient is stable at this time. Again consider PCN for worsening function Admission and Anticipated Discharge Date Admission Date: November 16, 2020 Subjective Patient today is resting comfortably. She had a STORM with mild hydronephrosis. Crystalizer Operator is slightly lower today and at least has not climbed. She reports feeling tired. Occasional SOB Review of Systems Review of Systems: per HPI, otherwise negative Physical Exam Physical Exam: NAD left facial droop nomobility of extremities soft scant brown/yellow urine in the bag ext with edema Results & Data ([facility]) Vital Signs (Past 12 Hours) Vital Signs Temp Pulse Pulse Resp BP BP Pulse Ox 11/19/20 15:32 36.3 C L 82 18 192/84 H 97 11/19/20 11:31 35.6 C L 78 18 182/93 H 96 11/19/20 07:29 77 11/19/20 07:18 36.4 C L 78 18 191/108 H 90 PG Care Time/CCT Total # of Minutes Spent Total Time Spent with Patient: Total time spent is greater than 50% in coordination of care (as documented) at patient's floor/unit and/or counseling patient: Coding Level of Care Code 47732 Subseq Hosp Care Lvl 2 Diagnoses Ureterolithiasis N20.1 ANTHONY (acute kidney injury) N17.9 Solitary kidney, acquired Z90.5
[2020-11-19] MEDS ORDERED: MoRPHine SULFATE 2 MG/ML CARP IV PRN (18:19)
[2020-11-19] MEDS ORDERED: LORazepam 0.5 MG/1 ML VIAL IV PRN (18:25)
[2020-11-20] MEDS: LEVOTHYROXINE SODIUM 75 MCG TABLET PO SCH (06:22)
[2020-11-20] MEDS ORDERED: LORazepam 0.5 MG/1 ML VIAL IV PRN ×2 (08:52→11:28)
[2020-11-20] MEDS ORDERED: LORazepam 0.5 MG TAB PO PRN (08:52)
[2020-11-20] MEDS ORDERED: ONDANSETRON 4 MG OD TAB SL PRN (08:52)
--- NOTE | 2020-11-20 08:52 | Hospitalist Progress Note ---
Date of Service November 20, 2020 Assessment & Plan (1) Solitary kidney, acquired: Plan: Beverly Cuadra is 80y/o F with PMH significant for sacral decubitus ulcer, functional quadriplegia, left facial droop, solitary kidney s/p nephrectomy for nephrolithiasis; who presents for concerns of no urine output in the preceding several days. Acute Renal Failure: -s/p ureteral stenting on 11/16 for -patient with solitary kidney s/p nephrectomy -transitioning to comfort measures based off patient desire for reduction in pain -palliative/case management consulted for potential hospice locations/set-up Diet: comfort as tolerated CODE STATUS: DNR/DNI (2) Ureterolithiasis: (3) Renal failure: (4) Functional quadriplegia: (5) Pressure ulcer of coccygeal region, stage 3: (6) Chronic indwelling Irene catheter: Admission and Anticipated Discharge Date Admission Date: November 16, 2020 Supervising Physician Co-Signing Physician Notes Resident Physician Supervision Note: I independently interviewed and examined the patient and verified the ramirez history and physical, reviewed labs and image studies and agree with resident Dr. Betancourt findings and care plan. Subjective Extensive discussions with patient and family regarding care and goals. Patient expressed desire to stop continued measures with hopes of remaining comfortable. Stating "I just want to without pain." Review of Systems Review of Systems: All systems reviewed & are unremarkable except as noted in Subjective Physical Exam Constitutional: + ill appearing; + uncomfortable ENMT: Mouth: + dry oral mucous membranes Respiratory: normal respiratory effort; no respiratory distress and no labored breathing Cardiovascular: Rate/Rhythm: regular rate Heart Sounds: no gallop, no murmur and no cardiac rub Psychiatric: Orientation: alert and oriented to person Affect: + anxious affect Insight: good insight Judgement: good judgement Results & Data Results & Data ([facility]) Vital Signs (Past 12 Hours) Vital Signs Pulse Resp BP BP Pulse Ox 11/20/20 07:25 66 18 156/76 H 98 11/19/20 22:52 71 18 171/90 H 181/102 H 97 Medications Administered Current Inpatient Medications Acetaminophen (Acetaminophen 325 Mg Tab) 650 mg PO Q4H PRN PRN Reason: Pain or Fever Stop: 12/16/20 23:39 Artificial Tears (Artificial Tears) 2 drops OP TID BABAR Stop: 12/17/20 08:59 Last Admin: 11/19/20 19:54 Dose: 2 drops Documented by: Heparin Sodium (Porcine) (Heparin Sod 5,000 Unit/0.5 Ml Vial) 5,000 units SQ Q12 [facility] Stop: 12/16/20 23:39 Last Admin: 11/19/20 19:53 Dose: 5,000 units Documented by: Ceftriaxone Sodium 2,000 mg/ (Dextrose) 70 mls @ 140 mls/hr IV Q24H [facility]; Protocol Stop: 11/24/20 15:59 Last Infusion: 11/19/20 16:57 Dose: Infused Documented by: Lorazepam (Ativan) 0.5 mg in 1 mls @ 1 mls/min IV Q4H PRN PRN Reason: Anxiety/Agitation Stop: 12/20/20 08:51 Levothyroxine Sodium (Levothyroxine Sodium 75 Mcg Tablet) 75 mcg PO DAILYBB [facility] Stop: 12/17/20 06:29 Last Admin: 11/20/20 06:22 Dose: Not Given Documented by: Lorazepam (Lorazepam 0.5 Mg Tab) 0.5 mg PO Q4H PRN PRN Reason: Anxiety/Agitation Stop: 12/20/20 08:51 Morphine Sulfate (Morphine Sulfate 2 Mg/Ml Carp) 1 mg IV Q1HWA PRN PRN Reason: Pain/dyspnea Stop: 12/03/20 18:18 Ondansetron HCl (Ondansetron Inj 2 Mg/Ml 2 Ml Vial) 4 mg IV Q4H PRN PRN Reason: Nausea And Vomiting Stop: 12/20/20 08:51 Ondansetron HCl (Ondansetron 4 Mg Od Tab) 4 mg SL Q4H PRN PRN Reason: Nausea And Vomiting Stop: 12/20/20 08:51 Pantoprazole Sodium (Pantoprazole 40 Mg Tab) 40 mg PO QAM [facility] Stop: 12/17/20 08:59 Last Admin: 11/19/20 11:04 Dose: Not Given Documented by: Resident Activity Tracking Resident Involvement: Resident Care Provided Care Provided: Adult Hospital Medicine
[2020-11-20] MEDS: ONDANSETRON INJ 2 MG/ML 2 ML VIAL IV PRN ×2 (09:26→22:44)
[2020-11-20] MEDS: PANTOprazole 40 MG TAB PO SCH (09:34)
--- NOTE | 2020-11-20 12:39 | Palliative Care Consultation ---
Date of Consultation November 20, 2020 Assessment & Plan (1) Pain: Generalized with additional complaints of abdominal pain. She is unable to localize abdominal pain and exam is reasonably benign. Given her renal failure, morphine would be contraindicated for pain. Will rotate to hydromorpho ne. Continue prn dosing for now and monitor. (2) Anxiety: Add lorazepam as needed. She does seem to be less anxious when pain is relieved. (3) Palliative care encounter: Mrs. Cuadra is clear that she does not want any life prolonging measures at this time. I talked with her about continuing antibiotics and her other medications as opposed to only medications for symptom relief. Her response to me was "which one is quicker". She is ready to and wants comfort medications only. Orders adjusted. I spoke with her at bedside. He is trying to feed her and we talked about her not being able to safely eat and drink due to severe weakness and debility. She was able to tell him that she does not feel hungry and does not want food. He is very anxious and while he appears to accept her wishes, he is having a very difficult time with the idea of her dying. Palliaitve care will follow. (4) Renal failure: (5) Functional quadriplegia: (6) Obstructed, uropathy: (7) Failure to thrive: Failure to thrive age range: in adult Qualified Code(s): R62.7 - Adult failure to thrive History of Present Illness Reason for Consultation: comfort care Requesting Physician: Dr. Betancourt Attending Physician: Ashli Matias MD History of Present Illness 80 yo lady with a history of schwannoma excision in 2006 who has residual quadriplegia. She also has a chronic sacral decubitus ulcer. She was t r[facility]ferred from [facility] for acute kidney injury and found to have obstructive uropathy with a solitary kidney. She is being seen by urology and had stent placement. She has been anuric despite intervention with creatinine of 4.07 and GFR of 9.7. Of note, she also has an albumin of 1.7. She has been refusing further intervention, including dialysis. I met with her and her at bedside and she tells me that she wants to . She has been complaining of abdominal pain and pain "all over" today and did receive one dose of IV morphine with some relief. She is drowsy but able to answer questions appropriately and understands her current situation. Allergies Allergy/AdvReac Type Severity Reaction Status Date / Time No Known Allergies Allergy Verified 11/10/20 11:44 Home Medications Medication Instructions Recorded Confirmed Type pantoprazole 40 mg tablet,delayed 40 mg PO QAM #90 tab 06/24/19 11/16/20 Rx release (Protonix) levothyroxine 75 mcg tablet 75 mcg PO QAM #90 tab 10/13/19 11/16/20 Rx (Synthroid) methenamine hippurate 1 gram 1 g PO BID #180 tab 02/08/20 11/16/20 Rx tablet (Hiprex) cholecalciferol (vitamin D3) 50 50 mcg PO QAM 06/14/20 11/16/20 History mcg (2,000 unit) capsule (Vitamin D3) cyanocobalamin (vitamin B-12) 1,000 mcg IM MONTHLY 06/14/20 11/16/20 History 1,000 mcg/mL injection solution cyanocobalamin (vitamin B-12) 500 500 mcg PO QAM 06/14/20 11/16/20 History mcg tablet (Vitamin B-12) magnesium oxide 400 mg PO Q2D 06/14/20 11/16/20 History peg 400-propylene glycol 0.4 %-0.3 1 drp OPR BID PRN 06/14/20 11/16/20 History % eye drops (Systane Ultra) zinc 50 mg tablet 50 mg PO QAM 06/14/20 11/16/20 History carboxymethylcellulose sodium 1 % 1 drp OPHTHALMIC (EYE) TID 11/16/20 11/16/20 History eye liquid gel drops (Refresh Liquigel) nystatin 100,000 unit/gram topical 1 applic TOPICAL DAILY 11/16/20 11/16/20 History powder (Nyamyc) Patient History Medical History Acute respiratory failure Alkaline phosphatase elevation Arthritis Aspiration into respiratory tract Brain tumor Candidal intertrigo Chronic constipation Decubitus ulcer, buttock Functional quadriplegia secondary to brain tumor removal 2006 GERD (gastroesophageal reflux disease) GI bleed Hearing loss Hyperlipidemia Hypotensive syncope Nephrolithiasis Pneumonia Sepsis Sepsis due to urinary tract infection (02/28/13) Slurred speech s/p stroke Solitary kidney, acquired Vitamin B 12 deficiency Weakness of both lower limbs Wheelchair dependent Surgical History H/O brain surgery tumor removed in 2006 H/O eye surgery H/O total knee replacement History of knee replacement right 2004 History of nephrectomy, left Family History Unknown Diabetes Hypertension Chronic liver disease Mother , age 93 of heart issues Heart disease Father , age 65 of hepatic cirrhosis. Cirrhosis with alcoholism Denies family history of Prostate cancer Social History Smoking Status: Never smoker Second Hand Exposure: No; Hx Alcohol Use: No Hx Substance Use: No Preferred Language: Persian Communication Ability: Effective Visual Impairment: Severely Limited Hearing Ability: Hard of Hearing Inkjet Operator Required: No Beliefs That Will Affect Care: Voodoo Voodoo Beliefs: Yazdanism marital status: Current Living Situation: [facility] Current Living Situation Comment: Home care current occupational status: disabled Feels Safe at Home: Yes caffeine: No Physical Activity Frequency: Does not Exercise Seatbelt Use: always Assistive Devices: Oxygen - Continuous Review of Systems Review of Systems: Coyote Symptom Assessment Scale Pain 2/3 Dyspnea 0/3 Anxiety 2/3 Fatigue 3/3 Nausea 1/3 Drowsiness 1/3 Palliative Performance Score 20% Physical Exam Constitutional: + ill appearing; + uncomfortable ENMT: Mouth: + dry oral mucous membranes Respiratory: normal respiratory effort; no labored breathing Gastrointestinal (Abdomen): Inspection/Auscultation: abdomen not distended Percussion/Palpation: abdomen soft; abdomen nontender Neurologic: not confused Speech / Cognition: normal cognition functional quadriplegia Psychiatric: Affect: + anxious affect Genitourinary: Irene catheter, anuria Results & Data ([facility]) Vital Signs (Past 12 Hours) Vital Signs Pulse Resp BP Pulse Ox 11/20/20 07:25 66 18 156/76 H 98 PG Care Time/CCT Total # of Minutes Spent Total Time Spent: 70 Total Time Spent with Patient: Total time spent is greater than 50% in coordination of care (as documented) at patient's floor/unit and/or counseling patient: symptom management, goals of care, patient and family education and support Coding Level of Care Code 25261 Initial Inpt Care Lvl 3 Diagnoses Pain R52 Anxiety F41.9 Renal failure N19 Functional quadriplegia R53.2 Obstructed, uropathy N13.9 Failure to thrive R62.7 Failure to thrive age range: in adult Palliative care encounter Z51.5
[2020-11-20] MEDS: ARTIFICIAL TEARS OP SCH ×2 (14:06→22:42)
[2020-11-20] MEDS: HEPARIN SOD 5,000 UNIT/0.5 ML VIAL SQ SCH (14:07)
[2020-11-20] MEDS: HYDROmorphone INJ 0.5 MG/0.5 ML SYR IV PRN ×2 (17:27→22:41)
[2020-11-21] MEDS: HYDROmorphone INJ 0.5 MG/0.5 ML SYR IV PRN ×4 (05:49→20:55)
[2020-11-21] MEDS: ONDANSETRON INJ 2 MG/ML 2 ML VIAL IV PRN (05:49)
[2020-11-21] MEDS: ARTIFICIAL TEARS OP SCH ×3 (10:10→21:00)
--- NOTE | 2020-11-21 10:19 | Hospitalist Progress Note ---
Date of Service November 21, 2020 Assessment & Plan (1) Solitary kidney, acquired: Plan: Beverly Cuadra is 80y/o F with PMH significant for sacral decubitus ulcer, functional quadriplegia, left facial droop, solitary kidney s/p nephrectomy for nephrolithiasis; who presents for concerns of no urine output in the preceding several days. Acute Renal Failure: -s/p ureteral stenting on 11/16 for hydronephrosis secondary to nephrolithiasis -patient with solitary kidney s/p nephrectomy -transitioning to comfort measures based off patient desire for reduction in pain -palliative consulted to assist with patient comfort now with limitation of continued medical interventions Diet: comfort as tolerated CODE STATUS: DNR/DNI (2) Ureterolithiasis: (3) Renal failure: (4) Functional quadriplegia: (5) Pressure ulcer of coccygeal region, stage 3: (6) Chronic indwelling Irene catheter: Admission and Anticipated Discharge Date Admission Date: November 16, 2020 Supervising Physician Co-Signing Physician Notes Resident Physician Supervision Note: I independently interviewed and examined the patient and verified the ramirez hist ory and physical, reviewed labs and image studies and agree with resident Dr. Betancourt findings and care plan. Subjective Extensive conversations with patient's family had today regarding goals of her continued care. Patient stated that she did not want to leave the hospital during one of the brief periods of time that she was awake throughout the dis cussions. and niece at bedside expressed potential agreement with this because of her current level of sleepiness. Review of Systems Review of Systems: Unobtainable due to reduced consciousness Physical Exam Constitutional: + ill appearing and + lethargic; + uncomfortable ENMT: Mouth: + dry oral mucous membranes Respiratory: normal respiratory effort; no respiratory distress and no labored breathing Cardiovascular: Rate/Rhythm: regular rate Heart Sounds: no gallop, no mu rmur and no cardiac rub Psychiatric: Orientation: alert and oriented to person Affect: + anxious affect Insight: good insight Judgement: good judgement Resident Activity Tracking Resident Involvement: Resident Care Provided Care Provided: Adult Hospital Medicine
--- NOTE | 2020-11-21 10:45 | Hospitalist Progress Note ---
Date of Service November 21, 2020 Assessment & Plan (1) Comfort measures only status: Plan: There was a family conference on 11/19/20 with the patient being alert, decision was to move to comfort care and to stop all therapies except those guided at comfort. Her is having a hard time accepting this, her POA peg is supportive. will continue on comfort care, family expects her to in the hospital. (2) Solitary kidney, acquired: Plan: Beverly Cuadra is 80y/o F with PMH significant for sacral decubitus ulcer, functional quadriplegia, left facial droop, solitary kidney s/p nephrectomy for nephrolithiasis; who presents for concerns of no urine output in the preceding several days. Acute Renal Failure: -s/p ureteral stenting on 11/16, follow up u/s shows improved hydronephrosis -patient with solitary kidney s/p nephrectomy -transitioning to comfort measures based off patient desire for reduction in pain -palliative/case management consulted for potential hospice locations/set-up Diet: comfort as tolerated CODE STATUS: DNR/DNI (3) Ureterolithiasis: (4) Renal failure: (5) Functional quadriplegia: (6) Pressure ulcer of coccygeal region, stage 3: (7) Chronic indwelling Irene catheter: Admission and Anticipated Discharge Date Admission Date: November 16, 2020 PG Care Time/CCT Total # of Minutes Spent Total Time Spent with Patient: Total time spent is greater than 50% in coordination of care (as documented) at patient's floor/unit and/or counseling patient: Coding Level of Care Code None Diagnoses Solitary kidney, acquired Z90.5 Ureterolithiasis N20.1 Renal failure N19 Functional quadriplegia R53.2 Pressure ulcer of coccygeal region, stage 3 L89.153 Chronic indwelling Irene catheter Z92.89 Comfort measures only status Z51.5
[2020-11-21] MEDS: GLYCOPYRROLATE 0.2 MG/ML VIAL IV PRN (15:14)
[2020-11-22] MEDS: GLYCOPYRROLATE 0.2 MG/ML VIAL IV PRN ×2 (00:27→05:15)
[2020-11-22] MEDS: HYDROmorphone INJ 0.5 MG/0.5 ML SYR IV PRN (05:57)
[2020-11-22] MEDS ORDERED: ATROPINE SULFATE 1% OP SOLN 5 ML BTL OP PRN (05:58)
--- NOTE | 2020-11-22 15:29 | Discharge Summary ---
Date of Service November 22, 2020 Admission HPI Per Admitting Provider This patient is a 79-year-old female with a history of sacral decubitus ulcer, functional quadriplegia and left facial droop status post brain mass/schwannoma excision in 2006, chronic Irene catheter, solitary kidney status post nephrectomy for nephrolithiasis, facial droop status post CVA, left eye corneal ulceration and blindness, nephrolithiasis, recurrent UTI, hyperlipidemia, hypothyroidism, vitamin B12 deficiency, chronic constipation, and failure to thrive who presents to the ER from [facility] with complaint of no urine output in 1-1/2 days. Her Irene catheter was changed out and there was still no urine noted. She denies any abdominal pain or back pain. No fevers or chills. No chest pain or shortness of breath. No lightheadedness or headache. She does report seeing a little bit of blood in her urine but there was no clot noted when the catheter was flushed at the assisted as per the patient. She was unaware that she has a history of nephrolithiasis when I asked her about it. However, review of the records from 2012 shows that she was transferred out for percutaneous nephrostomy tube which then resulted in nephrectomy on the left after having an impacted 1 cm left UPJ stone. On laboratory values, she was found to have a BUN of 86, creatinine of 3.85 up from a baseline of 1.1, sodium of 125, serum bicarbonate low at 18, with an anion gap of 13, and an elevated alkaline phosphatase of 951 up from baseline in the low 200s. No urinalysis was collected as she was anuric. She had a leukocytosis of 12.4 that was with neutrophilia. Her vital signs were stable. The patient is adamant that she would not want dialysis and would want to pursue comfort measures if her renal failure worsens. She was not given any fluids and no imaging was done at the time of admission. I obtained a CT of the abdomen/pelvis without contrast which showed a 10 mm right mid ureter obstructing ureteral stone with moderate hydroureteronephrosis. Urology was contacted who will come in urgently for ureteral stent placement given acute kidney injury, anuria, and solitary kidney. She will be admitted for acute kidney injury with anuria secondary to ureterolithiasis. Principal Diagnosis acute renal failure functional quadriplegia decubitus ulcer poa Discharge Exam pt was examined was found to have no audible heart tones or spontaneous respirations and pronounced at 1050am 11/22/20 Discharge Data Allergies Allergy/AdvReac Type Severity Reaction Status Date / Time No Known Allergies Allergy Verified 11/10/20 11:44 Consultations 11/16/20 17:32 ED Decision to Admit Stat 11/16/20 18:31 Consult Nephrology Routine 11/16/20 19:56 Consult Urology Stat 11/20/20 08:52 Consult Palliative Care Routine Procedures Performed Operation Date: 11/16/20 19:30 Actual Procedures p Cystoscopy(Right) - Black Swan MD s Right ureteral stent insertion(Right) - Black Swan MD Ordered Studies 11/16/20 17:42 CT abd pelvis wo con Stat 11/16/20 19:32 FL retrograde includes kub Routine 11/17/20 11:33 CT abd pelvis wo con Stat 11/19/20 08:00 US renal/blad retro comp Routine Hospital Course (1) : Pt pronounced 1050 am 11/22/20 from acute renal failure poa pt was on comfort measures (2) Comfort measures only status: There was a family conference on 11/19/20 with the patient being alert, decision was to move to comfort care and to stop all therapies except those guided at comfort. Her is having a hard time accepting this, her POA peg is supportive. will continue on comfort care, family expected her to in the hospital. (3) Solitary kidney, acquired: Beverly Cuadra is 80y/o F with PMH significant for sacral decubitus ulcer, functional quadriplegia, left facial droop, solitary kidney s/p nephrectomy for nephrolithiasis; who presents for concerns of no urine output in the preceding several days. the remainder of the notation was to document the earlier hospital stay Acute Renal Failure: -s/p ureteral stenting on 11/16, follow up u/s shows improved hydronephrosis -patient with solitary kidney s/p nephrectomy -transitioning to comfort measures based off patient desire for reduction in pain -palliative/case management consulted for potential hospice locations/set-up Diet: comfort as tolerated CODE STATUS: DNR/DNI (4) Ureterolithiasis: (5) Renal failure: (6) Functional quadriplegia: (7) Pressure ulcer of coccygeal region, stage 3: (8) Chronic indwelling Irene catheter: Total Time Total Time Spent Total Time Spent (In Minutes): It required greater than 30 minutes to prepare this patient for discharge Discharge Plan Discharge Items Patient Disposition: Discharge Diagnosis: acute renal failure Addtl Attending Provider Instructions: time of 1050 am 11/22/20 Coding Level of Care Code D/C DAY MANAGEMENT >30 MINS Diagnoses Comfort measures only status Z51.5 Solitary kidney, acquired Z90.5 Ureterolithiasis N20.1 Renal failure N19 Functional quadriplegia R53.2 Pressure ulcer of coccygeal region, stage 3 L89.153 Chronic indwelling Irene catheter Z92.89 R99
== END 2020-11-22 13:52 | disposition expired | DRG 659 ==
LOC: ED 15:15 → SUATTDRO 18:31 → 2W 18:31 → 3N 11-19 17:35